=== PATIENT | female | born 1940 | race Caucasian/White ===

== ENCOUNTER → 2017-04-04 13:23 | Outpatient (CLI) | payer MEDICARE, OTHER, SELFPAY ==
[2017-04-02 15:06] VITALS: BP 134/64; BMI 34.4
[2017-04-04 15:30] LABS: AST(SGOT) 28 U/L (15-37); Alanine Aminotransfer ALT/SGPT 38 U/L (13-56); Albumin, Serum 3.7 g/dL (3.2-5.0); Alkaline Phosphatase 71 U/L (45-117); Cholesterol 239 mg/dL (200); Globulin 3.9 g/dL (2.2-4.2); High Density Lipoprotein 41 mg/dL; Protein, Total 7.6 g/dL (6.4-8.2); Triglycerides 280 mg/dL; Very Low Density Lipoprotein 56 mg/dL (5-40)
== END ==
PROVIDERS: Family Provider Family Medicine; PCP Family Medicine; Visit Provider Internal Medicine Cardiovascular Disease
DX: E78.5 Hyperlipidemia, unspecified (principal)
CPT/HCPCS: 36415; 80061; 80076

== ENCOUNTER → 2017-04-25 14:57 | Outpatient (CLI) | payer MEDICARE, OTHER, SELFPAY ==
--- NOTE | 2017-04-25 15:03 | RAD_ITS ---
STUDY: X-RAY - UNILATERAL RIBS ( RIGHT ) WITH CHEST REASON FOR EXAM: Female, 76 years old. Right posterior rib pain TECHNIQUE - RIBS: Four view(s) of the ribs. TECHNIQUE - CHEST: Single frontal view of the chest. COMPARISON: Prior comparison studies are not available for review at this time. FINDINGS - RIBS: Normal visualized ribs without a demonstrated fracture. FINDINGS - CHEST: The lungs are clear and adequately expanded. There is no demonstrated pleural abnormality. Normal size heart. Normal mediastinum and rah. Normal visualized pulmonary arteries. There is atherosclerotic calcification of the aortic arch with tortuosity. There are diffuse degenerative changes of the visualized thoracic spine. There is degenerative osteoarthritis of the bilateral shoulders. There is no demonstrated abnormality of the visualized soft tissue structures of the upper abdomen. RAD/Ribs Uni Min 3V w/PA Chest IMPRESSION: RIBS: No abnormalities are seen radiographically in the right ribs. CHEST: No significant cardiopulmonary abnormalities. Electronically Signed: Tia Smith MD at 16:20 EST Tel Direct: [phone], Service support ,
== END ==
PROVIDERS: Family Provider Family Medicine; PCP Family Medicine; Visit Provider Family Medicine
DX: M54.9 Dorsalgia, unspecified (principal)
CPT/HCPCS: 71101

== ENCOUNTER → 2017-09-10 10:17 | Outpatient (CLI) | payer MEDICARE, OTHER, SELFPAY ==
[2017-09-10 11:29] LABS: AST(SGOT) 20 U/L (15-37); Alanine Aminotransfer ALT/SGPT 28 U/L (13-56); Albumin, Serum 3.8 g/dL (3.2-5.0); Alkaline Phosphatase 83 U/L (45-117); Bilirubin, Direct 0.17 mg/dL (0.00-0.30); Cholesterol 143 mg/dL (200); Globulin 3.8 g/dL (2.2-4.2); High Density Lipoprotein 43 mg/dL; Protein, Total 7.6 g/dL (6.4-8.2); Triglycerides 197 mg/dL; Very Low Density Lipoprotein 39 mg/dL (5-40)
== END ==
PROVIDERS: Family Provider Family Medicine; PCP Family Medicine; Visit Provider Internal Medicine Cardiovascular Disease
DX: E78.5 Hyperlipidemia, unspecified (principal); Z79.899 Other long term (current) drug therapy
CPT/HCPCS: 36415; 80061; 80076

== ENCOUNTER → 2017-10-07 06:36 | Outpatient (CLI) | payer MEDICARE, OTHER, SELFPAY ==
--- NOTE | 2017-10-07 13:58 | STRESSREP ---
Stress Test Report Date: 10/07/2017 Procedure: Pharmacologic stress nuclear imaging study Indications: Chest pain; CAD; PCI Consent: Per the patient Procedure: The patient underwent pharmacologic (Regadenoson) evaluation with a peak heart rate of 100 beats per minute (69 predicted maximal heart rate) and a peak blood pressure of 124/52 mmHg. The baseline ECG demonstrated normal sinus rhythm; nonspecific ST and T-wave abnormality. The peak pharmacologic ECG demonstrated continued nonspecific ST and T-wave abnormality. There were no cardiac dysrhythmias pretest, during pharmacologic infusion, or recovery. There was no complaint of chest discomfort during pharmacologic infusion or recovery. The examination was discontinued secondary to completion of protocol. Impression: 1. Pharmacologic (Regadenoson) evaluation 2. Peak pharmacologic ECG with continued nonspecific ST and T-wave abnormality. 3. There were no cardiac dysrhythmias pretest, during pharmacologic infusion, or recovery 4. Nuclear images pending Myocardial perfusion imaging study: Technique: The patient was injected with 10.8 millicuries of technetium 99m Cardiolite and subsequently rest SPECT Cardiolite nuclear imaging was obtained in the horizontal long, vertical long, and short axis views. The patient underwent pharmacologic (Regadenoson) evaluation with a peak heart rate of 100 beats per minute (69 % percent predicted maximal heart rate) and a peak blood pressure of 124/52 mmHg. The patient was injected with 31.9 millicuries of technetium 99m Cardiolite and subsequently stress SPECT Cardiolite nuclear imaging was obtained in the horizontal long, vertical long, and short axis views. A gated Cardiolite study at peak stress was obtained. Interpretation: Rest and stress SPECT Cardiolite nuclear imaging status post realignment, normalization, and attenuation correction demonstrate relative uniform tracer uptake and myocardial perfusion appearing within normal limits. There is end systolic thickening and brightening. The gated Cardiolite study demonstrates myocardial thickening and inward wall motion. The reported LVEF is a 85 %. Impression: 1. Rest and stress SPECT Cardiolite nuclear imaging demonstrate relative uniform tracer uptake and myocardial perfusion appearing within normal limits. 2. The gated Cardiolite study reports an LVEF of 85 %. This note was generated with Zinc softwareation software. It may contain incorrect words, spelling, and punctuation that were not noted in checking the note before signing.
== END ==
PROVIDERS: Family Provider Family Medicine; PCP Family Medicine; Visit Provider Nurse Practitioner Family
DX: R07.89 Other chest pain (principal); I25.10 Atherosclerotic heart disease of native coronary artery without angina pectoris; R53.83 Other fatigue; R06.00 Dyspnea, unspecified; Z95.5 Presence of coronary angioplasty implant and graft
CPT/HCPCS: 78452; 93017; A9500; A4216; J2785

== ENCOUNTER → 2017-11-19 13:44 | Outpatient (CLI) | payer MEDICARE, OTHER, SELFPAY ==
--- NOTE | 2017-11-19 14:16 | RAD_ITS ---
STUDY: X-RAY CHEST REASON FOR EXAM: Female, 76 years old. Chest pain. Preop for cardiac pacemaker. TECHNIQUE: PA and lateral views of the chest. COMPARISON: Frontal chest x-ray included with rib series April 25, 2017. FINDINGS: There is minimal linear scarring in the lateral left costophrenic sulcus. The lungs are otherwise clear and expanded. There is no demonstrated pleural abnormality. Normal size heart. Normal mediastinum and rah. Normal visualized pulmonary arteries. There is stable mild atherosclerotic calcification of the aortic arch. There are stable multilevel degenerative changes of the visualized thoracic spine. There is stable degenerative osteoarthritis of the bilateral shoulders and acromioclavicular joints. There is no demonstrated abnormality of the visualized soft tissue structures of the upper abdomen. RAD/Chest PA and Lateral IMPRESSION: No acute cardiopulmonary disease. Electronically Signed: Jeffrey Morgan MD at 15:47 EDT , Service support ,
[2017-11-19 15:14] LABS: Hematocrit 40.9 % (37-47); Hemoglobin 13.6 g/dl (12.0-15.0); Mean Corp Hgb Conc 33.3 g/gl (32-36); Mean Corpuscular Hgb 29.2 pg (27.0-32.0); Mean Corpuscular Volume 87.8 fL (81-99); Mean Platelet Vol. 10.5 fl (6.2-12.0); Platelet Count 253 K/mm3 (150-450); RBC Distribution Width CV 13.9 % (11.6-14.6); RBC Distribution Width SD 44.6 fl (35.1-43.9); Red Blood Count 4.66 M/mm3 (4.2-5.4); White Blood Count 10.9 K/mm3 (4.4-11.0)
[2017-11-19 15:25] LABS: Scan Indicated on CBC? Y/N NO
[2017-11-19 15:33] LABS: Anion Gap 9 (5-15); BUN 13 mg/dL (7-18); BUN/Creat Ratio 14.1 RATIO (10-20); Calcium,Total 9.2 mg/dL (8.5-10.1); Chloride 103 mmol/L (98-107); Creatinine, Serum 0.92 mg/dL (0.55-1.02); EST Glomerular Filtration Rate 63 mL/min (>60); Est Glom Filt Rate - Afr Amer 76 mL/min (>60); Glucose 233 mg/dL (74-106); Potassium 4.6 mmol/L (3.5-5.1); Sodium Level 141 mmol/L (136-145)
== END ==
PROVIDERS: Family Provider Family Medicine; PCP Family Medicine
DX: I44.1 Atrioventricular block, second degree (principal)
CPT/HCPCS: 36415; 71046; 80048; 85027

== ENCOUNTER 2018-03-14 15:50 | Emergency (ER) | payer MEDICARE, OTHER, SELFPAY ==
[2017-09-30 15:38] VITALS: BMI 34.4
[2018-03-14 15:52] VITALS: BP 151/70; PULSE 92; RESP 18; TEMP 36.3; O2SAT 97; BMI 33.7
[2018-03-14 16:06] VITALS: O2SAT 94
--- NOTE | 2018-03-14 16:06 | EKG12_ITS ---
Test Reason : CP Blood Pressure : / mmHG Vent. Rate : 087 BPM Atrial Rate : 087 BPM P-R Int : 174 ms QRS Dur : 086 ms QT Int : 338 ms P-R-T Axes : 049 013 054 degrees QTc Int : 406 ms Normal sinus rhythm Nonspecific ST and T wave abnormality Abnormal ECG Confirmed by KAREL NAGY, KATHARINE ([id number]), editor house organ INOCENTE DILLARD ([id number]) on 03/17/2018 4:38:05 PM Referred By: ARJ/GUSTABO Confirmed By:KATHARINE VINSON MD
--- NOTE | 2018-03-14 16:07 | ED.VISSUMM ---
- ER Visit Summary Date of Service: 03/14/18 Chief Complaint: Palpitations History of Present Illness: The patient is a 77 F who presents with palpitations. It has been ongoing for the past 2 days. She states is been intermittent in nature. Nothing makes it better or worse. She feels these palpitations as well as pounding in her chest. She also feels a heaviness in her chest. She has intermittent shortness of breath as well. She also complains of some dizziness. She had a pacemaker placed on December 05. She has a history of atrial fibrillation. Her window tinter is Dr. Bal. Physical Examination: Vital signs reviewed. HEENT exam unremarkable. Heart is regular rate and rhythm without murmurs. Lungs are clear to auscultation. Abdomen is soft and nontender. Extremities reveal no edema. Peripheral pulses are equal. Skin exam normal. Neurologic exam normal. Test Results: Initial EKG is normal sinus rhythm with rate of 87. No ST changes. Laboratory studies are normal except for glucose of 131. Chest x-ray normal Emergency Department Course and Treatment: The patient then went into a wide complex tachycardia with a rate of 120. Repeat EKG does reveal this wide-complex tachycardia. It is unclear if this is from the pacemaker or if this is underlying ventricular tachycardia. I spoke with Dr. Bal at 1625. He recommended interrogating the pacemaker before administering any medications as this could be a pacemaker related issue. The [facility] cash application representative was able to interrogate the pacemaker and shows that this is a pacemaker mediated tachycardia. He was able to adjust the intrinsic settings to make sure that this does not happen again. I discussed this with Dr. Bal after the interrogation. As long as the patient was stable and her electrolytes were unremarkable he feels the patient can be discharged home. Patient is stable and never had hypotension. I feel that she is stable for discharge to home. She will continue her home medications and will follow up with Dr. Bal as well as Dr. Tinajero at [facility] who is her cue selector Treatment Plan: [] Disposition: Discharge Impression: Pacemaker mediated tachycardia This note was generated with OneAwayation software. It may contain incorrect words, spelling, and punctuation that were not noted in review of the chart prior to signing ED Disposition - Plan for ED Patient: Chief Complaint: Palpitations Referrals: Janet Zhao MD [Primary Care Provider] -
[2018-03-14] MEDS: Aspirin 81 MG TAB.CHEW 324 MG PO (16:11)
--- NOTE | 2018-03-14 16:15 | RAD_ITS ---
STUDY: X-RAY CHEST REASON FOR EXAM: Female, 77 years old. Chest pain TECHNIQUE: Frontal view of the chest COMPARISON: 03/21/2017 FINDINGS: The lungs are clear. There are no pleural effusions. There is no pneumothorax. The heart is normal in size. There is a dual-lead pacemaker in place. The visualized osseous structures are within normal limits. RAD/Chest 1 View (Portable) IMPRESSION: No acute thoracic pathology. Electronically Signed: Benito Calle, at 17:28 EST Tel , Service support ,
--- NOTE | 2018-03-14 16:18 | ED.RN ---
Addendum entered by Tri Howe 03/14/18 16:39: sustained run of v-tach rate 120's to 130's. after nsr at 85. pt c/o dizziness, awake and talking. Original Note: Pt c/o dizziness and palpitations, Dr. Mcknight called to room, pt having run of pvc's and pt attached to de-fib pads; heart rate 120-130's. pt currently converted to nsr at 85. pt immediately went back to run of pvc's rate 120.
[2018-03-14 16:19] LABS: Absolute Lymphocyte Count 2.14 X10^3/ul (0.83-4.51); Absolute Neutrophil Count 5.4 X10^3/uL (2.0-7.7); Basophil# 0.05 X10^3/uL; Basophil% 0.6 % (0-1); Eosinophil# 0.26 X10^3/uL; Hematocrit 41.3 % (37-47); Hemoglobin 13.4 g/dl (12.0-15.0); Lymphocyte # 2.14 X10^3/ul (4.0); Lymphocyte % 24.8 % (19-41); Mean Corp Hgb Conc 32.4 g/gl (32-36); Mean Corpuscular Hgb 28.6 pg (27.0-32.0); Mean Corpuscular Volume 88.2 fL (81-99); Mean Platelet Vol. 9.9 fl (6.2-12.0); Monocyte# 0.74 X10^3/uL; Monocyte% 8.6 % (0-10); Neutrophil # 5.42 X10^3/uL (2.7-7.7); Neutrophil % 62.8 % (47-70); Platelet Count 219 K/mm3 (150-450); RBC Distribution Width CV 14.5 % (11.6-14.6); RBC Distribution Width SD 46.9 fl (35.1-43.9); Red Blood Count 4.68 M/mm3 (4.2-5.4); White Blood Count 8.6 K/mm3 (4.4-11.0)
[2018-03-14 16:20] LABS: POSITIVE COUNT NO; POSITIVE DIFFERENTIAL NO; POSITIVE MORPHOLOGY NO
--- NOTE | 2018-03-14 16:28 | ED.RN ---
PT HAS BEEN GOING IN AND OUT OF V-TACH TO PACED NSR, DR. ANTHONY AWARE AND EXPLAINED TO PT THAT DR. LEE WANTS PACEMAKER INTERROGATED PRIOR TO GIVING ANY MEDICATIONS. PT'S DAUGHTER HAS CALL LIGHT AND INSTRUCTED TO CALL FOR ASSISTANCE. [id number] APPLIED. PT C/O OF DIZZINESS WHEN HAVING V-TACH.
--- NOTE | 2018-03-14 16:30 | EKG12_ITS ---
Test Reason : CP Blood Pressure : / mmHG Vent. Rate : 172 BPM Atrial Rate : 120 BPM P-R Int : 000 ms QRS Dur : 142 ms QT Int : 256 ms P-R-T Axes : 000 -70 086 degrees QTc Int : 433 ms Suspect unspecified pacemaker failure QRS tachycardia with Premature supraventricular complexes and Premature ventricular complexes or Fus ion complexes Left axis deviation Non-specific intra-ventricular conduction block Confirmed by KAREL NAGY, KATHARINE ([id number]), web content editor INOCENTE DILLARD ([id number]) on 03/18/2018 1:59:22 PM Referred By: RAJ/GUSTABO Confirmed By:KATHARINE VINSON MD
[2018-03-14 16:35] LABS: Anion Gap 9 (5-15); BUN 20 mg/dL (7-18); BUN/Creat Ratio 24.3 RATIO (10-20); Calcium,Total 9.1 mg/dL (8.5-10.1); Chloride 107 mmol/L (98-107); Creatinine, Serum 0.82 mg/dL (0.55-1.02); EST Glomerular Filtration Rate 71 mL/min (>60); Est Glom Filt Rate - Afr Amer 86 mL/min (>60); Estimated Creatinine Clearance 53.79 ml/min; Glucose 131 mg/dL (74-106); Sodium Level 140 mmol/L (136-145)
--- NOTE | 2018-03-14 16:40 | ED.RN ---
This nurse is currently sitting with pt and pt's daughter. pt resting quietly with eyes closed, NSR rate 87.
[2018-03-14 16:46] VITALS: BP 117/75; PULSE 87; RESP 16; O2SAT 94
[2018-03-14 17:00] VITALS: BP 136/80; PULSE 78; RESP 16; O2SAT 95
[2018-03-14 18:00] VITALS: PULSE 79; RESP 16; O2SAT 95
--- NOTE | 2018-03-14 18:54 | ED.RN ---
JC FROM PACEMAKER INTEROGATION REPORTED THE PT WAS HAVING PMT, PACEMAKER TACHYCARDIA. THE INTERVALS WERE SHORTENED SO THE INTERVALS WOULD NOT CREATE THE WIDENED QRS PER JC.
--- NOTE | 2018-03-14 19:11 | ED.DEP ---
ED Disposition - Plan for ED Patient: Disposition: Home or Assisted Living Chief Complaint: Palpitations Instructions: ED Afib Referrals: Janet Zhao MD [Primary Care Provider] -
[2018-03-14 19:18] VITALS: BP 113/65; PULSE 75; RESP 14; RESP 16; O2SAT 96; O2SAT 97
== END 2018-03-14 19:53 | disposition home or self-care (01) ==
PROVIDERS: Emergency Provider Emergency Medicine; Family Provider Family Medicine; PCP Family Medicine
DX: T82.897A Other specified complication of cardiac prosthetic devices, implants and grafts, initial encounter (principal); R00.0 Tachycardia, unspecified; Z95.0 Presence of cardiac pacemaker; E11.9 Type 2 diabetes mellitus without complications; I10 Essential (primary) hypertension; E78.00 Pure hypercholesterolemia, unspecified; Z79.84 Long term (current) use of oral hypoglycemic drugs; Z79.82 Long term (current) use of aspirin; Z79.899 Other long term (current) drug therapy
CPT/HCPCS: 71045; 80048; 84484; 85025; 93005; 99284; A4216

== ENCOUNTER → 2018-06-03 12:01 | Outpatient (CLI) | payer MEDICARE, OTHER, SELFPAY ==
[2018-04-06 15:46] VITALS: BMI 35.1
[2018-06-03 14:34] LABS: Absolute Lymphocyte Count 1.57 X10^3/ul (0.83-4.51); Absolute Neutrophil Count 5.6 X10^3/uL (2.0-7.7); Basophil# 0.07 X10^3/uL; Basophil% 0.9 % (0-1); Eosinophil# 0.23 X10^3/uL; Eosinophils% 2.8 % (0-5); Hematocrit 39.1 % (37-47); Hemoglobin 12.6 g/dl (12.0-15.0); Lymphocyte # 1.57 X10^3/ul (4.0); Lymphocyte % 19.4 % (19-41); Mean Corp Hgb Conc 32.2 g/gl (32-36); Mean Corpuscular Hgb 28.6 pg (27.0-32.0); Mean Corpuscular Volume 88.7 fL (81-99); Mean Platelet Vol. 10.1 fl (6.2-12.0); Monocyte# 0.58 X10^3/uL; Monocyte% 7.2 % (0-10); Neutrophil # 5.63 X10^3/uL (2.7-7.7); Neutrophil % 69.6 % (47-70); Platelet Count 221 K/mm3 (150-450); RBC Distribution Width CV 13.9 % (11.6-14.6); RBC Distribution Width SD 45.2 fl (35.1-43.9); Red Blood Count 4.41 M/mm3 (4.2-5.4); White Blood Count 8.1 K/mm3 (4.4-11.0)
[2018-06-03 14:47] LABS: POSITIVE COUNT NO; POSITIVE DIFFERENTIAL NO; POSITIVE MORPHOLOGY NO
[2018-06-03 14:48] LABS: AST(SGOT) 14 U/L (15-37); Alanine Aminotransfer ALT/SGPT 24 U/L (13-56); Albumin, Serum 3.8 g/dL (3.2-5.0); Alkaline Phosphatase 82 U/L (45-117); Anion Gap 10 (5-15); BUN 18 mg/dL (7-18); BUN/Creat Ratio 20.7 RATIO (10-20); Bilirubin, Direct 0.13 mg/dL (0.00-0.30); Calcium,Total 8.7 mg/dL (8.5-10.1); Chloride 108 mmol/L (98-107); Cholesterol 146 mg/dL (200); Creatinine, Serum 0.87 mg/dL (0.55-1.02); EST Glomerular Filtration Rate 67 mL/min (>60); Est Glom Filt Rate - Afr Amer 81 mL/min (>60); Globulin 3.1 g/dL (2.2-4.2); Glucose 161 mg/dL (74-106); High Density Lipoprotein 48 mg/dL; Potassium 4.3 mmol/L (3.5-5.1); Protein, Total 6.9 g/dL (6.4-8.2); Sodium Level 143 mmol/L (136-145); Thyroid Stim Hormone (TSH) 0.95 uIU/mL (0.358-3.74); Triglycerides 176 mg/dL; Very Low Density Lipoprotein 35 mg/dL (5-40)
[2018-06-03 14:51] LABS: Microalbumin,Random Urine 33.2 mg/L (NO RANGE EST.); Microalbumin:Creatinine Ratio 24.8 mg/g CRE (<30 mg/g CRE)
== END ==
PROVIDERS: Family Provider Family Medicine; PCP Family Medicine; Referring Provider Family Medicine; Visit Provider Family Medicine
DX: E11.9 Type 2 diabetes mellitus without complications (principal); R53.83 Other fatigue
CPT/HCPCS: 36415; 80048; 80061; 80076; 82043; 82570; 84443; 85025

== ENCOUNTER 2018-07-31 12:29 | Inpatient (IN) | payer MEDICARE, OTHER, SELFPAY ==
[2018-04-06 15:46] VITALS: BMI 35.1
[2018-07-31] VITALS (11 sets, daily range): BP systolic 120–138; BP diastolic 44–95; PULSE 68–82; RESP 12–18; TEMP 36.2–36.9; O2SAT 94–100; BMI 35.6; BMI 36.2
--- NOTE | 2018-07-31 12:47 | EKG12_ITS ---
Test Reason : CP Blood Pressure : / mmHG Vent. Rate : 080 BPM Atrial Rate : 080 BPM P-R Int : 158 ms QRS Dur : 084 ms QT Int : 372 ms P-R-T Axes : -09 018 049 degrees QTc Int : 429 ms Normal sinus rhythm Low voltage QRS Nonspecific ST abnormality Abnormal ECG Confirmed by ROSA NAGY, ESTEPHANIA ([id number]), publication editor INOCENTE DILLARD ([id number]) on 08/03/2018 1:39:45 PM Referred By: Ne Melo Confirmed By:ESTEPHANIA LEE MD
--- NOTE | 2018-07-31 12:48 | CT_ITS ---
STUDY: CT BRAIN WITHOUT CONTRAST REASON FOR EXAM: Female, 77 years old. 3 week history of headaches, dizziness and chest pain. RADIATION DOSAGE (If Supplied By Facility): CTDIvol = ( 44.99 ) mGy, DLP = ( 779.24 ) mGycm TECHNIQUE: Transaxial CT imaging of the brain was performed without administration of intravenous contrast material. Individualized dose optimization techniques were used for this CT. COMPARISON: No relevant priors. FINDINGS: Normal soft tissue structures. Normal calvarium. There is mild cerebral atrophy with widening of the extra-axial spaces and ventricular dilatation. There are areas of decreased attenuation within the white matter tracts of the supratentorial brain, consistent with microvascular disease changes. There are small punctate calcifications of the basal ganglia which are seen in the aging brain as a normal variant. Normal brainstem. Normal cerebellum. There is no intracranial hemorrhage. There are no findings of an acute ischemic infarction. Atherosclerotic calcification of the vertebral arteries and cavernous portions of the internal carotid arteries bilaterally. Normal visualized paranasal sinuses. CT/Brain/Head without Contrast IMPRESSION: Chronic involutional changes of the brain. Electronically Signed: Sharad Hooks, at 13:22 EDT , Service support ,
--- NOTE | 2018-07-31 12:51 | ED.DCSUM_ITS ---
History of Present Illness Chief Complaint: Chest Pain Narrative: 77-year-old female presents with 3 weeks of fairly constant midsternal nonradiating chest pain. She states that that is not really the reason she came to the hospital today, she came rather because she has been having vertigo for the past 3 weeks as well. It does not occur at rest. It only occurs with turning her head, especially when leaning her head forward. She describes it as a severe spinning sensation and she vomits nearly every time it occurs. She has had a peripheral vertigo in the past but Antivert did not work for her this time. She has also had a fairly constant headache for the past year and has been sleeping more than usual for the past year as well. She denies any recent falls or head trauma. Current severity of her symptoms is moderate. Past Medical History - Allergies and Home Meds Allergies/Adverse Reactions: Allergies latex Adverse Reaction (Verified 04/06/18 15:52) Rash Primary Care Physician: Janet Zhao MD [Primary Care Provider] - Prior records reviewed: Yes Past Medical History: - - Heart disease, pacemaker, vertigo Surgical History: total knee arthroplasty, stents August 2010, for A. fib 2002 Smoking Status: Never smoker Review of Systems All systems negative except as indicated General: Denies: Chills, Fever, Sweats Eyes: Denies: Visual changes - bilaterally, Diplopia ENT: Denies: Rhinorrhea, Sore throat Cardiovascular: Reports: Chest pain. Denies: Palpitations Respiratory: Denies: Dyspnea, Cough, Dyspnea on exertion Gastrointestinal: Denies: Abdominal pain, Nausea, Vomiting, Diarrhea, Melena, Hematochezia Genitourinary: Denies: Dysuria, Hematuria, Frequency Musculoskeletal: Denies: Back pain, Extremity Pain Skin: Denies: Rash, Abrasions, Wounds Neurological: Reports: Headache. Denies: Weakness, Numbness Hematologic: Denies: Easy bruising, Easy bleeding Physical Exam Vital Signs/Narrative: Vital Signs Temp Pulse Resp BP Pulse Ox 07/31/18 12:30 97.2 F L 82 16 120/66 95 Inital Vital Signs reviewed: Yes General: Well nourished, Well developed, No Acute Distress Head: Normocephalic, Atraumatic Eyes: Perrl, EOMI ENT: Moist mucous membranes, No rhinorrhea Neck: Supple, Nontender Cardiovascular: Regular rate, Regular rhythm, No murmurs Respiratory: No distress, CTA bilaterally, Chest nontender Abdomen: Soft, Nontender, Nondistended, Normal bowel sounds Back: Nontender, Normal Inspection Extremities: Nontender, No edema Skin: Normal color, No rash Neurological: Alert, Oriented x3, Cranial nerves II-XII grossly intact, Normal Strength, Normal Sensation Psychological: Normal affect, Normal Mood Diagnostic/Tx/Re-eval Chest X-Ray - ED: 2 View, Read by Radiologist, Normal, Heart, Lungs, No Acute Disease - Rhythm Strip Rhythm Strip: Sinus Rhythm Rate: 80 Ectopy: None - Medical Decision Making Labs are essentially unremarkable. Troponin is negative and EKG is unremarkable after several weeks of chest pain. She has no shortness of breath and no pleuritic component to her pain so I think pulmonary embolism is extremely unlikely. Her main issue is the vertigo and her headache. Her noncontrast brain CT is negative. It seemed more peripheral based on her description however she did not respond at all to a total of 27 tablets of Antivert at home over the past several weeks and did not respond to Antivert or Phenergan here and is unable to ambulate. She states that she is having some symptoms at rest so it is certainly possible that there could be a component of vertebrobasilar insufficiency or posterior circulation issues. She is unable to walk even with assistance and therefore she is not comfortable going home and I do agree that she meets criteria for observation. ED Disposition - Plan for ED Patient: Disposition: Acute Care Hospital [facility] Diagnosis: Ataxia, Chest pain Referrals: Janet Zhao MD [Primary Care Provider] -
[2018-07-31 13:03] LABS: Absolute Lymphocyte Count 1.48 X10^3/ul (0.83-4.51); Absolute Neutrophil Count 5.5 X10^3/uL (2.0-7.7); Basophil# 0.04 X10^3/uL; Basophil% 0.5 % (0-1); Eosinophil# 0.23 X10^3/uL; Eosinophils% 2.9 % (0-5); Hematocrit 38.7 % (37-47); Lymphocyte # 1.48 X10^3/ul (4.0); Lymphocyte % 18.5 % (19-41); Mean Corp Hgb Conc 33.6 g/gl (32-36); Mean Corpuscular Volume 86.2 fL (81-99); Mean Platelet Vol. 10.1 fl (6.2-12.0); Monocyte# 0.72 X10^3/uL; Neutrophil # 5.49 X10^3/uL (2.7-7.7); Neutrophil % 68.8 % (47-70); POSITIVE COUNT NO; POSITIVE DIFFERENTIAL NO; POSITIVE MORPHOLOGY NO; Platelet Count 208 K/mm3 (150-450); RBC Distribution Width CV 13.7 % (11.6-14.6); RBC Distribution Width SD 43.3 fl (35.1-43.9); Red Blood Count 4.49 M/mm3 (4.2-5.4)
--- NOTE | 2018-07-31 13:12 | RAD_ITS ---
STUDY: X-RAY CHEST REASON FOR EXAM: Female, 77 years old. Chest pain. TECHNIQUE: AP and lateral views of the chest. COMPARISON: Comparison is made with prior study dated March 14, 2018. FINDINGS: EKG electrodes are seen. Minimal increased markings at the left lung base suggestive of linear atelectasis. There is no demonstrated pleural abnormality. Normal size heart. A left-sided dual-chamber pacemaker is seen. Normal mediastinum and rah. Normal visualized pulmonary arteries. There is atherosclerotic calcification of the aortic arch with tortuosity. Normal visualized thoracic spine. There is degenerative osteoarthritis of the bilateral shoulders. There is no demonstrated abnormality of the visualized soft tissue structures of the upper abdomen. RAD/Chest PA and Lateral IMPRESSION: Minimal increased markings at the left lung base suggestive of linear atelectasis. Electronically Signed: Sharad Hooks, at 15:39 EDT , Service support ,
[2018-07-31 13:13] LABS: Anion Gap 7 (5-15); BUN 20 mg/dL (7-18); BUN/Creat Ratio 20.6 RATIO (10-20); Calcium,Total 8.9 mg/dL (8.5-10.1); Chloride 105 mmol/L (98-107); Creatinine, Serum 0.97 mg/dL (0.55-1.02); EST Glomerular Filtration Rate 59 mL/min (>60); Est Glom Filt Rate - Afr Amer 71 mL/min (>60); Glucose 177 mg/dL (74-106); Potassium 4.1 mmol/L (3.5-5.1); Sodium Level 141 mmol/L (136-145)
[2018-07-31] MEDS: Aspirin 81 MG TAB.CHEW 324 MG PO (13:30)
[2018-07-31] MEDS: proMETHazine 25 MG/ML Syringe 6.25 MG IV (13:31)
[2018-07-31] MEDS: Meclizine HCl 25 MG Tablet PO (14:07)
--- NOTE | 2018-07-31 14:56 | PCM.HP.STD ---
Problem List (1) Vertigo Status: Acute (2) Chest pain Status: Acute Qualifiers: Chest pain type: unspecified Qualified Code(s): R07.9 - Chest pain, unspecified (3) Cardiomyopathy, dilated Status: Chronic (4) Paroxysmal atrial fibrillation Status: Chronic Comment: S/P EPS/RFA in January 2003 at [facility]; (5) HTN (hypertension) Status: Chronic Qualifiers: Hypertension type: essential hypertension Qualified Code(s): I10 - Essential (primary) hypertension (6) HLD (hyperlipidemia) Status: Chronic Qualifiers: Hyperlipidemia type: unspecified Qualified Code(s): E78.5 - Hyperlipidemia, unspecified History of Present Illness Date of Admission: 07/31/18 Chief Complaint: Dizziness - ongoing for more than 2 weeks The patient is a 77 year old F with past medical history of hypertension, hyperlipidemia, type II DM, history of CAD status post stent, who comes in with complaints of dizziness ongoing for 2 and half weeks. The nurses described as feeling of unsteadiness and a feeling of her eyes going to pop up when she moves her head. She has been on meclizine this time with no improvement. She is unable to ambulate because of this. Denies any fever or chills or recent illness or upper respiratory or gastrointestinal disease. She denies any ringing the ears. No weakness in any of her extremities, no numbness or tingling. Also complains of some mild chest discomfort described as midsternal, dull, lasts for a few seconds and goes away. Vitals in the ED showed temperature of 97.2F, heart rate 82, blood pressure 120/66, respiratory rate of 16, SPO2 95% on room air. Admitting blood work was unremarkable. CT scan of the brain shows chronic involuntary changes. 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/05/17; Atherosclerosis of [place] coronary artery of [place] heart without angina pectoris (Chronic) S/P PTCA/stent to second acute marginal branch of RCA in August 2010; negative FFR evaluation of LAD in October 2010; Cardiomyopathy, dilated (Chronic) Paroxysmal atrial fibrillation (Chronic) S/P EPS/RFA in January 2003 at [facility]; Presence of stent in coronary artery (Chronic ~08/2010) IVUS PTCA/stent of the OM2 08/2000; IVUS of the mid and prox LAD 11/01/09 HTN (hypertension) (Chronic) HLD (hyperlipidemia) (Chronic) Medical History: Medical History (Last Updated 10/23/17 @ 08:59 by Isabell Glover) Second degree AV block (Acute) I44.1 Type 2 diabetes mellitus (Acute) E11.9 Angina pectoris (Acute) I20.9 Cardiomyopathy, dilated (Chronic) I42.0 Paroxysmal atrial fibrillation (Chronic) I48.0 S/P EPS/RFA in January 2003 at [facility]; Paroxysmal atrial flutter (Acute) I48.92 Fatigue (Acute) R53.83 Dyspnea (Acute) R06.00 Chest discomfort (Acute) R07.89 Abnormal EKG (Acute) R94.31 Long-term use of high-risk medication (Acute) Z79.899 Old myocardial infarction (Acute) I25.2 HTN (hypertension) (Chronic) I10 HLD (hyperlipidemia) (Chronic) E78.5 Depression F32.9 Atherosclerotic heart disease of [place] coronary artery without angina pectoris I25.10 IVUS PTCA/stent of the OM2 ; IVUS of the mid and prox LAD 11/01/09 CAD (coronary artery disease) (Inactive) I25.10 DM2 (diabetes mellitus, type 2) (Inactive) E11.9 Depression (Inactive) F32.9 History of atrial fibrillation (Inactive) Z86.79 Allergies latex Adverse Reaction (Verified 04/06/18 15:52) Rash Home Medications: Ambulatory Orders Medication Instructions Recorded Glimepiride [Amaryl] 4 mg PO DAILY 10/22/16 aspirin 81 mg tablet,delayed 81 mg PO DAILY 03/31/17 release fluoxetine 40 mg capsule 40 mg PO DAILY 04/06/18 liraglutide 0.6 mg/0.1 mL (18 mg/3 1.2 mg SC DAILY ml 04/06/18 mL) subcutaneous pen injector Atorvastatin Calcium [Lipitor] 40 mg PO DAILY 07/31/18 Clopidogrel Bisulfate [Plavix] 75 mg PO DAILY 07/31/18 Glimepiride 2 mg PO QHS 07/31/18 Isosorbide Mononitrate [Imdur] 30 mg PO DAILY 07/31/18 Lisinopril [Zestril] 20 mg PO DAILY 07/31/18 Surgical History: Surgical History (Last Updated 04/06/18 @ 15:55 by Michelle Foy) Presence of stent in coronary artery (Chronic) Onset Date: ~08/2010 Z95.5 IVUS PTCA/stent of the OM2 08/2000; IVUS of the mid and prox LAD 11/01/09 History of bilateral knee replacement Z96.653 History of foot surgery Z98.890 Bilateral History of left cataract surgery Z98.42 History of right cataract surgery Z98.41 Pacemaker Onset Date: ~12/05/17 Z95.0 Status post ablation of atrial fibrillation Onset Date: ~2002 Z98.890, Z86.79 Surgical History: cataract - Bilateral cataract surgery, total knee arthroplasty, - - bilateral foot surgery, CAD status post stent, status post bilateral knee replacement, status post atrial fibrillation ablation, Psychiatric History: Anxiety, Depression [employer] History: No pertinent [employer] history Lives: Spouse/ Significant Other Smoking Status: Never smoker Tobacco Use: Non-smoker Alcohol: None Drugs: None - *Family History Maternal Family History: Family History (Last Reviewed 04/06/18 @ 15:55 by Michelle Foy) Mother CAD (coronary artery disease) Sister Atrial fibrillation Sister CAD (coronary artery disease) COPD (chronic obstructive pulmonary disease) History Items: No pertinent history Paternal Family History: Family History (Last Reviewed 04/06/18 @ 15:55 by Michelle Foy) Mother CAD (coronary artery disease) Sister Atrial fibrillation Sister CAD (coronary artery disease) COPD (chronic obstructive pulmonary disease) History Items: Heart Disease, Hypertension Review of Systems Constitutional: Reports: Anorexia, Weakness, Fatigue. Denies: Chills, Fever, Malaise, Weight Change Eyes: Denies: Blurred vision, Cataracts, Conjunctivae Inflammation, Pain, Redness, Vision Change HEENT: Denies: Difficulty Hearing, Difficulty Swallowing, Head Aches, Hearing Changes, Sinus Congestion, Sinus Drainage, Sore Throat Cardiovascular: Denies: Chest Pain, Claudication, Light Headedness, Orthopnea, Palpitations Respiratory: Denies: Cough, Shortness of breath at rest, Shortness of breath upon exertion, Sputum production Gastrointestinal: Denies: Abdominal Pain, Hematemesis, Hematochezia, Nausea, Vomiting Genitourinary: Denies: Dysuria, Frequency, Incontinence Musculoskeletal: Denies: Joint Pain, Joint stiffness, Joint swelling, Joint Tenderness Skin: Denies: Rash, Wounds Neurological: Denies: Difficulty swallowing, Focal weakness, Numbness, Tingling Psychiatric: Denies: Anxiety, Depression, Homicidal Ideations, Suicidal Ideations Hematologic/ Lymphatic: Denies: Easy Bruising, Easy Bleeding VTE Information - Inpt Only VTE Present on Admission: No VTE Pharm Prophylaxis ordered?: Yes Patient Problems: Active and Suspected Problems (Last Updated 10/23/17 @ 08:59 by Isabell Glover) Ataxia (Acute) Chest pain (Acute) Vertigo (Acute) - Physical Exam Vital Signs Temp Pulse Resp BP Pulse Ox 97.2 F L 70 18 133/70 H 99 07/31/18 12:30 07/31/18 14:03 07/31/18 14:03 07/31/18 14:03 07/31/18 14:03 Oxygen Flow Rate (L/min) 1 Oxygen Delivery Method Nasal Cannula Weight: 97 kg Body Mass Index (BMI) 35.6 Laboratory Tests Past 24 Hrs 07/31/18 07/31/18 12:55 12:55 WBC 8.0 RBC 4.49 Hgb 13.0 Hct 38.7 MCV 86.2 MCH 29.0 MCHC 33.6 RDW 13.7 RDW Differential 43.3 Plt Count 208 MPV 10.1 Immature Gran % (Auto) 0.300 Neut % (Auto) 68.8 Lymph % (Auto) 18.5 L [place] % (Auto) 9.0 Eos % (Auto) 2.9 Baso % (Auto) 0.5 Absolute Neuts (auto) 5.5 Absolute Lymphs (auto) 1.48 Total Counted Not Reportable Sodium 141 Potassium 4.1 Chloride 105 Carbon Dioxide 29.0 Anion Gap 7 BUN 20 H Creatinine 0.97 Estim Creat Clear Calc 43.70 Est GFR (MDRD) Af Amer 71 Est GFR (MDRD) Non-Af 59 L BUN/Creatinine Ratio 20.6 H Glucose 177 H Calcium 8.9 Troponin I < 0.015 Assessment/Plan All Active Problems (Last Updated 10/23/17 @ 08:59 by Isabell Glover) Ataxia (Acute) Chest pain (Acute) Vertigo (Acute) Second degree AV block (Acute) Type 2 diabetes mellitus (Acute) Angina pectoris (Acute) Paroxysmal atrial flutter (Acute) Fatigue (Acute) Dyspnea (Acute) Chest discomfort (Acute) Abnormal EKG (Acute) Long-term use of high-risk medication (Acute) Old myocardial infarction (Acute) 77 year old F with past medical history of hypertension, hyperlipidemia, type II DM, history of CAD status post stent, who comes in with complaints of dizziness ongoing for 2 and half weeks. 1. Acute vertigo, concerning for possible BPPV vs posterior circulation stroke in a patient with multiple risk factors Initial CT scan of the brain is negative. Status post pacemaker Plan: Admit to PCU, monitor on telemetry, will find out from MRI if pacemaker is compatible; if it is MRI of brain, CT of the head and neck, neurology consult PT and OT to evaluate and treat 2. Type II DM, on Amaryl, Victoza, will hold Victoza, continue with Amaryl, Accu-Cheks with insulin sliding scale 3. Hypertension/CAD status post stent/hyperlipidemia/paroxysmal A. fib, stable, On aspirin, Plavix, statin, isosorbide, lisinopril 4. Anxiety/depression, on fluoxetine 5. DVT PPx- Heparin SC Code Visit Inpatient E&M: 15347 Init Hosp L3
--- NOTE | 2018-07-31 15:24 | ED.RN ---
PT PACEMAKER CARDS COPPIED AND FAXED TO MRI. DAGO NOTIFIED TO CALL DR DELEON WITH [facility] CAN HAVE MRI
--- NOTE | 2018-07-31 16:04 | CT_ITS ---
STUDY: CTA NECK WITH CONTRAST REASON FOR EXAM: Female, 77 years old. Vertigo possible CVA RADIATION DOSAGE (If Supplied By Facility): CTDIvol = ( 15.82 ) mGy, DLP = ( 689.21 ) mGycm TECHNIQUE: CT angiography with multi-detector data acquisition was performed from the aortic arch to the skull base following intravenous administration of 100 IV Isovue 370. MIP images were reconstructed from the axial data set. Post-processing of the angiographic images was performed, with multiplanar reformation and 3D reconstruction. Individualized dose optimization techniques were used for this CT. COMPARISON: None. FINDINGS: AORTIC ARCH: Normal visualized aortic arch. Normal origins of the brachiocephalic, left common carotid, and left subclavian arteries. RIGHT CAROTID ARTERIES: Normal right common carotid artery (CCA). Mild calcific plaquing of the right common carotid bulb. Normal origin of the right internal carotid (ICA) artery without a hemodynamically significant stenosis. Normal visualized cervical portion of the right internal carotid artery. Normal origin of the right external carotid artery (ECA). LEFT CAROTID ARTERIES: Normal left common carotid artery (CCA). Minor calcific plaquing of the left common carotid bulb. Normal origin of the left internal carotid (ICA) artery without a hemodynamically significant stenosis. Normal visualized cervical portion of the left internal carotid artery. Normal origin of the left external carotid artery (ECA). VERTEBRAL ARTERIES: Normal bilateral vertebral arteries. IMPRESSION: Mild atherosclerotic disease. No evidence for hemodynamically significant stenosis utilizing NASCET criteria. Electronically Signed: David Miller MD at 22:01 EDT , Service support , STUDY: CTA OF THE BRAIN REASON FOR EXAM: Female, 77 years old. Vertigo possible CVA RADIATION DOSAGE (If Supplied By Facility): CTDIvol = ( 15.82 ) mGy, DLP = ( 689.21 ) mGycm TECHNIQUE: CT angiography was performed with a multi-detector CT scanner. Data acquisition was obtained from the skull base through the vertex following intravenous administration of 100 IV Isovue 370. MIP images were reconstructed from the axial data set. Post-processing of the angiographic images was performed, with multiplanar reformation and 3D reconstruction. Individualized dose optimization techniques were used for this CT. COMPARISON: None. FINDINGS: Normal bilateral petrous carotid arteries. Calcific plaquing of the right cavernous carotid artery with a normal supraclinoid bifurcation. Calcific plaquing of the left cavernous carotid artery with a normal supraclinoid bifurcation. Normal right A1 segments of the anterior cerebral artery. Normal left A1 segments of the anterior cerebral artery. Anterior communicating artery not visualized consistent with normal variant Normal bilateral A2 segments of the anterior cerebral arteries. Normal right M1 and M2 segments of the middle cerebral arteries, with a normal M1 bifurcation. Normal left M1 and M2 segments of the middle cerebral arteries, with a normal M1 bifurcation. Posterior communicating arteries are not visualized consistent with normal variant Mild calcific plaquing of the distal vertebral arteries without significant stenosis.. Normal basilar artery with a normal basilar bifurcation. The visualized bilateral superior cerebellar (SCA) arteries are normal. Normal bilateral P1, P2 and visualized P3 segments of the posterior cerebral arteries. There is no demonstrated aneurysm of the [place] of [place]. There is no demonstrated abnormality of the visualized brain. CT/CTA Head W/WO Contrast IMPRESSION: Mild atherosclerotic disease without a demonstrated aneurysm or hemodynamically significant stenosis. Electronically Signed: David Miller MD at 22:04 EDT , Service support ,
--- NOTE | 2018-07-31 16:05 | CT_ITS ---
STUDY: CTA NECK WITH CONTRAST REASON FOR EXAM: Female, 77 years old. Vertigo possible CVA RADIATION DOSAGE (If Supplied By Facility): CTDIvol = ( 15.82 ) mGy, DLP = ( 689.21 ) mGycm TECHNIQUE: CT angiography with multi-detector data acquisition was performed from the aortic arch to the skull base following intravenous administration of 100 IV Isovue 370. MIP images were reconstructed from the axial data set. Post-processing of the angiographic images was performed, with multiplanar reformation and 3D reconstruction. Individualized dose optimization techniques were used for this CT. COMPARISON: None. FINDINGS: AORTIC ARCH: Normal visualized aortic arch. Normal origins of the brachiocephalic, left common carotid, and left subclavian arteries. RIGHT CAROTID ARTERIES: Normal right common carotid artery (CCA). Mild calcific plaquing of the right common carotid bulb. Normal origin of the right internal carotid (ICA) artery without a hemodynamically significant stenosis. Normal visualized cervical portion of the right internal carotid artery. Normal origin of the right external carotid artery (ECA). LEFT CAROTID ARTERIES: Normal left common carotid artery (CCA). Minor calcific plaquing of the left common carotid bulb. Normal origin of the left internal carotid (ICA) artery without a hemodynamically significant stenosis. Normal visualized cervical portion of the left internal carotid artery. Normal origin of the left external carotid artery (ECA). VERTEBRAL ARTERIES: Normal bilateral vertebral arteries. IMPRESSION: Mild atherosclerotic disease. No evidence for hemodynamically significant stenosis utilizing NASCET criteria. Electronically Signed: David Miller MD at 22:01 EDT , Service support , STUDY: CTA OF THE BRAIN REASON FOR EXAM: Female, 77 years old. Vertigo possible CVA RADIATION DOSAGE (If Supplied By Facility): CTDIvol = ( 15.82 ) mGy, DLP = ( 689.21 ) mGycm TECHNIQUE: CT angiography was performed with a multi-detector CT scanner. Data acquisition was obtained from the skull base through the vertex following intravenous administration of 100 IV Isovue 370. MIP images were reconstructed from the axial data set. Post-processing of the angiographic images was performed, with multiplanar reformation and 3D reconstruction. Individualized dose optimization techniques were used for this CT. COMPARISON: None. FINDINGS: Normal bilateral petrous carotid arteries. Calcific plaquing of the right cavernous carotid artery with a normal supraclinoid bifurcation. Calcific plaquing of the left cavernous carotid artery with a normal supraclinoid bifurcation. Normal right A1 segments of the anterior cerebral artery. Normal left A1 segments of the anterior cerebral artery. Anterior communicating artery not visualized consistent with normal variant Normal bilateral A2 segments of the anterior cerebral arteries. Normal right M1 and M2 segments of the middle cerebral arteries, with a normal M1 bifurcation. Normal left M1 and M2 segments of the middle cerebral arteries, with a normal M1 bifurcation. Posterior communicating arteries are not visualized consistent with normal variant Mild calcific plaquing of the distal vertebral arteries without significant stenosis.. Normal basilar artery with a normal basilar bifurcation. The visualized bilateral superior cerebellar (SCA) arteries are normal. Normal bilateral P1, P2 and visualized P3 segments of the posterior cerebral arteries. There is no demonstrated aneurysm of the [place] of [place]. There is no demonstrated abnormality of the visualized brain. CT/CTA Neck W/WO Contrast IMPRESSION: Mild atherosclerotic disease without a demonstrated aneurysm or hemodynamically significant stenosis. Electronically Signed: David Miller MD at 22:04 EDT , Service support ,
[2018-07-31] MEDS: 0.9% Normal Saline 1,000 ML 100 ML IV (17:03)
[2018-07-31 17:16] LABS: Bedside Glucose 107 mg/dL (70-110)
[2018-07-31] MEDS: Insulin Lispro 100 UNIT/ML INSULN.PEN SQ (21:21)
[2018-07-31] MEDS: Glimepiride 2 MG Tablet PO (21:21)
[2018-07-31] MEDS: Heparin Injection (Vial) 5,000 UNIT/ML VIAL 5000 UNIT SC (21:25)
[2018-07-31 23:16] LABS: Bedside Glucose 189 mg/dL (70-110)
[2018-08-01 02:50] VITALS: BP 141/65; PULSE 71; RESP 15; TEMP 36.7; O2SAT 92
[2018-08-01 03:02] VITALS: PULSE 72
[2018-08-01] MEDS: 0.9% Normal Saline 1,000 ML 100 ML IV (04:21)
[2018-08-01] MEDS: Heparin Injection (Vial) 5,000 UNIT/ML VIAL 5000 UNIT SC (06:13)
[2018-08-01 07:01] LABS: Bedside Glucose 105 mg/dL (70-110)
[2018-08-01 07:07] VITALS: PULSE 70
[2018-08-01 07:20] LABS: Anion Gap 4 (5-15); BUN 16 mg/dL (7-18); BUN/Creat Ratio 19.2 RATIO (10-20); Calcium,Total 8.2 mg/dL (8.5-10.1); Chloride 109 mmol/L (98-107); Creatinine, Serum 0.84 mg/dL (0.55-1.02); EST Glomerular Filtration Rate 70 mL/min (>60); Est Glom Filt Rate - Afr Amer 85 mL/min (>60); Estimated Creatinine Clearance 50.47 ml/min; Glucose 109 mg/dL (74-106); Sodium Level 140 mmol/L (136-145)
[2018-08-01 08:25] VITALS: BP 152/79; PULSE 74; RESP 16; TEMP 36.8; O2SAT 95
[2018-08-01] MEDS: Glimepiride 4 MG Tablet PO (08:45)
[2018-08-01] MEDS: Isosorbide Mononitrate 30 MG Tablet PO (08:45)
[2018-08-01] MEDS: FLUoxetine 20 MG Capsule 40 MG PO (08:45)
[2018-08-01] MEDS: Aspirin E.C. 81 MG Tablet PO (08:45)
[2018-08-01] MEDS: Clopidogrel Bisulfate 75 MG Tablet PO (08:45)
[2018-08-01] MEDS: Atorvastatin Calcium 40 MG Tablet PO (08:45)
[2018-08-01] MEDS: Lisinopril 20 MG Tablet PO (08:46)
--- NOTE | 2018-08-01 09:30 | MRI_ITS ---
STUDY: MRI BRAIN WITHOUT CONTRAST REASON FOR EXAM: Female, 77 years old. Vertigo for 3 weeks. TECHNIQUE: Standardized multiplanar fat and water weighted pulse sequences were obtained. COMPARISON: None. FINDINGS: There is mild cerebral atrophy with widening of the extra-axial spaces and ventricular dilatation. There are multiple white matter hyperintensities, distributed throughout the deep white matter tracts of the cerebral hemispheres, consistent with moderate chronic white matter ischemic changes. There is no evidence for recent intracranial ischemia or other cause of cytotoxic edema on diffusion weighted imaging (DWI). Normal T2* images of the brain without demonstrated susceptibility artifact. There is no demonstrated hemosiderin stain. Normal bilateral basal ganglia. Normal thalami. There is no extra-axial fluid accumulation. Normal flow voids within the major intracranial circulation suggesting patency by spin echo criteria. Normal sella turcica, pituitary gland, infundibular stalk, optic chiasm and hypothalamus. Normal tectal plate and pineal gland. Normal midbrain, jin and medulla. Normal cerebellum. Normal basal cisterns. Normal bilateral temporal bones. Normal bilateral internal auditory canals. No demonstrated orbital abnormality, within the constraints of a routine brain study. Normal visualized paranasal sinuses. Normal calvarium and skull base. Normal visualized soft tissue structures. Normal visualized upper cervical spine. MRI/Brain without Contrast IMPRESSION: Senescent changes as above with no evidence of acute intracranial bleed, mass or ischemia. Electronically Signed: Otto Bermudez DO at 11:13 EDT , Service support ,
[2018-08-01] MEDS: Acetaminophen 325 MG Tablet 650 MG PO (11:00)
[2018-08-01] MEDS: 0.9% NaCl Peripheral Flush Adult/Peds IV (11:01)
[2018-08-01 11:02] VITALS: PULSE 89
[2018-08-01 11:11] LABS: Bedside Glucose 128 mg/dL (70-110)
--- NOTE | 2018-08-01 11:52 | DCINST_ITS ---
- Discharge Diagnoses Current Active Problems: Current Active and Chronic Problems (Last Updated 10/23/17 @ 08:59 by Isabell Glover) Ataxia (Acute) Chest pain (Acute) Vertigo (Acute) You will use the following diet at home:: Cardiac Your food should be the consistency of: Regular Your liquids should be the consistency of: Regular/Thin Discharge Activity: Return to Normal Activity Allergies/Adverse Reactions: Allergies latex Allergy (Verified 07/31/18 15:48) Rash Medications to take at Discharge Glimepiride [Amaryl] 4 mg PO DAILY 10/22/16 aspirin 81 mg tablet,delayed release 81 mg PO DAILY 03/31/17 fluoxetine 40 mg capsule 40 mg PO DAILY 04/06/18 liraglutide 0.6 mg/0.1 mL (18 mg/3 mL) subcutaneous pen injector 1.2 mg SC DAILY ml 04/06/18 Atorvastatin Calcium [Lipitor] 40 mg PO DAILY 07/31/18 Glimepiride 2 mg PO QHS 07/31/18 Isosorbide Mononitrate [Imdur] 30 mg PO DAILY 07/31/18 Lisinopril [Zestril] 20 mg PO DAILY 07/31/18 Apixaban [Eliquis] 5 mg PO BID #60 tablet 08/01/18 The following prescriptions were given: Apixaban [Eliquis] 5 mg PO BID #60 tablet Primary Care Physician: Janet Zhao MD [Primary Care Provider] - Please follow up with your Primary Care Physician in: 1-2 weeks Test Results: Test results from this visit will be discussed in further detail at your follow- up appointment, if applicable. Please Follow Up With: Pradip Bal MD When: 3-4 weeks Please Follow Up With: Adolfo Lester MD When: 1 week Proposed Discharge Date: 08/01/18
[2018-08-01 12:35] VITALS: BP 142/59; PULSE 84; RESP 14; TEMP 36.9; O2SAT 96
--- NOTE | 2018-08-01 14:24 | PCM.DC.SUM ---
<Luís Chiu - Last Filed: 08/01/18 14:24> Discharge Date and Diagnosis Date of Admission: 07/31/18 Date of Discharge: 08/01/18 - Primary Discharge Diagnosis Vertigo unclear etiology, suspect BPPV CVA ruled out paroxysmal afib pacemaker in place Hx dilated cardiomyopathy CAD with prior stents HTN HLD Dmt2 - Secondary Discharge Diagnosis Chronic Problems (Last Updated 10/23/17 @ 08:59 by Isabell Glover) Presence of cardiac pacemaker (Chronic) Status post sick sinus syndrome; implanted 12/05/17; Atherosclerosis of [place] coronary artery of [place] heart without angina pectoris (Chronic) S/P PTCA/stent to second acute marginal branch of RCA in August 2010; negative FFR evaluation of LAD in October 2010; Cardiomyopathy, dilated (Chronic) Paroxysmal atrial fibrillation (Chronic) S/P EPS/RFA in January 2003 at [facility]; Presence of stent in coronary artery (Chronic ~08/2010) IVUS PTCA/stent of the OM2 08/2000; IVUS of the mid and prox LAD 11/01/09 HTN (hypertension) (Chronic) HLD (hyperlipidemia) (Chronic) Hospital Course and Treatment Imaging Results: 08/01/18 09:30 Brain without Contrast [MRI] Urgent CT/Brain/Head without Contrast IMPRESSION: Chronic involutional changes of the brain. RAD/Chest PA and Lateral IMPRESSION: Minimal increased markings at the left lung base suggestive of linear atelectasis. CTA neck IMPRESSION: Mild atherosclerotic disease. No evidence for hemodynamically significant stenosis utilizing NASCET criteria. CT/CTA Head W/WO Contrast IMPRESSION: Mild atherosclerotic disease without a demonstrated aneurysm or hemodynamically significant stenosis. MRI/Brain without Contrast IMPRESSION: Senescent changes as above with no evidence of acute intracranial bleed, mass or ischemia. Operations: None Procedures: None Summary of Care Provided: Hospital course: The patient is a 77 year old F with past medical history of paroxysmal atrial fibrillation, not on oral anticoagulation, history of pacemaker, CAD with prior stent, dilated cardiomyopathy, type 2 diabetes, hypertension, hyperlipidemia, who presented to the emergency room with complaints of vertigo. The patient described a sensation of the room spinning while at rest or with activity, anytime she would turn her head. She had been treated as an outpatient with meclizine for BPPV with no relief. CT of the brain was negative, troponin was negative, EKG was negative. She was admitted to the PCU with concern for acute CVA. The following day she underwent a CTA of the head and neck which was unremarkable, she then underwent an MRI of the brain after we verified her pacemaker was compatible, this was negative for acute CVA, only chronic changes present. As the patient had a history of paroxysmal atrial fibrillation and she had a Mitchell Vasc score greater than 2 this felt that she should be started on Eliquis. The patient was unsure whether she wanted to start Eliquis at this time or not, and wanted to discuss it with her client services representative at follow-up. We did write her a prescription for Eliquis and advised her that if she starts taking it she needs to discontinue Plavix, it is okay to continue aspirin. If she does not start taking it she can continue aspirin and Plavix until follow-up. She did remain in sinus rhythm while here. None of her other medications were changed. We felt that she likely had an inner ear issue such as BPPV, and recommended follow-up with ENT as an outpatient-she already had an appointment with Dr. Gibson. She should follow up with Dr. Bal in 3-4 weeks. She will also follow-up with her PCP in 1 to 2 weeks. She was discharged home in stable condition. This patient was seen by Luís Chiu PA-C under the supervision of Doctor Andrews. [] - Physical Exam General: Alert, Oriented x3, Cooperative HEENT: Atraumatic, PERRLA, EOMI, Normocephalic Neck: Supple, No JVD, Negative Carotid Bruits Lungs: Clear to auscultation, Normal air movement Cardiovascular: Regular rate, No murmurs Abdomen: Bowel Sounds Present, Soft, Non Tender Extremities: No edema, Capillary Refill Less than 3 Seconds Skin: No rashes, No breakdown Musculoskeletal: No Tenderness to Palpation of Joints or Extremities Neurological: Cranial nerves II-XII grossly intact Psych/Mental Status: Normal Affect, Appropriate Vital Signs Temp Pulse Resp BP Pulse Ox 98.5 F 84 14 142/59 H 96 08/01/18 12:35 08/01/18 12:35 08/01/18 12:35 08/01/18 12:35 08/01/18 12:35 Oxygen Flow Rate (L/min) 1 Oxygen Delivery Method Room Air Weight: 213 lb 10.047 oz Body Mass Index (BMI) 36.2 Intake and Output for Last 24 Hours 07/30/18 07/31/18 08/01/18 23:59 23:59 23:59 Intake Total 994 / 994 1027 / 1027 Output Total 0 / 0 Balance 994 / 994 1027 / 1027 Laboratory Tests Past 24 Hrs 07/31/18 07/31/18 08/01/18 16:00 18:30 06:42 Sodium 140 Potassium 4.0 Chloride 109 H Carbon Dioxide 27.0 Anion Gap 4 L BUN 16 Creatinine 0.84 Estim Creat Clear Calc 50.47 Est GFR (MDRD) Af Amer 85 Est GFR (MDRD) Non-Af 70 BUN/Creatinine Ratio 19.2 Glucose 109 H Calcium 8.2 L Troponin I < 0.015 < 0.015 POC Glucose 08/01/18 08/01/18 07/31/18 10:56 06:47 21:18 POC Glucose 128 H 105 189 H 07/31/18 17:02 POC Glucose 107 Discharge Diet: Low fat/ Low Cholesterol, 1800 Calorie Control Diet, 2000 mg Sodium Diet Discharge Activity: Return to Normal Activity Home Medications: Medications to take at Discharge Glimepiride [Amaryl] 4 mg PO DAILY 10/22/16 aspirin 81 mg tablet,delayed release 81 mg PO DAILY 03/31/17 fluoxetine 40 mg capsule 40 mg PO DAILY 04/06/18 liraglutide 0.6 mg/0.1 mL (18 mg/3 mL) subcutaneous pen injector 1.2 mg SC DAILY ml 04/06/18 Atorvastatin Calcium [Lipitor] 40 mg PO DAILY 07/31/18 Glimepiride 2 mg PO QHS 07/31/18 Isosorbide Mononitrate [Imdur] 30 mg PO DAILY 07/31/18 Lisinopril [Zestril] 20 mg PO DAILY 07/31/18 Apixaban [Eliquis] 5 mg PO BID #60 tablet 08/01/18 Following Prescrptions Were Given to Patient: Apixaban [Eliquis] 5 mg PO BID #60 tablet Primary Care Physician: Janet Zhao MD [Primary Care Provider] - Please follow up with your Primary Care Physician in: 1-2 weeks Please Follow Up With: Pradip Bal MD When: 3-4 weeks Please Follow Up With: Adolfo Lester MD When: 1 week Disposition: Home Minutes spent on discharge:: 35 Patient Condition:: Stable Medical Necessity - Tobacco Use Smoking Status: Never smoker Tobacco Use: Non-smoker Meaningful Use Info Meaningful Use Diagnoses (Choose all that apply): None applicable <John Andrews - Last Filed: 08/01/18 17:27> Discharge Date and Diagnosis - Secondary Discharge Diagnosis Chronic Problems (Last Updated 10/23/17 @ 08:59 by Isabell Glover) Presence of cardiac pacemaker (Chronic) Status post sick sinus syndrome; implanted 12/05/17; Atherosclerosis of [place] coronary artery of [place] heart without angina pectoris (Chronic) S/P PTCA/stent to second acute marginal branch of RCA in August 2010; negative FFR evaluation of LAD in October 2010; Cardiomyopathy, dilated (Chronic) Paroxysmal atrial fibrillation (Chronic) S/P EPS/RFA in January 2003 at [facility]; Presence of stent in coronary artery (Chronic ~08/2010) IVUS PTCA/stent of the OM2 08/2000; IVUS of the mid and prox LAD 11/01/09 HTN (hypertension) (Chronic) HLD (hyperlipidemia) (Chronic) Hospital Course and Treatment Imaging Results: 08/01/18 09:30 Brain without Contrast [MRI] Urgent Summary of Care Provided: The patient is a 77 year old F [] - Physical Exam Vital Signs Temp Pulse Resp BP Pulse Ox 98.5 F 84 14 142/59 H 96 08/01/18 12:35 08/01/18 12:35 08/01/18 12:35 08/01/18 12:35 08/01/18 12:35 Oxygen Flow Rate (L/min) 1 Oxygen Delivery Method Room Air Weight: 213 lb 10.047 oz Body Mass Index (BMI) 36.2 Intake and Output for Last 24 Hours 07/30/18 07/31/18 08/01/18 23:59 23:59 23:59 Intake Total 994 / 994 1027 / 1027 Output Total 0 / 0 Balance 994 / 994 1027 / 1027 Laboratory Tests Past 24 Hrs 07/31/18 08/01/18 18:30 06:42 Sodium 140 Potassium 4.0 Chloride 109 H Carbon Dioxide 27.0 Anion Gap 4 L BUN 16 Creatinine 0.84 Estim Creat Clear Calc 50.47 Est GFR (MDRD) Af Amer 85 Est GFR (MDRD) Non-Af 70 BUN/Creatinine Ratio 19.2 Glucose 109 H Calcium 8.2 L Troponin I < 0.015 POC Glucose 08/01/18 08/01/18 07/31/18 10:56 06:47 21:18 POC Glucose 128 H 105 189 H Code Visit Addendum: Dr. Andrews I personally examined the patient and reviewed the chart. I agree with the above. 87-year-old female who presented to the hospital with 3 weeks worth of vertigo. She saw her outpatient PCP who gave her a course of meclizine which apparently did not help much. When she presented to the ER there is a concern for posterior stroke and therefore she was admitted for observation. She underwent MRI today and it was read as no stroke. Therefore she was discharged home with a prescription for Eliquis because of her A. fib and her elevated chads score. The discussion was had with her that she can choose to take it or not but that the choice was ultimately up to her and if she would like, she can discuss with her client services representative at her follow-up appointment in November. Also she has an ENT appointment on the for this vertigo which she can keep. Inpatient E&M: [id number] Disch Hosp
--- NOTE | 2018-08-01 14:30 | DS.PCM_ITS ---
<Luís Chiu - Last Filed: 08/01/18 14:24> Discharge Date and Diagnosis Date of Admission: 07/31/18 Date of Discharge: 08/01/18 - Primary Discharge Diagnosis Vertigo unclear etiology, suspect BPPV CVA ruled out paroxysmal afib pacemaker in place Hx dilated cardiomyopathy CAD with prior stents HTN HLD Dmt2 - Secondary Discharge Diagnosis Chronic Problems (Last Updated 10/23/17 @ 08:59 by Isabell Glover) Presence of cardiac pacemaker (Chronic) Status post sick sinus syndrome; implanted 12/05/17; Atherosclerosis of [place] coronary artery of [place] heart without angina pectoris (Chronic) S/P PTCA/stent to second acute marginal branch of RCA in August 2010; negative FFR evaluation of LAD in October 2010; Cardiomyopathy, dilated (Chronic) Paroxysmal atrial fibrillation (Chronic) S/P EPS/RFA in January 2003 at [facility]; Presence of stent in coronary artery (Chronic ~08/2010) IVUS PTCA/stent of the OM2 08/2000; IVUS of the mid and prox LAD 11/01/09 HTN (hypertension) (Chronic) HLD (hyperlipidemia) (Chronic) Hospital Course and Treatment Imaging Results: 08/01/18 09:30 Brain without Contrast [MRI] Urgent CT/Brain/Head without Contrast IMPRESSION: Chronic involutional changes of the brain. RAD/Chest PA and Lateral IMPRESSION: Minimal increased markings at the left lung base suggestive of linear atelectasis. CTA neck IMPRESSION: Mild atherosclerotic disease. No evidence for hemodynamically significant stenosis utilizing NASCET criteria. CT/CTA Head W/WO Contrast IMPRESSION: Mild atherosclerotic disease without a demonstrated aneurysm or hemodynamically significant stenosis. MRI/Brain without Contrast IMPRESSION: Senescent changes as above with no evidence of acute intracranial bleed, mass or ischemia. Operations: None Procedures: None Summary of Care Provided: Hospital course: The patient is a 77 year old F with past medical history of paroxysmal atrial fibrillation, not on oral anticoagulation, history of pacemaker, CAD with prior stent, dilated cardiomyopathy, type 2 diabetes, hypertension, hyperlipidemia, who presented to the emergency room with complaints of vertigo. The patient described a sensation of the room spinning while at rest or with activity, anytime she would turn her head. She had been treated as an outpatient with meclizine for BPPV with no relief. CT of the brain was negative, troponin was negative, EKG was negative. She was admitted to the PCU with concern for acute CVA. The following day she underwent a CTA of the head and neck which was unremarkable, she then underwent an MRI of the brain after we verified her pacemaker was compatible, this was negative for acute CVA, only chronic changes present. As the patient had a history of paroxysmal atrial fibrillation and she had a Mitchell Vasc score greater than 2 this felt that she should be started on Eliquis. The patient was unsure whether she wanted to start Eliquis at this time or not, and wanted to discuss it with her filler wiper at follow-up. We did write her a prescription for Eliquis and advised her that if she starts taking it she needs to discontinue Plavix, it is okay to continue aspirin. If she does not start taking it she can continue aspirin and Plavix until follow- up. She did remain in sinus rhythm while here. None of her other medications were changed. We felt that she likely had an inner ear issue such as BPPV, and recommended follow-up with ENT as an outpatient-she already had an appointment with Dr. Gibson. She should follow up with Dr. Bal in 3-4 weeks. She will also follow-up with her PCP in 1 to 2 weeks. She was discharged home in stable condition. This patient was seen by Luís Chiu PA-C under the supervision of Doctor Andrews. [] - Physical Exam General: Alert, Oriented x3, Cooperative HEENT: Atraumatic, PERRLA, EOMI, Normocephalic Neck: Supple, No JVD, Negative Carotid Bruits Lungs: Clear to auscultation, Normal air movement Cardiovascular: Regular rate, No murmurs Abdomen: Bowel Sounds Present, Soft, Non Tender Extremities: No edema, Capillary Refill Less than 3 Seconds Skin: No rashes, No breakdown Musculoskeletal: No Tenderness to Palpation of Joints or Extremities Neurological: Cranial nerves II-XII grossly intact Psych/Mental Status: Normal Affect, Appropriate Vital Signs Temp Pulse Resp BP Pulse Ox 98.5 F 84 14 142/59 H 96 08/01/18 12:35 08/01/18 12:35 08/01/18 12:35 08/01/18 12:35 08/01/18 12:35 Oxygen Flow Rate (L/min) 1 Oxygen Delivery Method Room Air Weight: 213 lb 10.047 oz Body Mass Index (BMI) 36.2 Intake and Output for Last 24 Hours 07/30/18 07/31/18 08/01/18 23:59 23:59 23:59 Intake Total 994 / 994 1027 / 1027 Output Total 0 / 0 Balance 994 / 994 1027 / 1027 Laboratory Tests Past 24 Hrs 07/31/18 07/31/18 08/01/18 16:00 18:30 06:42 Sodium 140 Potassium 4.0 Chloride 109 H Carbon Dioxide 27.0 Anion Gap 4 L BUN 16 Creatinine 0.84 Estim Creat Clear Calc 50.47 Est GFR (MDRD) Af Amer 85 Est GFR (MDRD) Non-Af 70 BUN/Creatinine Ratio 19.2 Glucose 109 H Calcium 8.2 L Troponin I < 0.015 < 0.015 POC Glucose 08/01/18 08/01/18 07/31/18 10:56 06:47 21:18 POC Glucose 128 H 105 189 H 07/31/18 17:02 POC Glucose 107 Discharge Diet: Low fat/ Low Cholesterol, 1800 Calorie Control Diet, 2000 mg Sodium Diet Discharge Activity: Return to Normal Activity Home Medications: Medications to take at Discharge Glimepiride [Amaryl] 4 mg PO DAILY 10/22/16 aspirin 81 mg tablet,delayed release 81 mg PO DAILY 03/31/17 fluoxetine 40 mg capsule 40 mg PO DAILY 04/06/18 liraglutide 0.6 mg/0.1 mL (18 mg/3 mL) subcutaneous pen injector 1.2 mg SC DAILY ml 04/06/18 Atorvastatin Calcium [Lipitor] 40 mg PO DAILY 07/31/18 Glimepiride 2 mg PO QHS 07/31/18 Isosorbide Mononitrate [Imdur] 30 mg PO DAILY 07/31/18 Lisinopril [Zestril] 20 mg PO DAILY 07/31/18 Apixaban [Eliquis] 5 mg PO BID #60 tablet 08/01/18 Following Prescrptions Were Given to Patient: Apixaban [Eliquis] 5 mg PO BID #60 tablet Primary Care Physician: Janet Zhao MD [Primary Care Provider] - Please follow up with your Primary Care Physician in: 1-2 weeks Please Follow Up With: Pradip Bal MD When: 3-4 weeks Please Follow Up With: Adolfo Lester MD When: 1 week Disposition: Home Minutes spent on discharge:: 35 Patient Condition:: Stable Medical Necessity - Tobacco Use Smoking Status: Never smoker Tobacco Use: Non-smoker Meaningful Use Info Meaningful Use Diagnoses (Choose all that apply): None applicable <John Andrews - Last Filed: 08/01/18 17:27> Discharge Date and Diagnosis - Secondary Discharge Diagnosis Chronic Problems (Last Updated 10/23/17 @ 08:59 by Isabell Glover) Presence of cardiac pacemaker (Chronic) Status post sick sinus syndrome; implanted 12/05/17; Atherosclerosis of [place] coronary artery of [place] heart without angina pectoris (Chronic) S/P PTCA/stent to second acute marginal branch of RCA in August 2010; negative FFR evaluation of LAD in October 2010; Cardiomyopathy, dilated (Chronic) Paroxysmal atrial fibrillation (Chronic) S/P EPS/RFA in January 2003 at [facility]; Presence of stent in coronary artery (Chronic ~08/2010) IVUS PTCA/stent of the OM2 08/2000; IVUS of the mid and prox LAD 11/01/09 HTN (hypertension) (Chronic) HLD (hyperlipidemia) (Chronic) Hospital Course and Treatment Imaging Results: 08/01/18 09:30 Brain without Contrast [MRI] Urgent Summary of Care Provided: The patient is a 77 year old F [] - Physical Exam Vital Signs Temp Pulse Resp BP Pulse Ox 98.5 F 84 14 142/59 H 96 08/01/18 12:35 08/01/18 12:35 08/01/18 12:35 08/01/18 12:35 08/01/18 12:35 Oxygen Flow Rate (L/min) 1 Oxygen Delivery Method Room Air Weight: 213 lb 10.047 oz Body Mass Index (BMI) 36.2 Intake and Output for Last 24 Hours 07/30/18 07/31/18 08/01/18 23:59 23:59 23:59 Intake Total 994 / 994 1027 / 1027 Output Total 0 / 0 Balance 994 / 994 1027 / 1027 Laboratory Tests Past 24 Hrs 07/31/18 08/01/18 18:30 06:42 Sodium 140 Potassium 4.0 Chloride 109 H Carbon Dioxide 27.0 Anion Gap 4 L BUN 16 Creatinine 0.84 Estim Creat Clear Calc 50.47 Est GFR (MDRD) Af Amer 85 Est GFR (MDRD) Non-Af 70 BUN/Creatinine Ratio 19.2 Glucose 109 H Calcium 8.2 L Troponin I < 0.015 POC Glucose 08/01/18 08/01/18 07/31/18 10:56 06:47 21:18 POC Glucose 128 H 105 189 H Code Visit Addendum: Dr. Andrews I personally examined the patient and reviewed the chart. I agree with the above. 87-year-old female who presented to the hospital with 3 weeks worth of vertigo. She saw her outpatient PCP who gave her a course of meclizine which apparently did not help much. When she presented to the ER there is a concern for posterior stroke and therefore she was admitted for observation. She underwent MRI today and it was read as no stroke. Therefore she was discharged home with a prescription for Eliquis because of her A. fib and her elevated chads score. The discussion was had with her that she can choose to take it or not but that the choice was ultimately up to her and if she would like, she can discuss with her filler wiper at her follow-up appointment in November. Also she has an ENT appointment on the for this vertigo which she can keep. Inpatient E&M: [id number] Disch Hosp
--- NOTE | 2018-08-03 14:39 | CASEMGMT ---
RENEA SULLIVAN DC PHONE CALL DC DATE: 08/01/18 DC Disposition: Home LACE/STRATA: 01/03 Intro role of CM to patient via phone. No questions re: dc instructions, f/u. Pt did have questions re: Eliquis. She did not wish to take Eliquis until she saw Dr. Bal, however appt is in a few weeks. per note, physician recommended pt continue on Plavix if she does not take Eliquis. RENEA SULLIVAN recommended pt call to nurse @ Dr. Bal's office and discuss which medication Dr. Bal would like her to be on. Pt is able to do this. She has f/u appointment already. Jackie LOCKHART RN ACM
== END 2018-08-01 12:40 | disposition home or self-care (01) | DRG 149 ==
LOC: ED 14:57 → PCU 15:13
PROVIDERS: Admitting Provider Internal Medicine; Emergency Provider Emergency Medicine; Family Provider Family Medicine; PCP Family Medicine; Referring Provider Internal Medicine; Visit Provider Family Medicine
DX: R42 Dizziness and giddiness (principal); I42.0 Dilated cardiomyopathy; I48.0 Paroxysmal atrial fibrillation; I10 Essential (primary) hypertension; E78.5 Hyperlipidemia, unspecified; I25.119 Atherosclerotic heart disease of native coronary artery with unspecified angina pectoris; Z95.5 Presence of coronary angioplasty implant and graft; E11.9 Type 2 diabetes mellitus without complications; Z95.0 Presence of cardiac pacemaker; Z79.84 Long term (current) use of oral hypoglycemic drugs; Z79.899 Other long term (current) drug therapy; F32.9 Major depressive disorder, single episode, unspecified; F41.9 Anxiety disorder, unspecified
CPT/HCPCS: 36415; 70450; 70496; 70498; 70551; 71046; 80048; 82962; 84484; 85025; 93005; 99285; J7030; Q9967; A4216

== ENCOUNTER 2018-09-22 16:00 | Outpatient (RCR) | payer MEDICARE, OTHER, SELFPAY ==
[2018-08-24 15:38] VITALS: BMI 35.4
--- NOTE | 2018-09-17 15:48 | HP.PTEVAL ---
Patient's Visit Information JERROD SALAZAR is a 77 year old F referred to Physical Therapy by Janet Zhao MD with a diagnosis of tension REAL. Date of Evaluation: 09/17/18 Physical Therapist: Adolfo iKng, JESUS, OCS, CSCS - Visit Plan Frequency: 1x/Week Duration: 4-6 Weeks Plan: weekly x 4-6 as needed for positional and balance. - Subjective Findings: Had vertigo for 3 months, been to ER and nobody can do anything. Woke up vomiting due to dizziness but was fine the night before. Balance was off. Lasted a few minutes but worse again whenever moved head. Worse with lying. Saw dr. Hagan and Padmini and had MRI which was clear. Back to [facility] and heart was OK. Was taking meclizine and it did not help. Dr. Ovalle suggested PT. Still gets dizziness daily. Turning head to the left is worst. Turn left in bed at night makes her spin up to ten minutes. In between the sessions she feels pretty normal but has to be careful with movments. Drove Friday for the first time in two months. Balance is off since this started and was good prior. Has walker that she uses in the house and has cane out and about. Lives with . Sleep is normal if she doesn?t turn head. Spends day doing housework but has to cut corners and hard to bend over. Bathes and dresses self. Dtr sometimes sits outside bathroom. Hobbies include reading as eyes don?t feel right. Goal is to get rid of dizziness. - Objective Walks slowly and hesitantly. I . Transfer I. Steps with rails reciprocally. c/s AROM WFL adn withotu pain. Balance is fair. - L hallpike. + R hallpike for dizzyness and up torsional nystagmus 15 seconds and nausea. - Balance Scores Functional Gait Assessment Score: 21 % Disability: 30.0000 - Goals Goal 1:: abolish dizzy with L and R roll. Goal Time Frame: 2-4 Weeks Goal 2:: Pt feel 99% back to normal Goal Time Frame: 4-6 Weeks Goal 3:: FGA 25/30 to reduce fall risk Goal Time Frame: 4-6 Weeks - Rehabilitation Potential Physical Therapy Diagnosis: BPPV Rehabilitation Potential: Fair - Anticipated Interventions Patient/Client Instruction: Educate patient on: Condition, Plan of Care, Risk Factors For the Purpose of:: To increase tolerance to activity/condition/position, To improve ability of physical actions for home/community/work/leisure, To improve gait and locomotor functions Therapeutic Exercise to Include: Balance training Comment: postional treatments and ex For the Purpose of:: To increase tolerance to activity/condition/position, To improve ability of physical actions for home/community/work/leisure, To improve gait and locomotor functions Thank you for the opportunity to evaluate your patient. For Medicare and Medicare HMO plans, please review the plan of care and approve it. It will need to be FAXED BACK to us at [phone] for Medicare purposes. For Medicare only, by signing this I certify the plan of care. Please let me know if there are questions or concerns regarding this plan of care. Physician Signature: Date:
--- NOTE | 2018-09-22 16:18 | HP.PTDCSUM ---
HP - PT D/C Summary It has been my pleasure to treat JERROD SALAZAR under orders from Janet Zhao MD, for the diagnosis of tension REAL for a total of 2 visit(s). Discharge Date: 09/22/18 Please see the following information for a summary of their discharge status. - Subjective Subjective: No attacks since last . Activitiy pretty normal but I am fairly inactive. Doing exercises daily 8 reps without dizzyness. Still gets some dizzyness if not careful. - Overall Improvement % Improvement: 50 - Objective Objective/Function: - B hallpike, - roll test today. Walking well with cane. - Goals Goal 1:: abolish dizzy with L and R roll. Goal Progress: Goal Met Goal 2:: Pt feel 99% back to normal Goal Progress: Progressing Goal 3:: FGA / to reduce fall risk Goal Progress: not tested, pt request. - Plan Plan: D/C patient request. - D/C Information Discharge Comments: negative positional tests today. Pt feeling better and does not wish to return but will cotninue HEP. If there are questions or concerns regarding this patient's physical therapy, please feel free to call me at [phone]. Thank you for the referral of this patient. Sincerely, Adolfo King, DPT, OCS, CSCS
== END 2018-09-22 19:00 | disposition home or self-care (01) ==
LOC: PT 16:00
PROVIDERS: Family Provider Family Medicine; PCP Family Medicine; Referring Provider Family Medicine; Visit Provider Family Medicine
DX: G44.209 Tension-type headache, unspecified, not intractable (principal)
CPT/HCPCS: 97162; 97530

== ENCOUNTER → 2019-03-29 | Outpatient (CLI) | payer MEDICARE, OTHER, SELFPAY ==
[2019-03-11 13:01] VITALS: BMI 35.9
[2019-03-29 17:54] LABS: AST(SGOT) 12 U/L (15-37); Alanine Aminotransfer ALT/SGPT 19 U/L (13-56); Albumin, Serum 3.7 g/dL (3.2-5.0); Alkaline Phosphatase 101 U/L (45-117); Anion Gap 7 (5-15); BUN 17 mg/dL (7-18); BUN/Creat Ratio 16.8 RATIO (10-20); Bilirubin, Direct 0.12 mg/dL (0.00-0.30); Calcium,Total 9.6 mg/dL (8.5-10.1); Chloride 108 mmol/L (98-107); Cholesterol 144 mg/dL (200); Creatinine, Serum 1.01 mg/dL (0.55-1.02); EST Glomerular Filtration Rate 56 mL/min (>60); Est Glom Filt Rate - Afr Amer 68 mL/min (>60); Glucose 167 mg/dL (74-106); High Density Lipoprotein 44 mg/dL; Protein, Total 7.7 g/dL (6.4-8.2); Sodium Level 141 mmol/L (136-145); Triglycerides 227 mg/dL; Very Low Density Lipoprotein 45 mg/dL (5-40)
[2019-03-29 17:55] LABS: Hemoglobin A1c 6.7 % (4.2-6.3)
== END | disposition home or self-care (01) ==
LOC: MFPLAB 15:21
PROVIDERS: PCP Family Medicine; Referring Provider Family Medicine; Visit Provider Family Medicine
DX: E11.9 Type 2 diabetes mellitus without complications (principal)
CPT/HCPCS: 36415; 80048; 80061; 80076; 82043; 82570; 83036

== ENCOUNTER 2019-07-12 16:55 | Emergency (ER) | payer MEDICARE, OTHER, SELFPAY ==
[2019-03-11 13:01] VITALS: BMI 35.9
--- NOTE | 2019-07-12 | CT_ITS ---
STUDY: CT BRAIN WITHOUT CONTRAST REASON FOR EXAM: Female, 78 years old. MECHANICAL FALL, HEMATOMA R FOREHEAD, NOSE LAC. - LOC RADIATION DOSAGE (If Supplied By Facility): CTDIvol = ( 44.99 ) mGy, DLP = ( 779.24 ) mGycm TECHNIQUE: Transaxial CT imaging of the brain was performed without administration of intravenous contrast material. Individualized dose optimization techniques were used for this CT. COMPARISON: Noncontrast CT brain July 31, 2018; MRI brain July 12, 2019. FINDINGS: 4.15 cm diameter, 7.5 mm thick soft tissue density in the right anterolateral scalp is consistent with a cephalhematoma Normal calvarium. There is stable mild cerebral atrophy with widening of the extra-axial spaces and ventricular dilatation. There are stable small areas of decreased attenuation within the white matter tracts of the supratentorial brain, consistent with microvascular disease changes. There are small punctate calcifications of the basal ganglia which are seen in the aging brain as a normal variant. Normal brainstem. There is stable borderline cerebellar atrophy. There is no intracranial hemorrhage. There are no findings of an acute ischemic infarction. Normal visualized paranasal sinuses. CT/Brain/Head without Contrast IMPRESSION: 1. Cephalhematoma in the anterolateral right frontal scalp. No acute intracranial injury. 2. Stable chronic involutional and microvascular ischemic changes of the brain. Electronically Signed: Jeffrey Morgan MD at 18:41 EDT , Service support ,
[2019-07-12 16:56] VITALS: BP 144/106; PULSE 70; RESP 18; TEMP 36.6; O2SAT 99; BMI 34.7
--- NOTE | 2019-07-12 17:27 | CT_ITS ---
STUDY: CT FACIAL BONES WITHOUT CONTRAST REASON FOR EXAM: Female, 78 years old. MECHANICAL FALL, HEMATOMA R FOREHEAD, NOSE LAC. - LOC RADIATION DOSAGE (If Supplied By Facility): CTDIvol = ( 29.38 ) mGy, DLP = ( 613.57 ) mGycm TECHNIQUE: The patient was scanned in a multi detector CT scanner. Sagittal and coronal images were reconstructed. Individualized dose optimization techniques were used for this CT. COMPARISON: Noncontrast CT brain July 31, 2018. FINDINGS: There is 4.15 x 0.75 cm thick soft tissue density consistent with cephalhematoma in the anterolateral right frontal scalp. There is mild soft tissue thickening at the inferior base of the nose. Significant degenerative change at the anterior atlantoaxial articulation again noted. Normal orbital villalobos and orbital contents. Mild fracture deformity of the anterior nasal bones. Normal anterior nasal spine. Otherwise, normal facial bones. Normal visualized paranasal sinuses. CT/Sinus/Facial Bone IMPRESSION: Fracture at the tip of the nasal bones. There is a cephalohematoma in the anterolateral right frontal scalp. Electronically Signed: Jeffrey Morgan MD at 18:48 EDT , Service support ,
--- NOTE | 2019-07-12 17:28 | CT_ITS ---
STUDY: CT CERVICAL SPINE WITHOUT CONTRAST REASON FOR EXAM: Female, 78 years old. MECHANICAL FALL, HEMATOMA R FOREHEAD, NOSE LAC. - LOC RADIATION DOSAGE (If Supplied By Facility): CTDIvol = ( 28.34 ) mGy, DLP = ( 553.79 ) mGycm TECHNIQUE: High resolution transaxial imaging was performed without contrast material. Sagittal and coronal images were reconstructed. Individualized dose optimization techniques were used for this CT. COMPARISON: CTA neck July 31, 2018. FINDINGS: There are stable degenerative changes of the anterior atlantoaxial articulation. The anterior C1 neural arch articulates with the upper tip of the odontoid process as well as the anterior margin of the occipital condyles. There is subcortical/subarticular degenerative sclerosis and occasional cystic degenerative change in these respective osseous structures. 6.5 mm diameter, 3 mm thick degenerative ossicle is again seen anterior to the base of the odontoid process. There is stable chronic degenerative lobulation and some flattening of the odontoid process. There is stable asymmetry of the C1 lateral masses relative to the odontoid, but they remain in anatomic alignment with the lateral masses of C2. There is overall straightening of the normal cervical lordosis. No demonstrated acute fracture of the vertebral bodies and posterior osseous elements. C2-3: Early right posterior lateral degenerative endplate spurring. Mild disc height narrowing with central posterior disc protrusion. Hypertrophic degenerative arthrosis and moderately severe narrowing of the right facet articulation. There is severe narrowing and a lesser degree of periarticular spurring on the left. Mild disc encroachment on the central canal. Mild osseous encroachment on the right intervertebral neuroforamen. C3-4: Severe narrowing of the right uncovertebral joint, as well as near circumferential endplate spurring/osteophytes. Moderate to moderately severe disc height narrowing with central disc calcification. Hypertrophic osseous fusion across the right facet joint. Moderate to moderately severe narrowing on the left is most prominent anteriorly. There is spur and disc impingement on the anterior central canal. Moderate to moderately severe osseous encroachment on the right intervertebral neuroforamen. C4-5: Degenerative arthroses of the of the uncovertebral joints as well as anterior endplate osteophytes. Normal disc height and morphology. Hypertrophic degenerative arthroses of the bilateral facet articulations with moderately severe narrowing. There is 4 mm anterolisthesis of C4 on C5. There is some distortion of the central canal. Mild osseous narrowing of the left intervertebral neuroforamen. C5-6: Circumferential endplate spurring/osteophyte, most prominent anteriorly with near bridging. There is narrowing of the uncovertebral joints. Degenerative endplate sclerosis and some microcystic degenerative change. Moderately severe disc height narrowing. Moderately severe narrowing of the right facet joint with mild periarticular spurring. Moderate narrowing noted on the left. There is degenerative spur impingement on the anterior central canal. Mild osseous narrowing of the right intervertebral neuroforamen. C6-7: Severe narrowing of the bilateral uncovertebral joints and circumferential endplate osteophytes, nearly bridging anteriorly. Moderately severe disc height narrowing. Moderate narrowing of the bilateral facet joints with early anterior degenerative articular spurring. There is osteophyte impingement on the central canal and left intervertebral neuroforamen. C7-T1: Anterior endplate spurring with near bridging to the right. Normal disc height with posterior disc protrusion just right of midline. Moderately severe right facet joint narrowing with early periarticular spurring and moderate anterior narrowing of the left facet joint. Mild disc encroachment on the right anterior central canal. Normal intervertebral neuroforamina. Normal visualized prevertebral soft tissue structures. There is early atherosclerotic calcific plaquing of the bilateral carotid arteries CT/Spine Cervical without Contras IMPRESSION: 1. No acute fracture of the cervical spine. 2. Multilevel degenerative changes, as described above. Electronically Signed: Jeffrey Morgan MD at 19:05 EDT , Service support ,
--- NOTE | 2019-07-12 17:29 | ED.DCSUM_ITS ---
History of Present Illness Chief Complaint: Fall Informant: Patient Onset: Today Current Severity: Moderate Maximum Severity: Moderate Narrative: Patient presents to the ED after a mechanical fall at home. She was stepping back into her porch and caught her toe on a rubber mat. She did fall and strike her face. She is currently on Coumadin. Patient denies loss of consciousness. She does have facial pain and neck pain. She is complaining of a generalized headache. No nausea or vomiting. - Past Medical History (1) Old myocardial infarction Status: Chronic (2) Paroxysmal atrial flutter Status: Chronic (3) Type 2 diabetes mellitus Status: Chronic (4) Atherosclerosis of [place] coronary artery of [place] heart without angina pectoris Status: Chronic Comment: S/P PTCA/stent to second acute marginal branch of RCA in August 2010; negative FFR evaluation of LAD in October 2010; (5) Cardiomyopathy, dilated Status: Chronic (6) Essential hypertension Status: Chronic (7) HLD (hyperlipidemia) Status: Chronic (8) Paroxysmal atrial fibrillation Status: Chronic Comment: S/P EPS/RFA in January [address] [facility]; (9) Presence of cardiac pacemaker Status: Chronic Comment: Status post sick sinus syndrome; implanted 12/05/17; (10) Presence of stent in coronary artery Status: Chronic Comment: IVUS PTCA/stent of the OM2 08/2000; IVUS of the mid and prox LAD 11/01/09 Past Medical History - Allergies and Home Meds Allergies/Adverse Reactions: Allergies latex Allergy (Verified 07/12/19 16:58) Rash Primary Care Physician: Janet Zhao MD [Primary Care Provider] - 1 Week Prior records reviewed: Yes Surgical History: cataract - Bilateral cataract surgery, total knee arthroplasty, - - bilateral foot surgery, CAD status post stent, status post bilateral knee replacement, status post atrial fibrillation ablation, Smoking Status: Never smoker - Family History Maternal Family History: Family History (Last Reviewed 03/11/19 @ 13:02 by Isabell Glover) Mother CAD (coronary artery disease) Sister Atrial fibrillation Sister CAD (coronary artery disease) COPD (chronic obstructive pulmonary disease) Family History: Reports: No pertinent history Paternal Family History: Family History (Last Reviewed 03/11/19 @ 13:02 by Isabell Glover) Mother CAD (coronary artery disease) Sister Atrial fibrillation Sister CAD (coronary artery disease) COPD (chronic obstructive pulmonary disease) Family History: Reports: Heart Disease, Hypertension Review of Systems General: Denies: Chills, Fever Eyes: Denies: Visual changes - bilaterally ENT: Reports: - - Facial pain, upper teeth feel numb. Denies: Bilateral ear pa in Cardiovascular: Denies: Chest pain Respiratory: Denies: Dyspnea Gastrointestinal: Denies: Abdominal pain, Nausea, Vomiting Musculoskeletal: Reports: Neck pain Neurological: Reports: Headache. Denies: Weakness, Parasthesia Hematologic: Reports: Easy bruising - Secondary to Coumadin Allergy: Denies: Uticaria Physical Exam Vital Signs/Narrative: Vital Signs Temp Pulse Resp BP Pulse Ox 07/12/19 16:56 98 F 70 18 144/106 H 99 Inital Vital Signs reviewed: Yes General: Well nourished, Well developed Head: Normocephalic, - - 4 x 3 cm hematoma right forehead with superficial abrasions. Eyes: Perrl, EOMI ENT: TM's clear, - - 1 cm lack across bridge of nose. Bleeding controlled. Upper lip swollen and ecchymotic with some abrasions. Teeth appear stable. Neck: Supple, - - Mild C-spine tenderness. Cardiovascular: Regular rate, Regular rhythm Respiratory: No distress, CTA bilaterally Abdomen: Soft, Nontender Extremities: Nontender Skin: - - As above Neurological: Alert, Oriented x3 Psychological: Normal affect Diagnostic/Tx/Re-eval Impressions Brain CT 07/12/19 00:00 IMPRESSION: 1. Cephalhematoma in the anterolateral right frontal scalp. No acute intracranial injury. 2. Stable chronic involutional and microvascular ischemic changes of the brain. Electronically Signed: Jeffrey Morgan MD at 18:41 EDT , Service support , Facial/Sinus 07/12/19 17:27 IMPRESSION: Fracture at the tip of the nasal bones. There is a cephalohematoma in the anterolateral right frontal scalp. Electronically Signed: Jeffrey Morgan MD at 18:48 EDT , Service support , Cervical Spine CT 07/12/19 17:28 IMPRESSION: 1. No acute fracture of the cervical spine. 2. Multilevel degenerative changes, as described above. Electronically Signed: Jeffrey Morgan MD at 19:05 EDT , Service support , Ribs w/Chest X-Ray 07/12/19 19:50 IMPRESSION: RIBS: Normal x-ray examination of the ribs. CHEST: No acute cardiopulmonary process. Electronically Signed: Erin Kaba MD at 20:31 EDT Tel , Service support , 07/12/19 CT Head [Brain/Head without Contrast] [CT] Stat 07/12/19 17:27 CT Facial [Sinus/Facial Bone] [CT] Stat 07/12/19 17:28 CT Cervical [Spine Cervical without Contras] [CT] Stat 07/12/19 19:50 Ribs Uni Min 3V w/PA Chest [RAD] Stat Laboratory Results 07/12/19 18:10 PT 41.0 H INR 4.3 H* - Medical Decision Making Patient was given Tylenol for pain while here. While in CT she began complaining of right rib pain and right rib series was added to her imaging studies. Patient's nasal laceration is cleansed and sealed with Dermabond. She is given p.o. Keflex as she does have evidence of a nasal bone fracture. INR is supratherapeutic at 4.3. She is instructed to hold her Coumadin for the next 2 nights. She is to follow with her primary care physician. ED Disposition - Plan for ED Patient: Disposition: Home or Assisted Living Diagnosis: Fall, Nasal fracture, Laceration, Hematoma Instructions: ED Mechanical Fall, ED Hematoma, ED Fx Nose W Lac Skin Glue Prescriptions: Cephalexin [Keflex] 500 mg PO Q12 #14 cap Transmission Status: Received by [facility]/pharmacy #[id number] Referrals: Janet Zhao MD [Primary Care Provider] - 1 Week Additional Instructions: Your INR is too high. Hold your Coumadin for 2 nights, then resume. Follow-up next week to have your labs rechecked.
[2019-07-12] MEDS: Acetaminophen 325 MG Tablet 650 MG PO (17:52)
[2019-07-12 18:55] VITALS: BP 139/60; PULSE 75; RESP 16; O2SAT 98
[2019-07-12 18:59] LABS: International Normalized Ratio 4.3
--- NOTE | 2019-07-12 19:50 | RAD_ITS ---
STUDY: X-RAY - UNILATERAL RIBS ( RIGHT ) WITH CHEST REASON FOR EXAM: Female, 78 years old. FALL TODAY. MID ANTERIOR RIGHT SIDE RIB PAIN. TECHNIQUE - RIBS: 4 view(s) of the ribs. TECHNIQUE - CHEST: Single frontal view of the chest. COMPARISON: July 31, 2018 FINDINGS - RIBS: Normal visualized ribs without a demonstrated fracture. FINDINGS - CHEST: The lungs are clear and expanded. There is no demonstrated pleural abnormality. There is a cardiac pacer device in place. Normal size heart. Normal mediastinum and rah. Normal visualized pulmonary arteries. Normal visualized aortic arch and descending thoracic aorta. Normal visualized thoracic spine. There is degenerative osteoarthritis of the bilateral shoulders. There is no demonstrated abnormality of the visualized soft tissue structures of the upper abdomen. RAD/Ribs Uni Min 3V w/PA Chest IMPRESSION: RIBS: Normal x-ray examination of the ribs. CHEST: No acute cardiopulmonary process. Electronically Signed: Erin Kaba MD at 20:31 EDT Tel , Service support ,
[2019-07-12 20:00] VITALS: BP 139/60; PULSE 72; RESP 18; O2SAT 98
[2019-07-12] MEDS: Cephalexin 250 MG Capsule 500 MG PO (21:00)
[2019-07-12] MEDS: Diphth,Pertuss(Acell),Tet Vac 0.5 ML Vial IM (21:01)
[2019-07-12 21:49] VITALS: BP 136/69; PULSE 72; RESP 16; O2SAT 97
== END 2019-07-12 21:50 | disposition home or self-care (01) ==
PROVIDERS: Emergency Provider Emergency Medicine; PCP Family Medicine
DX: S02.2XXB Fracture of nasal bones, initial encounter for open fracture (principal); I48.0 Paroxysmal atrial fibrillation; I25.2 Old myocardial infarction; E11.9 Type 2 diabetes mellitus without complications; I25.10 Atherosclerotic heart disease of native coronary artery without angina pectoris; I42.0 Dilated cardiomyopathy; I10 Essential (primary) hypertension; E78.5 Hyperlipidemia, unspecified; Z95.0 Presence of cardiac pacemaker; Z95.5 Presence of coronary angioplasty implant and graft; Z79.01 Long term (current) use of anticoagulants; W01.0XXA Fall on same level from slipping, tripping and stumbling without subsequent striking against object, initial encounter; Y93.01 Activity, walking, marching and hiking; Y92.008 Other place in unspecified non-institutional (private) residence as the place of occurrence of the external cause; Y99.8 Other external cause status
CPT/HCPCS: 12011; 70450; 70486; 71101; 72125; 85610; 90471; 90715; 99283; A4216

== ENCOUNTER 2019-07-22 09:51 | Emergency (ER) | payer MEDICARE, OTHER, SELFPAY ==
[2019-07-22 09:52] VITALS: BP 159/74; PULSE 82; RESP 16; TEMP 36.7; O2SAT 95; BMI 34.1
--- NOTE | 2019-07-22 10:13 | CT_ITS ---
STUDY: CT BRAIN WITHOUT CONTRAST REASON FOR EXAM: Female, 78 years old. Fell 10 days ago, on blood thinners, bruising to right occipital/forehead area, dizziness, headache. Hx diabetes. RADIATION DOSAGE (If Supplied By Facility): CTDIvol = ( 44.99 ) mGy, DLP = ( 779.24 ) mGycm TECHNIQUE: Transaxial CT imaging of the brain was performed without administration of intravenous contrast material. Individualized dose optimization techniques were used for this CT. COMPARISON: No relevant priors. FINDINGS: Right frontal subcutaneous hematoma. Nondisplaced fractures of the nasal bones. Normal size ventricles and extra-axial spaces for the patient''s age. Normal white matter tracts of the cerebral hemispheres. Normal basal ganglia and thalami. Normal brainstem. Normal cerebellum. Left parietal hemorrhagic contusion measuring 2 cm in diameter. Small left parietal subarachnoid hemorrhage. There are no findings of an acute ischemic infarction. Normal visualized paranasal sinuses. CT/Brain/Head without Contrast IMPRESSION: Left parietal hemorrhagic contusion measuring 2 cm in diameter. Small left parietal subarachnoid hemorrhage. Nondisplaced fractures of the nasal bones. N.B. : The above information has been verbally conveyed by Glen Gillespie to Will Kilgore MD, on 07/22/2019 10:37:31 (ET). Electronically Signed: Glen Gillespie, at 10:38 EDT Tel , Service support ,
--- NOTE | 2019-07-22 10:15 | ED.VIS.GEN ---
History of Present Illness Chief Complaint: Headache Informant: Patient Narrative: On 12 Jul 2019 the patient sustained a fall. She was seen in the emergency department underwent imaging. She had a broken nose. She had a large hematoma to the forehead. Patient states that she has had continued pain in the forehead since. She has had 1 other fall. She denies any arm or leg symptoms or speech difficulties. No visual changes. She denies any ataxia but does note dizziness particularly with laying down.. She states she has had a lot of nausea. Patient states that when she got up today she just felt poorly and needed to be seen. She has an appointment tomorrow with her primary care physician for follow-up. Her biggest issue is that she continues to have this headache and painful forehead at the site of the hematoma. Patient states that she does not wish to go to a rehab facility. Patient is on Coumadin due to atrial fibrillation. Past Medical History - Allergies and Home Meds Allergies/Adverse Reactions: Allergies latex Allergy (Verified 07/22/19 10:06) Rash Primary Care Physician: Janet Zhao MD [Primary Care Provider] - Surgical History: cataract - Bilateral cataract surgery, total knee arthroplasty, - - bilateral foot surgery, CAD status post stent, status post bilateral knee replacement, status post atrial fibrillation ablation, Smoking Status: Never smoker - Family History Maternal Family History: Family History (Last Reviewed 03/11/19 @ 13:02 by Isabell Glover) Mother CAD (coronary artery disease) Sister Atrial fibrillation Sister CAD (coronary artery disease) COPD (chronic obstructive pulmonary disease) Family History: Reports: No pertinent history Paternal Family History: Family History (Last Reviewed 03/11/19 @ 13:02 by Isabell Glover) Mother CAD (coronary artery disease) Sister Atrial fibrillation Sister CAD (coronary artery disease) COPD (chronic obstructive pulmonary disease) Family History: Reports: Heart Disease, Hypertension Review of Systems General: Denies: Chills, Fever, Sweats Eyes: Denies: Visual changes - bilaterally, Diplopia ENT: Denies: Rhinorrhea, Sore throat Cardiovascular: Denies: Chest pain, Palpitations Respiratory: Denies: Dyspnea, Cough, Dyspnea on exertion Gastrointestinal: Denies: Abdominal pain, Nausea, Vomiting, Diarrhea, Melena, Hematochezia Genitourinary: Denies: Dysuria, Hematuria, Frequency Musculoskeletal: Denies: Back pain, Extremity Pain Skin: Denies: Rash, Wounds Neurological: Reports: Headache. Denies: Weakness, Parasthesia, Numbness Physical Exam Vital Signs/Narrative: Vital Signs Temp Pulse Resp BP Pulse Ox 07/22/19 09:52 98.1 F 82 16 159/74 H 95 Inital Vital Signs reviewed: Yes General: Well nourished, Well developed, No Acute Distress Head: Normocephalic, Trauma - Patient has a large hematoma to the right forehead. She has ecchymosis that is mostly turning greenish color on the forehead right periorbital region. Eyes: Perrl, EOMI ENT: Moist mucous membranes, No rhinorrhea Neck: Supple, Nontender Cardiovascular: Regular rate, Regular rhythm, No murmurs Respiratory: No distress, CTA bilaterally, Chest nontender Abdomen: Soft, Nontender, Nondistended, Normal bowel sounds Back: Nontender, Normal Inspection Extremities: Nontender, No edema Skin: Normal color, No rash, Trauma - There is some resolving ecchymosis that is greenish in color on the dorsum of the left hand. Neurological: Alert, Oriented x3, Cranial nerves II-XII grossly intact, Normal Strength, Normal Sensation Psychological: Normal affect, Normal Mood Diagnostic/Tx/Re-eval Clinical Impression(s) from Imaging Studies Brain CT 07/22/19 10:13 IMPRESSION: Left parietal hemorrhagic contusion measuring 2 cm in diameter. Small left parietal subarachnoid hemorrhage. Nondisplaced fractures of the nasal bones. N.B. : The above information has been verbally conveyed by Glen Gillespie to Will Kilgore MD, on 07/22/2019 10:37:31 (ET). Electronically Signed: Glen Gillespie, at 10:38 EDT Tel , Service support , ADDENDUM: 07/22/19 1045 IMPRESSION: Left parietal hemorrhagic contusion measuring 2 cm in diameter. Small left parietal subarachnoid hemorrhage. Nondisplaced fractures of the nasal bones. N.B. : The above information has been verbally conveyed by Glen Gillespie to Will Kilgore MD, on 07/22/2019 10:37:31 (ET). Electronically Signed: Glen Gillespie, at 10:38 EDT Tel , Service support , Laboratory Last Values WBC 9.5 K/mm3 (4.4-11.0) 07/22/19 10:35 RBC 4.45 M/mm3 (4.2-5.4) 07/22/19 10:35 Hgb 12.5 g/dL (12.0-15.0) 07/22/19 10:35 Hct 39.3 % (37-47) 07/22/19 10:35 MCV 88.3 fL (81-99) 07/22/19 10:35 MCH 28.1 pg (27.0-32.0) 07/22/19 10:35 MCHC 31.8 g/dL (32-36) L 07/22/19 10:35 RDW Std Deviation 45.4 fl (35.1-43.9) H 07/22/19 10:35 RDW Coeff of Gerry 14.2 % (11.6-14.6) 07/22/19 10:35 Plt Count 284 K/mm3 (150-450) 07/22/19 10:35 MPV 9.9 fl (6.2-12.0) 07/22/19 10:35 PT 27.4 SECONDS (11.7-14.9) H 07/22/19 10:35 INR 2.6 07/22/19 10:35 APTT 35.7 Seconds (24.1-36.2) 07/22/19 10:35 Sodium 136 mmol/L (136-145) 07/22/19 10:35 Potassium 4.0 mmol/L (3.5-5.1) 07/22/19 10:35 Chloride 102 mmol/L (98-107) 07/22/19 10:35 Carbon Dioxide 29.0 mmol/L (21.0-32.0) 07/22/19 10:35 Anion Gap 5 (5-15) 07/22/19 10:35 BUN 15 mg/dL (7-18) 07/22/19 10:35 Creatinine 0.96 mg/dL (0.55-1.02) 07/22/19 10:35 Estim Creat Clear Calc 43.46 ml/min 07/22/19 10:35 Est GFR (MDRD) Af Amer 72 mL/min (>60) 07/22/19 10:35 Est GFR (MDRD) Non-Af 60 mL/min (>60) 07/22/19 10:35 BUN/Creatinine Ratio 15.6 RATIO (10-20) 07/22/19 10:35 Glucose 224 mg/dL (74-106) H 07/22/19 10:35 Calcium 9.2 mg/dL (8.5-10.1) 07/22/19 10:35 Total Bilirubin 1.00 mg/dL (0.20-1.00) 07/22/19 10:35 AST 11 U/L (15-37) L 07/22/19 10:35 ALT 21 U/L (13-56) 07/22/19 10:35 Alkaline Phosphatase 115 U/L (45-117) 07/22/19 10:35 Total Protein 7.6 g/dL (6.4-8.2) 07/22/19 10:35 Albumin 3.6 g/dL (3.2-5.0) 07/22/19 10:35 Globulin 4.0 g/dL (2.2-4.2) 07/22/19 10:35 Albumin/Globulin Ratio 0.9 RATIO (0.9-2.4) 07/22/19 10:35 Blood Type O POSITIVE 07/22/19 11:00 - Medical Decision Making She received pain and nausea medication. She is taken for head CT which demonstrates a left parietal hemorrhagic contusion measuring approximately 2 cm. There is a small amount of left parietal subarachnoid hemorrhage as well. Spoke with the patient and the patient's son. Request is for transfer to [facility] for trauma/neurosurgical evaluation. I contacted [facility] spoke with Dr. Wilhelm was accepted. We administered vitamin K and ordered FFP. Her plan is to give at least 2 units of an anticipated 4 units of FFP prior to transfer. - Critical Care Time Critical care time (excluding procedures): 30-74 minutes - min, Discussing w/Patient &/or Family/Business Development, Discussing w/Consultants, Arranging Admission or Transfer, Performing Direct Patient Care at Bedside ED Disposition - Plan for ED Patient: Disposition: [facility] Diagnosis: Intracranial hemorrhage Referrals: Janet Zhao MD [Primary Care Provider] -
[2019-07-22] MEDS: oxyCODONE 5 MG Tablet PO (10:20)
[2019-07-22] MEDS: Ondansetron ODT 4 MG Tablet PO (10:20)
[2019-07-22 10:51] VITALS: BP 147/71; PULSE 82; RESP 10; O2SAT 98
[2019-07-22 10:51] LABS: Hematocrit 39.3 % (37-47); Hemoglobin 12.5 g/dL (12.0-15.0); Mean Corp Hgb Conc 31.8 g/dL (32-36); Mean Corpuscular Hgb 28.1 pg (27.0-32.0); Mean Corpuscular Volume 88.3 fL (81-99); Mean Platelet Vol. 9.9 fl (6.2-12.0); Platelet Count 284 K/mm3 (150-450); RBC Distribution Width CV 14.2 % (11.6-14.6); RBC Distribution Width SD 45.4 fl (35.1-43.9); Red Blood Count 4.45 M/mm3 (4.2-5.4); White Blood Count 9.5 K/mm3 (4.4-11.0)
[2019-07-22 11:01] LABS: International Normalized Ratio 2.6; Partial Thromboplast Time 35.7 Seconds (24.1-36.2); Prothrombin Time (Protime)PT. 27.4 SECONDS (11.7-14.9)
[2019-07-22 11:04] LABS: ALB/GLOB Ratio 0.9 RATIO (0.9-2.4); AST(SGOT) 11 U/L (15-37); Alanine Aminotransfer ALT/SGPT 21 U/L (13-56); Albumin, Serum 3.6 g/dL (3.2-5.0); Alkaline Phosphatase 115 U/L (45-117); Anion Gap 5 (5-15); BUN 15 mg/dL (7-18); BUN/Creat Ratio 15.6 RATIO (10-20); Calcium,Total 9.2 mg/dL (8.5-10.1); Chloride 102 mmol/L (98-107); Creatinine, Serum 0.96 mg/dL (0.55-1.02); EST Glomerular Filtration Rate 60 mL/min (>60); Est Glom Filt Rate - Afr Amer 72 mL/min (>60); Estimated Creatinine Clearance 43.46 ml/min; Glucose 224 mg/dL (74-106); Protein, Total 7.6 g/dL (6.4-8.2); Sodium Level 136 mmol/L (136-145)
[2019-07-22 11:43] VITALS: BP 118/73; PULSE 76; RESP 13; TEMP 37.1; O2SAT 96
[2019-07-22 11:49] VITALS: BP 118/73; PULSE 74; RESP 12; TEMP 37.1; O2SAT 97
[2019-07-22 11:50] VITALS: BP 118/73; PULSE 73; PULSE 74; RESP 10; O2SAT 96
[2019-07-22 11:58] VITALS: BP 116/74; PULSE 74; RESP 13; TEMP 37.1; O2SAT 96
== END 2019-07-22 12:02 | disposition short-term general hospital (02) ==
PROVIDERS: Emergency Provider Emergency Medicine; PCP Family Medicine
DX: I60.9 Nontraumatic subarachnoid hemorrhage, unspecified (principal); E11.9 Type 2 diabetes mellitus without complications; S00.03XA Contusion of scalp, initial encounter; S02.2XXA Fracture of nasal bones, initial encounter for closed fracture; W19.XXXA Unspecified fall, initial encounter; I48.91 Unspecified atrial fibrillation; Z79.01 Long term (current) use of anticoagulants
CPT/HCPCS: 36430; 70450; 80053; 85027; 85610; 85730; 86900; 86901; 96365; 99285; J7040; P9017; A4216; J3490

== ENCOUNTER → 2019-08-13 12:52 | Outpatient (CLI) | payer MEDICARE, OTHER, SELFPAY ==
[2019-07-22 09:52] VITALS: BMI 34.1
--- NOTE | 2019-08-13 13:01 | CT_ITS ---
STUDY: CT BRAIN WITHOUT CONTRAST REASON FOR EXAM: Female, 78 years old. F/U TO BRAIN BLEED ON 07/21 RADIATION DOSAGE (If Supplied By Facility): CTDIvol = ( 44.99 ) mGy, DLP = ( 796.11 ) mGycm TECHNIQUE: Transaxial CT imaging of the brain was performed without administration of intravenous contrast material. Individualized dose optimization techniques were used for this CT. COMPARISON: Comparison is made with prior examination of July 22, 2019. FINDINGS: Normal soft tissue structures. Normal calvarium. The previously seen intracerebral hematoma in the posterior left parietal lobe has almost completely resolved. A focal area of decreased attenuation measuring 1.6 cm x 1.6 cm is seen at that site. Minimal halo-shaped region of increased attenuation is seen anteriorly. There is mild cerebral atrophy with widening of the extra-axial spaces and ventricular dilatation. There are areas of decreased attenuation within the white matter tracts of the supratentorial brain, consistent with microvascular disease changes. Normal basal ganglia and thalami. Normal brainstem. There is mild cerebellar atrophy. There is no intracranial hemorrhage. There are no findings of an acute ischemic infarction. Atherosclerotic calcification of the vertebral arteries and cavernous portions of the internal carotid arteries bilaterally. Normal visualized paranasal sinuses. CT/Brain/Head without Contrast IMPRESSION: Almost complete resolution of the previously seen left posterior parietal lipoma with minimal residual changes seen anterior to the area of decreased attenuation Electronically Signed: Sharad Hooks, at 13:41 EDT , Service support ,
== END ==
PROVIDERS: PCP Family Medicine
DX: I62.9 Nontraumatic intracranial hemorrhage, unspecified (principal)
CPT/HCPCS: 70450

== ENCOUNTER → 2019-12-31 12:09 | Outpatient (CLI) | payer MEDICARE, OTHER, SELFPAY ==
[2019-10-08 10:58] VITALS: BMI 35.1
[2019-12-31 15:32] LABS: Absolute Lymphocyte Count 1.14 X10^3/uL (0.83-4.51); Absolute Neutrophil Count 6.7 X10^3/uL (2.0-7.7); Basophil# 0.07 X10^3/uL; Basophil% 0.8 % (0-1); Eosinophil# 0.15 X10^3/uL; Eosinophils% 1.7 % (0-5); Hematocrit 42.8 % (37-47); Hemoglobin 13.5 g/dL (12.0-15.0); Lymphocyte # 1.14 X10^3/ul (4.0); Mean Corp Hgb Conc 31.5 g/dL (32-36); Mean Corpuscular Hgb 28.2 pg (27.0-32.0); Mean Corpuscular Volume 89.5 fL (81-99); Mean Platelet Vol. 10.3 fl (6.2-12.0); Monocyte# 0.64 X10^3/uL; Monocyte% 7.3 % (0-10); NRBC Flagged by Analyzer 0 % (0-5); Neutrophil # 6.74 X10^3/uL (2.7-7.7); Neutrophil % 76.9 % (47-70); Platelet Count 217 K/mm3 (150-450); RBC Distribution Width CV 13.4 % (11.6-14.6); Red Blood Count 4.78 M/mm3 (4.2-5.4); White Blood Count 8.8 K/mm3 (4.4-11.0)
[2019-12-31 16:33] LABS: AST(SGOT) 16 U/L (15-37); Alanine Aminotransfer ALT/SGPT 27 U/L (13-56); Albumin, Serum 3.6 g/dL (3.2-5.0); Alkaline Phosphatase 76 U/L (45-117); Anion Gap 7 (5-15); BUN 18 mg/dL (7-18); BUN/Creat Ratio 17.8 RATIO (10-20); Calcium,Total 9.1 mg/dL (8.5-10.1); Chloride 107 mmol/L (98-107); Creatinine, Serum 1.01 mg/dL (0.55-1.02); EST Glomerular Filtration Rate 56 mL/min (>60); Est Glom Filt Rate - Afr Amer 68 mL/min (>60); Globulin 3.7 g/dL (2.2-4.2); Glucose 199 mg/dL (74-106); Potassium 4.1 mmol/L (3.5-5.1); Protein, Total 7.3 g/dL (6.4-8.2); Sodium Level 139 mmol/L (136-145); Thyroid Stim Hormone (TSH) 0.97 uIU/mL (0.358-3.74)
== END ==
PROVIDERS: PCP Family Medicine; Referring Provider Family Medicine; Visit Provider Family Medicine
DX: R60.9 Edema, unspecified (principal)
CPT/HCPCS: 36415; 80053; 84443; 85025

== ENCOUNTER 2020-04-26 15:40 | Outpatient (RCR) | payer MEDICARE, OTHER, SELFPAY ==
[2019-10-08 10:58] VITALS: BMI 35.1
== END 2020-04-26 23:59 ==
LOC: IMMUN 15:40
PROVIDERS: PCP Family Medicine; Visit Provider Family Medicine
DX: Z23 Encounter for immunization (principal)
CPT/HCPCS: 0011A; 0012A

== ENCOUNTER → 2020-07-21 06:28 | Outpatient (CLI) | payer MEDICARE, OTHER, SELFPAY ==
[2020-07-10 15:44] VITALS: BMI 33.4
--- NOTE | 2020-07-21 06:31 | ECHOCS_ITS ---
Reason For Study: CAD Procedure This was a 2D Doppler, Color Flow transthoracic echocardiogram. The study was technically difficult. Patient scanned supine due to vertigo when on left side. Contrast injection was performed. Exam performed in department. Left Ventricle Normal LV size. Left ventricular systolic function is normal. The estimated ejection fraction is 65 %. No evidence for diastolic dysfunction. No regional wall motion abnormalities noted. Right Ventricle Normal RV size. ICD or pacer leads identified within the right ventricle. Normal systolic function. Atria The left atrium is moderately enlarged. Normal right atrium. ICD or pacer leads identified within the right atrium. No doppler evidence for ASD. Mitral Valve There is no mitral annular calcification. Normal mitral valve. Trivial mitral valve insufficiency. Tricuspid Valve Normal tricuspid valve. Trivial tricuspid valve insufficiency. Right ventricular systolic pressure estimated to be 24 mmHg. Aortic Valve Trisinus/trileaflet aortic valve. Normal aortic valve. Pulmonic Valve The pulmonic valve is not well visualized. Great Vessels Normal sized aortic root. Pericardium/Pleural No pericardial effusion. Medication Diluted definity 2ml given slow IV push to enhance endocardial definition. MMode/2D Measurements & Calculations LVIDd: 4.5 cm IVSd: 0.85 cm Ao root diam: 2.8 cm LVIDs: 2.9 cm LVPWd: 1.0 cm RVDd: 3.1 cm FS: 34.6 % LAV(MOD-bp): 33.6 ml LVAd ap4: 24.3 cm2 LVAd ap2: 22.6 cm2 LAV(MOD-bp) Indexed: 17.0 ml/m2 LVLd ap4: 7.0 cm LVLd ap2: 6.8 cm LAV(MOD-sp2): 26.2 ml EDV(MOD-sp4): 69.3 ml EDV(MOD-sp2): 64.4 ml LAV(MOD-sp4): 40.8 ml EDV(sp4-el): 71.4 ml EDV(sp2-el): 63.8 ml LVAs ap4: 11.9 cm2 LVAs ap2: 11.4 cm2 LVLs ap4: 5.6 cm LVLs ap2: 5.3 cm ESV(MOD-sp4): 20.8 ml ESV(MOD-sp2): 22.0 ml ESV(sp4-el): 21.4 ml ESV(sp2-el): 20.7 ml EF(MOD-sp4): 70.0 % EF(MOD-sp2): 65.9 % EF(sp4-el): 70.0 % SV(MOD-sp4): 48.6 ml SV(MOD-sp2): 42.4 ml SV(sp4-el): 50.0 ml LA A4 area: 16.3 cm2 LA dimension(2D): 4.1 cm RA A4 area: 11.7 cm2 Doppler Measurements & Calculations MV E max bairon: 52.5 cm/sec Lat Peak E' Bairon: 6.6 cm/sec Med Peak E' Bairon: 4.1 cm/sec MV A max bairon: 85.8 cm/sec E/E' lat: 8.0 E/E' med: 12.9 MV E/A: 0.61 Ao V2 max: 130.2 cm/sec LV V1 max: 100.7 cm/sec PA V2 max: 88.9 cm/sec Ao max P.8 mmHg LV V1 max P.1 mmHg TR max bairon: 230.9 cm/sec TR max P.3 mmHg ECHO/Echo Complete W/ Contrast Interpretation Summary The study was technically difficult. Contrast injection was performed. Left ventricular systolic function is normal. The estimated ejection fraction is 65 %. The left atrium is moderately enlarged. Trivial mitral valve insufficiency. Trivial tricuspid valve insufficiency. Right ventricular systolic pressure estimated to be 24 mmHg. No evidence for diastolic dysfunction. Ordering Physician: Pradip Bal Referring Physician: Janet Zhao M.D. Performed By: Alisia Aj RDCS
--- NOTE | 2020-07-21 12:53 | STRESSREP_ITS ---
Stress Test Report Date: 07-21-2020 Procedure: Pharmacologic stress nuclear imaging study Indications: Chest pain; CAD; PCI; atrial dysrhythmia; status post EPS/RFA; permanent pacemaker Consent: Per the patient Procedure: The patient underwent pharmacologic (Regadenoson 0.4mg ) evaluation with a peak heart rate of 85 beats per minute (60%predicted maximal heart rate) and a peak blood pressure of 134/66 mmHg. The baseline ECG demonstrated sinus rhythm; nonspecific ST segment abnormality. The peak pharmacologic ECG demonstrated continued nonspecific ST segment abnormality. There were no cardiac dysrhythmias pretest, during pharmacologic infusion, or recovery. There was no complaint of chest discomfort during pharmacologic infusion or recovery. The examination was discontinued secondary to completion of protocol. Impression: 1. Pharmacologic (Regadenoson) evaluation 2. Peak pharmacologic ECG with. 3. There were no cardiac dysrhythmias pretest, during pharmacologic infusion, or recovery. 4. Nuclear images pending Myocardial perfusion imaging study: Technique: The patient was injected with 11.7 millicuries of technetium 99m Cardiolite and subsequently rest SPECT Cardiolite nuclear imaging was obtained in the horizontal long, vertical long, and short axis views. The patient underwent pharmacologic (Regadenoson) evaluation with a peak heart rate of 85 beats per minute (60% percent predicted maximal heart rate) and a peak blood pressure of 134/66 mmHg. The patient was injected with 34.2 millicuries of technetium 99m Cardiolite and subsequently stress SPECT Cardiolite nuclear imaging was obtained in the horizontal long, vertical long, and short axis views. A gated Cardiolite study at peak stress was obtained. Interpretation: Rest and stress SPECT Cardiolite nuclear imaging status post realignment, normalization, and attenuation correction demonstrate relative uniform tracer uptake and myocardial perfusion appearing within normal limits. There is end systolic thickening and brightening. The gated Cardiolite study demonstrates myocardial thickening and inward wall motion. The reported LVEF is 78%. Impression: 1. Rest and stress SPECT Cardiolite nuclear imaging demonstrate relative uniform tracer uptake and myocardial perfusion appearing within normal limits. 2. The gated Cardiolite study reports an LVEF of 78%. This note was generated with [employer] software. It may contain incorrect words, spelling, and punctuation that were not noted in checking the note before signing.
== END ==
PROVIDERS: PCP Family Medicine; Referring Provider Internal Medicine Cardiovascular Disease; Visit Provider Internal Medicine Cardiovascular Disease
DX: I25.10 Atherosclerotic heart disease of native coronary artery without angina pectoris (principal); R07.9 Chest pain, unspecified; Z95.5 Presence of coronary angioplasty implant and graft
CPT/HCPCS: 78452; 93017; 93306; A9500; Q9957; A4216; C8929; J2785

== ENCOUNTER → 2020-08-15 11:20 | Outpatient (CLI) | payer MEDICARE, OTHER, SELFPAY ==
[2020-07-10 15:44] VITALS: BMI 33.4
[2020-08-15 15:27] LABS: AST(SGOT) 14 U/L (15-37); Alanine Aminotransfer ALT/SGPT 19 U/L (13-56); Albumin, Serum 3.7 g/dL (3.2-5.0); Alkaline Phosphatase 73 U/L (45-117); Anion Gap 10 (5-15); BUN 21 mg/dL (7-18); BUN/Creat Ratio 23.1 RATIO (10-20); Bilirubin, Direct 0.18 mg/dL (0.00-0.30); Calcium,Total 9.2 mg/dL (8.5-10.1); Chloride 103 mmol/L (98-107); Cholesterol 157 mg/dL (200); Creatinine, Serum 0.91 mg/dL (0.55-1.02); EST Glomerular Filtration Rate 63 mL/min (>60); Est Glom Filt Rate - Afr Amer 77 mL/min (>60); Globulin 3.7 g/dL (2.2-4.2); Glucose 183 mg/dL (74-106); High Density Lipoprotein 50 mg/dL; Potassium 4.2 mmol/L (3.5-5.1); Protein, Total 7.4 g/dL (6.4-8.2); Sodium Level 138 mmol/L (136-145); Thyroid Stim Hormone (TSH) 1.11 uIU/mL (0.358-3.74); Triglycerides 191 mg/dL; Very Low Density Lipoprotein 38 mg/dL (5-40)
== END ==
PROVIDERS: PCP Family Medicine; Referring Provider Family Medicine; Visit Provider Family Medicine
DX: E11.9 Type 2 diabetes mellitus without complications (principal)
CPT/HCPCS: 36415; 80048; 80061; 80076; 84443

== ENCOUNTER → 2021-08-06 | Outpatient (CLI) | payer MEDICARE, SELFPAY ==
--- NOTE | 2021-08-06 15:44 | RAD_ITS ---
STUDY: X-RAY - LUMBAR SPINE REASON FOR EXAM: Female, 80 years old. PAIN TECHNIQUE: 4 view(s) of the lumbar spine were obtained. COMPARISON: None FINDINGS: Normal lumbar lordosis. There is no substantial scoliosis. 2 mm retrolisthesis of L2 on L3. 2 mm retrolisthesis of L3 on L4. 5 mm of anterolisthesis of L4 on L5. 5 mm of anterolisthesis of L5 on S1. There is multilevel endplate spondylosis of the lumbar vertebrae. There is multi-level degenerative disc disease with multi-level disc space narrowing. Facet hypertrophy in the lower lumbar spine. The soft tissue structures are unremarkable. RAD/L/S Spine Min 4 Views IMPRESSION: Diffuse degenerative disc disease with subluxation at multiple levels. Electronically Signed: Cortez Fried MD at 8:29 EDT ,
[2021-08-06 18:06] LABS: AST(SGOT) 15 U/L (15-37); Alanine Aminotransfer ALT/SGPT 20 U/L (13-56); Albumin, Serum 3.6 g/dL (3.2-5.0); Alkaline Phosphatase 91 U/L (45-117); Anion Gap 8 (5-15); BUN 13 mg/dL (7-18); BUN/Creat Ratio 15.5 RATIO (10-20); Bilirubin, Direct 0.13 mg/dL (0.00-0.30); Calcium,Total 9.2 mg/dL (8.5-10.1); Chloride 102 mmol/L (98-107); Cholesterol 178 mg/dL (200); Creatinine, Serum 0.84 mg/dL (0.55-1.02); EST Glomerular Filtration Rate 69 mL/min (>60); Est Glom Filt Rate - Afr Amer 84 mL/min (>60); Globulin 3.8 g/dL (2.2-4.2); Glucose 171 mg/dL (74-106); High Density Lipoprotein 42 mg/dL; Potassium 3.9 mmol/L (3.5-5.1); Protein, Total 7.4 g/dL (6.4-8.2); Sodium Level 138 mmol/L (136-145); Triglycerides 202 mg/dL; Very Low Density Lipoprotein 40 mg/dL (5-40)
[2021-08-06 18:10] LABS: Hemoglobin A1c 7.5 % (3.8-5.6)
[2021-08-06 18:18] LABS: Microalbumin,Random Urine 88.1 mg/L (NO RANGE EST.); Microalbumin:Creatinine Ratio 66.2 mg/g CRE (<30 mg/g CRE)
== END | disposition home or self-care (01) ==
PROVIDERS: PCP Family Medicine; Referring Provider Family Medicine; Visit Provider Family Medicine
DX: E11.9 Type 2 diabetes mellitus without complications (principal)
CPT/HCPCS: 36415; 72110; 80048; 80061; 80076; 82043; 82570; 83036

== ENCOUNTER 2022-01-07 15:01 | Observation (INO) | payer MEDICARE, SELFPAY ==
[2022-01-07 15:04] VITALS: PULSE 80; RESP 12; TEMP 36.9; O2SAT 97; BMI 34.0
[2022-01-07 15:07] VITALS: BP 128/69; PULSE 81; RESP 13; O2SAT 92
--- NOTE | 2022-01-07 15:55 | EDS_ITS ---
HPI History of Present Illness Chief Complaint: Back Narrative Narrative: 81-year-old female presenting with right lower back/right hip pain for about 6 days. She had a mechanical fall prior to the onset of this. She states she has been able to get up at times but other times it feels like something is grabbing in the right lower back and hip and it causes pain. She has not had another fall. She states that she has a walker for stability typically this is helpful. She states that she kind of gets around until something grabs back in her right lower back and hip and then she has pain for short while. Today she was going to go see a chiropractor and was unable to get out of her chair. She was brought to the emergency room for evaluation. She has not had any imaging. Patient does report that she has been taking aspirin for pain and applying Biofreeze to the area. This is not helping significantly. She has not tried Tylenol or ibuprofen. She has not been doing stretching exercises. No alternation of warmth and heat. [facility] Medical History Abnormal EKG Angina pectoris Atherosclerotic heart disease of [place] coronary artery without angina pectoris CAD (coronary artery disease) Cardiomyopathy, dilated Chest discomfort Depression Depression DM2 (diabetes mellitus, type 2) Dyspnea Essential hypertension Fatigue History of atrial fibrillation HLD (hyperlipidemia) Long-term use of high-risk medication Old myocardial infarction Paroxysmal atrial fibrillation Paroxysmal atrial flutter Second degree AV block Type 2 diabetes mellitus Home Medications glimepiride 4 mg tablet 4 mg PO BID DM 03/11/19 [History Last Taken Unknown] ascorbate calcium (vitamin C) 500 mg tablet 500 mg PO DAILY 08/27/19 [History Last Taken Unknown] coenzyme Q10 10 mg capsule 10 mg PO ONCE 08/27/19 [History Last Taken Unknown] metformin 500 mg tablet 500 mg PO BID 08/27/19 [History Last Taken Unknown] nitroglycerin 0.4 mg sublingual tablet (Nitrostat) 0.4 mg sublingual Q5M PRN chest pain #25 tabs 08/27/19 [Rx Last Taken Unknown] atorvastatin 40 mg tablet 40 mg PO DAILY CHOLESTEROL #90 tabs 10/22/19 [Rx Last Taken Unknown] acetaminophen 500 mg tablet 1,000 mg PO Q6H PRN 07/10/20 [History Last Taken Unknown] cholecalciferol (vitamin D3) 50 mcg (2,000 unit) tablet 50 mcg PO BID 07/10/20 [History Last Taken Unknown] fluoxetine 40 mg capsule 40 mg PO DAILY 07/10/20 [History Last Taken Unknown] vitamin B complex 1 tab PO DAILY 07/10/20 [History Last Taken Unknown] Allergy/AdvReac Type Severity Reaction Status Date / Time No Known Allergies Allergy Verified 01/07/22 15:03 Family History Mother CAD (coronary artery disease) Sister , age 73 Atrial fibrillation Sister , Age 68 CAD (coronary artery disease) COPD (chronic obstructive pulmonary disease) Surgical History History of bilateral knee replacement History of foot surgery History of left cataract surgery History of right cataract surgery Pacemaker (~12/05/17) Presence of stent in coronary artery (~08/2010) Status post ablation of atrial fibrillation (~2002) Social History Smoking Status: Never smoker alcohol intake: never substance use type: does not use caffeine: Yes Type: coffee Number of servings: 2 ROS ROS ED Constitutional Constitutional ED: Denies chills or fever(s) Eyes Eyes: Denies change in vision or diplopia ENT ENT ED: Denies rhinorrhea or sore throat Cardiovascular Cardiovascular: Denies chest pain or palpitations Respiratory/Chest Respiratory/Chest: Denies dyspnea or dyspnea on exertion Gastrointestinal Gastrointestinal: Denies abdominal pain or constipation Genitourinary Genitourinary ED: Denies dysuria or hematuria Musculoskeletal Musculoskeletal: Reports back pain and other Details: Right hip pain Integumentary Denies abscess or Abrasions Neurologic Neurologic: Denies headache(s) or paresthesias Psychiatric Psychiatric: Denies anxiety or depression EXAM Physical Exam Const Vital Signs: 01/07/22 15:04 01/07/22 15:07 01/07/22 17:06 Temperature 98.4 F Temperature Source Oral Pulse Rate 80 81 84 Respiratory Rate 12 13 16 Blood Pressure 128/69 H 130/87 H Blood Pressure Mean 88 101 Pulse Ox 97 92 99 Oxygen Delivery Method Room Air Room Air Positive well nourished General Appearance ED: NAD; Negative for pallor HEENT Reports moist mucous membranes Eyes PERRL and EOMs intact bilaterally Resp normal respiratory effort Auscultation: Negative for rales, rhonchi or wheezes Cardio regular rate and regular rhythm GI normal to inspection, nondistended, normoactive bowel sounds Back/Spine Back/Spine Narrative: Right lumbar paraspinal musculature tenderness and right gluteal tenderness. No midline spinal tenderness, deformity, step-off negative logroll right hip. Patient able to flex the hip up off the bed without difficulty. Right lower extremity neurovascular intact with cap refill to all 5 toes. Extremity normal to inspection Neuro oriented x3 Sensorium / Orientation: alert Motor Exam: strength 5/5 throughout Psych mental status grossly normal Skin no rashes or lesions noted General Skin Exam: Negative for jaundice or pallor MDM MDM MDM Narrative Medical decision making narrative: Patient with pain in the right lower back and right gluteal region. Its not consistent with sciatica necessarily she does not have any midline back pain. I will obtain imaging of the lumbar spine and the right hip is a patient is stating is difficult for her to ambulate. I did ask her if she felt like she needed to be placed in prison and she states whatever will help. Patient does live at home alone. I asked her again if she could care for herself at home and she was unclear. She states her son has been looking for visiting [place] to come to her house. I will obtain basic lab work and have social work see her to determine the best course of action. Imaging of the lumbar spine and right hip on my interpretation do not show any acute abnormalities. Radiologist interprets this and agrees. There are some degenerative changes in the lumbar spine. After social work spoke to her and I spoke to her again and she determined that she did not want to go home and she did not feel safe due to her pain. She was initially treated with Toradol and morphine 4 mg and still does not feel like she can go home. I spoke with the hospitalist for admission as the patient requests prison. Impression: 1. Mechanical fall 2. Right sided back pain 3. Right hip pain Lab Data Labs: Laboratory Results - last 24 hr 01/07/22 01/07/22 16:05 16:05 WBC 8.4 RBC 4.74 Hgb 13.5 Hct 40.6 MCV 85.7 MCH 28.5 MCHC 33.3 RDW Std Deviation 41.1 RDW Coeff of Gerry 13.2 Plt Count 209 MPV 9.9 Immature Gran % (Auto) 0.500 Neut % (Auto) 77.2 H Lymph % (Auto) 12.1 L [place] % (Auto) 8.3 Eos % (Auto) 1.3 Baso % (Auto) 0.6 Absolute Neuts (auto) 6.5 Absolute Lymphs (auto) 1.02 Nucleated RBC % 0 Sodium 136 Potassium 3.8 Chloride 100 Carbon Dioxide 29.0 Anion Gap 7 BUN 26 H Creatinine 1.00 Estim Creat Clear Calc 39.70 Est GFR (MDRD) Af Amer 68 Est GFR (MDRD) Non-Af 57 L BUN/Creatinine Ratio 26.0 H Glucose 280 H Calcium 9.4 Radiography Diagnostic Testing: Clinical Impression(s) from Imaging Studies Hip/Pelvis X-Ray 01/07/22 16:20 IMPRESSION: No acute findings. Electronically Signed: Dada Escobar MD at 16:39 EST , Lumbar Spine X-Ray 01/07/22 16:20 IMPRESSION: Degenerative changes of the spine, as detailed above. Electronically Signed: Dada Escobar MD at 16:40 EST , Discharge Plan Triage Chief Complaint: Back ED Provider: [place] Dx/Rx/DC Orders Prescriptions: No Action ascorbate calcium (vitamin C) 500 mg tablet 500 mg PO DAILY coenzyme Q10 10 mg capsule 10 mg PO ONCE metformin 500 mg tablet 500 mg PO BID nitroglycerin [Nitrostat] 0.4 mg tablet, sublingual 0.4 mg SUBLINGUAL Q5M PRN (Reason: chest pain) Qty: 25 3RF Rx Instructions: do not exceed 3 doses per episode acetaminophen 500 mg tablet 1,000 mg PO Q6H PRN cholecalciferol (vitamin D3) 50 mcg (2,000 unit) tablet 50 mcg PO BID vitamin B complex Tablet 1 tab PO DAILY fluoxetine 40 mg capsule 40 mg PO DAILY glimepiride 4 mg tablet 4 mg PO BID Label Comments: TAKE 1 TABLET EVERY MORNING atorvastatin 40 mg tablet 40 mg PO DAILY Qty: 90 3RF Primary Care Provider: Janet Zhao Referrals: Janet Zhao MD [Primary Care Provider] -
[2022-01-07] MEDS: Ketorolac 15 MG/ML Vial IV (16:04)
[2022-01-07 16:15] LABS: Absolute Lymphocyte Count 1.02 X10^3/uL (0.83-4.51); Absolute Neutrophil Count 6.5 X10^3/uL (2.0-7.7); Basophil# 0.05 X10^3/uL; Basophil% 0.6 % (0-1); Eosinophil# 0.11 X10^3/uL; Eosinophils% 1.3 % (0-5); Hematocrit 40.6 % (37-47); Hemoglobin 13.5 g/dL (12.0-15.0); Lymphocyte # 1.02 X10^3/ul (0.83-4.51); Lymphocyte % 12.1 % (19-41); Mean Corp Hgb Conc 33.3 g/dL (32-36); Mean Corpuscular Hgb 28.5 pg (27.0-32.0); Mean Corpuscular Volume 85.7 fL (81-99); Mean Platelet Vol. 9.9 fl (6.2-12.0); Monocyte% 8.3 % (0-10); NRBC Flagged by Analyzer 0 % (0-5); Neutrophil # 6.48 X10^3/uL (2.7-7.7); Neutrophil % 77.2 % (47-70); Platelet Count 209 K/mm3 (150-450); RBC Distribution Width CV 13.2 % (11.6-14.6); RBC Distribution Width SD 41.1 fl (35.1-43.9); Red Blood Count 4.74 M/mm3 (4.2-5.4); White Blood Count 8.4 K/mm3 (4.4-11.0)
--- NOTE | 2022-01-07 16:20 | RAD_ITS ---
STUDY: X-RAY - LUMBAR SPINE REASON FOR EXAM: Female, 81 years old. back pain TECHNIQUE: XR Spine Lumbar 2 or 3 Views COMPARISON: None FINDINGS: Normal lumbar lordosis. There is no substantial scoliosis. There is a Grade 1 anterolisthesis of L4 on L5. ] Vacuum disc phenomenon. There is multilevel endplate spondylosis of the lumbar vertebrae. There is multi-level degenerative disc disease with multi-level disc space narrowing. There are atherosclerotic vascular calcifications. The soft tissue structures are unremarkable. RAD/Lumbar Spine 2 or 3 Views IMPRESSION: Degenerative changes of the spine, as detailed above. Electronically Signed: Dada Escobar MD at 16:40 EST ,
--- NOTE | 2022-01-07 16:20 | RAD_ITS ---
STUDY: X-RAY - PELVIS AND RIGHT HIP REASON FOR EXAM: Female, 81 years old. pain TECHNIQUE: XR Hip Unilateral with Pelvis when performed; 2-3 Views COMPARISON: None. FINDINGS: There is a non-specific bowel gas pattern. Normal visualized soft tissue structures. There are atherosclerotic vascular calcifications. There are degenerative changes of the lumbar spine. Normal bilateral iliac wings, sacroiliac joints and visualized sacrum. Normal bilateral superior and inferior pubic rami. Normal pubic symphysis. Normal bilateral ischial tuberosities. Normal visualized femoral head. Normal acetabulum. Normal hip joint. RAD/HIP, UNI W/ Pelvis 2-3 Views IMPRESSION: No acute findings. Electronically Signed: Dada Escobar MD at 16:39 EST ,
[2022-01-07 16:23] LABS: Anion Gap 7 (5-15); BUN 26 mg/dL (7-18); Calcium,Total 9.4 mg/dL (8.5-10.1); Chloride 100 mmol/L (98-107); EST Glomerular Filtration Rate 57 mL/min (>60); Est Glom Filt Rate - Afr Amer 68 mL/min (>60); Glucose 280 mg/dL (74-106); Potassium 3.8 mmol/L (3.5-5.1); Sodium Level 136 mmol/L (136-145)
[2022-01-07 17:06] VITALS: BP 130/87; PULSE 84; RESP 16; O2SAT 99
[2022-01-07] MEDS: Morphine 4 MG/ML Syringe IV (18:24)
[2022-01-07] MEDS: Ondansetron 4 MG/2 ML Vial IV (18:24)
--- NOTE | 2022-01-07 18:48 | CM.ED ---
Referral Source: MD Referral Reason: Discharge planning GLADYS spoke with RN who stated patient is confused as she told one person she was here for back and another person she is here for hip. SW went into patient's room and spoke with her. She said that later this month it will be the anniversary of her 's . She and had been for 62 years. Son resides next door. Patient said that hospice worker has been coming by but since it is a year she feels that the visits will stop. SW encourage patient to discuss with hospice additional support that she may benefit from. SW discussed with patient if she feels she wants to go for rehab someplace or return home. Patient said that she has not even had my temperature taken and I don't want to discuss it until I know what is wrong. Patient was going to imaging and then this sign writer hand will come back and speak to patient. SW went back and met with patient. SW discussed with patient her discharge plan as did she want to go home or go to rehab. Patient asked where she would go for rehab and bilingual social worker said that [facility] facilities had rehab and [facility] had TCU. Sw advised that this sign writer hand could not make recommendations regarding places for rehab. Patient said that she feels she would benefit from going to SNF for rehab. updated. Plan: Admit to acute unit for placement for rehab [facility]
--- NOTE | 2022-01-07 19:27 | HP.PCM.HOS_ITS ---
HPI - General General Date of Admission: 01/07/22 Date of Service: 01/07/22 Chief Complaint: back pain HPI Narrative JERROD SALAZAR, is a 81 F who presents with back pain. On Halloween, patient fell backwards landing on her buttocks and hitting her head. Did not lose consciousness at that time and laid on the floor for couple hours before somebody could help pick her up. Since then, patient has pretty much been chair or couch bound. She has not really gotten up and has been using Depends since she cannot make it to the restroom. Her back pain waxes and wanes but overall its been getting worse. She denies any bowel or bladder incontinence, denies any peripheral paresthesias or numbness. But since she is been unable to get up she presented to the emergency room. In the emergency room, her work-up was unremarkable but she was unable to get up on her own and she wishes to go to a half-way facility to get stronger. [facility] Medical History (Updated 01/07/22 @ 19:[address] Adolfo Asencio, ) Abnormal EKG Angina pectoris Atherosclerotic heart disease of [place] coronary artery without angina pectoris CAD (coronary artery disease) Cardiomyopathy, dilated Chest discomfort Depression Depression DM2 (diabetes mellitus, type 2) Dyspnea Essential hypertension Fatigue History of atrial fibrillation HLD (hyperlipidemia) Long-term use of high-risk medication Old myocardial infarction Paroxysmal atrial fibrillation Paroxysmal atrial flutter Second degree AV block Type 2 diabetes mellitus Home Medications glimepiride 4 mg tablet 4 mg PO BID DM 03/11/19 [History Last Taken Unknown] ascorbate calcium (vitamin C) 500 mg tablet 500 mg PO DAILY 08/27/19 [History Last Taken Unknown] coenzyme Q10 10 mg capsule 10 mg PO ONCE 08/27/19 [History Last Taken Unknown] metformin 500 mg tablet 500 mg PO BID 08/27/19 [History Last Taken Unknown] nitroglycerin 0.4 mg sublingual tablet (Nitrostat) 0.4 mg sublingual Q5M PRN chest pain #25 tabs 08/27/19 [Rx Last Taken Unknown] atorvastatin 40 mg tablet 40 mg PO DAILY CHOLESTEROL #90 tabs 10/22/19 [Rx Last Taken Unknown] acetaminophen 500 mg tablet 1,000 mg PO Q6H PRN 07/10/20 [History Last Taken Unknown] cholecalciferol (vitamin D3) 50 mcg (2,000 unit) tablet 50 mcg PO BID 07/10/20 [History Last Taken Unknown] fluoxetine 40 mg capsule 40 mg PO DAILY 07/10/20 [History Last Taken Unknown] vitamin B complex 1 tab PO DAILY 07/10/20 [History Last Taken Unknown] Allergy/AdvReac Type Severity Reaction Status Date / Time No Known Allergies Allergy Verified 01/07/22 15:03 Family History Mother CAD (coronary artery disease) Sister , age 73 Atrial fibrillation Sister , Age 68 CAD (coronary artery disease) COPD (chronic obstructive pulmonary disease) Surgical History History of bilateral knee replacement History of foot surgery History of left cataract surgery History of right cataract surgery Pacemaker (~12/05/17) Presence of stent in coronary artery (~08/2010) Status post ablation of atrial fibrillation (~2002) Social History Smoking Status: Never smoker alcohol intake: never substance use type: does not use caffeine: Yes Type: coffee Number of servings: 2 ROS ROS Narrative Uses a walker at baseline. All review of systems were negative except as menti oned above in the history of present illness and the other review of systems. Vital Signs Vital Signs Vital Signs: 01/07/22 15:04 01/07/22 15:07 01/07/22 17:06 Temperature 36.9 C Temperature Source Oral Pulse Rate 80 81 84 Respiratory Rate 12 13 16 Blood Pressure 128/69 H 130/87 H Blood Pressure Mean 88 101 Pulse Ox 97 92 99 Oxygen Delivery Method Room Air Room Air Weight Weight: 92.805 kg Body Mass Index (BMI) 34.0 Physical Exam Const alert and no apparent distress HEENT normocephalic, head/scalp atraumatic, hearing grossly normal bilaterally and moist oral mucous membranes Resp normal respiratory effort, no retractions, no use of accessory muscles and clear to auscultation bilaterally Cardio regular rate, regular rhythm, S1 normal heart sound and S2 normal heart sound GI normal to inspection, nondistended, normoactive bowel sounds, soft to palpation, non-tender and non-distended Back/Spine Lumbar Spine / Lower Back: paraspinal muscle tenderness right (Through right lumbar region.) Pelvis: Negative for buttocks abnormal Extremity normal to inspection Neuro oriented x3, CN's II-XII intact bilaterally, moves all extremities and no focal motor deficits Psych affect normal Results Lab / Micro Data Result Diagrams: 01/07/22 16:05 01/07/22 16:05 Labs: Laboratory Results - last 24 hr 01/07/22 16:05: WBC 8.4, RBC 4.74, Hgb 13.5, Hct 40.6, MCV 85.7, MCH 28.5, MCHC 33.3, RDW Std Deviation 41.1, RDW Coeff of Gerry 13.2, Plt Count 209, MPV 9.9, Immature Gran % (Auto) 0.500, Neut % (Auto) 77.2 H, Lymph % (Auto) 12.1 L, [place] % (Auto) 8.3, Eos % (Auto) 1.3, Baso % (Auto) 0.6, Absolute Neuts (auto) 6.5, Absolute Lymphs (auto) 1.02, Nucleated RBC % 0 01/07/22 16:05: Sodium 136, Potassium 3.8, Chloride 100, Carbon Dioxide 29.0, Anion Gap 7, BUN 26 H, Creatinine 1.00, Estim Creat Clear Calc 39.70, Est GFR (MDRD) Af Amer 68, Est GFR (MDRD) Non-Af 57 L, BUN/Creatinine Ratio 26.0 H, Glucose 280 H, Calcium 9.4 Radiology Impression Hip/Pelvis X-Ray 01/07/22 16:20 IMPRESSION: No acute findings. Electronically Signed: Dada Escobar MD at 16:39 EST , Lumbar Spine X-Ray 01/07/22 16:20 IMPRESSION: Degenerative changes of the spine, as detailed above. Electronically Signed: Dada Escobar MD at 16:40 EST , Assessment & Plan Assessment/Plan (1) Back pain: PLAN: Reviewed patient's lumbar spine x-ray. Patient does have what appears to be chronic compression fractures of T11 and T12. Those are present on x-rays from August of this year. Exam is consistent with paraspinal muscle tenderness. Plan is pain control, acetaminophen, ketorolac, Zanaflex and as needed low-dose oxycodone. No radicular signs therefore, additional MRI imaging is not necessary at this time. (2) DM2 (diabetes mellitus, type 2): PLAN: Continue with glimepiride and metformin. Add sliding scale insulin Check an A1c as blood sugars are quite elevated at this time. (3) Debility: PLAN: Secondary to the back pain as well as patient previously had a low performance status that she was using a walker prior to this. PT OT evaluate and treat May require half-way facility upon discharge PLAN: Plan Chronic conditions * CAD: Stable * Depression: Continue fluoxetine * Hyperlipidemia: Continue with statin VTE prophylaxis: Moderate risk despite her being observation status. Disposition: To be determined. Dissipate patient would require half-way facility. Patient will be observation status though medically otherwise stable. CODE STATUS: Addressed with patient. Patient is DNR Comfort Care arrest. Charges/Coding Visit Charges OBSV E&M: 24868 Initial observation care L2
[2022-01-07 19:32] VITALS: BP 121/64; PULSE 74; RESP 16; TEMP 36.6; O2SAT 100
[2022-01-07 19:45] VITALS: BP 129/64; PULSE 85; RESP 18; TEMP 36.6; O2SAT 96
[2022-01-07 19:47] VITALS: BMI 33.4
[2022-01-07 20:21] LABS: Bedside Glucose 239 mg/dL (74-106)
[2022-01-07 20:33] LABS: Hemoglobin A1c 10.8 % (3.8-5.6)
[2022-01-07] MEDS: Glimepiride 4 MG Tablet PO (21:16)
[2022-01-07] MEDS: Atorvastatin Calcium 40 MG Tablet PO (21:16)
[2022-01-07] MEDS: metFORMIN HCl 500 MG Tablet PO (22:07)
[2022-01-07] MEDS: Cholecalciferol (VIT D3) 25 MCG TABLET (1,000 UNITS) 50 MCG PO (22:07)
[2022-01-08] VITALS (7 sets, daily range): BP systolic 90–139; BP diastolic 50–72; PULSE 64–93; RESP 16–18; TEMP 36.4–37.1; O2SAT 94–100
[2022-01-08] MEDS: Insulin Lispro 100 UNIT/ML INSULN.PEN SC ×3 (06:58→16:55)
[2022-01-08 07:21] LABS: Bedside Glucose 291 mg/dL (74-106)
[2022-01-08] MEDS: metFORMIN HCl 500 MG Tablet PO (07:50)
[2022-01-08] MEDS: Glimepiride 4 MG Tablet PO ×2 (07:50→17:05)
[2022-01-08] MEDS: Enoxaparin 40 MG/0.4 ML Syringe SC (09:33)
[2022-01-08] MEDS: Cholecalciferol (VIT D3) 25 MCG TABLET (1,000 UNITS) 50 MCG PO ×2 (09:34→20:50)
[2022-01-08] MEDS: Ascorbic Acid 500 MG Tablet PO (09:34)
[2022-01-08] MEDS: Fluoxetine HCl 40 MG CAPSULE PO (09:34)
[2022-01-08] MEDS: Lidocaine 5% Patch 1 PATCH TOPICAL (09:34)
[2022-01-08] MEDS: Pantoprazole Sodium 40 MG Tablet PO (09:34)
--- NOTE | 2022-01-08 10:24 | CASEMGMT ---
Addendum entered by Carrie Hook 01/08/22 11:47: Pt and Pt's daughter reviewed list of SNFs and provided choices. First preferred SNF choice is [facility]. Second choice is [facility]. GLADYS informed Radha Lozoya, discharge assistant dean of students of pt choice. Referral to be sent. PLAN: Tj, pending acceptance and precert [facility] Original Note: Social Work SW in to meet with pt following update from that pt will need placement at nursing facility. SW introduced self and role at the hospital. Pt agreeable to discussing discharge planning. A list of SNF providers including quality and resource use data and consistent with the patient?s preferred geographic region, medical needs, and insurance network were provided from the [facility] Guide. Pt reviewed list but asked if an answer can be given later this day as pt daughter coming in to visit and pt would like to review options with daughter. SW agreeable. Will follow up with pt later today. ? PLAN: SNF ? [facility]?
[2022-01-08] MEDS: 0.9% Saline Lock 10 ML Syringe IV (11:30)
[2022-01-08] MEDS: tiZANidine HCl 2 MG Tablet 4 MG PO (11:30)
[2022-01-08] MEDS: Ketorolac 15 MG/ML Vial IV (11:30)
[2022-01-08 11:45] LABS: Bedside Glucose 274 mg/dL (74-106)
--- NOTE | 2022-01-08 12:17 | PN.HOSP_ITS ---
Subjective Subjective Patient seen and examined. She still complains of back pain. She has no urinary or fecal incontinence. Review of systems is otherwise negative. Objective Data Objective Data Vital Signs: Vital Signs Temp Pulse Resp BP Pulse Ox O2 Del Method 98.8 F 82 16 104/50 L 95 Room Air 01/08/22 07:41 01/08/22 07:41 01/08/22 07:41 01/08/22 07:41 01/08/22 07:45 01/08/22 07:45 Oxygen Delivery Method Room Air Weight: 201 lb 0.985 oz Body Mass Index (BMI) 33.4 Intake & Output: Intake and Output for Last 24 Hours 01/06/22 01/07/22 01/08/22 23:59 23:59 23:59 Intake Total 450 / 450 Balance 450 / 450 Lab / Micro Data Result Diagrams: 01/07/22 16:05 01/07/22 16:05 Labs: Laboratory Results - last 24 hr 01/07/22 16:05: WBC 8.4, RBC 4.74, Hgb 13.5, Hct 40.6, MCV 85.7, MCH 28.5, MCHC 33.3, RDW Std Deviation 41.1, RDW Coeff of Gerry 13.2, Plt Count 209, MPV 9.9, Immature Gran % (Auto) 0.500, Neut % (Auto) 77.2 H, Lymph % (Auto) 12.1 L, [place] % (Auto) 8.3, Eos % (Auto) 1.3, Baso % (Auto) 0.6, Absolute Neuts (auto) 6.5, Absolute Lymphs (auto) 1.02, Nucleated RBC % 0 01/07/22 16:05: Sodium 136, Potassium 3.8, Chloride 100, Carbon Dioxide 29.0, Anion Gap 7, BUN 26 H, Creatinine 1.00, Estim Creat Clear Calc 39.70, Est GFR (MDRD) Af Amer 68, Est GFR (MDRD) Non-Af 57 L, BUN/Creatinine Ratio 26.0 H, Glucose 280 H, Calcium 9.4 01/07/22 16:05: Hemoglobin A1c 10.8 H 01/07/22 19:57: POC Glucose 239 H 01/08/22 06:57: POC Glucose 291 H 01/08/22 11:19: POC Glucose 274 H Radiography Diagnostic Testing: Radiology Impression Hip/Pelvis X-Ray 01/07/22 16:20 IMPRESSION: No acute findings. Electronically Signed: Dada Escobar MD at 16:39 EST , Lumbar Spine X-Ray 01/07/22 16:20 IMPRESSION: Degenerative changes of the spine, as detailed above. Electronically Signed: Dada Escobar MD at 16:40 EST , Physical Exam Const alert and oriented x3 Constitutional Narrative: looks uncomfortable due to pain HEENT head/scalp atraumatic, moist oral mucous membranes and oropharynx normal Head and Scalp: normocephalic Mouth: oral and palatal mucosa normal Eyes PERRL, EOMs intact bilaterally and conjunctivae normal Neck no lymphadenopathy and no JVD Resp normal respiratory effort, no retractions, no use of accessory muscles and clear to auscultation bilaterally Cardio regular rate, regular rhythm, S1 normal heart sound, S2 normal heart sound and no murmurs GI normal to inspection, nondistended, normoactive bowel sounds, soft to palpation, non-tender and non-distended Extremity normal to inspection, full ROM and no clubbing, cyanosis or edema General Extremity: edema Neuro oriented x3, CN's II-XII intact bilaterally, moves all extremities and no focal motor deficits Sensorium / Orientation: awake and alert Motor Exam: strength 5/5 throughout Psych affect normal Assessment & Plan Assessment/Plan (1) Debility: (2) Back pain: PLAN: Plan #Debility due to back pain * PT/OT on board. Fall precautions * on tylenol prn for pain. * lumbar xray showed degenerative spine changes * fall precautions * IV toradol and oxycodone prn * #Type 2 diabetes mellitus * was hyperglycemic. * A1C elevated at 10.8 * on glimepiride. Metformin increased to 1000mg bid * will discuss with patient about starting lantus * ISS. Accuchecks ACHS * #Depression: on fluoxetine #Hyperlipidemia: on satin #CAD: on atorvastatin DVT prophylaxis: lovenox Disposition: will benefit from placement Charges/Coding Visit Charges OBSV E&M: 10783 Subsequent observation care L2
--- NOTE | 2022-01-08 13:04 | CASEMGMT ---
Discharge Dumpster Driver This flex o writer operator sent referral to [facility] in [place]. Brigida STOUT Turf Farmer
[2022-01-08] MEDS: 0.9% Normal Saline 1,000 ML 999 ML IV (14:20)
--- NOTE | 2022-01-08 15:19 | CASEMGMT ---
RENEA SULLIVAN in to discuss ABREU form with patient. RENEA SULLIVAN explained ABREU form, asked for pt signature on the form and patient shook her head no. Asked pt if she understood the form, pt closed her eyes and did not answer. Asked pt again if she understood and if she would be willing to sign form, pt shook her head no. Marked that pt refused to sign and filed in chart. Pt did not want a copy of the form. Patient had no further questions or concerns at this time.
--- NOTE | 2022-01-08 15:40 | CASEMGMT ---
Discharge Market Research Assistant Tj reached out. Patient has been accepted. GLADYS Butler notified. Brigida STOUT Word Processing Supervisor
[2022-01-08] MEDS: metFORMIN HCl 1,000 MG Tablet 1000 MG PO (17:06)
[2022-01-08] MEDS: Menthol/Lanolin/Calamine/Znox 113 GM Tube 1 APPLIC TOPICAL (20:49)
[2022-01-08] MEDS: Atorvastatin Calcium 40 MG Tablet PO (20:49)
[2022-01-08] MEDS: Nystatin Powder 15gm Bottle 1 APPLIC TOPICAL (20:49)
[2022-01-08 21:40] LABS: Bedside Glucose 266 mg/dL (74-106)
[2022-01-08 22:11] LABS: Bedside Glucose 154 mg/dL (74-106)
[2022-01-09 02:45] VITALS: BP 128/51; PULSE 85; RESP 16; TEMP 36.6; O2SAT 95
[2022-01-09] MEDS: Acetaminophen 500 MG Tablet 1000 MG PO ×3 (03:43→16:18)
[2022-01-09 06:29] LABS: Absolute Lymphocyte Count 1.09 X10^3/uL (0.83-4.51); Absolute Neutrophil Count 5.8 X10^3/uL (2.0-7.7); Basophil# 0.06 X10^3/uL; Basophil% 0.7 % (0-1); Eosinophil# 0.35 X10^3/uL; Eosinophils% 4.3 % (0-5); Hematocrit 36.1 % (37-47); Hemoglobin 11.8 g/dL (12.0-15.0); Lymphocyte # 1.09 X10^3/ul (0.83-4.51); Lymphocyte % 13.4 % (19-41); Mean Corp Hgb Conc 32.7 g/dL (32-36); Mean Corpuscular Hgb 28.4 pg (27.0-32.0); Mean Corpuscular Volume 86.8 fL (81-99); Mean Platelet Vol. 10.4 fl (6.2-12.0); Monocyte# 0.81 X10^3/uL; Monocyte% 9.9 % (0-10); NRBC Flagged by Analyzer 0 % (0-5); Neutrophil # 5.79 X10^3/uL (2.7-7.7); Neutrophil % 71.1 % (47-70); Platelet Count 201 K/mm3 (150-450); RBC Distribution Width CV 13.2 % (11.6-14.6); RBC Distribution Width SD 41.7 fl (35.1-43.9); Red Blood Count 4.16 M/mm3 (4.2-5.4); White Blood Count 8.2 K/mm3 (4.4-11.0)
[2022-01-09] MEDS: Glimepiride 4 MG Tablet PO ×2 (06:43→17:37)
[2022-01-09] MEDS: Insulin Lispro 100 UNIT/ML INSULN.PEN SC ×2 (06:43→11:09)
[2022-01-09] MEDS: metFORMIN HCl 1,000 MG Tablet 1000 MG PO ×2 (06:43→17:37)
[2022-01-09 07:06] LABS: Bedside Glucose 163 mg/dL (74-106)
[2022-01-09 08:10] VITALS: BP 113/69; PULSE 74; RESP 18; TEMP 36.7; O2SAT 97
--- NOTE | 2022-01-09 09:29 | CASEMGMT ---
Discharge Climatology Professor Tj reached out and will start pre-cert. Brigida STOUT Custodial Operations Manager
[2022-01-09] MEDS: Nystatin Powder 15gm Bottle 1 APPLIC TOPICAL ×2 (09:34→20:47)
[2022-01-09] MEDS: Menthol/Lanolin/Calamine/Znox 113 GM Tube 1 APPLIC TOPICAL ×2 (09:35→20:47)
[2022-01-09] MEDS: Lidocaine 5% Patch 1 PATCH TOPICAL (09:35)
[2022-01-09] MEDS: Ascorbic Acid 500 MG Tablet PO (09:36)
[2022-01-09] MEDS: Fluoxetine HCl 40 MG CAPSULE PO (09:36)
[2022-01-09] MEDS: Enoxaparin 40 MG/0.4 ML Syringe SC (09:36)
[2022-01-09] MEDS: Cholecalciferol (VIT D3) 25 MCG TABLET (1,000 UNITS) 50 MCG PO ×2 (09:36→20:48)
[2022-01-09] MEDS: Pantoprazole Sodium 40 MG Tablet PO (09:36)
--- NOTE | 2022-01-09 10:37 | PN.HOSP_ITS ---
Subjective Subjective Doing well, had some issues with Zanaflex overnight needing a bolus because her pressures dropped into the 70s and she became altered. Objective Data Objective Data Vital Signs: Vital Signs Temp Pulse Resp BP Pulse Ox O2 Del Method 98.1 F 74 18 113/69 97 Room Air 01/09/22 08:10 01/09/22 08:10 01/09/22 08:10 01/09/22 08:10 01/09/22 08:10 01/09/22 08:10 Oxygen Delivery Method Room Air Weight: 201 lb 0.985 oz Body Mass Index (BMI) 33.4 Intake & Output: Intake and Output for Last 24 Hours 01/08/22 01/09/22 01/10/22 03:59 03:59 03:59 Intake Total 250 / 250 1350 / 1350 500 / 500 Balance 250 / 250 1350 / 1350 500 / 500 Lab / Micro Data Result Diagrams: 01/09/22 05:17 01/07/22 16:05 Labs: Laboratory Results - last 24 hr 01/08/22 11:19: POC Glucose 274 H 01/08/22 16:52: POC Glucose 266 H 01/08/22 21:52: POC Glucose 154 H 01/09/22 05:17: WBC 8.2, RBC 4.16 L, Hgb 11.8 L, Hct 36.1 L, MCV 86.8, MCH 28.4, MCHC 32.7, RDW Std Deviation 41.7, RDW Coeff of Gerry 13.2, Plt Count 201, MPV 10.4, Immature Gran % (Auto) 0.600, Neut % (Auto) 71.1 H, Lymph % (Auto) 13.4 L, [place] % (Auto) 9.9, Eos % (Auto) 4.3, Baso % (Auto) 0.7, Absolute Neuts (auto) 5.8, Absolute Lymphs (auto) 1.09, Nucleated RBC % 0 01/09/22 06:41: POC Glucose 163 H Physical Exam Narrative General: Alert, Oriented x3, Cooperative, No apparent distress HEENT: Atraumatic, PERRLA, EOMI, Normocephalic Oral: Moist Mucosa Neck: Supple, No JVD Lungs: Clear to auscultation, Normal air movement, No rhonchi, No wheeze, No rales Cardiovascular: Regular rate, Regular Rhythm, Normal S1, Normal S2, No murmurs Abdomen: Soft, Non Tender, Non-Distended, No Hepato-splenomegaly Extremities: No edema, Capillary Refill Less than 3 Seconds Skin: No rashes, No breakdown Musculoskeletal: No Tenderness to Palpation of Joints or Extremities, she does have right-sided back pain that is not midline it is lateral therefore muscular in nature Neurological: Cranial nerves II-XII grossly intact, Motor Exam 5/5 strength throughout, Sensory exam intact to light touch and pain Psych/Mental Status: Normal Affect, Appropriate Assessment & Plan Assessment/Plan (1) Debility: (2) Back pain: PLAN: Plan 1. Debility due to back pain * PT/OT on board. Fall precautions * on tylenol prn for pain. * lumbar xray showed degenerative spine changes * fall precautions * IV toradol and oxycodone prn, given her reaction, will hold all muscle relaxants 2. DM2 * was hyperglycemic. * A1C elevated at 10.8 * on glimepiride. Metformin increased to 1000mg bid * will discuss with patient about starting lantus * ISS. Accuchecks ACHS 3. CAD/HLD ? Blood pressures are stable ? Continue with her home Lipitor 4. Depression: on fluoxetine DVT: lovenox Charges/Coding Visit Charges OBSV E&M: 03965 Subsequent observation care L2
[2022-01-09 11:30] LABS: Bedside Glucose 241 mg/dL (74-106)
[2022-01-09 13:11] VITALS: O2SAT 97
[2022-01-09 13:29] VITALS: BP 137/61; PULSE 80; RESP 16; TEMP 36.8; O2SAT 97
--- NOTE | 2022-01-09 14:53 | CASEMGMT ---
Social work Pt's daughter called cupola charger this morning. While on the phone with daughter, GLADYS informed cupola charger, Sonja that pt had been accepted to [place] and precert was started. assistant golf professional Sonja relayed this information to pt's daughter with SW standing by. [facility]
[2022-01-09] MEDS: 0.9% Saline Lock 10 ML Syringe IV (16:20)
[2022-01-09 16:40] LABS: Bedside Glucose 121 mg/dL (74-106)
[2022-01-09 20:45] VITALS: BP 140/58; PULSE 76; RESP 18; TEMP 36.7; O2SAT 96
[2022-01-09] MEDS: Atorvastatin Calcium 40 MG Tablet PO (20:47)
[2022-01-10] MEDS: Acetaminophen 500 MG Tablet 1000 MG PO ×2 (01:56→08:53)
[2022-01-10 02:45] VITALS: BP 150/62; PULSE 81; RESP 17; TEMP 36.7; O2SAT 96
[2022-01-10] MEDS: Ketorolac 15 MG/ML Vial IV (06:43)
[2022-01-10] MEDS: Glimepiride 4 MG Tablet PO (06:44)
[2022-01-10] MEDS: metFORMIN HCl 1,000 MG Tablet 1000 MG PO (06:44)
[2022-01-10 06:56] LABS: Bedside Glucose 147 mg/dL (74-106)
[2022-01-10 08:14] VITALS: BP 148/73; PULSE 81; RESP 18; TEMP 36.8; O2SAT 98
--- NOTE | 2022-01-10 09:29 | PN.HOSP_ITS ---
Subjective Subjective Doing well, no issues overnight. Pain is controlled Objective Data Objective Data Vital Signs: Vital Signs Temp Pulse Resp BP Pulse Ox O2 Del Method 98.2 F 81 18 148/73 H 98 Room Air 01/10/22 08:14 01/10/22 08:14 01/10/22 08:14 01/10/22 08:14 01/10/22 08:14 01/10/22 08:14 Oxygen Delivery Method Room Air Weight: 201 lb 0.985 oz Body Mass Index (BMI) 33.4 Intake & Output: Intake and Output for Last 24 Hours 01/09/22 01/10/22 01/11/22 03:59 03:59 03:59 Intake Total 1350 / 1350 750 / 750 100 / 100 Balance 1350 / 1350 750 / 750 100 / 100 Lab / Micro Data Result Diagrams: 01/09/22 05:17 01/07/22 16:05 Labs: Laboratory Results - last 24 hr 01/09/22 11:08: POC Glucose 241 H 01/09/22 16:18: POC Glucose 121 H 01/10/22 06:26: POC Glucose 147 H Physical Exam Narrative General: Alert, Oriented x3, Cooperative, No apparent distress HEENT: Atraumatic, PERRLA, EOMI, Normocephalic Oral: Moist Mucosa Neck: Supple, No JVD Lungs: Clear to auscultation, Normal air movement, No rhonchi, No wheeze, No rales Cardiovascular: Regular rate, Regular Rhythm, Normal S1, Normal S2, No murmurs Abdomen: Soft, Non Tender, Non-Distended, No Hepato-splenomegaly Extremities: No edema, Capillary Refill Less than 3 Seconds Skin: No rashes, No breakdown Musculoskeletal: No Tenderness to Palpation of Joints or Extremities, she does have right-sided back pain that is not midline it is lateral therefore muscular in nature, no radiation to her legs Neurological: Cranial nerves II-XII grossly intact, Motor Exam 5/5 strength throughout, Sensory exam intact to light touch and pain Psych/Mental Status: Normal Affect, Appropriate Assessment & Plan Assessment/Plan (1) Debility: (2) Back pain: PLAN: Plan 1. Debility due to back pain * PT/OT on board. Fall precautions * on tylenol prn for pain. * lumbar xray showed degenerative spine changes * fall precautions * IV toradol and oxycodone prn, will hold all muscle relaxants 2. DM2 * was hyperglycemic. * A1C elevated at 10.8 * on glimepiride. Metformin increased to 1000mg bid * will discuss with patient about starting lantus * ISS. Accuchecks ACHS 3. CAD/HLD * Blood pressures are stable * Continue with her home Lipitor 4. Depression: on fluoxetine DVT: lovenox Charges/Coding Visit Charges OBSV E&M: 17490 Subsequent observation care L2
--- NOTE | 2022-01-10 09:35 | CASEMGMT ---
Discharge Civil Structural Engineer Tj reached out. Pre-cert has been obtained. GLADYS Valladares notified Brigida Man
--- NOTE | 2022-01-10 09:43 | TREXTCAR_ITS ---
Diet Diet Order/Speech Therapy: 01/07/22 20:01 Diet: Consistent Carb - Calorie Controlled Food consistency:: Regular Liquid Consistency:: Regular/Thin How many daily calories?: 2000 calorie Routine Orders/Code Status Routine Lab Work: CBC and BMP Code Status: DNRCC-A Therapies Physical Therapy: Eval and Treat Occupational Therapy: Eval and Treat Problem/Diagnosis (1) Debility: Status: Acute Code(s): R53.81 - Other malaise (2) Back pain: Status: Acute Code(s): M54.9 - Dorsalgia, unspecified Plan 1. Debility due to back pain * PT/OT on board. Fall precautions * on tylenol prn for pain. * lumbar xray showed degenerative spine changes * fall precautions * IV toradol and oxycodone prn, will hold all muscle relaxants 2. DM2 * was hyperglycemic. * A1C elevated at 10.8 * on glimepiride. Metformin increased to 1000mg bid * will discuss with patient about starting lantus * ISS. Accuchecks ACHS 3. CAD/HLD * Blood pressures are stable * Continue with her home Lipitor 4. Depression: on fluoxetine DVT: lovenox Allergies/Procedures Done in Hospital Allergies tizanidine [From Zanaflex] Adverse Reaction (Verified 01/10/22 07:22) Other confusion/restlessness Procedures: None Type of Care/Length of Stay Estimated LOS: Convalescent Care Less Than 30 days Type of Care Needed: Skilled Rehab Potential: Good Prognosis: Good Additional Orders/Day of Discharge Day of Discharge: 01/10/22 Discharge Plan Admission Admit Date/Time: 01/07/22 19:04 Attending Provider: John Andrews Primary Care Provider: Janet Zhao Consulting Providers: Adolfo Asencio ; Marimar Nguyen Discharge Orders/Prescriptions Prescriptions: New lidocaine 5 % Adhesive Patch,Medicated 1 patch topical DAILY Qty: 0 0RF Protocol: *Topical Application Instructions APPLICATION INSTRUCTIONS: to low back Continued ascorbate calcium (vitamin C) 500 mg tablet 500 mg PO DAILY coenzyme Q10 10 mg capsule 10 mg PO ONCE metformin 500 mg tablet 500 mg PO DAILY nitroglycerin [Nitrostat] 0.4 mg tablet, sublingual 0.4 mg SUBLINGUAL Q5M PRN (Reason: chest pain) Qty: 25 3RF Rx Instructions: do not exceed 3 doses per episode acetaminophen 500 mg tablet 1,000 mg PO Q6H PRN (Reason: Pain) cholecalciferol (vitamin D3) 50 mcg (2,000 unit) tablet 50 mcg PO BID vitamin B complex Tablet 1 tab PO DAILY fluoxetine 40 mg capsule 40 mg PO DAILY glimepiride 4 mg tablet 4 mg PO BID Label Comments: TAKE 1 TABLET EVERY MORNING atorvastatin 40 mg tablet 40 mg PO DAILY Qty: 90 3RF Referrals / Follow Up: Janet Zhao MD [Primary Care Provider] - Disposition Disposition (needs filled in before D/C Order can be placed): Intermediate Facility
--- NOTE | 2022-01-10 09:48 | DS.PCM_ITS ---
Providers Date of Admission: 01/07/22 Primary Care Physician: Dr. Janet Zhao MD Reason For Visit: BACK PAIN Diagnosis Discharge Diagnosis (1) Debility: Status: Acute Code(s): R53.81 - Other malaise (2) Back pain: Status: Acute Code(s): M54.9 - Dorsalgia, unspecified Medications at Discharge Home Medications glimepiride 4 mg tablet 4 mg PO BID DM 03/11/19 ascorbate calcium (vitamin C) 500 mg tablet 500 mg PO DAILY supplement 08/27/19 coenzyme Q10 10 mg capsule 10 mg PO ONCE supplement 08/27/19 metformin 500 mg tablet 500 mg PO DAILY DM 08/27/19 nitroglycerin 0.4 mg sublingual tablet (Nitrostat) 0.4 mg sublingual Q5M PRN chest pain #25 tabs 08/27/19 atorvastatin 40 mg tablet 40 mg PO DAILY CHOLESTEROL #90 tabs 10/22/19 acetaminophen 500 mg tablet 1,000 mg PO Q6H PRN Pain 07/10/20 cholecalciferol (vitamin D3) 50 mcg (2,000 unit) tablet 50 mcg PO BID supplement 07/10/20 fluoxetine 40 mg capsule 40 mg PO DAILY mood 07/10/20 vitamin B complex 1 tab PO DAILY supplement 07/10/20 lidocaine 5 % topical patch 1 patch topical DAILY #0 ea 01/10/22 Hospital Course Operations None Procedures None Summary of Care Provided Minutes Spent on Discharge: 38 Hospital Course: Per HPI:JERROD SALAZAR, is a 81 F who presents with back pain.? On Halloween, patient fell backwards landing on her buttocks and hitting her head.? Did not lose consciousness at that time and laid on the floor for couple hours before somebody could help pick her up.? Since then, patient has pretty much been chair or couch bound.? She has not really gotten up and has been using [facility] since she cannot make it to the restroom.? Her back pain waxes and wanes but overall its been getting worse.? She denies any bowel or bladder incontinence, denies a ny peripheral paresthesias or numbness.? But since she is been unable to get up she presented to the emergency room.? In the emergency room, her work-up was unremarkable but she was unable to get up on her own and she wishes to go to a prison facility to get stronger. Hospital course: 1.? Debility due to back pain * PT/OT on board. Fall precautions * on tylenol prn for pain. * lumbar xray showed degenerative spine changes * fall precautions * IV toradol and oxycodone prn, will hold all muscle relaxants as she had poor reaction to on the night of her admission. She has not used any oxycodone while here we will continue with lidocaine patches as well as NSAIDs on discharge * Discussed with her the plan for discharge today to undergo physical therapy for her back pain as a prison facility. She expressed understanding of the risks and benefits of going and would like to go today. 2.? DM2 * was hyperglycemic. * A1C elevated at 10.8 * on glimepiride. Metformin increased to 1000mg bid given this increase I would monitor her renal function as an outpatient * will discuss with patient about starting lantus * ISS. Accuchecks ACHS 3.? CAD/HLD * ?Blood pressures are stable * ?Continue with her home Lipitor 4.? Depression: on fluoxetine Weight / BMI Weight Weight: 201 lb 0.985 oz Body Mass Index (BMI) 33.4 ABG / Lab / Microbiology Data Result Diagrams: 01/09/22 05:17 01/07/22 16:05 Laboratory: Laboratory Results - last 24 hr 01/09/22 11:08: POC Glucose 241 H 01/09/22 16:18: POC Glucose 121 H 01/10/22 06:26: POC Glucose 147 H Meaningful Use Info Meaningful Use Diagnoses (Choose all that apply): None applicable Discharge Plan Admission Admit Date/Time: 01/07/22 19:04 Attending Provider: John Andrews Primary Care Provider: Janet Zhao Consulting Providers: Adolfo Asencio ; Marimar Nguyen Discharge Orders/Prescriptions Prescriptions: New lidocaine 5 % Adhesive Patch,Medicated 1 patch topical DAILY Qty: 0 0RF Protocol: *Topical Application Instructions APPLICATION INSTRUCTIONS: to low back Continued ascorbate calcium (vitamin C) 500 mg tablet 500 mg PO DAILY coenzyme Q10 10 mg capsule 10 mg PO ONCE metformin 500 mg tablet 500 mg PO DAILY nitroglycerin [Nitrostat] 0.4 mg tablet, sublingual 0.4 mg SUBLINGUAL Q5M PRN (Reason: chest pain) Qty: 25 3RF Rx Instructions: do not exceed 3 doses per episode acetaminophen 500 mg tablet 1,000 mg PO Q6H PRN (Reason: Pain) cholecalciferol (vitamin D3) 50 mcg (2,000 unit) tablet 50 mcg PO BID vitamin B complex Tablet 1 tab PO DAILY fluoxetine 40 mg capsule 40 mg PO DAILY glimepiride 4 mg tablet 4 mg PO BID Label Comments: TAKE 1 TABLET EVERY MORNING atorvastatin 40 mg tablet 40 mg PO DAILY Qty: 90 3RF Referrals / Follow Up: Janet Zhao MD [Primary Care Provider] - Disposition Disposition (needs filled in before D/C Order can be placed): Long Term Facility Charges/Coding Visit Charges OBSV E&M: 05950 Observation care discharge
[2022-01-10] MEDS: Lidocaine 5% Patch 1 PATCH TOPICAL (10:14)
[2022-01-10] MEDS: Menthol/Lanolin/Calamine/Znox 113 GM Tube 1 APPLIC TOPICAL (10:14)
[2022-01-10] MEDS: Nystatin Powder 15gm Bottle 1 APPLIC TOPICAL (10:15)
[2022-01-10] MEDS: Ascorbic Acid 500 MG Tablet PO (10:16)
[2022-01-10] MEDS: Pantoprazole Sodium 40 MG Tablet PO (10:16)
[2022-01-10] MEDS: Fluoxetine HCl 40 MG CAPSULE PO (10:16)
[2022-01-10] MEDS: Cholecalciferol (VIT D3) 25 MCG TABLET (1,000 UNITS) 50 MCG PO (10:16)
[2022-01-10] MEDS: Enoxaparin 40 MG/0.4 ML Syringe SC (10:17)
--- NOTE | 2022-01-10 10:34 | PHA.DC.MR ---
Pharmacy Service has performed discharge medication reconciliation for this patient upon transfer to [facility]. Home Medications glimepiride 4 mg tablet 4 mg PO BID DM 03/11/19 ascorbate calcium (vitamin C) 500 mg tablet 500 mg PO DAILY supplement 08/27/19 coenzyme Q10 10 mg capsule 10 mg PO ONCE supplement 08/27/19 metformin 500 mg tablet 500 mg PO DAILY DM 08/27/19 nitroglycerin 0.4 mg sublingual tablet (Nitrostat) 0.4 mg sublingual Q5M PRN chest pain #25 tabs 08/27/19 atorvastatin 40 mg tablet 40 mg PO DAILY CHOLESTEROL #90 tabs 10/22/19 acetaminophen 500 mg tablet 1,000 mg PO Q6H PRN Pain 07/10/20 cholecalciferol (vitamin D3) 50 mcg (2,000 unit) tablet 50 mcg PO BID supplement 07/10/20 fluoxetine 40 mg capsule 40 mg PO DAILY mood 07/10/20 vitamin B complex 1 tab PO DAILY supplement 07/10/20 lidocaine 5 % topical patch 1 patch topical DAILY #0 ea 01/10/22 The patient's discharge medication list was reviewed for discrepancies and discrepancies were resolved.
[2022-01-10 11:15] LABS: Bedside Glucose 218 mg/dL (74-106)
[2022-01-10] MEDS: Insulin Lispro 100 UNIT/ML INSULN.PEN SC (11:34)
--- NOTE | 2022-01-10 12:48 | CASEMGMT ---
Addendum entered by Jacquelyn Hercules 01/10/22 13:00: Phone call to Nafisa at [facility] and updated on discharge time of 1530. Nursing made aware. ELIZABETH Grubbs Original Note: Social Work Physician updated that precert has been obtained for pt to go to [facility] and pt is ready for discharge today. SW met with pt and informed that she has been accepted and ready for d/c today. Pt agreeable. PASRR completed in [facility] and sent along with orders and covid results to [facility] via [facility]. 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 Pt notified and understanding that insurance does not cover cost of transport. Phone call to pt son and VM left. Phone call to pt jesenia Brannon and updated on discharge plan and she is agreeable. Plan: [facility], Skilled level of care ELIZABETH Mancilla
[2022-01-10 13:25] VITALS: BP 109/60; PULSE 79; RESP 16; TEMP 37.3; O2SAT 96
--- NOTE | 2022-01-10 14:52 | NURSING ---
report called to [facility] for discharge. spoke with RENEA Alvarez.
== END 2022-01-10 15:43 ==
LOC: ED 16:45 → MS3 19:32
PROVIDERS: Student in an Organized Health Care Education/Training Program; Emergency Provider Student in an Organized Health Care Education/Training Program; PCP Family Medicine; Visit Provider Family Medicine
DX: M54.50 Low back pain, unspecified (principal); I42.0 Dilated cardiomyopathy; E11.65 Type 2 diabetes mellitus with hyperglycemia; I48.0 Paroxysmal atrial fibrillation; R53.81 Other malaise; M25.551 Pain in right hip; Z79.84 Long term (current) use of oral hypoglycemic drugs; I10 Essential (primary) hypertension; I25.10 Atherosclerotic heart disease of native coronary artery without angina pectoris; E78.5 Hyperlipidemia, unspecified; I25.2 Old myocardial infarction; F32.A Depression, unspecified
CPT/HCPCS: 36415; 72100; 73502; 80048; 82962; 83036; 85025; 87426; 96361; 96372; 96374; 96375; 96376; 97110; 97162; 97166; 97530; 97535; 99218; 99285; J7030; A4216; G0378; J2405

== ENCOUNTER → 2022-02-04 | Outpatient (CLI) | payer MEDICARE, SELFPAY ==
--- NOTE | 2022-02-04 16:27 | US_ITS ---
EXAM: US CHEST CLINICAL INDICATION: lump low back TECHNIQUE: Real-time ultrasound of the chest with image documentation. This report was created using Queryly report generation technology. COMPARISON: None. FINDINGS: SOFT TISSUES: Images were obtained in the soft tissues of the right lower back. There is a 3.6 x 1.2 x 5.0 cm structure in the subcutaneous tissues that is isoechoic to the surrounding tissues compatible with a lipoma. LYMPH NODES: Unremarkable. No lymphadenopathy. 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 No other abnormalities are identified. Electronically Signed: Elijah Todd MD at 22:42 EST ,
== END | disposition home or self-care (01) ==
LOC: US 16:27
PROVIDERS: PCP Family Medicine; Referring Provider Family Medicine; Visit Provider Family Medicine
DX: D17.1 Benign lipomatous neoplasm of skin and subcutaneous tissue of trunk (principal)
CPT/HCPCS: 76999

== ENCOUNTER → 2022-03-19 | Outpatient (CLI) | payer MEDICARE, SELFPAY ==
--- NOTE | 2022-03-19 17:21 | RAD_ITS ---
EXAM: XR LEFT HAND COMPLETE, 3 OR MORE VIEWS CLINICAL INDICATION: PAIN TECHNIQUE: Frontal, lateral and oblique views of the left hand. This report was created using TranslateMedia report generation technology. COMPARISON: Right wrist radiographs of this date. FINDINGS: BONES/JOINTS: Osseous structures are demineralized. Degenerative narrowing of the first carpal-metacarpal articulation and of the navicular-trapezium articulation again noted. There is degenerative narrowing of the index through little finger DIP joints, with slight radial subluxation of the long finger distal phalanx in relation to the middle phalanx. PIP joints and MCP joint spaces are relatively preserved. No sclerotic or destructive changes observed. No acute fracture or dislocation. SOFT TISSUES: Soft tissue swelling noted dorsal to the metacarpals and wrist. Chondrocalcinosis noted within the triangular fibrocartilage. Vascular calcification is present. No radiopaque foreign body. RAD/Hand Min 3 Views IMPRESSION: Degenerative osteoarthritis. Soft tissue swelling. No acute fracture or dislocation. Electronically Signed: Erickson Pride MD at 1:23 EST ,
--- NOTE | 2022-03-19 17:22 | RAD_ITS ---
EXAM: XR LEFT WRIST COMPLETE, 3 OR MORE VIEWS CLINICAL INDICATION: PAIN TECHNIQUE: Frontal, lateral and oblique views of the left wrist. This report was created using [employer] report generation technology. COMPARISON: Left hand radiographs of this date. FINDINGS: BONES/JOINTS: Osseous structures are demineralized. MCP joint spaces are relatively preserved. There is severe degenerative narrowing of the first carpal-metacarpal articulation with marginal osteophytes. There is also degenerative narrowing of the navicular-trapezium articulation. Chondrocalcinosis noted within the triangular fibrocartilage. There is minimal smooth deformity of the posterior cortex of the distal radius as noted on the lateral view, suggesting an old fracture, but no acute fracture is identified. No sclerotic or destructive changes observed. SOFT TISSUES: Soft tissue swelling noted about the wrist, greatest dorsally. Vascular calcification is present. No radiopaque foreign body. RAD/Wrist min 3 Views IMPRESSION: Soft tissue swelling about the wrist. Degenerative osteoarthritis. No acute fracture or dislocation identified. Electronically Signed: Erickson Pride MD at 1:21 EST ,
== END | disposition home or self-care (01) ==
LOC: MTRAD 17:19
PROVIDERS: PCP Family Medicine; Referring Provider Family Medicine; Visit Provider Family Medicine
DX: M25.531 Pain in right wrist (principal); M25.532 Pain in left wrist
CPT/HCPCS: 73110; 73130

== ENCOUNTER 2022-06-07 16:36 | Outpatient (CLI) | payer MEDICARE, SELFPAY ==
[2022-06-07 18:52] LABS: AST(SGOT) 34 U/L (15-37); Alanine Aminotransfer ALT/SGPT 200 U/L (13-56); Albumin, Serum 3.5 g/dL (3.2-5.0); Alkaline Phosphatase 200 U/L (45-117); Anion Gap 9 (5-15); BUN 22 mg/dL (7-18); BUN/Creat Ratio 25.7 RATIO (10-20); Bilirubin, Direct 0.23 mg/dL (0.00-0.30); Calcium,Total 9.5 mg/dL (8.5-10.1); Chloride 104 mmol/L (98-107); Cholesterol 150 mg/dL (200); Creatinine, Serum 0.86 mg/dL (0.55-1.02); EST Glomerular Filtration Rate 68 mL/min (>60); Est Glom Filt Rate - Afr Amer 82 mL/min (>60); Globulin 4.4 g/dL (2.2-4.2); Glucose 146 mg/dL (74-106); High Density Lipoprotein 47 mg/dL; Potassium 3.9 mmol/L (3.5-5.1); Protein, Total 7.9 g/dL (6.4-8.2); Sodium Level 138 mmol/L (136-145); Triglycerides 141 mg/dL; Very Low Density Lipoprotein 28 mg/dL (5-40)
== END 2022-06-07 23:59 | disposition home or self-care (01) ==
LOC: MFPLAB 16:42
PROVIDERS: PCP Family Medicine; Referring Provider Family Medicine; Visit Provider Family Medicine
DX: E11.9 Type 2 diabetes mellitus without complications (principal)
CPT/HCPCS: 36415; 80048; 80061; 80076

== ENCOUNTER → 2022-06-18 | Outpatient (CLI) | payer MEDICARE, SELFPAY ==
[2022-06-18 18:09] LABS: AST(SGOT) 17 U/L (15-37); Alanine Aminotransfer ALT/SGPT 77 U/L (13-56); Albumin, Serum 3.6 g/dL (3.2-5.0); Alkaline Phosphatase 174 U/L (45-117); Bilirubin, Direct 0.14 mg/dL (0.00-0.30); Globulin 3.4 g/dL (2.2-4.2)
== END | disposition home or self-care (01) ==
LOC: MFPLAB 14:37
PROVIDERS: PCP Family Medicine; Referring Provider Family Medicine; Visit Provider Family Medicine
DX: E11.9 Type 2 diabetes mellitus without complications (principal)
CPT/HCPCS: 36415; 80076

== ENCOUNTER 2022-12-12 13:48 | Emergency (ER) | payer MEDICARE, SELFPAY ==
[2022-12-12 13:49] VITALS: BP 105/59; PULSE 85; RESP 18; TEMP 36.2; O2SAT 94
[2022-12-12 13:51] VITALS: BMI 35.2
--- NOTE | 2022-12-12 15:08 | EKG12_ITS ---
Test Reason : WEAKNESS Blood Pressure : / mmHG Vent. Rate : 069 BPM Atrial Rate : 069 BPM P-R Int : 206 ms QRS Dur : 088 ms QT Int : 378 ms P-R-T Axes : -27 017 033 degrees QTc Int : 405 ms Normal sinus rhythm Nonspecific ST abnormality Abnormal ECG Confirmed by KAREL NAGY, KATHARINE ([id number]), fashion editor SHANNON VENEGAS ([id number]) on 12/17/2022 7:54:20 AM Referred By: Confirmed By:KATHARINE VINSON MD
--- NOTE | 2022-12-12 15:09 | EDS_ITS ---
HPI History of Present Illness Chief Complaint: Weakness Informant: patient and family Narrative Narrative: Patient presents with generalized weakness. She states symptoms of been going on for about a week or week and a half. She has coughing jags but no productivity. Not short of breath. She gets sore throat. Mild ear pressure. No abdominal pain. But she has had no some nausea vomiting and soft stools. Some of the nausea and vomiting is not new. She was tried on Zantac for this and it has not helped. But it seems like her tolerance of food and liquids has notably decreased in the last week. She denies any dysuria or urgency but is incontinent and that is chronic and unchanged. No known exposures. She feels chilled but has never had a fever. Reportedly slightly less volume of urine output but she thinks this is because she is not drinking much. She is also tired and has less energy and is sleeping more. She thinks she has lost weight but does not know how much. She has not seen anyone for this yet. Nothing specifically makes it better or worse. [facility] Medical History Abnormal EKG Angina pectoris Atherosclerotic heart disease of [place] coronary artery without angina pectoris CAD (coronary artery disease) Cardiomyopathy, dilated Chest discomfort Depression Depression DM2 (diabetes mellitus, type 2) Dyspnea Essential hypertension Fatigue History of atrial fibrillation HLD (hyperlipidemia) Long-term use of high-risk medication Old myocardial infarction Paroxysmal atrial fibrillation Paroxysmal atrial flutter Second degree AV block Type 2 diabetes mellitus Home Medications glimepiride 4 mg tablet 4 mg PO BID DM 03/11/19 [History Last Taken 01/06/22] ascorbate calcium (vitamin C) 500 mg tablet 500 mg PO DAILY supplement 08/27/19 [History Last Taken 01/06/22] coenzyme Q10 10 mg capsule 10 mg PO ONCE supplement 08/27/19 [History Last Taken 01/06/22] nitroglycerin 0.4 mg sublingual tablet (Nitrostat) 0.4 mg sublingual Q5M PRN chest pain #25 tabs 08/27/19 [Rx Last Taken Unknown] atorvastatin 40 mg tablet 40 mg PO DAILY CHOLESTEROL #90 tabs 10/22/19 [Rx Last Taken 01/06/22] acetaminophen 500 mg tablet 1,000 mg PO Q6H PRN Pain 07/10/20 [History Last Taken Unknown] cholecalciferol (vitamin D3) 50 mcg (2,000 unit) tablet 50 mcg PO BID supplement 07/10/20 [History Last Taken 01/06/22] fluoxetine 40 mg capsule 40 mg PO DAILY mood 07/10/20 [History Last Taken 01/06/22] vitamin B complex 1 tab PO DAILY supplement 07/10/20 [History Last Taken 01/06/22] cephalexin 500 mg capsule 500 mg PO Q12 #14 CAPSULES 12/12/22 [Rx Last Taken Unknown] gabapentin 100 mg capsule 300 mg PO TID 12/12/22 [History Last Taken Unknown] insulin glargine 100 unit/mL (3 mL) subcutaneous pen (Lantus Solostar U-100 Insulin) 10 unit subcut DAILY 12/12/22 [History Last Taken Unknown] ondansetron 4 mg disintegrating tablet 4 mg PO Q8H PRN PRN Nausea #10 tabs 12/12/22 [Rx Last Taken Unknown] Allergy/AdvReac Type Severity Reaction Status Date / Time tizanidine [From Zanaflex] AdvReac Other Verified 12/12/22 13:51 Family History Mother CAD (coronary artery disease) Sister , age 73 Atrial fibrillation Sister , Age 68 CAD (coronary artery disease) COPD (chronic obstructive pulmonary disease) Surgical History History of bilateral knee replacement History of foot surgery History of left cataract surgery History of right cataract surgery Pacemaker (~12/05/17) Presence of stent in coronary artery (~08/2010) Status post ablation of atrial fibrillation (~2002) Social History Smoking Status: Never smoker alcohol intake: never substance use type: does not use caffeine: Yes Type: coffee Number of servings: 2 ROS ROS ED ROS Narrative A complete review of systems was performed and is negative except as documented in the history of present illness. Some specific details below. Constitutional: No recent fevers but she has felt chills. EYE: No visual complaints or pain. ENT: No difficulty swallowing. But she has had some mild sore throat and ear congestion/pressure. CV: No chest pain or palpitations. Respiratory: No dyspnea but she has had coughing. No productivity. No hemoptysis. No difficulty taking breaths. GI: Please see history of present illness. : No frequency dysuria or hematuria. See also history of present illness. Musculoskeletal: No recent trauma. No pains. Skin: No rash. Nondiaphoretic. Neuro: No focal weakness or numbness. Endocrine: No polyuria or polydipsia. EXAM Physical Exam Narrative Exam Narrative: CONSTITUTIONAL: Patient is nontoxic in appearance. The patient looks comfortable. HEENT: No notable trauma. Mucous membranes do look a bit dry. No sinus tenderness. No indication of pain with swallowing. EYES: No conjunctival injection. No proptosis. CARDIOVASCULAR: Regular rate. Regular rhythm. No notable murmur. No JVD. RESPIRATORY: No respiratory distress. Breathing is unlabored. No wheezes. She does have some coarse breath sounds at both bases but these improved with a deep breath. No hypoxia seen with 94% sat on room air. GASTROINTESTINAL: Not distended. Bowel sounds are normal. No tenderness. No guarding. No rebound. No palpable mass. No bruit. Overall abdomen is benign. GENITOURINARY: No tenderness over the bladder. No CVA tenderness. MUSCULOSKELETAL: Atraumatic. No peripheral edema. No cord. No tenderness along the deep venous system. No asymmetry. NEUROLOGICAL: Patient is alert and appropriate. No focal deficit noted. SKIN: No noted rashes. No diaphoresis. PSYCHIATRIC: Patient is calm. Mood is appropriate. Const Vital Signs: 12/12/22 13:49 12/12/22 15:35 12/12/22 15:48 Temperature 97.1 F L Temperature Source Temporal Pulse Rate 85 67 Respiratory Rate 18 13 Respiratory Effort Normal Respiratory Pattern Normal Blood Pressure 105/59 L 110/63 Blood Pressure Mean 74 78 Pulse Ox 94 98 Oxygen Delivery Method Room Air MDM MDM MDM Narrative Medical decision making narrative: My end up into patient and the patient's two-view PA and also ask for is her urine atelectasis at the left base. Final reading is similar. Her CBC is overall normal. Electrolytes are normal except does show a high BUN to creatinine ratio consistent with some mild dehydration and she is given IV fluids. Glucose was slightly up at 162. Liver function test and lites are normal. Patient's urine shows cloudy urine with positive nitrites, positive leukocyte E[place]ace, up to 10 white cells, and positive bacteria. She has chronic incontinence. With her feeling ill in this urine result we will treat this pending culture. I explained this to the patient. If the culture is negative they can probably stop antibiotics. She may have also had a nonspecific viral illness that caused decreased p.o. intake, decreased urine output and contributed to the findings above. COVID and influenza are negative. Patient is comfortable going home. She states today and now she is not nauseated. We will get her a dose of Rocephin. I will get her on Keflex and I will write for Zofran if she has further problems with nausea. We discussed reasons to return. Lab Data Attestation: I reviewed the patient's lab results. Labs: Laboratory Results - last 24 hr 12/12/22 12/12/22 15:30 16:00 WBC 9.6 RBC 4.65 Hgb 13.4 Hct 42.1 MCV 90.5 MCH 28.8 MCHC 31.8 L RDW Std Deviation 43.1 RDW Coeff of Gerry 13.2 Plt Count 218 MPV 10.0 Immature Gran % (Auto) 0.400 Neut % (Auto) 74.1 H Lymph % (Auto) 11.0 L Christian % (Auto) 8.9 Eos % (Auto) 4.7 Baso % (Auto) 0.9 Absolute Neuts (auto) 7.1 Absolute Lymphs (auto) 1.05 Nucleated RBC % 0 Sodium 140 Potassium 4.2 Chloride 106 Carbon Dioxide 30.0 Anion Gap 4 L BUN 24 H Creatinine 0.92 Estim Creat Clear Calc 43.15 Est GFR (MDRD) Af Amer 75 Est GFR (MDRD) Non-Af 62 BUN/Creatinine Ratio 26.0 H Glucose 162 H Calcium 9.0 Total Bilirubin 0.40 AST 8 L ALT 23 Alkaline Phosphatase 87 Total Protein 6.9 Albumin 3.3 Globulin 3.6 Albumin/Globulin Ratio 0.9 Lipase 27 Urine Color Yellow Urine Clarity Sl. Cloudy Urine pH 5.0 Ur Specific [place] 1.025 Urine Protein 15 H Urine Glucose (UA) Normal Urine Ketones Negative Urine Occult Blood 10 H Urine Nitrite Positive H Urine Bilirubin Negative Urine Urobilinogen Normal Ur Leukocyte Esterase 500 H Urine RBC 0 SEEN Urine WBC 5-10 SEEN Ur Squamous Epith Cells 0 SEEN Urine Bacteria 1+ Urine Mucus 0 SEEN Radiography Diagnostic Testing: Clinical Impression(s) from Imaging Studies Chest X-Ray 12/12/22 15:37 IMPRESSION: Mild scarring or subsegmental atelectasis in the left lung base. Electronically Signed: Sanket Webb MD at 16:13 EDT , EKG Initial EKG: Comments: My independent interpretation of the patient's EKG done for generalized weakness shows a sinus rhythm with overall rate of 69. Nonspecific diffuse changes but no sign of acute infarct or ischemia. She does have slight first-degree AV block with a LA interval of 206 ms. QRS duration and QTc are normal. Discharge Plan Triage Chief Complaint: Weakness ED Provider: Prashanth Schmidt Dx/Rx/DC Orders Clinical Impression: Generalized weakness, Acute UTI, Nausea, Dehydration Instructions: Urinary Tract Infections in Women Prescriptions: New cephalexin [cephalexin] 500 mg capsule 500 mg PO Q12 Qty: 14 0RF ondansetron [ondansetron] 4 mg tablet,disintegrating 4 mg PO Q8H PRN PRN (Reason: Nausea) Qty: 10 0RF No Action ascorbate calcium (vitamin C) 500 mg tablet 500 mg PO DAILY coenzyme Q10 10 mg capsule 10 mg PO ONCE nitroglycerin [Nitrostat] 0.4 mg tablet, sublingual 0.4 mg SUBLINGUAL Q5M PRN (Reason: chest pain) Qty: 25 3RF Rx Instructions: do not exceed 3 doses per episode acetaminophen 500 mg tablet 1,000 mg PO Q6H PRN (Reason: Pain) cholecalciferol (vitamin D3) 50 mcg (2,000 unit) tablet 50 mcg PO BID vitamin B complex Tablet 1 tab PO DAILY fluoxetine 40 mg capsule 40 mg PO DAILY glimepiride 4 mg tablet 4 mg PO BID Patient Comments: TAKE 1 TABLET EVERY MORNING gabapentin 100 mg capsule 300 mg PO TID Patient Comments: TAKE 1 CAPSULE THREE TIMES DAILY NEEDED for back pain insulin glargine [Lantus Solostar U-100 Insulin] 100 unit/mL (3 mL) insulin pen 10 unit SUBCUT DAILY Patient Comments: INJECT TEN units under the skin ONCE DAILY atorvastatin 40 mg tablet 40 mg PO DAILY Qty: 90 3RF Primary Care Provider: Janet Zhao Referrals: Janet Zhao MD [Primary Care Provider] - 3-5 Days Disposition Disposition: Home, Self Care
[2022-12-12] MEDS: 0.9% Normal Saline (500mL Bag) 500 ML 1000 ML IV (15:33)
[2022-12-12] MEDS: Ondansetron 4 MG/2 ML Vial IV (15:33)
--- NOTE | 2022-12-12 15:37 | RAD_ITS ---
STUDY: X-RAY CHEST REASON FOR EXAM: Female, 81 years old. cough TECHNIQUE: Frontal and lateral views of the chest. COMPARISON: None. FINDINGS: Linear densities across the left lung base are consistent with areas of scarring or subsegmental atelectasis. Lungs otherwise clear. No effusions. Normal size heart. Pacemaker is seen with leads terminating in the right atrium and right ventricle. Normal mediastinum and rah. Normal visualized pulmonary arteries. Normal visualized aortic arch and descending thoracic aorta. There are diffuse degenerative changes of the visualized thoracic spine. Compression fracture seen of T12 of indeterminate age. Normal visualized ribs, clavicles, and shoulders. There is no demonstrated abnormality of the visualized soft tissue structures of the upper abdomen. RAD/Chest PA and Lateral IMPRESSION: Mild scarring or subsegmental atelectasis in the left lung base. Electronically Signed: Sanket Webb MD at 16:13 EDT ,
[2022-12-12 15:43] LABS: Absolute Lymphocyte Count 1.05 X10^3/uL (0.83-4.51); Absolute Neutrophil Count 7.1 X10^3/uL (2.0-7.7); Basophil# 0.09 X10^3/uL; Basophil% 0.9 % (0-1); Eosinophil# 0.45 X10^3/uL; Eosinophils% 4.7 % (0-5); Hematocrit 42.1 % (37-47); Hemoglobin 13.4 g/dL (12.0-15.0); Lymphocyte # 1.05 X10^3/ul (0.83-4.51); Mean Corp Hgb Conc 31.8 g/dL (32-36); Mean Corpuscular Hgb 28.8 pg (27.0-32.0); Mean Corpuscular Volume 90.5 fL (81-99); Monocyte# 0.85 X10^3/uL; Monocyte% 8.9 % (0-10); NRBC Flagged by Analyzer 0 % (0-5); Neutrophil # 7.09 X10^3/uL (2.7-7.7); Neutrophil % 74.1 % (47-70); Platelet Count 218 K/mm3 (150-450); RBC Distribution Width CV 13.2 % (11.6-14.6); RBC Distribution Width SD 43.1 fl (35.1-43.9); Red Blood Count 4.65 M/mm3 (4.2-5.4); White Blood Count 9.6 K/mm3 (4.4-11.0)
[2022-12-12 15:48] VITALS: BP 110/63; PULSE 67; RESP 13; O2SAT 98
[2022-12-12 16:04] LABS: ALB/GLOB Ratio 0.9 RATIO (0.9-2.4); AST(SGOT) 8 U/L (15-37); Alanine Aminotransfer ALT/SGPT 23 U/L (13-56); Albumin, Serum 3.3 g/dL (3.2-5.0); Alkaline Phosphatase 87 U/L (45-117); Anion Gap 4 (5-15); BUN 24 mg/dL (7-18); Chloride 106 mmol/L (98-107); Creatinine, Serum 0.92 mg/dL (0.55-1.02); EST Glomerular Filtration Rate 62 mL/min (>60); Est Glom Filt Rate - Afr Amer 75 mL/min (>60); Estimated Creatinine Clearance 43.15 ml/min; Globulin 3.6 g/dL (2.2-4.2); Glucose 162 mg/dL (74-106); Lipase 27 U/L (13-75); Potassium 4.2 mmol/L (3.5-5.1); Protein, Total 6.9 g/dL (6.4-8.2); Sodium Level 140 mmol/L (136-145)
[2022-12-12 16:06] LABS: Mucous, Urine 0 SEEN /hpf (<or=2+); Red Blood Cells-Urine 0 SEEN /hpf (0-5); Squamous Epithelial Cells - UA 0 SEEN /hpf (5-10)
[2022-12-12 16:09] LABS: Color, Urine Yellow (Yellow); Glucose, Dipstick Normal (Normal); Ketone-Dipstick Negative (Negative); Leukocyte Esterase-Dipstick 500 /ul (Negative); Nitrite-Dipstick Positive (Negative); Occult Blood-Urine 10 /ul (Negative); Protein-Dipstick 15 mg/dl (Negative); Specific Gravity, Urine 1.025 (1.002-1.030); Urine Bilirubin Dipstick Negative (Negative); Urine Clarity Sl. Cloudy (Clear); Urine Urobilinogen Normal (Normal)
[2022-12-12 16:22] LABS: Bacteria 1+ /hpf (None Seen); White Blood Cells 5-10 SEEN /hpf (0-5)
[2022-12-12] MEDS: Ceftriaxone 1 GM/50 ML BAG IV (17:29)
== END 2022-12-12 18:12 | disposition home or self-care (01) ==
PROVIDERS: Emergency Provider Emergency Medicine; PCP Family Medicine; Visit Provider Emergency Medicine
DX: N39.0 Urinary tract infection, site not specified (principal); E11.9 Type 2 diabetes mellitus without complications; J02.9 Acute pharyngitis, unspecified; I25.10 Atherosclerotic heart disease of native coronary artery without angina pectoris; I10 Essential (primary) hypertension; E86.0 Dehydration; E78.5 Hyperlipidemia, unspecified; R11.0 Nausea
CPT/HCPCS: 71046; 80053; 81001; 83690; 85025; 87077; 87086; 87088; 87186; 87428; 93005; 96361; 96365; 96375; 99285; P9612; J2405

== ENCOUNTER → 2022-12-31 | Outpatient (CLI) | payer MEDICARE, SELFPAY ==
--- NOTE | 2022-12-31 10:18 | RAD_ITS ---
STUDY: X-RAY CHEST REASON FOR EXAM: Female, 82 years old. cough TECHNIQUE: Frontal and lateral views of the chest. COMPARISON: December 12, 2022 FINDINGS: Bipolar pacer on the left. Subsegmental atelectasis left lower lobe. There is no demonstrated pleural abnormality. Normal size heart. Normal mediastinum and rah. Normal visualized pulmonary arteries. Normal visualized aortic arch and descending thoracic aorta. Compression fracture and gibbus formation T12 unchanged. Normal visualized ribs, clavicles, and shoulders. There is no demonstrated abnormality of the visualized soft tissue structures of the upper abdomen. RAD/Chest PA and Lateral IMPRESSION: Compression fracture T12 unchanged. Left lower lobe subsegmental atelectasis unchanged. Electronically Signed: Sekou Levy MD at 20:29 EDT ,
== END | disposition home or self-care (01) ==
LOC: MTRAD 10:17
PROVIDERS: PCP Family Medicine; Referring Provider Family Medicine; Visit Provider Family Medicine
DX: R05.9 Cough, unspecified (principal)
CPT/HCPCS: 71046

== ENCOUNTER → 2023-02-28 | Outpatient (CLI) | payer MEDICARE, SELFPAY ==
--- OUTSIDE RECORDS SUMMARY | 2023-02-28 11:24 | XMS RPT_ITS | CCD ---
Author Name Unknown Address [address] [place] [address] Organization [facility] Care Team Providers Care Flow Nurse Name Role Phone Blanche MEIER, Jane Low Unavailable Unavailable Janet Zhao Primary Care Provider Pcp, No Primary Care Provider Unavailpromise e Janet Zhao Primary Care Provider Janet Zhao Primary Care Provider JANET ZHAO Primary Care Unavailable JANET ZHAO Primary Care Unavailable JANET ZHAO Primary Care Unavailable JANET ZHAO Primary Care Unavailable Allergies Allergy Classification Reported Allergen(s) Allergy Type Date of Onset Reaction(s) Facility (1 source) natural latex rubber; Translations: [LATEX] allergy to substance 5 rash [facility] Work Phone: (2 sources) Latex Propensity to adverse reactions to drug 3 Itching, Rash [facility], [place] Medications Current Medications Medication Drug Class(es) Dates Sig (Normalized) Sig (Original) acetaminophen 500 mg oral tablet (3 sources) Start: 07-24-2019 take 2 tablets by mouth every eight hours acetaminophen (TYLENOL) 500 MG tablet Take 2 tablets by mouth every 8 hours 120 tablet 3 07/24/2019 Active Completed/Discontinued Medications Medication Drug Class(es) Dates Sig (Normalized) Sig (Original) DIPHENHYDRAMINE-A PAP (SLEEP) (1 source) Histamine-1 Receptor Antagonist Start: 07-23-2010 TYLENOL PM EXTRA STRENGTH 500-25 MG TABS As needed DIPHENHYDRAMINE-AP AP (SLEEP) [id number] Angela Garcia aspirin 81 mg oral tablet (2 sources) Nonsteroidal Anti-inflammatory Drug Start: 03-14-2011 take 1 tablet by mouth once daily ASPIRIN 81 MG TABS One tablet by mouth daily ASPIRIN [id number] Pradip Bal MD Problems Active Problems Problem Classification Problem Date Documented Date Episodic/Chronic Acute cerebrovascular disease (4 sources) Intracranial hemorrhage; Translations: [Nontraumatic intracranial hemorrhage, unspecified] Onset: 07-22-2019 07-22-2019 Chronic Acute myocardial infarction (3 sources) Myocardial infarction; Translations: [Non-ST elevation (NSTEMI) myocardial infarction] Onset: 10-31-2017 10-31-2017 Chronic Cardiac dysrhythmias (6 sources) Atrial flutter; Translations: [Atrial fibrillation] Onset: 07-23-2010 07-23-2010 Chronic Conduction disorders (8 sources) Mobitz type I incomplete atrioventricular block; Translations: [Second degree atrioventricular block] Onset: 10-31-2017 10-31-2017 Chronic Coronary atherosclerosis and other heart disease (5 sources) Angina pectoris; Translations: [Coronary arteriosclerosis] Onset: 07-23-2010 07-23-2010 Chronic Diabetes mellitus without complication (4 sources) Type 2 diabetes mellitus; Translations: [Type 2 diabetes mellitus without complications] Onset: 07-23-2019 07-23-2019 Chronic Disorders of lipid metabolism (1 source) Hyperlipidemia; Translations: [Hyperlipidemia, unspecified] Onset: 07-23-2010 07-23-2010 Chronic External cause codes: Fall (2 sources) Fall; Translations: [Fall] 07-23-2019 Occlusion or stenosis of precerebral arteries (3 sources) Carotid artery stenosis; Translations: [Occlusion and stenosis of unspecified carotid artery] Onset: 10-31-2017 10-31-2017 Chronic Other nutritional; endocrine; and metabolic disorders (1 source) Body mass index (BMI) 37.0-37.9, adult; Translations: [Body mass index (BMI) 37.0-37.9, adult] Onset: 09-20-2013 09-20-2013 Chronic Arin-; endo-; and myocarditis; cardiomyopathy (4 sources) Dilated cardiomyopathy; Translations: [Dilated cardiomyopathy] Onset: 07-23-2010 07-23-2010 Chronic Unclassified (1 source) Percutaneous transluminal coronary angioplasty ; Translations: [Coronary angioplasty status] Onset: 03-21-2014 03-21-2014 Past or Other Problems Problem Classification Problem Date Documented Date Episodic/Chronic Coronary atherosclerosis and other heart disease (1 source) Coronary angioplasty status; Translations: [Coronary angioplasty status] Onset: 11-01-2010 11-01-2010 Episodic Malaise and fatigue (1 source) Fatigue; Translations: [Other fatigue] Onset: 07-23-2010 07-23-2010 Episodic Nonspecific chest pain (1 source) Chest discomfort; Translations: [Other chest pain] Onset: 07-23-2010 07-23-2010 Episodic Other aftercare (1 source) Other long term care social worker (current) drug therapy; Translations: [Other long term care social worker (current) drug therapy] Onset: 07-23-2010 07-23-2010 Episodic Other circulatory disease (2 sources) History of myocardial infarction; Translations: [Electrocardiogram abnormal] Onset: 07-23-2010 11-01-2010 Episodic Other lower respiratory disease (1 source) Dyspnea; Translations: [Shortness of breath] Onset: 07-23-2010 07-23-2010 Episodic Other nervous system disorders (4 sources) Acute pain due to injury; Translations: [Acute pain due to trauma] Onset: 07-23-2019 07-23-2019 Episodic Other nervous system disorders (4 sources) Abnormal gait; Translations: [Unspecified abnormalities of gait and mobility] Onset: 07-23-2019 07-23-2019 Episodic Residual codes; unclassified (4 sources) At risk of osteoporosis; Translations: [Other specified personal risk factors, not elsewhere classified] Onset: 07-23-2019 07-23-2019 Episodic Residual codes; unclassified (1 source) Family history of malignant neoplasm of gastrointestinal tract; Translations: [Family history of malignant neoplasm of digestive organs] Onset: 03-16-2014 Episodic Results Test Name Value Interpretation Reference Range Facil ity Vital Signs Date Time Vital Sign Value Performing Clinician Chayai wilber 07-24-2019 08:38-0400 Body Temperature 96.69 [degF] [facility], [place] 07-24-2019 08:38-0400 BP Diastolic 58 mm[Hg] [facility] [place] 07-24-2019 08:38-0400 BP Systolic 124 mm[Hg] [facility] [place] 07-24-2019 08:38-0400 Pulse (Heart Rate) 77 /min [facility] [place] 07-24-2019 08:38-0400 Pulse Oximetry 93 % [facility] [place] 07-24-2019 08:38-0400 Respiratory Rate 20 /min Wilner Wilhelm [place], [place] 03-21-2014 14:14-0500 BMI (Body Mass Index) 37.47 kg/m2 [facility] Work Phone: 03-21-2014 14:14-0500 BP Diastolic 55 mm[Hg] Jane Mancia RN [facility] Work Phone: 03-21-2014 14:14-0500 BP Systolic 110 mm[Hg] Jane Mancia RN [facility] Work Phone: 03-21-2014 14:14-0500 BSA (Body Surface Area) 2.08 m2 Jane Mancia RN [facility] Work Phone: 03-21-2014 14:14-0500 Pulse (Heart Rate) 84 /min Jane Mancia RN [facility] Work Phone: 03-21-2014 14:14-0500 Respiratory Rate 16 /min Jane Mancia RN [facility] Work Phone: 03-21-2014 14:14-0500 Weight 102.15 kg Jane Mancia RN [facility] Work Phone: 03-14-2011 12:26-0500 Height 165.1 cm Jane Mancia RN [facility] Work Phone: Encounters Encounter Date Encounter Type Care Provider Facility Start: 01-14-2023 End: 01-15-2023 ambulatory [facility] Start: 01-14-2023 Telephone encounter Yue Abdalla RN S [facility] Start: 10-29-2022 End: 10-30-2022 ambulatory [facility] Start: 07-16-2022 End: 07-17-2022 ambulatory [facility] Start: 07-16-2022 Telephone encounter Yue Abdalla RN S [facility] Procedures Date Procedure Procedure Detail Performing Clinician Start: 07-24-2019 Gluc bld gluc mntr d ev cleared fda spec home use Wilner Wilhelm Work Phone: Start: 07-24-2019 25 hydroxy includes fractions if performed Saba Clarke Work Phone: Start: 07-24-2019 Assay of magnesium [place] abbetzy [facility] Work Phone: Start: 07-24-2019 Assay of phosphorus inorganic Jeannette A [facility] Work Phone: Start: 07-24-2019 Assay of thyroid stimulating hormone tsh Saba Clarke Work Phone: Start: 07-24-2019 BASIC METABOLIC PANE L W/ REFLEX TO MG FOR LOW K Jeannette [facility] Work Phone: Start: 07-24-2019 Blood count complete auto&auto difrntl wbc Inaura Work Phone: Start: 07-24-2019 Cyanocobalamin vitamin b-12 Saba Clarke Work Phone: Start: 07-24-2019 Hemoglobin glycosylated a1c Saba Clarke Work Phone: Start: 07-23-2019 Gluc bld gluc mntr d ev cleared fda spec home use Anamariaa Choco Work Phone: Start: 07-23-2019 End: 07-23-2019 Gluc bld gluc mntr dev cleared fda spec home use Anamariaa Choco Work Phone: Start: 07-23-2019 Echo tthrc r-t 2d w/wom-mode compl spec&colr d Jeannette [facility] Work Phone: Start: 07-23-2019 Gluc bld gluc mntr d ev cleared fda spec home use Rathna Choco Work Phone: Start: 07-23-2019 Ecg routine ecg w/le ast 12 lds w/i&r Therative A [facility] Work Phone: Start: 07-23-2019 Gluc bld gluc mntr d ev cleared fda spec home use Rathna Choco Work Phone: Start: 07-23-2019 Assay of magnesium [place] abbetzy [facility] Work Phone: Start: 07-23-2019 Assay of phosphorus inorganic Jeannette [facility] Work Phone: Start: 07-23-2019 BASIC METABOLIC PANE L W/ REFLEX TO MG FOR LOW K Jeannette Maranda [facility] Work Phone: Start: 07-23-2019 Blood count complete auto&auto difrntl wbc Jeannette [facility] Work Phone: Start: 07-23-2019 Prothrombin time Elisab eth [facility] Work Phone: Start: 07-23-2019 Ct head/brain w/o co ntrast material Jeannette [facility] Work Phone: Start: 07-22-2019 Gluc bld gluc mntr d ev cleared fda spec home use Wilner Wilhelm Work Phone: Start: 07-22-2019 Ct head/brain w/o co ntrast material Jeannette [facility] Work Phone: Start: 07-22-2019 Radiologic exam ches t single view Jeannette [facility] Work Phone: Start: 07-22-2019 Radiologic examinati on pelvis 1/2 views Jeannette [facility] Work Phone: Start: 07-22-2019 Prothrombin time Elisab eth [facility] Work Phone: Start: 07-22-2019 Speech and language therapy regime Jeannette [facility] Work Phone: Start: 03-21-2014 End: 03-22-2014 Documentation of current medications Isabell Clark PA-C Work Phone: Start: 09-27-2013 Lipid 1996 panel - S rizwan or Plasma Yue Abdalla RN Start: 09-20-2013 End: 09-27-2013 *Hepatic Function Panel Pradip Bal MD Start: 09-20-2013 End: 09-20-2013 Electrocardiogram, complete Pradip fernandez MD Start: 09-20-2013 End: 09-20-2013 Follow Up Appt 6 months Pradip Bal MD Start: 09-20-2013 End: 09-27-2013 Lipid panel [AGGREGATE] Pradip Bal MD Start: 09-20-2013 End: 09-20-2013 MMM Pradip Bal MD Start: 07-09-2012 End: 09-27-2013 *Hepatic Function Panel Pradip Bal MD Start: 07-09-2012 End: 07-09-2012 Electrocardiogram, complete Pradip fernandez MD Start: 07-09-2012 End: 07-09-2012 Follow Up Appt 6 months Pradip Bal MD Start: 07-09-2012 End: 09-27-2013 Lipid panel [AGGREGATE] Pradip Bal MD Start: 07-09-2012 End: 07-14-2012 Nuclear stress test -adenosine Pradip Bal MD Start: 07-09-2012 End: 07-09-2012 PFM Pradip Bal MD Start: 03-14-2011 End: 03-14-2011 Follow Up Appt 3 months Pradip Bal MD Plan of Treatment Date Care Activity Detail Author Start: 07-11-2029 DTaP/Tdap/Td Vaccines (2 - Td or Tdap) DTaP/Tdap/Td Vaccines (2 - Td or Tdap) [facility] Start: 05-19-2023 End: 05-19-2023 Professional / ancillary services management 05/19/2023 1:30 PM EDT Ancillary Procedure [facility] [address] [place] [address] [facility] Start: 11-01-2022 COVID-19 Vaccine ( season) COVID-19 Vaccine ( season) [facility] Start: 11-01-2022 Influenza vaccination [facility] Start: 10-29-2022 End: 10-29-2022 Professional / ancillary services management 10/29/2022 Ancillary Procedure Cardiology [facility] Start: 11-01-2021 Influenza vaccination INFLUENZA (#1) [facility] Start: 07-24-2021 COVID-19 Vaccine (4 - Booster for Moderna series) COVID-19 Vaccine (4 - Booster for Moderna series) [facility] Start: 03-03-2021 ADVANCE DIRECTIVE DISCUSSION ADVANCE DIRECTIVE DISCUSSION [facility] Start: 03-03-2021 DEPRESSION ASSESSMENT DEPRESSION ASSESSMENT [facility] Start: 07-23-2020 Creatinine measurement Creatinine monitoring [place], [place] Start: 07-23-2020 Potassium monitoring Potassium monitoring [place], [place] Start: 11-02-2019 Influenza vaccination Flu vaccine (Season Ended) [place], [place] Start: 10-24-2019 Hemoglobin A1c measurement Diabetes: Hemoglobin A1C [facility] Start: 09-21-2019 End: 09-21-2019 Nurse Only 09/21/2019 Nurse Only Cardiology uYe Abdalla, [facility] Start: 08-07-2019 End: 07-23-2020 CT Head WO Contrast CT Head WO Contrast Imaging Routine Intracranial hemorrhage (HCC) Expected: 08/07/2019, Expires: 07/23/2020 [place], [place] Payers Date Payer Category Payer Medicare [id number] 2021 Medicare [id number] 2015 Unknown [employer] [address] xxxxxxxxxxxx 2015-Present [phone] [address] [place] [address] xxxxxxxxxxxx [id number] 2014 Medicare MEDICARE MEDICAR E PART A AND B xxxxxxxxxxx 2014-Present [phone] [place] [address] xxxxxxxxxxx [id number] Social History Date Type Detail Facility Start: 07-24-2019 Tobacco smoking stat us NHIS Never smoker [facility] Start: 07-24-2019 End: 08-17-2019 Alcohol intake Current [facility]dr[facility]finding[facility] [place] Start: 1940 Sex Assigned At Not on file [facility] [place] Gender identity Not on file [facility] Medical Equipment Procedure Code Equipment Code Equipment Original Text Equi pment Identifier Dates before meals and at bedtime. Use as instructed Telephone encounter Note 01-14-2023 Telephone Encounter - Juana Monroe - 01/14/2023 2:53 PM EST Note Date & Type Note Facility 01-14-2023 Telephone encount er Note Mailed current interrogation to Dr. Bal in [facility]. Unable to obtain fax number. [facility] Note 01-14-2023 Telephone Encounter - Juana Monroe - 01/14/2023 2:53 PM EST Note Date & Type Note Facility 01-14-2023 Miscellaneous Notes Formattin g of this note might be different from the original. Mailed current interrogation to Dr. Bal in [facility]. Unable to obtain fax number. documented in this encounter [facility] Telephone encounter Note 07-16-2022 Telephone Encounter - Juana Monroe - 07/16/2022 3:20 PM EDT Note Date & Type Note Facility 07-16-2022 Telephone encount er Note Faxed over latest interrogation to Dr. Bal [facility] Note 07-16-2022 Telephone Encounter - Juana Monroe - 07/16/2022 3:20 PM EDT Note Date & Type Note Facility 07-16-2022 Miscellaneous Notes Formattin g of this note might be different from the original. Faxed over latest interrogation to Dr. Bal documented in this encounter [facility] Progress note 01-11-2022 Note Date & Type Note Facility 01-11-2022 Note HNO ID: [id number] Author: Jason Draper Service: ? Author Type: Physician Type: Progress Notes Filed: 01/14/2022 5:29 PM Note Text: [facility] NOTE NAME: BEULAH SALAZAR NO.: [id number] DATE OF SERVICE: 01/11/2022 [facility] DATE OF : 1940 New Patient History and Physical. HISTORY OF PRESENT ILLNESS: The patient is an 81-year-old female, was admitted to us from [facility] with the diagnosis of severe debility due to back pain secondary to recent accidental mechanical fall, poorly-controlled diabetes mellitus type 2 with hyperglycemia, CAD with previous myocardial infarction and coronary PCI, hypertension, hyperlipidemia, history of depression, dilated cardiomyopathy, paroxysmal atrial fibrillation, degenerative osteoarthritis with previous bilateral total knee arthroplasties, previous cataract surgery, status post foot surgery, obesity, status post ablation of atrial fibrillation in 2014, and generalized weakness. She initially presented to the hospital with progressive back pain and generalized debility related to an accidental mechanical fall on [facility]. She did hit her head, but denies passing out. Evaluation in the hospital was unremarkable. No signs of fracture. She is now being admitted to our facility for continued therapy prior to returning back to her home where she lives by herself. REVIEW OF SYSTEMS: She is currently sitting up in a wheelchair. She is alert and oriented. Once again, her main concern and complaint is her back pain. She has had no change in her vision or hearing, or actual syncope. She denies being short of breath. No history of COPD, asthma, bronchitis, or recent pneumonia. No COVID infections. She is vaccinated. She does have history of CAD with previous myocardial infarction and coronary PCI with dilated cardiomyopathy. No recent chest pain or angina. She does have hypertension, hyperlipidemia. Her appetite has been poor since her current illness and back pain. She has had some intermittent nausea. No history of bleeding ulcers, hepatitis, or melena. No prior strokes or seizures. She is poorly-controlled diabetic. Her hemoglobin A1c level was over 10 in the hospital. No bleeding problems or blood clots or thyroid problems. FAMILY HISTORY: Significant for heart disease and hypertension. SOCIAL / FUNCTIONAL HISTORY: She does not smoke or abuse alcohol. Once again, she does live at home by herself. MEDICATIONS: Ascorbic acid 500 mg daily, atorvastatin 40 mg at bedtime, cholecalciferol 2000 units daily, Coenzyme Q10 daily, fluoxetine 40 mg daily, glimepiride 4 mg b.i.d., metformin 500 mg daily, and vitamin B complex daily. ALLERGIES: No known drug allergies. EXAMINATION: Afebrile, her vital signs stable. She is in no distress. She appears chronically ill. HEENT: Extraocular movements intact. Sclerae nonicteric. Ears intact. Lungs: Clear. Heart: Regular. Abdomen: Soft, obese, non-tender. Extremities: No significant edema. Skin is warm and dry. She does have generalized weakness. IMPRESSION: 1. Severe generalized debility secondary to back pain related to recent fall - evaluation in the hospital negative for any acute fractures. She will be receiving rehab service for overall strengthening and conditioning. Monitor pain symptoms closely, make adjustments as needed. We will try symptomatic care. 2. Coronary artery disease with previous myocardial infarction and percutaneous coronary intervention with dilated cardiomyopathy. Cardiac status appears stable at this time. 3. Diabetes mellitus type 2 with hyperglycemia - maintain current diabetic regimen. Monitor blood sugars and make adjustments as needed. 4. Depression, anxiety - monitor her mood and behavior closely. Maintain current antidepressant therapy. Overall condition and prognosis is somewhat guarded. We will obtain followup labs including CBC and BMP. She will be returning home upon completion of her therapy. DICTATED BY: MD NICOLASA Zuniga/Thi JOB# [id number] cc:[facility] [place] [facility] History of Present illness Narrative 01-11-2022 Jason Draper - 01/11/2022 12:00 AM EST Note Date & Type Note Facility 01-11-2022 History of Presen t illness Narrative [facility] NOTE NAME: BEULAH SALAZAR NO.: [id number] DATE OF SERVICE: 01/11/2022 [facility] DATE OF : 1940 New Patient History and Physical. HISTORY OF PRESENT ILLNESS: The patient is an 81-year-old female, was admitted to us from [facility] with the diagnosis of severe debility due to back pain secondary to recent accidental mechanical fall, poorly-controlled diabetes mellitus type 2 with hyperglycemia, CAD with previous myocardial infarction and coronary PCI, hypertension, hyperlipidemia, history of depression, dilated cardiomyopathy, paroxysmal atrial fibrillation, degenerative osteoarthritis with previous bilateral total knee arthroplasties, previous cataract surgery, status post foot surgery, obesity, status post ablation of atrial fibrillation in 2014, and generalized weakness. She initially presented to the hospital with progressive back pain and generalized debility related to an accidental mechanical fall on [address]. She did hit her head, but denies passing out. Evaluation in the hospital was unremarkable. No signs of fracture. She is now being admitted to our facility for continued therapy prior to returning back to her home where she lives by herself. REVIEW OF SYSTEMS: She is currently sitting up in a wheelchair. She is alert and oriented. Once again, her main concern and complaint is her back pain. She has had no change in her vision or hearing, or actual syncope. She denies being short of breath. No history of COPD, asthma, bronchitis, or recent pneumonia. No COVID infections. She is vaccinated. She does have history of CAD with previous myocardial infarction and coronary PCI with dilated cardiomyopathy. No recent chest pain or angina. She does have hypertension, hyperlipidemia. Her appetite has been poor since her current illness and back pain. She has had some intermittent nausea. No history of bleeding ulcers, hepatitis, or melena. No prior strokes or seizures. She is poorly-controlled diabetic. Her hemoglobin A1c level was over 10 in the hospital. No bleeding problems or blood clots or thyroid problems. FAMILY HISTORY: Significant for heart disease and hypertension. SOCIAL / FUNCTIONAL HISTORY: She does not smoke or abuse alcohol. Once again, she does live at home by herself. MEDICATIONS: Ascorbic acid 500 mg daily, atorvastatin 40 mg at bedtime, cholecalciferol 2000 units daily, Coenzyme Q10 daily, fluoxetine 40 mg daily, glimepiride 4 mg b.i.d., metformin 500 mg daily, and vitamin B complex daily. ALLERGIES: No known drug allergies. EXAMINATION: Afebrile, her vital signs stable. She is in no distress. She appears chronically ill. HEENT: Extraocular movements intact. Sclerae nonicteric. Ears intact. Lungs: Clear. Heart: Regular. Abdomen: Soft, obese, non-tender. Extremities: No significant edema. Skin is warm and dry. She does have generalized weakness. IMPRESSION: 1. Severe generalized debility secondary to back pain related to recent fall - evaluation in the hospital negative for any acute fractures. She will be receiving rehab service for overall strengthening and conditioning. Monitor pain symptoms closely, make adjustments as needed. We will try symptomatic care. 2. Coronary artery disease with previous myocardial infarction and percutaneous coronary intervention with dilated cardiomyopathy. Cardiac status appears stable at this time. 3. Diabetes mellitus type 2 with hyperglycemia - maintain current diabetic regimen. Monitor blood sugars and make adjustments as needed. 4. Depression, anxiety - monitor her mood and behavior closely. Maintain current antidepressant therapy. Overall condition and prognosis is somewhat guarded. We will obtain followup labs including CBC and BMP. She will be returning home upon completion of her therapy. DICTATED BY: MD NICOLASA Zuniga/Thi JOB# [id number] cc:DR [facility] [place] documented in this encounter [facility] Reason for Referral Status Reason Specialty Diagnoses / Procedures Referre d By Contact Referred To Contact [facility] Diagnoses Intracranial hemorrhage (HCC) Procedures CT Head WO Contrast Kim Hood APRN - CNP [address] [place], [place] [id number] Discharge Instructions * Discharge Instr - Activity* Kim Hood APRN - CNP - 07/24/2019 11:08 AM EDT No working or driving until follow up with [facility]. * Discharge Instr - Diet* Kim Hood, [place] - OPAL - 07/24/2019 11:08 AM EDT ? Good nutrition is important when healing from an illness, injury, or surgery. Follow any nutrition recommendations given to you during your hospital stay. ? If you were given an oral nutrition supplement while in the hospital, continue to take this supplement at home. You can take it with meals, in-between meals, and/or before bedtime. These supplements can be purchased at most local grocery stores, pharmacies, and [email or web address]. ? If you have any questions about your diet or nutrition, call the hospital and ask for the dietitian. Carb control * Discharge Instr - Lab* Rosalinda Davalos LPN - 07/24/2019 11:10 AM EDT Your physician has ordered skilled home care services for you. Your home care will be provided by: [facility] [phone] SCHEDULING [phone] * Additional Instructions* Kim Hood, ZIGZAG STITCHER - BRANCH OR DEPARTMENT CHIEF LIBRARIAN - 07/24/2019 No ibuprofen, blood thinners, aspirin, plavix coumadin X 3 weeks and/or when cleared by Dr. High. You have been diagnosed with a concussion. Upon discharge you can expect post- concussion symptoms. These include but are not limited to: - Thinking/remembering - difficulty thinking clearly, remembering new info, and concentrating - Physical - headache, blurry vision, dizziness, sensitivity to light and noises, feeling tired, balance problems - Emotional, mood - irritability, sadness, emotional, nervous or anxiety - Sleep - sleeping more than usual, sleep less then usual, trouble falling asleep To feel better: - Get plenty of sleep at night, and take it easy during the day - Avoid physically demanding activities or those that require a lot of concentration - Do not drive, operate heavy equipment until cleared by your doctor - Do not drink alcohol While taking narcotic medications be sure to: Not operate heavy machinery Do not drive while taking narcotic medication Return to the emergency department if: You are very drowsy. Your speech is slurred. You have trouble thinking, remembering things, or focusing. Contact your healthcare provider if: You want help or information on how to stop using or abusing narcotics. Follow up with your healthcare provider as directed: Write down your questions so you remember to ask them during your visits. Narcotic intoxication usually lasts for several hours. You may have the following during or after you use narcotics: Behavior or mood changes, such as a great feeling followed by the feeling that you do not care about anyone or anything Trouble thinking, remembering things, or focusing Small pupils Feeling very drowsy Slurred speech Narcotic withdrawal occurs if you stop using narcotics after using them heavily over a period of time. Signs and symptoms may begin within minutes or days and continue for days or even months: Depression and anxiety Nausea or vomiting Muscle aches Watery eyes or runny nose Large pupils Sweating or goosebumps on your skin Diarrhea Fever Trouble sleeping documented in this encounter History of Present Illness * Nabeel Ghosh, PT - 07/24/2019 9:09 AM EDT Physical Therapy Facility/Department: [facility] 3W TELEMETRY Initial Assessment NAME: Steffany Salazar : 1940 Date of Service: 07/24/2019 Discharge Recommendations: Home with assist PRN, Home with Home health PT Assessment Body structures, Functions, Activity limitations: Decreased balance;Decreased functional mobility ;Decreased endurance Assessment: pt presents with the deficits listed above; pt generally moving well; no overt LOB using ww; anticipate disch home when medically stable; recommend continue use of ww at home; also recommend home PT for balance and strengthening Prognosis: Fair Decision Making: Low Complexity PT Education: General Safety;Gait Training;Functional Mobility Training;Transfer Training REQUIRES PT FOLLOW UP: Yes Activity Tolerance Activity Tolerance: Patient limited by fatigue Patient Diagnosis(es): There were no encounter diagnoses. has a past medical history of 2nd degree AV block, Atrial fibrillation and flutter ([facility]), Atrial fibrillation and flutter ([facility]), CAD (coronary artery disease), Cardiomyopathy, dilated ([facility]), Diabetesmellitus ([facility]), Dyspnea, Fatigue, Hyperlipidemia, Hypertension, NSTEMI (non-ST elevated myocardial i nfarction) ([facility]), Old myocardial infarction, and Wenckebach second degree AV block. has a past surgical history that includes Coronary angioplasty with stent; Atrial ablation surgery (2002); Total knee arthroplasty (Bilateral); Foot surgery; and Cataract removal (Bilateral, 2018). 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); c/o REAL and dizziness Subjective Subjective: pleasant and cooperative; denies any dizziness while amb Pain Screening Patient Currently in Pain: Denies Vital Signs Patient Currently in Pain: Denies Orientation Orientation Overall Orientation Status: Within Normal Limits Social/Functional History Social/Functional History Lives With: Spouse Type of Home: House Home Layout: Two level, Able to Live on Main level with bedroom/bathroom Home Access: Stairs to enter with rails Entrance Stairs - Number of Steps: 2 Home Equipment: Cane, Rolling walker ADL Assistance: Independent Homemaking Assistance: Independent Ambulation Assistance: Independent Transfer Assistance: Independent Additional Comments: usually amb with cane but started using ww after fall at home Cognition Objective PROM RLE (degrees) RLE PROM: WNL AROM RLE (degrees) RLE AROM: WNL PROM LLE (degrees) LLE PROM: WNL AROM LLE (degrees) LLE AROM : WNL Strength RLE Strength RLE: Exception R Hip Flexion: 4/5 R Knee Extension: 4/5 R Ankle Dorsiflexion: 4/5 Strength LLE Strength LLE: Exception L Hip Flexion: 4-/5 L Knee Extension: 4/5 L Ankle Dorsiflexion: 4/5 Sensation Overall Sensation Status: (Denies any numbness or tingling Mason LEs) Bed mobility Supine to Sit: Supervision Scooting: Supervision Transfers Sit to Stand: Supervision Stand to sit: Supervision Comment: verbal cues for hand placement Ambulation Ambulation?: Yes Ambulation 1 Surface: level tile Device: Rolling Walker Assistance: Contact guard assistance Distance: 50 feet x2 Comments: uneven cadance Stairs/Curb Stairs?: Yes Stairs # Steps : 4 Stairs Height: 6 Rails: Bilateral Assistance: Contact guard assistance Balance Posture: Fair Sitting - Static: Good Sitting - Dynamic: Good Standing - Static: Fair Standing - Dynamic: Fair Plan Plan Times per week: 5x/week Plan weeks: 2 weeks Current Treatment Recommendations: Strengthening, Transfer Training, Endurance Training, Balance Training, Gait Training, Home Exercise Program, Safety Education & Training, Stair training, Functional Mobility Training Safety Devices Type of devices: All fall risk precautions in place, Left in bed, Call light within reach, Gait belt AM-PAC Score [facility] Inpatient Mobility Raw Score : 22 (07/24/19857) AM-PAC Inpatient T-Scale Score : 53.28 (07/24/19857) Mobility Inpatient CMS 0-100% Score: 20.91 (07/24/19857) Mobility Inpatient CMS G-Code Modifier : CJ (07/24/19857) Goals Short term goals Time Frame for Short term goals: 2 weeks Short term goal 1: Bed mobility Indep Short term goal 2: Transfers Indep Short term goal 3: Gait 100 feet with ww and mod Indep Short term goal 4: 2 steps with rail and supervision Patient Goals Patient goals : To go home Therapy Time Individual Concurrent Group Co-treatment Time In 0840 Time Out 0853 Minutes 13 Patient s Physical Therapy Plan of Care supervision is transferred to [facility] Rehab Department Physical Therapist. This PT wore N95, goggles, and gloves throughout entire session. Pt wore surgical mask while amb inhallway. Nabeel Ghosh, PT * Vivienne Palomino DTR - 07/24/2019 9:05 AM EDT Nutrition rescreen completed. Patient referred to the Dietitian. * Paola Chopra, PT - 07/23/2019 3:12 PM EDT Physical Therapy Attempted to eval patient twice today, patient has been in and out of room multiple times, having testing performed. Will eval patient at a later date. * Jeannette Jane DO - 07/23/2019 11:45 AM EDT Spoke with patient's daughter, Krista ([phone]), about how the patient did overnight and that her Head CT this morning was stable. I told her the neurosurgery recommendations were to remain off of anticoagulation until seen by them as outpatient. Additionally I told her she will be transferred to the floor today and we will obtain an ECHO,EKG, and additional lab studies to complete her syncope workup. Krista stated she understood and that she would pass the information along to the patient'shusband and her son. Krista was appreciative of the update. Jeannette Jane DO General Surgery PGY-1 07/23/19 11:48 AM Pager # [phone] * Sajan High MD - 07/23/2019 10:14 AM EDT NEUROSURGERY and SPINE FOLLOW-UP NOTE Patient Name: Steffany Salazar Patient : 1940 PCP: JANET ZHAO History of Present Ilness: 78 y.o. presents with fall in garden. Denies any REAL. Takes coumadin for a fib. Past Medical History: Diagnosis Date 2nd degree AV block Atrial fibrillation and flutter (HCC) Atrial fibrillation and flutter (HCC) CAD (coronary artery disease) Cardiomyopathy, dilated (HCC) Diabetes mellitus (HCC) Dyspnea Fatigue Hyperlipidemia Hypertension NSTEMI (non-ST elevated myocardial infarction) ([facility]) Old myocardial infarction [place] second degree AV block 2-1 and 3-1 conduction Past Surgical History: Procedure Laterality Date ATRIAL ABLATION SURGERY 2002 [facility] CATARACT REMOVAL Bilateral 2018 One in May and One in June CORONARY ANGIOPLASTY WITH STENT PLACEMENT FOOT SURGERY TOTAL KNEE ARTHROPLASTY Bilateral Home Medications: Prior to Admission medications Medication Sig Start Date End Date Taking? Authorizing Provider Acetaminophen (TYLENOL ARTHRITIS PAIN PO) Take by mouth nightly as needed Historical Provider, glimepiride (AMARYL) 4 MG tablet Take 4 mg by mouth every morning (before breakfast) Historical Provider, B Complex-C (B COMPLEX-VITAMIN C PO) Take by mouth Historical Provider, Cholecalciferol (VITAMIN D3) 2000 units CAPS Take by mouth Historical Provider, ascorbic acid (VITAMIN C) 500 MG tablet Take 500 mg by mouth Historical Provider, liraglutide-weight management 18 MG/3ML SOPN Inject into the skin nightly Historical Provider, metFORMIN (GLUCOPHAGE) 500 MG tablet Take 500 mg by mouth 2 times daily (with meals) Historical Provider, isosorbide mononitrate (IMDUR) 30 MG extended release tablet Take 30 mg by mouth daily Historical Provider, lisinopril (PRINIVIL;ZESTRIL) 20 MG tablet Take 20 mg by mouth daily Historical Provider, atorvastatin (LIPITOR) 40 MG tablet Take 40 mg by mouth daily Historical Provider, clopidogrel (PLAVIX) 75 MG tablet Take 75 mg by mouth daily Historical Provider, Allergies: Latex Social History: TOBACCO: reports that she has never smoked. She has never used smokeless tobacco. ETOH: reports no history of alcohol use. RECREATIONAL DRUG USE: Social History Substance and Sexual Activity Drug Use No Comment: Caffeine: 1-2 cups of coffee daily Family History: Problem Relation Age of Onset Heart Disease Mother No Known Problems Father Atrial Fibrillation Sister No Known Problems Brother No Known Problems Maternal Aunt No Known Problems Maternal Uncle No Known Problems Paternal Aunt No Known Problems Paternal Uncle No Known Problems Maternal Grandmother No Known Problems Maternal Grandfather No Known Problems Paternal Grandmother Heart Disease Paternal Grandfather No Known Problems Other Heart Disease Sister COPD Sister Anemia Neg Hx Arrhythmia Neg Hx Asthma Neg Hx Clotting Disorder Neg Hx Fainting Neg Hx Heart Attack Neg Hx Heart Surgery Neg Hx High Cholesterol Neg Hx Hypertension Neg Hx Pacemaker Neg Hx Review of Systems: Review of Systems Constitutional: Negative for activity change and unexpected weight change. HENT: Negative for hearing loss and trouble swallowing. Eyes: Negative for pain and visual disturbance. Respiratory: Negative for cough and shortness of breath. Cardiovascular: Negative for chest pain and leg swelling. Gastrointestinal: Negative for abdominal distention and abdominal pain. Genitourinary: Negative for difficulty urinating and urgency. Musculoskeletal: Negative for back pain and neck pain. Neurological: Negative for weakness and numbness. Hematological: Negative for adenopathy. Does not bruise/bleed easily. Psychiatric/Behavioral: Negative for behavioral problems and confusion. Physical Examination: Vitals: 07/23/19 0600 BP: (!) 119/54 Pulse: 72 Resp: 12 Temp: SpO2: 96% Physical Exam Constitutional: Appearance: Normal appearance. She is well-developed. HENT: Head: Normocephalic and atraumatic. Eyes: Conjunctiva/sclera: Conjunctivae normal. Comments: Pupils equal Neck: Musculoskeletal: Normal range of motion and neck supple. Cardiovascular: Comments: No peripheral edema Pulmonary: Effort: Pulmonary effort is normal. No respiratory distress. Abdominal: Palpations: Abdomen is soft. Tenderness: There is no abdominal tenderness. Musculoskeletal: Normal range of motion. General: No tenderness. Skin: General: Skin is warm and dry. Neurological: Mental Status: She is alert and oriented to person, place, and time. Coordination: Coordination normal. Deep Tendon Reflexes: Reflex Scores: Bicep reflexes are 2+ on the right side and 2+ on the left side. Patellar reflexes are 2+ on the right side and 2+ on the left side. Achilles reflexes are 2+ on the right side and 2+ on the left side. Comments: Motor 5/5 UE and LE Sensation intact LT DTR's 2+ biceps, achilles and patella Psychiatric: Speech: Speech normal. Thought Content: Thought content normal. Gait abnormal, patient unable to walk due to acute circumstances / bedrest / safety concerns Results Labs: Last 24hrs Recent Results (from the past 24 hour(s)) Protime-INR Collection Time: 07/22/19 2:24 PM Result Value Ref Range Protime 16.0 (H) 9.0 - 12.0 s INR 1.5 (H) 0.9 - 1.1 NA POCT Glucose Collection Time: 07/22/19 11:15 PM Result Value Ref Range POC Glucose 216 (H) 70 - 100 mg/dL Basic Metabolic Panel w/ Reflex to MG Collection Time: 07/23/19 4:58 AM Result Value Ref Range Sodium 137 135 - 145 mmol/L Potassium 4.3 3.5 - 5.1 mmol/L Chloride 102 98 - 107 mmol/L CO2 26 22 - 30 mmol/L Anion Gap 9 NA Glucose 147 (H) 70 - 100 mg/dL BUN 18 7 - 20 mg/dL CREATININE 0.79 0.52 - 1.25 mg/dL eGFR 82.8 >60 mL/min EGFR IF NonAfrican [place] 71.4 >60 mL/min Calcium 8.8 8.4 - 10.4 mg/dL Magnesium Collection Time: 07/23/19 4:58 AM Result Value Ref Range Magnesium 1.9 1.6 - 2.3 mg/dL Phosphorus Collection Time: 07/23/19 4:58 AM Result Value Ref Range Phosphorus 5.1 (H) 2.5 - 4.5 mg/dL CBC auto differential Collection Time: 07/23/19 4:58 AM Result Value Ref Range WBC 8.3 3.6 - 10.7 10*3/uL RBC 4.03 3.80 - 5.20 10*6/uL Hemoglobin 11.7 11.7 - 16.0 g/dL Hematocrit 34.2 (L) 35.0 - 47.0 % MCV 84.8 79.0 - 98.0 fL MCH 29.1 26.0 - 34.0 pg MCHC 34.3 32.0 - 36.0 % RDW 14.7 (H) 11.5 - 14.5 % Platelets 234 140 - 440 10*3/uL MPV 7.8 7.4 - 10.4 fL Granulocytes % 71.2 40.0 - 80.0 % Lymphocyte % 16.2 (L) 20.0 - 40.0 % Monocytes 9.1 2.0 - 10.0 % Eosinophils 2.6 1.0 - 6.0 % Basophils 0.9 0.0 - 2.0 % Absolute Neut # 5.9 1.8 - 7.0 10*3/uL Absolute Lymph # 1.3 1.0 - 4.3 10*3/uL Absolute Sullivan # 0.8 0.0 - 0.8 10*3/uL Absolute Eos # 0.2 0.0 - 0.5 10*3/uL Absolute Baso # 0.1 0.0 - 0.2 10*3/uL Protime-INR Collection Time: 07/23/19 4:58 AM Result Value Ref Range Protime 12.5 (H) 9.0 - 12.0 s INR 1.2 (H) 0.9 - 1.1 NA POCT Glucose Collection Time: 07/23/19 7:24 AM Result Value Ref Range POC Glucose 172 (H) 70 - 100 mg/dL Radiology Personal review: CT head x 2 here stable L parietal small ICH ASSESSMENT / PLAN : 78 y.o. s/p fall, left parietal ICH. CT's stable. No surgery recommended, would reverse anticoagulation, follow neuro exams and plan f/u CT head in several weeks, or sooner if any changes. There are no diagnoses linked to this encounter. * Carissa Ridley, LOCKSTITCH ZIPPER SETTER - 07/22/2019 3:17 PM EDT Speech Language Pathology Facility/Department: [facility] ICU T2 CLINICAL BEDSIDE SWALLOW EVALUATION NAME: Steffany Salazar : 1940 ADMISSION DATE: 07/22/2019 ADMITTING DIAGNOSIS: has Atrial fibrillation and flutter (HCC); Cardiomyopathy, dilated (HCC); NSTEMI (non-ST elevated myocardial infarction) (HCC); Carotid artery stenosis; CAD (coronary artery disease); CAD (coronary artery disease); Wenckebach second degree AV block; 2nd degree AV block; Diabetes mellitus (HCC); and Intracranial hemorrhage (HCC) on their problem list. ONSET DATE: 07/22/2019 No imaging results available yet Date of Eval: 07/22/2019 Evaluating Therapist: Carissa Ridley Current Diet level: Current Diet : NPO Current Liquid Diet : NPO Pain: Pt c/o pain - RN present who reports pt recently receiving pain meds Reason for Referral Steffany Salazar was referred for a bedside swallow evaluation to assess the efficiency of her swallowfunction, identify signs and symptoms of aspiration and make recommendations regarding safe dietaryconsistencies, effective compensatory strategies, and safe eating environment. Per Trauma Notes: History of Traumatic Injury: 78 y.o. female status post fall 1 week ago. The incident happened 1 week ago on 07/12/2019. When the event happened the patient was walking in her garden, lost her footingand fell on her face. She went to the ED the day of the fall and was noted to have a nondisplaced nasal fracture. She did get a head CT, neck CT, and Ct max/face at the time that showed no other acute injuries. Patient has been having continued headaches, dizziness, and lightheadedness since the fall so she came back to the ER today. [facility] did another CT head that showed a new left parietal hemorrhagic contusion and L SAH. Patient is on coumadin and INR was 2.6. 10mg vitamin K and 2 U FFP were given prior to transfer to [facility]. Impression Dysphagia Impression : No concerns for dysphagia clinically. Regular textures, thin liquid diet. Treatment Plan Requires LOCKSTITCH ZIPPER SETTER Intervention: No Duration/Frequency of Treatment: n/a Recommended Diet and Intervention Diet Solids Recommendation: Regular Liquid Consistency Recommendation: Thin Recommended Form of Meds: PO General Chart Reviewed: Yes Comments: Pt alert, cooperative; pt c/o pain - RN present reports pt recently receiving pain meds Communication Observation: Functional Follows Directions: Complex Dentition: Adequate Patient Positioning: Upright in bed Baseline Vocal Quality: Normal Volitional Cough: (Did not assess d/t pt c/o pain) Prior Dysphagia History: Pt denies hx dysphagia; no prior dysphagia hx per available records Consistencies Administered: Ice Chips;Thin - straw;Dysphagia Pureed (Dysphagia I);Reg solid Oral mechanism/Cranial Nerve Exam Limited d/t pt's pain Oral Phase Dysfunction Oral Phase Oral Phase: WFL Indicators of Pharyngeal Phase Dysfunction Pharyngeal Phase Pharyngeal Phase: WFL Prognosis Individuals consulted Consulted and agree with results and recommendations: Patient;RN Education Patient Education: d/w pt, RN Patient Education Response: Verbalizes understanding Safety Devices in place: Yes Type of devices: Left in bed;Call light within reach;Nurse notified Therapy Time LOCKSTITCH ZIPPER SETTER Individual Minutes Time In: 1450 Time Out: 1505 Minutes: 15 LOCKSTITCH ZIPPER SETTER Total Treatment Time Timed Code Treatment Minutes: 15 Minutes Total Treatment Time: 15 Carissa Ridley MA, CCC-LOCKSTITCH ZIPPER SETTER 07/22/2019 3:17 PM This clinician was wearing N95 mask, goggles/face shield and gloves throughout session * Nae Paulson OT - 07/22/2019 2:15 PM EDT Occupational Therapy Hold OT orders received, chart reviewed. Orders pending for x-ray of pelvis S/P fall. Hold OT. Will re-attempt as schedule permits. 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 Advance Directives and Living Will Power of Supervisor Rework Latest Code Status on File Code Status Date Activated Date Inactivated Comments Full Code 07/22/2019 2:05 PM Full Code 12/05/2017 10:03 AM 12/05/2017 5:19 PM Full Code 12/05/2017 7:29 AM 12/05/2017 10:01 AM Summary Purpose Family History No Family History Records FoundNo Family History Records FoundNo Family History Records Found Additional Source Comments INFORMATION SOURCE (unrecogn ized section and content) DATE CREATED AUTHOR AUTHOR'S ORGANIZ ATION 01/16/2022 [facility] DATE CREATED AUTHOR AUTHOR'S ORGANIZ ATION 01/24/2023 [facility] Source Comments (unrecognize d section and content) In the event this informatio n is protected by the Federal Confidentiality of Alcohol and Drug Abuse Patient Records regulations: The Federal rules restrict any use of the information to criminally investigate or prosecute any alcohol or drug abuse patient.[facility] Care Teams (unrecognized sec tion and content) Flow Nurse Relationship Specialty Start Date End Date Janet Zhao [address] [facility] [address] [place] [address] PCP - General 11/04/17 Flow Nurse Relationship Specialty Start Date End Date Janet Zhao [address] [facility] [address] [place] [address] PCP - General 11/04/17 Reason for Visit (unrecogniz ed section and content) FOR RECORDS PERTAINING TO PATIENTS WHO ARE OR HAVE BEEN ENROLLED IN A CHEMICAL DEPENDENCY/SUBSTANCEABUSE PROGRAM, SOME INFORMATION MAY BE OMITTED. This clinical summary was aggregated from multiple sources. Caution should be exercised in using it in the provision of clinical care. This summary normalizes information from multiple sources, and as a consequence, information in this document may materially change the coding, format and clinical context of patient data. In addition, data may be omitted in some cases. CLINICAL DECISIONS SHOULD BE BASED ON THE PRIMARY CLINICAL RECORDS. [facility] [employer] [facility]. provides no warranty or guarantee of the accuracy or completeness of information in this document.
[2023-02-28 12:17] LABS: Absolute Neutrophil Count 5.7 X10^3/uL (2.0-7.7); Basophil# 0.06 X10^3/uL; Basophil% 0.8 % (0-1); Eosinophil# 0.25 X10^3/uL; Eosinophils% 3.2 % (0-5); Hematocrit 42.4 % (37-47); Hemoglobin 13.8 g/dL (12.0-15.0); Lymphocyte % 14.2 % (19-41); Mean Corp Hgb Conc 32.5 g/dL (32-36); Mean Corpuscular Hgb 29.7 pg (27.0-32.0); Mean Corpuscular Volume 91.4 fL (81-99); Mean Platelet Vol. 10.2 fl (6.2-12.0); Monocyte# 0.61 X10^3/uL; Monocyte% 7.9 % (0-10); NRBC Flagged by Analyzer 0 % (0-5); Neutrophil # 5.72 X10^3/uL (2.7-7.7); Neutrophil % 73.5 % (47-70); Platelet Count 244 K/mm3 (150-450); RBC Distribution Width CV 14.1 % (11.6-14.6); RBC Distribution Width SD 47.2 fl (35.1-43.9); Red Blood Count 4.64 M/mm3 (4.2-5.4); White Blood Count 7.8 K/mm3 (4.4-11.0)
[2023-02-28 12:57] LABS: AST(SGOT) 9 U/L (15-37); Alanine Aminotransfer ALT/SGPT 12 U/L (13-56); Albumin, Serum 3.4 g/dL (3.2-5.0); Alkaline Phosphatase 74 U/L (45-117); Amylase 37 U/L (25-115); Globulin 3.6 g/dL (2.2-4.2); Lipase 23 U/L (13-75)
[2023-02-28 13:03] LABS: Hemoglobin A1c 6.6 % (3.8-5.6)
== END | disposition home or self-care (01) ==
LOC: MFPLAB 10:57
PROVIDERS: PCP Family Medicine; Visit Provider Family Medicine
DX: R11.2 Nausea with vomiting, unspecified (principal); E11.9 Type 2 diabetes mellitus without complications
CPT/HCPCS: 36415; 80076; 82150; 83036; 83690; 85025

== ENCOUNTER → 2023-05-15 | Outpatient (CLI) | payer MEDICARE, SELFPAY ==
[2023-05-15 15:33] LABS: Absolute Lymphocyte Count 1.18 X10^3/uL (0.83-4.51); Absolute Neutrophil Count 7.9 X10^3/uL (2.0-7.7); Basophil# 0.08 X10^3/uL; Basophil% 0.8 % (0-1); Eosinophil# 0.23 X10^3/uL; Eosinophils% 2.3 % (0-5); Hematocrit 44.3 % (37-47); Hemoglobin 13.8 g/dL (12.0-15.0); Lymphocyte # 1.18 X10^3/ul (0.83-4.51); Lymphocyte % 11.6 % (19-41); Mean Corp Hgb Conc 31.2 g/dL (32-36); Mean Corpuscular Hgb 28.6 pg (27.0-32.0); Mean Corpuscular Volume 91.7 fL (81-99); Mean Platelet Vol. 10.9 fl (6.2-12.0); Monocyte# 0.74 X10^3/uL; Monocyte% 7.3 % (0-10); NRBC Flagged by Analyzer 0 % (0-5); Neutrophil # 7.92 X10^3/uL (2.7-7.7); Neutrophil % 77.6 % (47-70); Platelet Count 224 K/mm3 (150-450); Red Blood Count 4.83 M/mm3 (4.2-5.4); White Blood Count 10.2 K/mm3 (4.4-11.0)
[2023-05-15 15:49] LABS: Anion Gap 8 (5-15); BUN 22 mg/dL (7-18); BUN/Creat Ratio 21.2 RATIO (10-20); Calcium,Total 9.3 mg/dL (8.5-10.1); Chloride 103 mmol/L (98-107); Creatinine, Serum 1.04 mg/dL (0.55-1.02); EST Glomerular Filtration Rate 54 mL/min (>60); Est Glom Filt Rate - Afr Amer 65 mL/min (>60); Glucose 314 mg/dL (74-106); Potassium 4.4 mmol/L (3.5-5.1); Sodium Level 138 mmol/L (136-145)
== END | disposition home or self-care (01) ==
LOC: MFPLAB 11:43
PROVIDERS: Nurse Practitioner Family; PCP Family Medicine; Visit Provider Family Medicine
DX: R53.83 Other fatigue (principal)
CPT/HCPCS: 36415; 80048; 85025

== ENCOUNTER → 2023-07-02 | Outpatient (CLI) | payer MEDICARE, SELFPAY ==
[2023-07-02 17:52] LABS: Anion Gap 6 (5-15); BUN 16 mg/dL (7-18); BUN/Creat Ratio 20.8 RATIO (10-20); Calcium,Total 9.3 mg/dL (8.5-10.1); Chloride 106 mmol/L (98-107); Creatinine, Serum 0.77 mg/dL (0.55-1.02); EST Glomerular Filtration Rate 76 mL/min (>60); Est Glom Filt Rate - Afr Amer 92 mL/min (>60); Glucose 78 mg/dL (74-106); Potassium 3.7 mmol/L (3.5-5.1); Sodium Level 142 mmol/L (136-145)
[2023-07-02 18:12] LABS: BNP,B-Type NATRIURETIC PEPTIDE 39.6 pg/mL (0-100)
== END | disposition home or self-care (01) ==
LOC: MFPLAB 15:44
PROVIDERS: Nurse Practitioner Family; PCP Family Medicine; Visit Provider Family Medicine
DX: M79.89 Other specified soft tissue disorders (principal); I42.0 Dilated cardiomyopathy
CPT/HCPCS: 36415; 80048; 83880

== ENCOUNTER 2023-07-16 16:36 | Inpatient (IN) | payer MEDICARE, SELFPAY ==
[2023-07-16 16:39] VITALS: BP 129/66; PULSE 74; RESP 18; TEMP 36.6; O2SAT 94
[2023-07-16 17:27] LABS: Bedside Glucose 352 mg/dL (74-106)
--- NOTE | 2023-07-16 17:30 | ED.VIS.GI ---
HPI HPI - GI History of Present Illness Chief Complaint: Abd Pain Informant: patient and family Abdominal Pain/Flank Pain Onset: Yesterday Context: Gradual Onset Timing: Continuous Quality: Stabbing Location: Diffuse Worsened by: Food Relieved by: Nothing Nausea/Vomiting/Emesis GI Symptom: Positive for Nausea and Vomiting Onset: Yesterday Quality: Positive for Nonbilious; Negative for Blood streaks, Coffee ground or Hematemesis Diarrhea/Melena/Hematochezia GI Symptom: Negative for Diarrhea, Melena or Hematochezia Associated Symptoms Associated Symptoms: Positive for - (Dark urine); Negative for Dysuria or Frequency Narrative Narrative: Patient presents with abdominal pain that began yesterday. Patient states it is gradually getting worse. Patient states it is diffuse across her entire abdomen. Patient describes it as stabbing. Family states that her pain is worse after eating. With family states patient has been having some nausea and vomiting. Patient denies any hematemesis or coffee-ground emesis. Patient denies any diarrhea, melena, or hematochezia. Patient denies any dysuria or frequency. Family states patient's urine has gotten darker over the last 2 days. [facility] Medical History Essential hypertension Second degree AV block Depression Type 2 diabetes mellitus Atherosclerotic heart disease of [place] coronary artery without angina pectoris Angina pectoris Cardiomyopathy, dilated Paroxysmal atrial fibrillation Paroxysmal atrial flutter Fatigue Dyspnea Chest discomfort Abnormal EKG Long-term use of high-risk medication Old myocardial infarction History of atrial fibrillation DM2 (diabetes mellitus, type 2) HLD (hyperlipidemia) Depression CAD (coronary artery disease) Home Medications ?Medication ?Instructions ?Recorded ?Last Taken ?Type ascorbate calcium (vitamin C) 500 500 mg PO DAILY supplement 08/27/19 01/06/22 History mg tablet nitroglycerin 0.4 mg sublingual 0.4 mg sublingual Q5M PRN chest 08/27/19 Unknown Rx tablet (Nitrostat) pain #25 tabs atorvastatin 40 mg tablet 40 mg PO DAILY CHOLESTEROL #90 tabs 10/22/19 01/06/22 Rx acetaminophen 500 mg tablet 1,000 mg PO Q6H PRN Pain 07/10/20 Unknown History cholecalciferol (vitamin D3) 50 50 mcg PO BID supplement 07/10/20 01/06/22 History mcg (2,000 unit) tablet vitamin B complex 1 tab PO DAILY supplement 07/10/20 01/06/22 History gabapentin 100 mg capsule 300 mg PO TID 12/12/22 Unknown History insulin glargine 100 unit/mL (3 10 unit subcut DAILY 12/12/22 Unknown History mL) subcutaneous pen (Lantus Solostar U-100 Insulin) duloxetine 60 mg capsule,delayed 60 mg PO DAILY 07/16/23 Unknown History release furosemide 40 mg tablet 40 mg PO DAILY 07/16/23 Unknown History potassium chloride 20 mEq 20 meq PO DAILY 07/16/23 Unknown History tablet,extended release Allergy/AdvReac Type Severity Reaction Status Date / Time Sulfa (Sulfonamide Allergy Rash Verified 07/16/23 16:38 Antibiotics) tizanidine (From Zanaflex) AdvReac Other Verified 07/16/23 16:38 Family History Mother CAD (coronary artery disease) Sister , age 73 Atrial fibrillation Sister , Age 68 CAD (coronary artery disease) COPD (chronic obstructive pulmonary disease) Surgical History Pacemaker (~12/05/17) History of right cataract surgery History of left cataract surgery History of bilateral knee replacement Status post ablation of atrial fibrillation (~2002) History of foot surgery Presence of stent in coronary artery (~08/2010) Social History Smoking Status: Never smoker alcohol intake: never substance use type: does not use caffeine: Yes Type: coffee Number of servings: 2 ROS ROS ED Constitutional Constitutional ED: Denies chills or fever(s) Eyes Eyes: Denies blurry vision or change in vision ENT ENT ED: Reports rhinorrhea; Denies sore throat Cardiovascular Cardiovascular: Denies chest pain or palpitations Respiratory/Chest Respiratory/Chest: Denies cough or dyspnea Gastrointestinal Gastrointestinal: Reports abdominal pain, nausea and vomiting; Denies diarrhea or melena Genitourinary Genitourinary ED: Denies dysuria, hematuria or urinary frequency Musculoskeletal Musculoskeletal: Reports back pain; Denies neck pain Integumentary Denies abscess or rash Neurologic Neurologic: Reports headache(s); Denies weakness Allergic/Immunologic Allergic/Immunologic ED: Denies mouth swelling or urticaria EXAM Physical Exam Const Vital Signs: 07/16/23 16:39 07/16/23 18:37 07/16/23 20:05 Temperature 97.8 F Temperature Source Temporal Pulse Rate 74 90 70 Respiratory Rate 18 18 16 Blood Pressure 129/66 H 117/90 H 133/74 H Blood Pressure Mean 87 99 93 Pulse Ox 94 100 96 Oxygen Delivery Method Room Air Nasal Cannula Room Air 07/16/23 22:00 Temperature Temperature Source Pulse Rate 88 Respiratory Rate 18 Blood Pressure 112/96 H Blood Pressure Mean 101 Pulse Ox 98 Oxygen Delivery Method Room Air Positive well nourished and well developed General Appearance ED: well developed and NAD HEENT Reports moist mucous membranes Neck supple and no JVD Resp normal respiratory effort and clear to auscultation bilaterally Cardio regular rate and regular rhythm GI non-distended Palpation: soft and tender epigastric, RUQ and Perla's sign; Negative for guarding or rebound tenderness present Neuro CN's II-XII intact bilaterally, moves all extremities and no sensory deficits noted Sensorium / Orientation: alert Motor Exam: strength 5/5 throughout Psych mental status grossly normal MDM MDM MDM Narrative Medical decision making narrative: Differential diagnosis includes bowel obstruction, perforation, gastritis, cholecystitis, cholelithiasis, pancreatitis, urinary tract infection, pyelonephritis, and electrolyte abnormality. CT scan of the abdomen pelvis will be obtained to assess for bowel obstruction, perforation, cholecystitis, and pancreatitis. CBC will be obtained to assess for leukocytosis and anemia. Comprehensive metabolic profile will be obtained to assess for hepatic function, renal function, and electrolyte abnormality. Lipase will be obtained to assess for pancreatitis. Urinalysis will be obtained to assess for urinary tract infection. Lactate will be obtained to assess for sepsis. Urine culture will be obtained to assess for urinary tract infection. Blood cultures will be obtained to assess for sepsis. Lab Data Attestation: I reviewed the patient's lab results. Labs: Laboratory Results - last 24 hr 07/16/23 07/16/23 07/16/23 17:10 18:01 19:04 WBC 24.4 H RBC 4.83 Hgb 14.0 Hct 43.5 MCV 90.1 MCH 29.0 MCHC 32.2 RDW Std Deviation 44.7 H RDW Coeff of Gerry 13.5 Plt Count 268 MPV 10.6 Immature Gran % (Auto) 0.600 Neut % (Auto) 93.5 H Lymph % (Auto) 1.4 L [place] % (Auto) 4.3 Eos % (Auto) 0.0 Baso % (Auto) 0.2 Absolute Neuts (auto) 22.8 H Absolute Lymphs (auto) 0.35 L Nucleated RBC % 0 Differential Comment SCANNED Sodium 138 Potassium 4.3 Chloride 102 Carbon Dioxide 28.0 Anion Gap 8 BUN 18 Creatinine 1.23 H Est GFR (MDRD) Af Amer 54 L Est GFR (MDRD) Non-Af 44 L BUN/Creatinine Ratio 14.6 Glucose 364 H Lactic Acid 3.7 H* Calcium 9.7 Total Bilirubin 4.10 H AST 329 H ALT 361 H Alkaline Phosphatase 162 H Total Protein 7.4 Albumin 3.4 Globulin 4.0 Albumin/Globulin Ratio 0.8 L Lipase 140 H Urine Color Yellow Urine Clarity Sl. Cloudy Urine pH 6.0 Ur Specific [place] 1.015 Urine Protein 30 H Urine Glucose (UA) 1000 H Urine Ketones Negative Urine Occult Blood 10 H Urine Nitrite Positive H Urine Bilirubin 3 H Urine Urobilinogen 8 H Ur Leukocyte Esterase 100 H Urine RBC 0-5 SEEN Urine WBC 5-10 SEEN Ur Squamous Epith Cells 0-5 SEEN Urine Bacteria 4+ Urine Mucus 0 SEEN POC Glucose 352 H CBC was reviewed and shows a leukocytosis of 24.4. The remainder is essentially within normal limits. Comprehensive metabolic profile was reviewed. Creatinine was slightly elevated at 1.23. Total bilirubin was elevated at 4.1. AST was 329 and ALT was 361. Alkaline phosphatase was mildly elevated at 162. Lipase was reviewed and was mildly elevated at 140. Serum lactate was reviewed and was elevated at 3.7. Urinalysis was reviewed. Leukocyte esterase was 100 with positive nitrates. There were 5-10 white blood cells and 4+ bacteria. Radiography Diagnostic Testing: Clinical Impression(s) from Imaging Studies Abdomen/Pelvis CT 07/16/23 17:37 IMPRESSION: 1. Small amount of gas within the bladder likely from recent instrumentation. Clinical correlation is recommended. 2. Suspect gallbladder sludge. 3. Mild splenomegaly. 4. 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 Sigmoid diverticulosis without diverticulitis. Electronically Signed: Cortez Fried MD at 20:41 EDT , CT scan of the abdomen pelvis was obtained. There is a small amount of gas within the bladder. There is gallbladder sludge. There is right hydronephrosis likely from ureteropelvic junction stenosis. There is diverticulosis but no evidence of diverticulitis. This was interpreted by the radiologist was also independently reviewed by myself. Management Discussion w/another healthcare provider: Hospitalist and P[facility]atic [facility] (Dr. Vargas, Dr. Reina) Treatment and Re-Evaluation :: Patient was given IV fluids, morphine, and Zofran. Patient was given a dose of Zosyn. Case was discussed with Dr. Vargas. She does not feel patient needs ultrasound tonight. She recommended admitting the patient to the medical service. She also recommended consulting Dr. Reina to see if he could perform an ERCP. Case was discussed with Dr. Reina. He would be able to consult and see the patient in the hospital. He would be able to perform ERCP if necessary. Case was discussed with the hospitalist. He will admit the patient to his service. Patient and family understood and were agreeable with the plan. All questions were answered. Discharge Plan Triage Chief Complaint: Abd Pain ED Provider: Adolfo Peres Dx/Rx/DC Orders Clinical Impression: Abdominal pain, Leukocytosis, Pancreatitis, Hyperbilirubinemia, Urinary tract infection, Lactic acidosis Prescriptions: No Action ascorbate calcium (vitamin C) 500 mg tablet 500 mg PO DAILY nitroglycerin [Nitrostat] 0.4 mg tablet, sublingual 0.4 mg SUBLINGUAL Q5M PRN (Reason: chest pain) Qty: 25 3RF Rx Instructions: do not exceed 3 doses per episode acetaminophen 500 mg tablet 1,000 mg PO Q6H PRN (Reason: Pain) cholecalciferol (vitamin D3) 50 mcg (2,000 unit) tablet 50 mcg PO BID vitamin B complex Tablet 1 tab PO DAILY gabapentin 100 mg capsule 300 mg PO TID Patient Comments: TAKE 1 CAPSULE THREE TIMES DAILY NEEDED for back pain insulin glargine [Lantus Solostar U-100 Insulin] 100 unit/mL (3 mL) insulin pen 10 unit SUBCUT DAILY Patient Comments: INJECT TEN units under the skin ONCE DAILY furosemide 40 mg tablet 40 mg PO DAILY duloxetine 60 mg capsule,delayed release(/EC) 60 mg PO DAILY potassium chloride 20 mEq tablet extended release 20 meq PO DAILY atorvastatin 40 mg tablet 40 mg PO DAILY Qty: 90 3RF Primary Care Provider: Janet Zhao Referrals: Janet Zhao MD [Primary Care Provider] - Print Language: Arabic Disposition Disposition: Acute Care Hospital [facility]
--- NOTE | 2023-07-16 17:37 | CT_ITS ---
STUDY: CT ABDOMEN AND PELVIS WITH CONTRAST REASON FOR EXAM: Female, 82 years old. Abdominal pain -- IV PO Contrast RADIATION DOSAGE (If Supplied By Facility): CTDIvol = ( 18.53 ) mGy, DLP = ( 1303.45 ) mGycm TECHNIQUE: Transaxial images were obtained from the dome of the diaphragm to the symphysis pubis with oral contrast. Oral and amp; IV Gastrografin and amp; 100mL Isovue-370 was administered. Sagittal and coronal images were reconstructed. Individualized dose optimization techniques were used for this CT. COMPARISON: None. FINDINGS: The visualized lung bases are unremarkable. The visualized portions of the heart are within normal limits. Elevated right hemidiaphragm. Normal liver. Suspect layering sludge in the gallbladder. There is mild splenomegaly. Normal pancreas. Normal bilateral adrenal glands. Moderate hydronephrosis the right kidney to the level of the ureteropelvic junction possibly from a ureteropelvic junction stenosis. Normal left kidney. Normal visualized stomach. Diverticulum in the second portion the duodenum. There are multiple colonic diverticula consistent with diverticulosis. The appendix is visualized and appears normal. There is diffuse atherosclerotic calcification of the abdominal aorta, without a demonstrated aneurysm. Normal inferior vena cava. Normal retroperitoneum. 2 small bubbles of gas within the anterior aspect of the bladder likely from recent instrumentation. Normal abdominal wall. There are diffuse degenerative changes of the visualized lumbar spine. Chronic moderate wedge compression fracture of the T12 vertebral body without retropulsion into the spinal canal. CT/Abdomen/Pelvis WITH Contrast IMPRESSION: 1. Small amount of gas within the bladder likely from recent instrumentation. Clinical correlation is recommended. 2. Suspect gallbladder sludge. 3. Mild splenomegaly. 4. 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 Sigmoid diverticulosis without diverticulitis. Electronically Signed: Cortez Fried MD at 20:41 EDT ,
[2023-07-16] MEDS: Ondansetron 4 MG/2 ML Vial IV (17:48)
[2023-07-16] MEDS: Morphine 2 MG/ML Syringe IV (17:48)
[2023-07-16] MEDS: 0.9% Normal Saline (1000mL) 1,000 ML 999 ML IV (17:48)
[2023-07-16 18:18] LABS: Absolute Lymphocyte Count 0.35 X10^3/uL (0.83-4.51); Absolute Neutrophil Count 22.8 X10^3/uL (2.0-7.7); Basophil# 0.04 X10^3/uL; Basophil% 0.2 % (0-1); Hematocrit 43.5 % (37-47); Lymphocyte # 0.35 X10^3/ul (0.83-4.51); Lymphocyte % 1.4 % (19-41); Mean Corp Hgb Conc 32.2 g/dL (32-36); Mean Corpuscular Volume 90.1 fL (81-99); Mean Platelet Vol. 10.6 fl (6.2-12.0); Monocyte# 1.04 X10^3/uL; Monocyte% 4.3 % (0-10); NRBC Flagged by Analyzer 0 % (0-5); Neutrophil # 22.84 X10^3/uL (2.7-7.7); Neutrophil % 93.5 % (47-70); POSITIVE DIFFERENTIAL YES; Platelet Count 268 K/mm3 (150-450); RBC Distribution Width CV 13.5 % (11.6-14.6); RBC Distribution Width SD 44.7 fl (35.1-43.9); Red Blood Count 4.83 M/mm3 (4.2-5.4); White Blood Count 24.4 K/mm3 (4.4-11.0)
[2023-07-16 18:21] LABS: Differential Indicated SCAN CRITERIA MET
[2023-07-16 18:37] VITALS: BP 117/90; PULSE 90; RESP 18; O2SAT 100
[2023-07-16 18:41] LABS: Differential Comment SCANNED
[2023-07-16 18:43] LABS: ALB/GLOB Ratio 0.8 RATIO (0.9-2.4); AST(SGOT) 329 U/L (15-37); Alanine Aminotransfer ALT/SGPT 361 U/L (13-56); Albumin, Serum 3.4 g/dL (3.2-5.0); Alkaline Phosphatase 162 U/L (45-117); Anion Gap 8 (5-15); BUN 18 mg/dL (7-18); BUN/Creat Ratio 14.6 RATIO (10-20); Calcium,Total 9.7 mg/dL (8.5-10.1); Chloride 102 mmol/L (98-107); Creatinine, Serum 1.23 mg/dL (0.55-1.02); EST Glomerular Filtration Rate 44 mL/min (>60); Est Glom Filt Rate - Afr Amer 54 mL/min (>60); Glucose 364 mg/dL (74-106); Lipase 140 U/L (13-75); Potassium 4.3 mmol/L (3.5-5.1); Protein, Total 7.4 g/dL (6.4-8.2); Sodium Level 138 mmol/L (136-145)
[2023-07-16 18:59] LABS: Lactic Acid 3.7 mmol/L (0.4-1.9)
[2023-07-16 19:07] LABS: Mucous, Urine 0 SEEN /hpf (<or=2+)
[2023-07-16 19:08] LABS: Color, Urine Yellow (Yellow); Glucose, Dipstick 1000 mg/dl (Normal); Ketone-Dipstick Negative (Negative); Leukocyte Esterase-Dipstick 100 /ul (Negative); Nitrite-Dipstick Positive (Negative); Occult Blood-Urine 10 /ul (Negative); Protein-Dipstick 30 mg/dl (Negative); Specific Gravity, Urine 1.015 (1.002-1.030); Urine Clarity Sl. Cloudy (Clear); Urine Urobilinogen 8 mg/dl (Normal)
[2023-07-16 19:10] LABS: Urine Bilirubin Dipstick 3 mg/dL (Negative)
[2023-07-16 19:14] LABS: Bacteria 4+ /hpf (None Seen); Red Blood Cells-Urine 0-5 SEEN /hpf (0-5); Squamous Epithelial Cells - UA 0-5 SEEN /hpf (5-10); White Blood Cells 5-10 SEEN /hpf (0-5)
[2023-07-16 20:05] VITALS: BP 133/74; PULSE 70; RESP 16; O2SAT 96
[2023-07-16 22:00] VITALS: BP 112/96; PULSE 88; RESP 18; O2SAT 98
[2023-07-16 22:05] LABS: Reflex Lactate? Y
[2023-07-16] MEDS: Piperacil/Tazobactam 4.5 GM in 0.9% Normal Saline (100mL MB+) 100 ML IV (22:21)
[2023-07-16 23:19] LABS: Lactic Acid 1.8 mmol/L (0.4-1.9)
--- NOTE | 2023-07-16 23:50 | CON.PCM.GI_ITS ---
HPI Consult Data Date of Consult: 07/16/23 HPI Narrative Reason for Consultation: Ascending cholangitis HPI Narrative: JERROD SALAZAR, is a 82 F who presents with abdominal pain, decreased appetite, nausea and vomiting. Over the past couple days, the patient has been having the after mentioned symptoms. With her ongoing abdominal pain, the patient's family brought her into the hospital. Patient is not a reliable historian so much of the history is obtained through the patient's daughter and [id number] at bedside as well as emergency room physician. In the emergency room, patient was noted to have a white count of 24.4 thousand, bilirubin of 4.1, AST of 329, ALT of 361 and a lipase of 140. CT the abdomen pelvis did show small amount of gas within the bladder, likely from recent instrumentation. Suspect gallbladder sludge. Mild splenomegaly. 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 Sigmoid diverticulosis without diverticulitis. Patient received pip-tazo in the emergency room. Patient states that her abdomen is feeling better. She described her abdominal pain previously as being more generalized. [facility] Medical History Essential hypertension Second degree AV block Depression Type 2 diabetes mellitus Atherosclerotic heart disease of [place] coronary artery without angina pectoris Angina pectoris Cardiomyopathy, dilated Paroxysmal atrial fibrillation Paroxysmal atrial flutter Fatigue Dyspnea Chest discomfort Abnormal EKG Long-term use of high-risk medication Old myocardial infarction History of atrial fibrillation DM2 (diabetes mellitus, type 2) HLD (hyperlipidemia) Depression CAD (coronary artery disease) Home Medications ?Medication ?Instructions ?Recorded ?Last Taken ?Type ascorbate calcium (vitamin C) 500 500 mg PO DAILY supplement 08/27/19 07/15/23 History mg tablet nitroglycerin 0.4 mg sublingual 0.4 mg sublingual Q5M PRN chest 08/27/19 Unknown Rx tablet (Nitrostat) pain #25 tabs atorvastatin 40 mg tablet 40 mg PO DAILY CHOLESTEROL #90 tabs 10/22/19 07/15/23 Rx acetaminophen 500 mg tablet 1,000 mg PO Q6H PRN Pain 07/10/20 07/15/23 History cholecalciferol (vitamin D3) 50 50 mcg PO BID supplement 07/10/20 07/15/23 History mcg (2,000 unit) tablet vitamin B complex 1 tab PO DAILY supplement 07/10/20 07/15/23 History gabapentin 100 mg capsule 300 mg PO BID nerve pain 12/12/22 Unknown History insulin glargine 100 unit/mL (3 10 unit subcut DAILY diabetes 12/12/22 07/15/23 History mL) subcutaneous pen (Lantus Solostar U-100 Insulin) duloxetine 60 mg capsule,delayed 60 mg PO DAILY mental health 07/16/23 07/15/23 History release potassium chloride 20 mEq 20 meq PO DAILY supplement 07/16/23 07/15/23 History tablet,extended release Allergy/AdvReac Type Severity Reaction Status Date / Time Sulfa (Sulfonamide Allergy Rash Verified 07/16/23 16:38 Antibiotics) tizanidine (From Zanaflex) AdvReac Other Verified 07/16/23 16:38 Family History Mother CAD (coronary artery disease) Sister , age 73 Atrial fibrillation Sister , Age 68 CAD (coronary artery disease) COPD (chronic obstructive pulmonary disease) Surgical History Pacemaker (~12/05/17) History of right cataract surgery History of left cataract surgery History of bilateral knee replacement Status post ablation of atrial fibrillation (~2002) History of foot surgery Presence of stent in coronary artery (~08/2010) Social History Smoking Status: Never smoker alcohol intake: never substance use type: does not use caffeine: Yes Type: coffee Number of servings: 2 ROS ROS Narrative Uses a walker at baseline. All review of systems were negative except as mentioned above in the history of present illness and the other review of systems. Physical Exam Const alert Constitutional Narrative: Pleasantly confused. Nontoxic. Afebrile. HEENT normocephalic and head/scalp atraumatic Eyes Eyes Narrative: No icterus. Neck no lymphadenopathy Neck Narrative: No thyromegaly Resp normal respiratory effort, no retractions, no use of accessory muscles and clear to auscultation bilaterally Cardio regular rate, regular rhythm, S1 normal heart sound and S2 normal heart sound GI normal to inspection, nondistended, normoactive bowel sounds, soft to palpation, non-tender and non-distended Extremity normal to inspection and no clubbing, cyanosis or edema Neuro moves all extremities Sensorium / Orientation: awake Speech: speech normal Psych affect normal Lab / Micro Data 07/17/23 06:00 07/17/23 06:00 Labs: Laboratory Results - last 24 hr 07/16/23 17:10: WBC 24.4 H, RBC 4.83, Hgb 14.0, Hct 43.5, MCV 90.1, MCH 29.0, MCHC 32.2, RDW Std Deviation 44.7 H, RDW Coeff of [place]erry 13.5, Plt Count 268, MPV 10.6, Immature Gran % (Auto) 0.600, Neut % (Auto) 93.5 H, Lymph % (Auto) 1.4 L, [place] % (Auto) 4.3, Eos % (Auto) 0.0, Baso % (Auto) 0.2, Absolute Neuts (auto) 22.8 H, Absolute Lymphs (auto) 0.35 L, Nucleated RBC % 0, Differential Comment SCANNED, Sodium 138, Potassium 4.3, Chloride 102, Carbon Dioxide 28.0, Anion Gap 8, BUN 18, Creatinine 1.23 H, Est GFR (MDRD) Af Amer 54 L, Est GFR (MDRD) Non-Af 44 L, BUN/Creatinine Ratio 14.6, Glucose 364 H, Calcium 9.7, Total Bilirubin 4.10 H, AST 329 H, ALT 361 H, Alkaline Phosphatase 162 H, Total Protein 7.4, Albumin 3.4, Globulin 4.0, Albumin/Globulin Ratio 0.8 L, Lipase 140 H, POC Glucose 352 H 07/16/23 18:01: Lactic Acid 3.7 H* 07/16/23 19:04: Urine Color Yellow, Urine Clarity Sl. Cloudy, Urine pH 6.0, Ur Specific [place] 1.015, Urine Protein 30 H, Urine Glucose (UA) 1000 H, Urine Ketones Negative, Urine Occult Blood 10 H, Urine Nitrite Positive H, Urine Bilirubin 3 H, Urine Urobilinogen 8 H, Ur Leukocyte Esterase 100 H, Urine RBC 0- 5 SEEN, Urine WBC 5-10 SEEN, Ur Squamous Epith Cells 0-5 SEEN, Urine Bacteria 4+, Urine Mucus 0 SEEN 07/16/23 22:43: Lactic Acid 1.8 07/17/23 06:00: WBC 14.8 H, RBC 4.43, Hgb 12.9, Hct 40.7, MCV 91.9, MCH 29.1, M CHC 31.7 L, RDW Std Deviation 46.5 H, RDW Coeff of [place]erry 13.6, Plt Count 203, MPV 10.3, Immature Gran % (Auto) 0.500, Neut % (Auto) 86.2 H, Lymph % (Auto) 5.8 L, [place] % (Auto) 6.6, Eos % (Auto) 0.6, Baso % (Auto) 0.3, Absolute Neuts (auto) 12.7 H, Absolute Lymphs (auto) 0.85, Nucleated RBC % 0, Sodium 137, Potassium 3.6, Chloride 105, Carbon Dioxide 28.0, Anion Gap 4 L, BUN 15, Creatinine 0.88, Estim Creat Clear Calc 54.16, Est GFR (MDRD) Af Amer 79, Est GFR (MDRD) Non-Af 65, BUN/Creatinine Ratio 17.1, Glucose 203 H, Calcium 9.0, Total Bilirubin 3.70 H, AST 230 H, ALT 309 H, Alkaline Phosphatase 158 H, Total Protein 6.9, Albumin 3.1 L, Globulin 3.8, Albumin/Globulin Ratio 0.8 L 07/17/23 06:34: POC Glucose 188 H Micro: Microbiology 07/16/23 19:04 Urine Catheter - Catheter Urine Culture - Preliminary Gram negative kevin Imaging Radiology Impression Abdomen/Pelvis CT 07/16/23 17:37 IMPRESSION: 1. Small amount of gas within the bladder likely from recent instrumentation. Clinical correlation is recommended. 2. Suspect gallbladder sludge. 3. Mild splenomegaly. 4. 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 Sigmoid diverticulosis without diverticulitis. Electronically Signed: Cortez Fried MD at 20:41 EDT , Abdomen Ultrasound 07/16/23 23:56 IMPRESSION: 1. Diffuse hepatic steatosis. 2. Multiple gallstones with abnormal gallbladder wall thickening but negative sonographic Perla''s sign. 3. Moderate right hydronephrosis. Electronically Signed: Som Wilkerson MD at 9:44 EDT , Assessment & Plan Assessment/Plan (1) Transaminitis: (2) Hyperbilirubinemia: (3) Pancreatitis: (4) Leukocytosis: PLAN: Plan 82-year-old with past medical type 2 diabetes, atrial flutter not on anticoagulation due to fall risk, history of CAD status post PTCI with stent arrives with abdominal pain, nausea and vomiting and discovered to have signs of jaundice with cholestatic hepatitis. Her CT scan shows dilated duct with sludge in the gallbladder and indefinite material in the common bile duct. She was also discovered to have fever and mild hypotension with a white count of 24,000. She is on antibiotics. Differential diagnosis does include ascending cholangitis, choledocholithiasis and less likely cholecystitis. Her imaging did not show any gallbladder wall thickening but it does show material in the dependent portion of the gallbladder. Agree with antibiotic therapy and patient should undergo ERCP with therapeutic removal of sludge or stones and possible stent placement. She and her son-in-law were explained alternatives, risk, benefits include not withstanding bleeding, infection, sepsis, perforation, need for return to . She would have an ASA of 3 for the procedure. Charges/Coding Visit Charges Inpatient E&M: 88672 Init Hosp L3
--- NOTE | 2023-07-16 23:56 | HP.PCM.HOS_ITS ---
[facility] General Date of Service: 07/16/23 Chief Complaint: abdominal pain [facility] Narrative JERROD SALAZAR, is a 82 F who presents with abdominal pain, decreased appetite, nausea and vomiting. Over the past couple days, the patient has been having the after mentioned symptoms. With her ongoing abdominal pain, the patient's family brought her into the hospital. Patient is not a reliable historian so much of the history is obtained through the patient's daughter and [id number] at bedside as well as emergency room physician. In the emergency room, patient was noted to have a white count of 24.4 thousand, bilirubin of 4.1, AST of 329, ALT of 361 and a lipase of 140. CT the abdomen pelvis did show small amount of gas within the bladder, likely from recent instrumentation. Suspect gallbladder sludge. Mild splenomegaly. 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 Sigmoid diverticulosis without diverticulitis. Patient received pip-tazo in the emergency room. Patient states that her abdomen is feeling better. She described her abdominal pain previously as being more generalized. [facility] Medical History Essential hypertension Second degree AV block Depression Type 2 diabetes mellitus Atherosclerotic heart disease of [place] coronary artery without angina pectoris Angina pectoris Cardiomyopathy, dilated Paroxysmal atrial fibrillation Paroxysmal atrial flutter Fatigue Dyspnea Chest discomfort Abnormal EKG Long-term use of high-risk medication Old myocardial infarction History of atrial fibrillation DM2 (diabetes mellitus, type 2) HLD (hyperlipidemia) Depression CAD (coronary artery disease) Home Medications ?Medication ?Instructions ?Recorded ?Last Taken ?Type ascorbate calcium (vitamin C) 500 500 mg PO DAILY supplement 08/27/19 01/06/22 History mg tablet nitroglycerin 0.4 mg sublingual 0.4 mg sublingual Q5M PRN chest 08/27/19 Unknown Rx tablet (Nitrostat) pain #25 tabs atorvastatin 40 mg tablet 40 mg PO DAILY CHOLESTEROL #90 tabs 10/22/19 01/06/22 Rx acetaminophen 500 mg tablet 1,000 mg PO Q6H PRN Pain 07/10/20 Unknown History cholecalciferol (vitamin D3) 50 50 mcg PO BID supplement 07/10/20 01/06/22 History mcg (2,000 unit) tablet vitamin B complex 1 tab PO DAILY supplement 07/10/20 01/06/22 History gabapentin 100 mg capsule 300 mg PO TID 12/12/22 Unknown History insulin glargine 100 unit/mL (3 10 unit subcut DAILY 12/12/22 Unknown History mL) subcutaneous pen (Lantus Solostar U-100 Insulin) duloxetine 60 mg capsule,delayed 60 mg PO DAILY 07/16/23 Unknown History release furosemide 40 mg tablet 40 mg PO DAILY 07/16/23 Unknown History potassium chloride 20 mEq 20 meq PO DAILY 07/16/23 Unknown History tablet,extended release Allergy/AdvReac Type Severity Reaction Status Date / Time Sulfa (Sulfonamide Allergy Rash Verified 07/16/23 16:38 Antibiotics) tizanidine (From Zanaflex) AdvReac Other Verified 07/16/23 16:38 Family History Mother CAD (coronary artery disease) Sister , age 73 Atrial fibrillation Sister , Age 68 CAD (coronary artery disease) COPD (chronic obstructive pulmonary disease) Surgical History Pacemaker (~12/05/17) History of right cataract surgery History of left cataract surgery History of bilateral knee replacement Status post ablation of atrial fibrillation (~2002) History of foot surgery Presence of stent in coronary artery (~08/2010) Social History Smoking Status: Never smoker alcohol intake: never substance use type: does not use caffeine: Yes Type: coffee Number of servings: 2 ROS ROS Narrative Denies any rash. All review of systems were negative except as mentioned above in the history of present illness and the other review of systems. Vital Signs Vital Signs Vital Signs: 07/16/23 16:39 07/16/23 18:37 07/16/23 20:05 Temperature 36.6 C Temperature Source Temporal Pulse Rate 74 90 70 Respiratory Rate 18 18 16 Blood Pressure 129/66 H 117/90 H 133/74 H Blood Pressure Mean 87 99 93 Pulse Ox 94 100 96 Oxygen Delivery Method Room Air Nasal Cannula Room Air 07/16/23 22:00 Temperature Temperature Source Pulse Rate 88 Respiratory Rate 18 Blood Pressure 112/96 H Blood Pressure Mean 101 Pulse Ox 98 Oxygen Delivery Method Room Air Physical Exam Const alert Constitutional Narrative: Pleasantly confused. Nontoxic. Afebrile. HEENT normocephalic and head/scalp atraumatic Eyes Eyes Narrative: No icterus. Neck no lymphadenopathy Neck Narrative: No thyromegaly Resp normal respiratory effort, no retractions, no use of accessory muscles and clear to auscultation bilaterally Cardio regular rate, regular rhythm, S1 normal heart sound and S2 normal heart sound GI normal to inspection, nondistended, normoactive bowel sounds, soft to palpation, non-tender and non-distended Extremity normal to inspection and no clubbing, cyanosis or edema Neuro moves all extremities Sensorium / Orientation: awake Speech: speech normal Psych affect normal Results Lab / Micro Data Attestation: I reviewed the patient's lab results. 07/16/23 17:10 07/16/23 17:10 Labs: Laboratory Results - last 24 hr 07/16/23 17:10: WBC 24.4 H, RBC 4.83, Hgb 14.0, Hct 43.5, MCV 90.1, MCH 29.0, MCHC 32.2, RDW Std Deviation 44.7 H, RDW Coeff of Gerry 13.5, Plt Count 268, MPV 10.6, Immature Gran % (Auto) 0.600, Neut % (Auto) 93.5 H, Lymph % (Auto) 1.4 L, [place] % (Auto) 4.3, Eos % (Auto) 0.0, Baso % (Auto) 0.2, Absolute Neuts (auto) 22.8 H, Absolute Lymphs (auto) 0.35 L, Nucleated RBC % 0, Differential Comment SCANNED, Sodium 138, Potassium 4.3, Chloride 102, Carbon Dioxide 28.0, Anion Gap 8, BUN 18, Creatinine 1.23 H, Est GFR (MDRD) Af Amer 54 L, Est GFR (MDRD) Non-Af 44 L, BUN/Creatinine Ratio 14.6, Glucose 364 H, Calcium 9.7, Total Bilirubin 4.10 H, AST 329 H, ALT 361 H, Alkaline Phosphatase 162 H, Total Protein 7.4, Albumin 3.4, Globulin 4.0, Albumin/Globulin Ratio 0.8 L, Lipase 140 H, POC Glucose 352 H 07/16/23 18:01: Lactic Acid 3.7 H* 07/16/23 19:04: Urine Color Yellow, Urine Clarity Sl. Cloudy, Urine pH 6.0, Ur Specific Carmen 1.015, Urine Protein 30 H, Urine Glucose (UA) 1000 H, Urine Ketones Negative, Urine Occult Blood 10 H, Urine Nitrite Positive H, Urine Bilirubin 3 H, Urine Urobilinogen 8 H, Ur Leukocyte Esterase 100 H, Urine RBC 0- 5 SEEN, Urine WBC 5-10 SEEN, Ur Squamous Epith Cells 0-5 SEEN, Urine Bacteria 4+, Urine Mucus 0 SEEN 07/16/23 22:43: Lactic Acid 1.8 Imaging Radiology Impression Abdomen/Pelvis CT 07/16/23 17:37 IMPRESSION: 1. Small amount of gas within the bladder likely from recent instrumentation. Clinical correlation is recommended. 2. Suspect gallbladder sludge. 3. Mild splenomegaly. 4. 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 Sigmoid diverticulosis without diverticulitis. Electronically Signed: Cortez Fried MD at 20:41 EDT , Assessment & Plan Assessment/Plan (1) Transaminitis: (2) Pancreatitis: (3) Hyperbilirubinemia: PLAN: Plan Transaminitis, hyperbilirubinemia and pancreatitis * Etiologies could be due to choledocholithiasis or even a passed stone, biliary sludge, cholangitis. * Continue antibiotics with pip-tazo * Check ultrasound of right upper quadrant * ED did reach out to Dr. Vargas, of general surgery, who recommends GI evaluation for evaluation for ERCP. So we will hold off on general surgery consultation at this time as there is no clear indication for surgery. Will consult gastroenterology for evaluation to see if the patient would benefit from an ERCP * Continue to cycle her labs * Additionally, hold her acetaminophen and atorvastatin for now. Leukocytosis * I reviewed her urinalysis and it is not suggestive of infection at this time though I am more concerned with her right upper quadrant, such as cholangitis being the etiology * Antibiotics as above * Monitor * Urine though did not appear concentrated so we will hold off on her furosemide and give her another liter of IV fluids. Lactic acidosis * SIRS is 1 and qSOFA is 0, therefore sepsis ruled out * Blood cultures were drawn and currently pending. Diabetes mellitus type 2 * Insulin-dependent. * Uncontrolled at present. But that may be a factor of her underlying illness. Will continue with her insulin glargine 10 units daily and sliding scale insulin. * Check an A1c Chronic conditions * CAD: Stable * Depression: Continue with duloxetine * Hyperlipidemia: Statin on hold given the hyperlipidemia and transaminitis. VTE prophylaxis: SCDs. Holding off on chemical prophylaxis given potential for procedures. CODE STATUS: Addressed with the patient and the family. Patient is DNR Comfort Care arrest no intubation. Charges/Coding Visit Charges Inpatient E&M: 14578 Init Hosp L3
--- NOTE | 2023-07-16 23:56 | US_ITS ---
STUDY: ABDOMINAL ULTRASOUND - RIGHT UPPER QUADRANT REASON FOR VISIT: Female, 82 years old transaminitis -- Gallbladder biliary tree. TECHNIQUE: Ultrasound evaluation of the right upper quadrant was performed with real-time and static short-scale imaging. TECHNICAL QUALITY: Adequate. COMPARISON: CT abdomen and pelvis with contrast 07/16/2023. FINDINGS: Liver: The liver measures 18 cm. Increased echogenicity of the liver parenchyma due to fatty infiltration. The bile ducts are within normal limits. There is hepatic color flow. The direction of portal flow is hepatopetal. There is no demonstrated mass lesion. No right pleural effusion. No ascites. Gallbladder: Normal distended gallbladder. The gallbladder wall measures 6 mm. There is a negative sonographic Perla''s sign. There is no pericholecystic fluid. There are multiple gallstones. Common Bile Duct (C.B.D.): The common bile duct measures 12 mm. Pancreas: Normal size of the head, body and tail of the pancreas. There is normal echogenicity of the pancreas. There is no demonstrated pancreatic mass or cyst. The pancreatic duct is not dilated. Right Kidney: Normal size of the right kidney. The right kidney measures 14.2 x 6.7 x 6.5 cm. Normal renal cortex. The right cortex measures 1.5 cm. There is no demonstrated renal mass or cyst. There is moderate right hydronephrosis. US/Abdomen Limited IMPRESSION: 1. Diffuse hepatic steatosis. 2. Multiple gallstones with abnormal gallbladder wall thickening but negative sonographic Perla''s sign. 3. Moderate right hydronephrosis. Electronically Signed: Som Wilkerson MD at 9:44 EDT ,
[2023-07-17] VITALS (13 sets, daily range): BP systolic 110–164; BP diastolic 44–76; PULSE 63–102; RESP 14–22; TEMP 36.1–36.9; O2SAT 90–100; BMI 32.4; BMI 32.5
[2023-07-17] MEDS: 0.9% Normal Saline (1000mL) 1,000 ML 150 ML IV (01:34)
[2023-07-17] MEDS: Piperacil/Tazobactam 3.375 GM in 0.9% Normal Saline (50mL MB+) 50 ML IV ×3 (05:35→21:11)
[2023-07-17] MEDS: 0.9% Normal Saline (250mL Bag) 250 ML 15 ML IV (05:35)
[2023-07-17 06:46] LABS: Absolute Lymphocyte Count 0.85 X10^3/uL (0.83-4.51); Absolute Neutrophil Count 12.7 X10^3/uL (2.0-7.7); Basophil# 0.04 X10^3/uL; Basophil% 0.3 % (0-1); Eosinophil# 0.09 X10^3/uL; Eosinophils% 0.6 % (0-5); Hematocrit 40.7 % (37-47); Hemoglobin 12.9 g/dL (12.0-15.0); Lymphocyte # 0.85 X10^3/ul (0.83-4.51); Lymphocyte % 5.8 % (19-41); Mean Corp Hgb Conc 31.7 g/dL (32-36); Mean Corpuscular Hgb 29.1 pg (27.0-32.0); Mean Corpuscular Volume 91.9 fL (81-99); Mean Platelet Vol. 10.3 fl (6.2-12.0); Monocyte# 0.98 X10^3/uL; Monocyte% 6.6 % (0-10); NRBC Flagged by Analyzer 0 % (0-5); Neutrophil # 12.71 X10^3/uL (2.7-7.7); Neutrophil % 86.2 % (47-70); Platelet Count 203 K/mm3 (150-450); RBC Distribution Width CV 13.6 % (11.6-14.6); RBC Distribution Width SD 46.5 fl (35.1-43.9); Red Blood Count 4.43 M/mm3 (4.2-5.4); White Blood Count 14.8 K/mm3 (4.4-11.0)
[2023-07-17 07:14] LABS: ALB/GLOB Ratio 0.8 RATIO (0.9-2.4); AST(SGOT) 230 U/L (15-37); Alanine Aminotransfer ALT/SGPT 309 U/L (13-56); Albumin, Serum 3.1 g/dL (3.2-5.0); Alkaline Phosphatase 158 U/L (45-117); Anion Gap 4 (5-15); BUN 15 mg/dL (7-18); BUN/Creat Ratio 17.1 RATIO (10-20); Chloride 105 mmol/L (98-107); Creatinine, Serum 0.88 mg/dL (0.55-1.02); EST Glomerular Filtration Rate 65 mL/min (>60); Est Glom Filt Rate - Afr Amer 79 mL/min (>60); Estimated Creatinine Clearance 54.16 ml/min; Globulin 3.8 g/dL (2.2-4.2); Glucose 203 mg/dL (74-106); Potassium 3.6 mmol/L (3.5-5.1); Protein, Total 6.9 g/dL (6.4-8.2); Sodium Level 137 mmol/L (136-145)
[2023-07-17 07:14] LABS: Bedside Glucose 188 mg/dL (74-106)
[2023-07-17] MEDS: Insulin Lispro 100 UNIT/ML INSULN.PEN SC ×2 (09:05→12:30)
[2023-07-17] MEDS: Gabapentin 300 MG Capsule PO ×2 (09:05→21:11)
[2023-07-17] MEDS: DULoxetine Hcl 60 MG Capsule PO (09:05)
--- NOTE | 2023-07-17 11:40 | CASEMGMT ---
RENEA SULLIVAN Assessment Face to Face with patient for initial transition planning/care coordination assessment. RENEA SULLIVAN introduced self and role at [facility], pt voices understanding. Pt is A&Ox4 and is resting comfortably in bed and is calm. Care providers, pharmacy, and demographics verified. Admitting dx: Transaminitis PCP: Janet Zhao Specialists: Denies Preferred Pharmacy: [facility] [place] Insurance: MMO [facility] Prescription Benefit: Yes LNOK: Bharat Berry (SON), Salud Rubio (CHAPIN) Living Arrangements: Pt lives alone in a single story home with 1 step to enter ADLs/IADLs: States ind Transportation: Pt states that she does not drive anymore. Pt son and daughter drive her DME: Pt states that she has a working BGM and supplies. Pt is currently on 2L of O2. Pt states that she does not want to select a DME company at this time for potential home o2. Pt reports that she has a cane and walker at home. Pt denies further DME uses or needs at this time. HHC/SNF: Hx at [facility] Plan: TBD. 6-Click is 16. PT/OT pending. Pt states that it is too early in her stay to decide what she wants to do at time of DC. CM/ SW to follow. Reggie Davalos RN, CM
[2023-07-17] MEDS: Insulin Glargine-YFGN 100 UNIT/ML Pen 10 UNIT SC (12:29)
[2023-07-17 12:47] LABS: Bedside Glucose 208 mg/dL (74-106)
--- NOTE | 2023-07-17 15:00 | NURSING ---
Patient left unit for ERCP
--- NOTE | 2023-07-17 15:11 | CHAPLAIN ---
Type of Pastoral Visit _x__ Initial Visit ___ Follow-up Visit ___ On-call Visit ___ General Patient Visit ___ Spiritual Assessment ___ Family Conference ___ Bereavement ___ Rapid Response ___ Code Blue ___ Other (describe below) Pastoral Care Referral From _x__ Patient ___ Family ___ Nurse ___ Physician ___ Chain Maker Machine ___ Wharf Worker ___ Other (describe below) Sacrament/Intervention _x__ Active listening ___ Anointing ___ Advent ___ Bereavement ___ Communion ___ Rama exploration ___ ___ Life review ___ Prayer ___ Reconciliation ___ Sacrament of Sick _x__ Supportive presence ___ Wedding ___ Other (describe below) Pastoral Comments patient states that she is okay and has no needs; a family member or caregiver is in the room to whom the patient referred to as her medical territory manager, what would I do without her?; again offered support but pt denied any needs
--- NOTE | 2023-07-17 15:12 | EKG12_ITS ---
Test Reason : POSTOP Blood Pressure : / mmHG Vent. Rate : 100 BPM Atrial Rate : 100 BPM P-R Int : 244 ms QRS Dur : 088 ms QT Int : 298 ms P-R-T Axes : 000 005 224 degrees QTc Int : 384 ms Sinus rhythm with 1st degree A-V block with occasional atrial and ventricular-paced complexes Low voltage QRS Nonspecific ST and T wave abnormality Abnormal ECG When compared with ECG of 17-JUL-2023 15:17, MANUAL COMPARISON REQUIRED, DATA IS UNCONFIRMED Confirmed by Nabeel Salas ([id number]), manager editorial [facility] ([id number]) on 07/23/2023 9:00:28 AM Referred By: BIBI Confirmed By:Nabeel Salas
[2023-07-17 15:46] LABS: Bedside Glucose 207 mg/dL (74-106)
[2023-07-17] MEDS: 0.9% Normal Saline (1000mL) 1,000 ML 15 ML IV (16:13)
--- NOTE | 2023-07-17 16:50 | RAD_ITS ---
ERCP INDICATION: Abdominal pain. Next Fluoroscopy time: 1:10 Images obtained: 7 TECHNIQUE: Fluoroscopy the abdomen was utilized operating room during an ERCP and 7 images and interpretation. FINDINGS: Multiple small filling defects within the common bile duct worrisome for stones. Balloon sphincterotomy and stent placement was performed. RAD/ERCP Biliary/Pancreas IMPRESSION: Suspect choledocholithiasis treated with balloon extraction sphincterotomy and stent placement. Electronically Signed: Cortez Fried MD at 20:14 EDT ,
--- NOTE | 2023-07-17 17:11 | EKG12_ITS ---
Test Reason : PREOP Blood Pressure : / mmHG Vent. Rate : 074 BPM Atrial Rate : 074 BPM P-R Int : 184 ms QRS Dur : 090 ms QT Int : 340 ms P-R-T Axes : 000 020 -38 degrees QTc Int : 377 ms Sinus rhythm with frequent atrial and ventricular-paced complexes and with occasional Premature vent ricular complexes Nonspecific ST and T wave abnormality Abnormal ECG When compared with ECG of 12-DEC-2022 15:22, Electronic ventricular pacemaker has replaced Sinus rhythm Confirmed by Nabeel Salas ([id number]), associate editor [facility] ([id number]) on 07/23/2023 9:00:48 AM Referred By: BIBI Confirmed By:Nabeel Salas
[2023-07-17] MEDS: Epinephrine (1 mg/ml) 1 MG/ML VIAL (17:32)
[2023-07-17] MEDS: 0.9% Saline Lock 10 ML Syringe IV (17:32)
--- NOTE | 2023-07-17 18:00 | OP.CCLET_ITS ---
07/17/2023 Janet Zhao [address] [place] [address] Re : ERCP procedure for Steffany Berry Dear Dr. Zhao This procedure was performed on July. My impressions and recommendations are as follows: Impressions : - An area successfully injected. - Hemostasis in the second portion of the duodenum with a heater probe was performed. - Duodenal diverticulum. - Oozing duodenal ulcers with pigmented material. - Choledocholithiasis was found. Complete removal was accomplished by biliary sphincterotomy and balloon extraction. - A biliary sphincterotomy was performed. - The biliary tree was swept. Recommendations : My findings are described in the full procedure note, which is enclosed. If I can be of further assistance, please feel free to contact me at . Sincerely, Adolfo Reina, 07/17/2023 5:59:33 PM This report has been signed electronically.
--- NOTE | 2023-07-17 18:00 | OP.ERCP_ITS ---
Patient Name: Steffany Berry Procedure Date: 07/17/2023 4:07 PM Date of : 1940 Age: 82 Procedure: ERCP Indications: Bile duct stone(s), Abdominal pain of suspected biliary origin, Jaundice, Acute pancreatitis Providers: Adolfo Reina DO Medicines: General Anesthesia, Monitored Anesthesia Care Patient Profile: This is an 82 year old female. Refer to note in patient chart for documentation of history and physical. This patient has no history of previous ERCP. This patient has no history of surgical alteration of the upper digestive tract anatomy. Complications: No immediate complications. Procedure: Pre-Anesthesia Assessment: - Prior to the procedure, a History and Physical was performed, and patient medications and allergies were reviewed. The risks and benefits of the procedure and the sedation options and risks were discussed with the patient. All questions were answered and informed consent was obtained. Patient identification and proposed procedure were verified by the physician. Mental Status Examination: alert and oriented. Airway Examination: normal oropharyngeal airway and neck mobility. Respiratory Examination: clear to auscultation. CV Examination: normal. Prophylactic Antibiotics: The patient does not require prophylactic antibiotics. Prior Anticoagulants: The patient has taken no anticoagulant or antiplatelet agents. ASA Grade Assessment: III - A patient with severe systemic disease. After reviewing the risks and benefits, the patient was deemed in satisfactory condition to undergo the procedure. The anesthesia plan was to use monitored anesthesia care (MAC). Immediately prior to administration of medications, the patient was re-assessed for adequacy to receive sedatives. The heart rate, respiratory rate, oxygen saturations, blood pressure, adequacy of pulmonary ventilation, and response to care were monitored throughout the procedure. The physical status of the patient was re-assessed after the procedure. After obtaining informed consent, the scope was passed under direct vision. Throughout the procedure, the patient's blood pressure, pulse, and oxygen saturations were monitored continuously. The Duodenoscope was introduced through the mouth, and advanced to the duodenum and used to inject contrast into the bile duct. The ERCP was accomplished without difficulty. The patient tolerated the procedure well. Scope In: 5:11:54 PM Scope Out: 5:49:51 PM Total Procedure Duration Time 0 hours 37 minutes 57 seconds Findings: The speedboat driver film was normal. The esophagus was successfully intubated under direct vision. The scope was advanced to a normal major papilla in the descending duodenum without detailed examination of the pharynx, larynx and associated structures, and upper GI tract. The upper GI tract was grossly normal. The bile duct was deeply cannulated with the short-nosed traction sphincterotome. Contrast was injected. I personally interpreted the bile duct images. There was brisk flow of contrast through the ducts. Image quality was adequate. Contrast extended to the entire biliary tree. Opacification of the entire biliary tree except for the cystic duct and gallbladder and main bile duct was successful. The maximum diameter of the ducts was 10 mm. A straight Roadrunner wire was passed into the biliary tree. A 5 mm biliary sphincterotomy was made with a monofilament traction (standard) sphincterotome using ERBE electrocautery. Severe bleeding from the sphincterotomy continued for over 5 minutes. The biliary tree was swept with a 12 mm balloon starting at the bifurcation. All stones were removed. Area was successfully injected with 5 mL of a 0.1 mg/mL solution of epinephrine through the esophagogastroduodenoscope for drug delivery. Coagulation for hemostasis in the second portion of the duodenum using heater probe through the esophagogastroduodenoscope was successful. A standard esophagogastroduodenoscopy scope was used for the examination of the upper gastrointestinal tract. The scope was passed under direct vision through the upper GI tract. A large-mouthed diverticulum was found in the area of the papilla. A standard esophagogastroduodenoscopy scope was used for the examination of the upper gastrointestinal tract. The scope was passed under direct vision through the upper GI tract. Many oozing cratered duodenal ulcers with pigmented material were found in the ampulla, in the duodenal bulb, in the first portion of the duodenum and in the second portion of the duodenum. The largest lesion was 8 mm in largest dimension. Impression: - An area successfully injected. - Hemostasis in the second portion of the duodenum with a heater probe was performed. - Duodenal diverticulum. - Oozing duodenal ulcers with pigmented material. - Choledocholithiasis was found. Complete removal was accomplished by biliary sphincterotomy and balloon extraction. - A biliary sphincterotomy was performed. - The biliary tree was swept. Procedure Code(s): --- Professional --- 97831, Endoscopic retrograde cholangiopancreatography (ERCP); with removal of calculi/debris from biliary/pancreatic duct(s) 81871, 51, Endoscopic retrograde cholangiopancreatography (ERCP); with sphincterotomy/papillotomy 40425, Esophagogastroduodenoscopy, flexible, transoral; with control of bleeding, any method 59633, 59, Esophagogastroduodenoscopy, flexible, transoral; with directed submucosal injection(s), any substance 14374, 26, Endoscopic catheterization of the biliary ductal system, radiological supervision and interpretation CPT copyright 2021 [employer]. All rights reserved. The codes documented in this report are preliminary and upon assisted living housekeeper review may be revised to meet current compliance requirements. Adolfo Reina DO 07/17/2023 5:59:33 PM This report has been signed electronically. Number of Addenda: 0 Note Initiated On: 07/17/2023 4:07 PM
--- NOTE | 2023-07-17 18:01 | PN.HOSP_ITS ---
Reason for Visit Reason for Visit: Diagnoses Elevated white blood cell count, unspecified (07/16/23) Other disorders of bilirubin metabolism (07/16/23) Acute pancreatitis without necrosis or infection, unspecified (07/16/23) Elevation of levels of liver transaminase levels (07/16/23) Subjective Subjective Patient was seen and examined today, she underwent an ERCP, there was noted to be choledocholithiasis, removal was accomplished by biliary sphincterotomy and balloon extraction, there was also noted to be oozing duodenal ulcers with pigmented material. Objective Data Objective Data Vital Signs: Vital Signs Temp Pulse Resp BP Pulse Ox O2 Del Method O2 Flow Rate 97.9 F 71 16 141/70 H 96 Room Air 2 07/17/23 14:00 07/17/23 14:00 07/17/23 14:00 07/17/23 14:00 07/17/23 14:00 07/17/23 14:00 07/17/23 08:52 Oxygen Flow Rate (L/min) 2 Oxygen Delivery Method Room Air Weight: 88.5 kg Body Mass Index (BMI) 32.5 Intake & Output: Intake and Output for Last 24 Hours 07/15/23 07/16/23 07/17/23 23:59 23:59 23:59 Intake Total 2326.50 / 2326.50 Output Total 150 / 150 Balance 2176.50 / 2176.50 Lab / Micro Data 07/17/23 06:00 07/17/23 06:00 Labs: Laboratory Results - last 24 hr 07/16/23 17:10: WBC 24.4 H, RBC 4.83, Hgb 14.0, Hct 43.5, MCV 90.1, MCH 29.0, MCHC 32.2, RDW Std Deviation 44.7 H, RDW Coeff of Gerry 13.5, Plt Count 268, MPV 10.6, Immature Gran % (Auto) 0.600, Neut % (Auto) 93.5 H, Lymph % (Auto) 1.[address] L, [place] % (Auto) 4.3, Eos % (Auto) 0.0, Baso % (Auto) 0.2, Absolute Neuts (auto) 22.8 H, Absolute Lymphs (auto) 0.35 L, Nucleated RBC % 0, Differential Comment SCANNED, Sodium 138, Potassium 4.3, Chloride 102, Carbon Dioxide 28.0, Anion Gap 8, BUN 18, Creatinine 1.23 H, Est GFR (MDRD) Af Amer 54 L, Est GFR (MDRD) Non-Af 44 L, BUN/Creatinine Ratio 14.6, Glucose 364 H, Calcium 9.7, Total Bilirubin 4.10 H, AST 329 H, ALT 361 H, Alkaline Phosphatase 162 H, Total Protein 7.4, Albumin 3.4, Globulin 4.0, Albumin/Globulin Ratio 0.8 L, Lipase 140 H 07/16/23 18:01: Lactic Acid 3.7 H* 07/16/23 19:04: Urine Color Yellow, Urine Clarity Sl. Cloudy, Urine pH 6.0, Ur Specific [place] 1.015, Urine Protein 30 H, Urine Glucose (UA) 1000 H, Urine Ketones Negative, Urine Occult Blood 10 H, Urine Nitrite Positive H, Urine Bilirubin 3 H, Urine Urobilinogen 8 H, Ur Leukocyte Esterase 100 H, Urine RBC 0- 5 SEEN, Urine WBC 5-10 SEEN, Ur Squamous Epith Cells 0-5 SEEN, Urine Bacteria 4+, Urine Mucus 0 SEEN 07/16/23 22:43: Lactic Acid 1.8 07/17/23 06:00: WBC 14.8 H, RBC 4.43, Hgb 12.9, Hct 40.7, MCV 91.9, MCH 29.1, M CHC 31.7 L, RDW Std Deviation 46.5 H, RDW Coeff of Gerry 13.6, Plt Count 203, MPV 10.3, Immature Gran % (Auto) 0.500, Neut % (Auto) 86.2 H, Lymph % (Auto) 5.[address], [place] % (Auto) 6.6, Eos % (Auto) 0.6, Baso % (Auto) 0.3, Absolute Neuts (auto) 12.7 H, Absolute Lymphs (auto) 0.85, Nucleated RBC % 0, Sodium 137, Potassium 3.6, Chloride 105, Carbon Dioxide 28.0, Anion Gap 4 L, BUN 15, Creatinine 0.88, Estim Creat Clear Calc 54.16, Est GFR (MDRD) Af Amer 79, Est GFR (MDRD) Non-Af 65, BUN/Creatinine Ratio 17.1, Glucose 203 H, Calcium 9.0, Total Bilirubin 3.70 H, AST 230 H, ALT 309 H, Alkaline Phosphatase 158 H, Total Protein 6.9, Albumin 3.1 L, Globulin 3.8, Albumin/Globulin Ratio 0.8 L 07/17/23 06:34: POC Glucose 188 H 07/17/23 12:27: POC Glucose 208 H 07/17/23 15:25: POC Glucose 207 H Micro: Microbiology 07/16/23 19:04 Urine Catheter - Catheter Urine Culture - Preliminary Gram negative kevin Radiography Diagnostic Testing: Radiology Impression Abdomen/Pelvis CT 07/16/23 17:37 IMPRESSION: 1. Small amount of gas within the bladder likely from recent instrumentation. Clinical correlation is recommended. 2. Suspect gallbladder sludge. 3. Mild splenomegaly. 4. 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 Sigmoid diverticulosis without diverticulitis. Electronically Signed: Cortez Fried MD at 20:41 EDT , Abdomen Ultrasound 07/16/23 23:56 IMPRESSION: 1. Diffuse hepatic steatosis. 2. Multiple gallstones with abnormal gallbladder wall thickening but negative sonographic Perla''s sign. 3. Moderate right hydronephrosis. Electronically Signed: Som Wilkerson MD at 9:44 EDT , Physical Exam Const alert, oriented x3, no apparent distress and healthy appearing General Appearance: cooperative, well kempt and well developed Orientation / Consciousness: awake, oriented to person, oriented to place and oriented to time HEENT normocephalic, head/scalp atraumatic and moist oral mucous membranes Eyes PERRL, EOMs intact bilaterally and conjunctivae normal Neck supple, no JVD, thyroid normal and no carotid bruits General: trachea midline Resp normal respiratory effort, no retractions, no use of accessory muscles and clear to auscultation bilaterally Auscultation: Negative for rales, rhonchi or wheezes Cardio regular rate, regular rhythm, S1 normal heart sound, S2 normal heart sound, no murmurs, no rub and no gallops GI normal to inspection, nondistended, normoactive bowel sounds, soft to palpation, non-tender and non-distended Extremity no clubbing, cyanosis or edema Skin no rashes or lesions noted General Skin Exam: no breakdown Neuro oriented x3, CN's II-XII intact bilaterally, moves all extremities, no focal motor deficits and no sensory deficits noted Sensorium / Orientation: awake and alert Speech: speech normal Psych affect normal Assessment & Plan Assessment/Plan (1) Transaminitis: PLAN: Plan 1. Choledocholithiasis with elevated liver enzymes-again patient underwent an ERCP today with removal of stones #2 duodenal ulcer-patient is on a PPI #3 urinary tract infection-patient is currently on Zosyn #4 type 2 diabetes-blood sugars will be monitored, sliding scale insulin will be given as needed #5 atherosclerotic heart disease-this is stable at this time #6 gallstone pancreatitis-patient is currently on Zosyn and will receive fluids. Total clinical time spent by myself addressing the patient's medical issues, reviewing all of her data, and collaborating with patient's care team: 35 minutes Charges/Coding Visit Charges Inpatient E&M: 48886 Subs Hosp L2
[2023-07-17 18:35] LABS: Troponin-I HS 10 pg/mL (3.0-54.0)
[2023-07-17 18:41] LABS: Bedside Glucose 202 mg/dL (74-106)
[2023-07-18 00:16] LABS: Bedside Glucose 192 mg/dL (74-106)
[2023-07-18 03:00] VITALS: BP 128/63; PULSE 83; RESP 16; TEMP 36.6; O2SAT 95
[2023-07-18] MEDS: Piperacil/Tazobactam 3.375 GM in 0.9% Normal Saline (50mL MB+) 50 ML IV ×3 (05:35→21:42)
[2023-07-18] MEDS: Insulin Lispro 100 UNIT/ML INSULN.PEN SC ×3 (06:12→17:52)
[2023-07-18 06:32] LABS: Bedside Glucose 163 mg/dL (74-106)
[2023-07-18 09:03] VITALS: BP 126/65; PULSE 77; RESP 16; TEMP 36.7; O2SAT 91
[2023-07-18] MEDS: Ensure Clear 120 ML Liquid PO (10:39)
[2023-07-18] MEDS: DULoxetine Hcl 60 MG Capsule PO (10:39)
[2023-07-18] MEDS: Gabapentin 300 MG Capsule PO ×2 (10:39→21:42)
[2023-07-18] MEDS: Insulin Glargine-YFGN 100 UNIT/ML Pen 10 UNIT SC (10:40)
[2023-07-18 12:16] LABS: Bedside Glucose 295 mg/dL (74-106)
--- NOTE | 2023-07-18 14:32 | CASEMGMT ---
RENEA SULLIVAN reviewed progress with therapy. Patient was min assist x2 for 10 feet and recommended SNF at discharge. RENEA SULLIVAN in to discuss progress with therapy with patient. Patient is hesitant at first to go to SNF but asked to call daughter Salud. RENEA SULLIVAN called Salud and discussed discharge planning on speaker phone with patient. Salud expressed concern and agreeable to SNF at discharge. Patient was then agreeable and states she prefers [facility] as she had been there in the past. Patient and daughter declinced list of SNF agencies. Patient and daughter had no further questions or concerns. RENEA SULLIVAN updated regarding request for [facility] at discharge.
--- NOTE | 2023-07-18 14:42 | PN.HOSP_ITS ---
Reason for Visit Reason for Visit: Diagnoses Elevated white blood cell count, unspecified (07/16/23) Other disorders of bilirubin metabolism (07/16/23) Acute pancreatitis without necrosis or infection, unspecified (07/16/23) Elevation of levels of liver transaminase levels (07/16/23) Subjective Subjective Patient was seen and examined today, her urine culture was positive for gram- negative kevin, she remains on Zosyn at this time, I had a discussion with case management about discharge planning for the patient, he appears to require physical therapy at this time and if her mobility does not improve may be candidate to go to a skilled facility for short-term rehab services. Objective Data Objective Data Vital Signs: Vital Signs Temp Pulse Resp BP Pulse Ox O2 Del Method O2 Flow Rate 98.1 F 77 16 126/65 H 91 Room Air 2 07/18/23 09:03 07/18/23 09:03 07/18/23 09:03 07/18/23 09:03 07/18/23 09:03 07/18/23 09:03 07/17/23 18:52 Oxygen Flow Rate (L/min) 2 Oxygen Delivery Method Room Air Weight: 88.5 kg Body Mass Index (BMI) 32.5 Intake & Output: Intake and Output for Last 24 Hours 07/16/23 07/17/23 07/18/23 23:59 23:59 23:59 Intake Total 2326.50 / 2326.50 625 / 625 Output Total 150 / 150 200 / 200 Balance 2176.50 / 2176.50 425 / 425 Lab / Micro Data 07/17/23 06:00 07/17/23 06:00 Labs: Laboratory Results - last 24 hr 07/17/23 15:25: POC Glucose 207 H 07/17/23 18:05: Troponin I High Sens 10 07/17/23 18:24: POC Glucose 202 H 07/17/23 21:38: POC Glucose 192 H 07/18/23 06:11: POC Glucose 163 H 07/18/23 11:58: POC Glucose 295 H Micro: Microbiology 07/16/23 19:04 Urine Catheter - Catheter Urine Culture - Final Escherichia coli 07/16/23 22:24 Blood Culture (Wb) - Anticubital Left Blood Culture - Preliminary Radiography Diagnostic Testing: Radiology Impression Endo Retro Cholangiopancreatogram 07/17/23 16:50 IMPRESSION: Suspect choledocholithiasis treated with balloon extraction sphincterotomy and stent placement. Electronically Signed: Cortez Fried MD at 20:14 EDT , Physical Exam Narrative alert, oriented x3, no apparent distress and healthy appearing General Appearance: cooperative, well kempt and well developed Orientation / Consciousness: awake, oriented to person, oriented to place and oriented to time HEENT normocephalic, head/scalp atraumatic and moist oral mucous membranes Eyes PERRL, EOMs intact bilaterally and conjunctivae normal Neck supple, no JVD, thyroid normal and no carotid bruits General: trachea midline Resp normal respiratory effort, no retractions, no use of accessory muscles and clear to auscultation bilaterally Auscultation: Negative for rales, rhonchi or wheezes Cardio regular rate, regular rhythm, S1 normal heart sound, S2 normal heart sound, no murmurs, no rub and no gallops GI normal to inspection, nondistended, normoactive bowel sounds, soft to palpation, non-tender and non-distended Extremity no clubbing, cyanosis or edema Skin no rashes or lesions noted General Skin Exam: no breakdown Neuro oriented x3, CN's II-XII intact bilaterally, moves all extremities, no focal motor deficits and no sensory deficits noted Sensorium / Orientation: awake and alert Speech: speech normal Psych affect normal Assessment & Plan Assessment/Plan (1) Transaminitis: PLAN: Plan 1. Choledocholithiasis with elevated liver enzymes-again patient underwent an ERCP with removal of stones #2 duodenal ulcer-patient is on a PPI #3 urinary tract infection-patient is currently on Zosyn, culture results were not resulted yet #4 type 2 diabetes-blood sugars will be monitored, sliding scale insulin will be given as needed #5 atherosclerotic heart disease-this is stable at this time #6 gallstone pancreatitis-patient is currently on Zosyn and will receive fluids. Total clinical time spent by myself addressing the patient's medical issues, reviewing all of her data, and collaborating with patient's care team: 35 minutes Charges/Coding Visit Charges Inpatient E&M: 12374 Subs Hosp L2
--- NOTE | 2023-07-18 14:42 | CASEMGMT ---
Addendum entered by Kizzy Herrera 07/18/23 15:27: SW received a call from patient's daughter Salud. Salud asked if SW could leave a list of facilities in patient's room and they will review it over the weekend. SW told Salud SW will leave a list in patient's room. SW provided patient with a list of half-way facility providers including quality and resource use data and consistent with patient?s preferred geographic region, medical needs, and insurance network were provided from the [facility] Guide. SW also told patient that her daughter Salud requested a list. Plan: SNF pending patient and family choices, accepting facility, and insurance approval.?? Kizzy GROSSMAN Original Note: RN NATE spoke with patient and patient's daughter. Both were in agreement with patient going to a half-way facility. Per RENEA SULLIVAN patient's first choice would be [facility] and then [facility]. SW sent a referral to [facility] via [facility]. Await response from [facility]. Plan: SNF pending accepting facility and pre-cert. Kizzy GROSSMAN
[2023-07-18 14:49] VITALS: BP 121/58; PULSE 95; RESP 15; TEMP 36.6; O2SAT 91
[2023-07-18 18:13] LABS: Bedside Glucose 207 mg/dL (74-106)
[2023-07-18 21:40] VITALS: BP 137/75; PULSE 72; RESP 16; TEMP 36.6; O2SAT 95
[2023-07-18 22:33] LABS: Bedside Glucose 225 mg/dL (74-106)
[2023-07-19 03:43] VITALS: BP 133/69; PULSE 80; RESP 16; TEMP 36.6; O2SAT 100
[2023-07-19] MEDS: Piperacil/Tazobactam 3.375 GM in 0.9% Normal Saline (50mL MB+) 50 ML IV (05:10)
[2023-07-19] MEDS: Insulin Lispro 100 UNIT/ML INSULN.PEN SC ×3 (06:32→16:28)
[2023-07-19 07:00] LABS: Bedside Glucose 166 mg/dL (74-106)
[2023-07-19] MEDS: Gabapentin 300 MG Capsule PO ×2 (08:13→22:04)
[2023-07-19] MEDS: DULoxetine Hcl 60 MG Capsule PO (08:14)
[2023-07-19] MEDS: Ensure Clear 120 ML Liquid PO (08:14)
[2023-07-19] MEDS: Insulin Glargine-YFGN 100 UNIT/ML Pen 10 UNIT SC (08:14)
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
[2023-07-19 10:00] VITALS: BP 111/86; PULSE 89; RESP 18; TEMP 36.8; O2SAT 93
[2023-07-19] MEDS: Ciprofloxacin 250 MG Tablet PO ×2 (13:09→22:03)
--- NOTE | 2023-07-19 14:59 | EX.PCM.PN.GI ---
Subjective Subjective Patient does not have abdominal pain. She is tolerating a diet. She has been afebrile. Objective Data Objective Data Vital Signs: Vital Signs Temp Pulse Resp BP Pulse Ox O2 Del Method O2 Flow Rate 98.2 F 89 18 111/86 H 93 Room Air 2 07/19/23 10:00 07/19/23 10:00 07/19/23 10:00 07/19/23 10:00 07/19/23 10:00 07/19/23 10:00 07/17/23 18:52 Oxygen Flow Rate (L/min) 2 Oxygen Delivery Method Room Air Weight: 195 lb 1.745 oz Body Mass Index (BMI) 32.5 Intake & Output: Intake and Output for Last 24 Hours 07/17/23 07/18/23 07/19/23 23:59 23:59 23:59 Intake Total 2326.50 / 2326.50 675 / 675 100 / 100 Output Total 150 / 150 200 / 200 300 / 300 Balance 2176.50 / 2176.50 475 / 475 -200 / -200 Lab / Micro Data 07/17/23 06:00 07/17/23 06:00 Labs: Laboratory Results - last 24 hr 07/18/23 17:50: POC Glucose 207 H 07/18/23 21:45: POC Glucose 225 H 07/19/23 06:32: POC Glucose 166 H Micro: Microbiology 07/16/23 22:24 Blood Culture (Wb) - Anticubital Left Blood Culture - Final Strep anginosus 07/16/23 22:24 Blood Culture (Wb) - Anticubital Right Blood Culture - Preliminary No growth in 48 hours. 07/16/23 19:04 Urine Catheter - Catheter Urine Culture - Final Escherichia coli Physical Exam Narrative alert, oriented x3, no apparent distress and healthy appearing General Appearance: cooperative, well kempt and well developed Orientation / Consciousness: awake, oriented to person, oriented to place and oriented to time HEENT normocephalic, head/scalp atraumatic and moist oral mucous membranes Eyes PERRL, EOMs intact bilaterally and conjunctivae normal Neck supple, no JVD, thyroid normal and no carotid bruits General: trachea midline Resp normal respiratory effort, no retractions, no use of accessory muscles and clear to auscultation bilaterally Auscultation: Negative for rales, rhonchi or wheezes Cardio regular rate, regular rhythm, S1 normal heart sound, S2 normal heart sound, no murmurs, no rub and no gallops GI normal to inspection, nondistended, normoactive bowel sounds, soft to palpation, non-tender and non-distended Extremity no clubbing, cyanosis or edema Skin no rashes or lesions noted General Skin Exam: no breakdown Neuro oriented x3, CN's II-XII intact bilaterally, moves all extremities, no focal motor deficits and no sensory deficits noted Sensorium / Orientation: awake and alert Speech: speech normal Psych affect normal Assessment & Plan Assessment/Plan (1) Transaminitis: (2) Pancreatitis: (3) Hyperbilirubinemia: PLAN: Plan Transaminitis, hyperbilirubinemia and pancreatitis Etiologies are choledocholithiasis Continue antibiotics with pip-tazo She is okay to take acetaminophen and atorvastatin for now. Patient is doing well from a GI standpoint. I will start her on ursodiol 250 mg p.o. twice daily to hopefully prevent recurrence of stone disease. Leukocytosis I reviewed her urinalysis and it is not suggestive of infection at this time though I am more concerned with her right upper quadrant, such as cholangitis being the etiology Antibiotics as above Urine though did not appear concentrated so we will hold off on her furosemide and give her another liter of IV fluids. Charges/Coding Visit Charges Inpatient E&M: 50712 [facility] Hosp L3
[2023-07-19 16:47] LABS: Bedside Glucose 192 mg/dL (74-106)
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
[2023-07-19] MEDS: Pantoprazole Sodium 40 MG Tablet PO (18:46)
[2023-07-19 19:54] VITALS: BP 119/105; PULSE 76; RESP 16; TEMP 37.1; O2SAT 96
[2023-07-19 22:08] VITALS: BP 160/62; PULSE 75; RESP 24; TEMP 36.3; O2SAT 95
[2023-07-20 01:06] LABS: Bedside Glucose 215 mg/dL (74-106)
[2023-07-20 04:05] VITALS: BP 144/73; PULSE 77; RESP 19; TEMP 36.8; O2SAT 92
[2023-07-20] MEDS: Gabapentin 300 MG Capsule PO ×2 (08:49→21:31)
[2023-07-20] MEDS: DULoxetine Hcl 60 MG Capsule PO (08:49)
[2023-07-20] MEDS: Pantoprazole Sodium 40 MG Tablet PO (08:49)
[2023-07-20] MEDS: Ciprofloxacin 250 MG Tablet PO (08:49)
[2023-07-20] MEDS: Ensure Clear 120 ML Liquid PO (08:50)
[2023-07-20] MEDS: Insulin Glargine-YFGN 100 UNIT/ML Pen 10 UNIT SC (08:50)
[2023-07-20 09:09] LABS: Bedside Glucose 241 mg/dL (74-106)
[2023-07-20 09:10] LABS: Bedside Glucose 142 mg/dL (74-106)
[2023-07-20 11:00] VITALS: BP 122/54; PULSE 75; RESP 18; TEMP 36.8; O2SAT 93
[2023-07-20 11:55] LABS: Bedside Glucose 234 mg/dL (74-106)
[2023-07-20] MEDS: Insulin Lispro 100 UNIT/ML INSULN.PEN SC ×2 (12:08→16:32)
[2023-07-20] MEDS: Cephalexin 500 MG Capsule PO ×2 (14:23→21:31)
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
[2023-07-20 16:20] VITALS: BP 151/77; PULSE 72; RESP 16; TEMP 36.7; O2SAT 99
[2023-07-20 16:23] LABS: Bedside Glucose 201 mg/dL (74-106)
[2023-07-20] MEDS: Polyethylene Glycol 3350 17 GM PACKET PO (17:32)
--- NOTE | 2023-07-20 19:22 | EX.PCM.PN.GI ---
Subjective Subjective Patient still continues to do well without any abdominal pain, recurring jaundice, fevers and her urine is finally clear. Objective Data Objective Data Vital Signs: Vital Signs Temp Pulse Resp BP Pulse Ox O2 Del Method O2 Flow Rate 98.3 F 79 16 136/64 H 96 Room Air 2 07/21/23 14:50 07/21/23 14:50 07/21/23 14:50 07/21/23 14:50 07/21/23 14:50 07/21/23 14:50 07/17/23 18:52 Oxygen Flow Rate (L/min) 2 Oxygen Delivery Method Room Air Weight: 195 lb 1.745 oz Body Mass Index (BMI) 32.5 Intake & Output: Intake and Output for Last 24 Hours 07/19/23 07/20/23 07/21/23 23:59 23:59 23:59 Intake Total 960.5 / 960.5 1140 / 1140 Output Total 300 / 300 890 / 890 710 / 710 Balance 660.5 / 660.5 250 / 250 -690 / -690 Lab / Micro Data 07/21/23 05:45 07/21/23 05:45 Labs: Laboratory Results - last 24 hr 07/20/23 21:23: POC Glucose 211 H 07/21/23 05:45: WBC 7.7, RBC 4.22, Hgb 12.0, Hct 37.5, MCV 88.9, MCH 28.4, MCHC 32.0, RDW Std Deviation 42.6, RDW Coeff of Gerry 13.1, Plt Count 212, MPV 10.5, Immature Gran % (Auto) 0.800, Neut % (Auto) 69.1, Lymph % (Auto) 14.4 L, [place] % (Auto) 10.6 H, Eos % (Auto) 4.2, Baso % (Auto) 0.9, Absolute Neuts (auto) 5.3, Absolute Lymphs (auto) 1.11, Nucleated RBC % 0, Sodium 139, Potassium 3.6, Chloride 102, Carbon Dioxide 31.0, Anion Gap 6, BUN 7, Creatinine 0.51 L, Estim Creat Clear Calc 59.57, Est GFR (MDRD) Af Amer 148, Est GFR (MDRD) Non-Af 123, BUN/Creatinine Ratio 13.7, Glucose 145 H, Calcium 8.9, Total Bilirubin 1.00, AST 32, ALT 116 H, Alkaline Phosphatase 234 H, Total Protein 6.3 L, Albumin 2.6 L, Globulin 3.7, Albumin/Globulin Ratio 0.7 L 07/21/23 06:51: POC Glucose 139 H 07/21/23 09:28: POC Glucose 176 H 07/21/23 11:39: POC Glucose 361 H 07/21/23 11:57: POC Glucose 304 H 07/21/23 16:39: POC Glucose 275 H Micro: Microbiology 07/16/23 22:24 Blood Culture (Wb) - Anticubital Right Blood Culture - Final Klebsiella oxytoca 07/16/23 22:24 Blood Culture (Wb) - Anticubital Left Blood Culture - Final Strep anginosus 07/16/23 19:04 Urine Catheter - Catheter Urine Culture - Final Escherichia coli Physical Exam Narrative GENERAL: cooperative HEENT: Atraumatic; normocephalic EYES; Anicteric, Normal Conjunctiva NECK; supple, normal thyroid, RESPIRATORY: Diminished to auscultation CARDIOVASCULAR: Regular S1 S2, GI: soft, normoactive bowel sounds, : No Renal angle tenderness; EXTREMITIES: No edema, no clubbing, MUSCULOSKELETAL: no muscle wasting NEURO: Awake; no lateralizing signs. SKIN: No Rash PSYCH; Flat affect Assessment & Plan Assessment/Plan (1) Urinary tract infection: (2) Transaminitis: PLAN: Plan Choledocholithiasis with elevated liver enzymes-again patient underwent an ERCP with removal of stones duodenal ulcer-patient is on a PPI gallstone pancreatitis-patient is currently on Zosyn and will receive fluids. She also has positive blood culture for strep anginosus-this organism is susceptible to cephalosporins, patient's antibiotic was changed today to Keflex, I will repeat the patient's blood culture today Charges/Coding Visit Charges Inpatient E&M: 89615 Subs Hosp L3
[2023-07-20 21:18] VITALS: BP 155/70; PULSE 72; RESP 16; RESP 22; TEMP 36.7; O2SAT 97; O2SAT 98
[2023-07-21 03:43] VITALS: BP 156/76; PULSE 68; RESP 16; TEMP 36.5; O2SAT 93
[2023-07-21] MEDS: Cephalexin 500 MG Capsule PO ×3 (05:38→21:00)
[2023-07-21 06:18] LABS: Absolute Lymphocyte Count 1.11 X10^3/uL (0.83-4.51); Absolute Neutrophil Count 5.3 X10^3/uL (2.0-7.7); Basophil# 0.07 X10^3/uL; Basophil% 0.9 % (0-1); Eosinophil# 0.32 X10^3/uL; Eosinophils% 4.2 % (0-5); Hematocrit 37.5 % (37-47); Lymphocyte # 1.11 X10^3/ul (0.83-4.51); Lymphocyte % 14.4 % (19-41); Mean Corpuscular Hgb 28.4 pg (27.0-32.0); Mean Corpuscular Volume 88.9 fL (81-99); Mean Platelet Vol. 10.5 fl (6.2-12.0); Monocyte# 0.82 X10^3/uL; Monocyte% 10.6 % (0-10); NRBC Flagged by Analyzer 0 % (0-5); Neutrophil # 5.32 X10^3/uL (2.7-7.7); Neutrophil % 69.1 % (47-70); Platelet Count 212 K/mm3 (150-450); RBC Distribution Width CV 13.1 % (11.6-14.6); RBC Distribution Width SD 42.6 fl (35.1-43.9); Red Blood Count 4.22 M/mm3 (4.2-5.4); White Blood Count 7.7 K/mm3 (4.4-11.0)
[2023-07-21 06:59] LABS: ALB/GLOB Ratio 0.7 RATIO (0.9-2.4); AST(SGOT) 32 U/L (15-37); Alanine Aminotransfer ALT/SGPT 116 U/L (13-56); Albumin, Serum 2.6 g/dL (3.2-5.0); Alkaline Phosphatase 234 U/L (45-117); Anion Gap 6 (5-15); BUN 7 mg/dL (7-18); BUN/Creat Ratio 13.7 RATIO (10-20); Calcium,Total 8.9 mg/dL (8.5-10.1); Chloride 102 mmol/L (98-107); Creatinine, Serum 0.51 mg/dL (0.55-1.02); EST Glomerular Filtration Rate 123 mL/min (>60); Est Glom Filt Rate - Afr Amer 148 mL/min (>60); Estimated Creatinine Clearance 59.57 ml/min; Globulin 3.7 g/dL (2.2-4.2); Glucose 145 mg/dL (74-106); Potassium 3.6 mmol/L (3.5-5.1); Protein, Total 6.3 g/dL (6.4-8.2); Sodium Level 139 mmol/L (136-145)
[2023-07-21 09:20] VITALS: BP 146/72; PULSE 75; RESP 16; TEMP 36.8; O2SAT 95
[2023-07-21 09:22] LABS: Bedside Glucose 139 mg/dL (74-106)
--- NOTE | 2023-07-21 09:24 | EX.PCM.PN.GI ---
Subjective Subjective She continues to be afebrile and is scheduled to be transferred back to residential today. No sequela of pancreatitis, choledocholithiasis or cholecystitis. Objective Data Objective Data Vital Signs: Vital Signs Temp Pulse Resp BP Pulse Ox O2 Del Method O2 Flow Rate 98.3 F 79 16 136/64 H 96 Room Air 2 07/21/23 14:50 07/21/23 14:50 07/21/23 14:50 07/21/23 14:50 07/21/23 14:50 07/21/23 14:50 07/17/23 18:52 Oxygen Flow Rate (L/min) 2 Oxygen Delivery Method Room Air Weight: 195 lb 1.745 oz Body Mass Index (BMI) 32.5 Intake & Output: Intake and Output for Last 24 Hours 07/19/23 07/20/23 07/21/23 23:59 23:59 23:59 Intake Total 960.5 / 960.5 1140 / 1140 Output Total 300 / 300 890 / 890 710 / 710 Balance 660.5 / 660.5 250 / 250 -690 / -690 Lab / Micro Data 07/21/23 05:45 07/21/23 05:45 Labs: Laboratory Results - last 24 hr 07/20/23 21:23: POC Glucose 211 H 07/21/23 05:45: WBC 7.7, RBC 4.22, Hgb 12.0, Hct 37.5, MCV 88.9, MCH 28.4, MCHC 32.0, RDW Std Deviation 42.6, RDW Coeff of Gerry 13.1, Plt Count 212, MPV 10.5, Immature Gran % (Auto) 0.800, Neut % (Auto) 69.1, Lymph % (Auto) 14.4 L, [place] % (Auto) 10.6 H, Eos % (Auto) 4.2, Baso % (Auto) 0.9, Absolute Neuts (auto) 5.3, Absolute Lymphs (auto) 1.11, Nucleated RBC % 0, Sodium 139, Potassium 3.6, Chloride 102, Carbon Dioxide 31.0, Anion Gap 6, BUN 7, Creatinine 0.51 L, Estim Creat Clear Calc 59.57, Est GFR (MDRD) Af Amer 148, Est GFR (MDRD) Non-Af 123, BUN/Creatinine Ratio 13.7, Glucose 145 H, Calcium 8.9, Total Bilirubin 1.00, AST 32, ALT 116 H, Alkaline Phosphatase 234 H, Total Protein 6.3 L, Albumin 2.6 L, Globulin 3.7, Albumin/Globulin Ratio 0.7 L 07/21/23 06:51: POC Glucose 139 H 07/21/23 09:28: POC Glucose 176 H 07/21/23 11:39: POC Glucose 361 H 07/21/23 11:57: POC Glucose 304 H 07/21/23 16:39: POC Glucose 275 H Micro: Microbiology 07/16/23 22:24 Blood Culture (Wb) - Anticubital Right Blood Culture - Final Klebsiella oxytoca 07/16/23 22:24 Blood Culture (Wb) - Anticubital Left Blood Culture - Final Strep anginosus 07/16/23 19:04 Urine Catheter - Catheter Urine Culture - Final Escherichia coli Physical Exam Narrative GENERAL: cooperative HEENT: Atraumatic; normocephalic EYES; Anicteric, Normal Conjunctiva NECK; supple, normal thyroid, RESPIRATORY: Diminished to auscultation CARDIOVASCULAR: Regular S1 S2, GI: soft, normoactive bowel sounds, : No Renal angle tenderness; EXTREMITIES: No edema, no clubbing, MUSCULOSKELETAL: no muscle wasting NEURO: Awake; no lateralizing signs. SKIN: No Rash PSYCH; Flat affect Assessment & Plan Assessment/Plan (1) Urinary tract infection: (2) Transaminitis: PLAN: Plan Choledocholithiasis with elevated liver enzymes-again patient underwent an ERCP with removal of stones duodenal ulcer-patient is on a PPI gallstone pancreatitis-patient is currently on Zosyn and will receive fluids. She also has positive blood culture for strep anginosus-this organism is susceptible to cephalosporins, patient's antibiotic was changed today to Keflex, I will repeat the patient's blood culture today Continue antibiotic therapy and have patient follow-up in the clinic. Charges/Coding Visit Charges Inpatient E&M: 00465 Subs Hosp L3
[2023-07-21] MEDS: Insulin Glargine-YFGN 100 UNIT/ML Pen 10 UNIT SC (09:30)
[2023-07-21] MEDS: DULoxetine Hcl 60 MG Capsule PO (09:30)
[2023-07-21] MEDS: Pantoprazole Sodium 40 MG Tablet PO (09:31)
[2023-07-21] MEDS: Polyethylene Glycol 3350 17 GM PACKET PO (09:31)
[2023-07-21] MEDS: Gabapentin 300 MG Capsule PO ×2 (09:31→21:00)
--- NOTE | 2023-07-21 09:31 | CASEMGMT ---
Addendum entered by Jacquelyn Hercules 07/21/23 10:32: Social Work [facility] has accepted pt and precert has been started. SW updated pt's dgt and physician. Plan: [facility] rehab, pending precert ELIZABETH Mancilla Original Note: Social Work SW met with pt's dgt who is requesting referral to [facility] rehab. If [facility] is unable to accept, second choice is [facility] or [place]. DC sales assistant updated and to send referral. ELIZABETH Mancilla
--- NOTE | 2023-07-21 09:37 | CASEMGMT ---
Discharge Planning Referral sent to [facility] via [facility]. Jane Fernandze DC Planning Asst.
[2023-07-21 09:54] LABS: Bedside Glucose 176 mg/dL (74-106)
--- NOTE | 2023-07-21 09:58 | PN.HOSP_ITS ---
Reason for Visit Reason for Visit: Diagnoses Elevated white blood cell count, unspecified (07/16/23) Other disorders of bilirubin metabolism (07/16/23) Acute pancreatitis without necrosis or infection, unspecified (07/16/23) Urinary tract infection, site not specified (07/16/23) Elevation of levels of liver transaminase levels (07/16/23) Subjective Subjective Patient is an 82-year-old lady admitted with abdominal pain found to have cholelithiasis with elevated liver enzymes consult placed to GI patient underwent ERCP with removal of stones Objective Data Objective Data Vital Signs: Vital Signs Temp Pulse Resp BP Pulse Ox O2 Del Method O2 Flow Rate 98.3 F 75 16 146/72 H 95 Room Air 2 07/21/23 09:20 07/21/23 09:20 07/21/23 09:20 07/21/23 09:20 07/21/23 09:20 07/21/23 09:20 07/17/23 18:52 Oxygen Flow Rate (L/min) 2 Oxygen Delivery Method Room Air Weight: 88.5 kg Body Mass Index (BMI) 32.5 Intake & Output: Intake and Output for Last 24 Hours 07/19/23 07/20/23 07/21/23 23:59 23:59 23:59 Intake Total 960.5 / 960.5 1140 / 1140 Output Total 300 / 300 890 / 890 460 / 460 Balance 660.5 / 660.5 250 / 250 -440 / -440 Lab / Micro Data 07/21/23 05:45 07/21/23 05:45 Labs: Laboratory Results - last 24 hr 07/20/23 11:37: POC Glucose 234 H 07/20/23 16:04: POC Glucose 201 H 07/21/23 05:45: WBC 7.7, RBC 4.22, Hgb 12.0, Hct 37.5, MCV 88.9, MCH 28.4, MCHC 32.0, RDW Std Deviation 42.6, RDW Coeff of Gerry 13.1, Plt Count 212, MPV 10.5, Immature Gran % (Auto) 0.800, Neut % (Auto) 69.1, Lymph % (Auto) 14.4 L, [place] % (Auto) 10.6 H, Eos % (Auto) 4.2, Baso % (Auto) 0.9, Absolute Neuts (auto) 5.3, Absolute Lymphs (auto) 1.11, Nucleated RBC % 0, Sodium 139, Potassium 3.6, Chloride 102, Carbon Dioxide 31.0, Anion Gap 6, BUN 7, Creatinine 0.51 L, Estim Creat Clear Calc 59.57, Est GFR (MDRD) Af Amer 148, Est GFR (MDRD) Non-Af 123, BUN/Creatinine Ratio 13.7, Glucose 145 H, Calcium 8.9, Total Bilirubin 1.00, AST 32, ALT 116 H, Alkaline Phosphatase 234 H, Total Protein 6.3 L, Albumin 2.6 L, Globulin 3.7, Albumin/Globulin Ratio 0.7 L 07/21/23 06:51: POC Glucose 139 H 07/21/23 09:28: POC Glucose 176 H Micro: Microbiology 07/16/23 22:24 Blood Culture (Wb) - Anticubital Right Blood Culture - Final Klebsiella oxytoca 07/16/23 22:24 Blood Culture (Wb) - Anticubital Left Blood Culture - Final Strep anginosus 07/16/23 19:04 Urine Catheter - Catheter Urine Culture - Final Escherichia coli Physical Exam Narrative GENERAL: cooperative HEENT: Atraumatic; normocephalic EYES; Anicteric, Normal Conjunctiva NECK; supple, normal thyroid, RESPIRATORY: Diminished to auscultation CARDIOVASCULAR: Regular S1 S2, GI: soft, normoactive bowel sounds, : No Renal angle tenderness; EXTREMITIES: No edema, no clubbing, MUSCULOSKELETAL: no muscle wasting NEURO: Awake; no lateralizing signs. SKIN: No Rash PSYCH; Flat affect Assessment & Plan Assessment/Plan (1) Urinary tract infection: (2) Transaminitis: PLAN: Plan Patient is an 82-year-old lady admitted with abdominal pain found to have cholelithiasis with elevated liver enzymes consult placed to GI patient underwent ERCP with removal of stones 1. Abdominal pain ? Secondary to duodenal ulcers as well as cholelithiasis 2. Choledocholithiasis ? Patient underwent ERCP on 07/17/[address] Reina. Complete removal was accomplished by biliary sphincterotomy and balloon extraction. A biliary sphincterotomy was performed. The biliary tree was swept. 3. Duodenal ulcers ? Found on patient EGD during ERCP. Patient is on PPI 4. Acute cystitis ? Patient grew both E. coli in the urine and Klebsiella and strep anginosus in the blood. Managed with Cipro initially switched to Keflex 5. Conduction system disorder ? Status post pacemaker placement 6. Paroxysmal A-fib/flutter -With history of EPS/RFA. Rate remains controlled 7. 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 Coronary artery disease ? With previous PCI with stent placement RCA/RV marginal blood 9. Dyslipidemia ?Patient is on statin therapy, continued at home dose 10. Hypertension ? Blood pressure controlled, 11. Diabetes mellitus type II -patient's oral hypoglycemics held. Placed on long acting insulin, Accu-Cheks a.c. and at bedtime and covered with sliding scale insulin 12. Diabetic polyneuropathy ? Patient is on gabapentin 13. Physical deconditioning ? Requested for PT OT eval and geriatric social work professor to assist with discharge planning 14. DVT prophylaxis ?SCDs only given findings of duodenal ulcers on EGD Time spent in the patient's overall evaluation,decision-making process, review of diagnostic data, adjustment of management, discussion with other providers, nursing nursing and ancillary staff involved in patient's care documentation, 38 Minutes Charges/Coding Visit Charges Inpatient E&M: 34184 Subs Hosp L2
--- NOTE | 2023-07-21 10:13 | CASEMGMT ---
Discharge Planning [facility] has accepted patient. Requested that precert be submitted. Jane Fernandez DC Planning Asst.
--- NOTE | 2023-07-21 10:33 | CASEMGMT ---
Discharge Planning Referral to [facility] cancelled. Jane Fernandez DC Planning Asst.
[2023-07-21 11:27] LABS: Bedside Glucose 211 mg/dL (74-106)
[2023-07-21 11:57] LABS: Bedside Glucose 361 mg/dL (74-106)
[2023-07-21] MEDS: Insulin Lispro 100 UNIT/ML INSULN.PEN SC ×2 (11:58→17:07)
[2023-07-21 12:20] LABS: Bedside Glucose 304 mg/dL (74-106)
[2023-07-21 14:50] VITALS: BP 136/64; PULSE 79; RESP 16; TEMP 36.8; O2SAT 96
--- NOTE | 2023-07-21 15:54 | CASEMGMT ---
Discharge Planning Todays therapy notes sent to [facility] as requested. Jane Fernandez DC Planning Asst.
--- NOTE | 2023-07-21 16:08 | PCM.TXEXTCAR ---
Diet Diet Order/Speech Therapy: 07/19/23 08:18 Diet: Regular - General Is pt able to select menu?: Yes Routine Orders/Code Status Code Status: DNRCC-A Therapies Physical Therapy: Eval and Treat Occupational Therapy: Eval and Treat Problem/Diagnosis (1) Urinary tract infection: Status: Acute Code(s): N39.0 - Urinary tract infection, site not specified (2) Transaminitis: Status: Acute Code(s): R74.01 - Elevation of levels of liver transaminase levels Plan Patient is an 82-year-old lady admitted with abdominal pain found to have cholelithiasis with elevated liver enzymes consult placed to GI patient underwent ERCP with removal of stones 1. Abdominal pain ? Secondary to duodenal ulcers as well as cholelithiasis 2. Choledocholithiasis ? Patient underwent ERCP on 07/17/[address] Reina. Complete removal was accomplished by biliary sphincterotomy and balloon extraction. A biliary sphincterotomy was performed. The biliary tree was swept. 3. Duodenal ulcers ? Found on patient EGD during ERCP. Patient is on PPI 4. Acute cystitis ? Patient grew both E. coli in the urine and Klebsiella and strep anginosus in the blood. Managed with Cipro initially switched to Keflex 5. Conduction system disorder ? Status post pacemaker placement 6. Paroxysmal A-fib/flutter -With history of EPS/RFA. Rate remains controlled 7. 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 Coronary artery disease ? With previous PCI with stent placement RCA/RV marginal blood 9. Dyslipidemia ?Patient is on statin therapy, continued at home dose 10. Hypertension ? Blood pressure controlled, 11. Diabetes mellitus type II -patient's oral hypoglycemics held. Placed on long acting insulin, Accu-Cheks a.c. and at bedtime and covered with sliding scale insulin 12. Diabetic polyneuropathy ? Patient is on gabapentin 13. Physical deconditioning ? Requested for PT OT eval and transition social worker to assist with discharge planning 14. DVT prophylaxis ?SCDs only given findings of duodenal ulcers on EGD Time spent in the patient's overall evaluation,decision-making process, review of diagnostic data, adjustment of management, discussion with other providers, nursing nursing and ancillary staff involved in patient's care documentation, 38 Minutes Allergies/Procedures Done in Hospital Allergies Sulfa (Sulfonamide Antibiotics) Allergy (Verified 07/16/23 16:38) Rash tizanidine (From Zanaflex) Adverse Reaction (Verified 07/16/23 16:38) Other confusion/restlessness Type of Care/Length of Stay Estimated LOS: Convalescent Care Less Than 30 days Type of Care Needed: Skilled Rehab Potential: Good Prognosis: Good Additional Orders/Day of Discharge Day of Discharge: 07/22/23 Dietary and Speech Recommendations Dietitian Recommendations/Changes: recommend advance diet as tolerated to cardiac; ensure clear w/ medpass. Will monitor intake, tolerance of diet and adjust ONS/diet as indicated at time of follow-up Discharge Plan Admission Admit Date/Time: 07/16/23 23:50 Attending Provider: Hudson Aly Primary Care Provider: Janet Zhao Consulting Providers: Adolfo Asencio; Alex Garcia Discharge Orders/Prescriptions Prescriptions: New cephalexin 500 mg Capsule 500 mg PO TID Qty: 15 0RF insulin lispro [Humalog KwikPen Insulin] 100 unit/mL Insulin Pen See Protocol subcut TIDAC Qty: 0 0RF Protocol: 3. Sliding Scale Insulin Med Dosing Condition: 150-189 mg/dl = 1 unit Condition: 190-229 mg/dl = 2 units Condition: 230-269 mg/dl = 3 units Condition: 270-309 mg/dl = 4 units Condition: 310-349 mg/dl = 5 units Condition: 350-399 mg/dl = 6 units Condition: 400-449 mg/dl = 7 units Condition: Greater than 449 call physician Protocol Text: - Use for Total Daily Dose of Insulin 37-55 units - Obsese, infected, or steroid patients MEDIUM DOSING ALGORITHIM pantoprazole 40 mg Tablet,Delayed Release (Dr/Ec) 40 mg PO DAILY Qty: 0 0RF Continued ascorbate calcium (vitamin C) 500 mg tablet 500 mg PO DAILY nitroglycerin [Nitrostat] 0.4 mg tablet, sublingual 0.4 mg SUBLINGUAL Q5M PRN (Reason: chest pain) Qty: 25 3RF Rx Instructions: do not exceed 3 doses per episode acetaminophen 500 mg tablet 1,000 mg PO Q6H PRN (Reason: Pain) cholecalciferol (vitamin D3) 50 mcg (2,000 unit) tablet 50 mcg PO BID vitamin B complex Tablet 1 tab PO DAILY gabapentin 100 mg capsule 300 mg PO TID insulin glargine [Lantus Solostar U-100 Insulin] 100 unit/mL (3 mL) insulin pen 10 unit SUBCUT DAILY Patient Comments: INJECT TEN units under the skin ONCE DAILY duloxetine 60 mg capsule,delayed release(DR/EC) 60 mg PO DAILY potassium chloride 20 mEq tablet extended release 20 meq PO DAILY atorvastatin 40 mg tablet 40 mg PO DAILY Qty: 90 3RF Discontinued glimepiride 4 mg tablet 4 mg PO BID Referrals / Follow Up: Janet Zhao MD [Primary Care Provider] - Disposition Disposition (needs filled in before D/C Order can be placed): Care Home Facility
[2023-07-21 17:00] LABS: Bedside Glucose 275 mg/dL (74-106)
[2023-07-21 21:00] VITALS: BP 146/98; PULSE 75; RESP 18; TEMP 36.3; O2SAT 95; O2SAT 97
[2023-07-21 23:05] LABS: Bedside Glucose 208 mg/dL (74-106)
[2023-07-22 04:40] VITALS: BP 149/64; PULSE 72; RESP 18; TEMP 36.3; O2SAT 99
[2023-07-22] MEDS: Cephalexin 500 MG Capsule PO ×2 (06:25→13:01)
[2023-07-22] MEDS: Insulin Lispro 100 UNIT/ML INSULN.PEN SC ×2 (06:43→12:12)
[2023-07-22 07:03] LABS: Bedside Glucose 197 mg/dL (74-106)
--- NOTE | 2023-07-22 07:38 | CASEMGMT ---
[facility] received approval for patient to admit today. SW will notify physician. Kizzy GROSSMAN
[2023-07-22 07:42] LABS: Absolute Lymphocyte Count 1.29 X10^3/uL (0.83-4.51); Absolute Neutrophil Count 6.6 X10^3/uL (2.0-7.7); Basophil# 0.11 X10^3/uL; Basophil% 1.2 % (0-1); Eosinophil# 0.36 X10^3/uL; Eosinophils% 3.9 % (0-5); Hematocrit 39.1 % (37-47); Hemoglobin 12.5 g/dL (12.0-15.0); Lymphocyte # 1.29 X10^3/ul (0.83-4.51); Lymphocyte % 13.8 % (19-41); Mean Corpuscular Hgb 28.7 pg (27.0-32.0); Mean Corpuscular Volume 89.9 fL (81-99); Mean Platelet Vol. 10.6 fl (6.2-12.0); Monocyte# 0.89 X10^3/uL; Monocyte% 9.5 % (0-10); NRBC Flagged by Analyzer 0 % (0-5); Neutrophil % 70.5 % (47-70); Platelet Count 239 K/mm3 (150-450); RBC Distribution Width CV 13.2 % (11.6-14.6); RBC Distribution Width SD 43.6 fl (35.1-43.9); Red Blood Count 4.35 M/mm3 (4.2-5.4); White Blood Count 9.4 K/mm3 (4.4-11.0)
[2023-07-22 07:52] LABS: Anion Gap 4 (5-15); BUN 9 mg/dL (7-18); BUN/Creat Ratio 13.4 RATIO (10-20); Calcium,Total 8.9 mg/dL (8.5-10.1); Chloride 101 mmol/L (98-107); Creatinine, Serum 0.67 mg/dL (0.55-1.02); EST Glomerular Filtration Rate 89 mL/min (>60); Est Glom Filt Rate - Afr Amer 108 mL/min (>60); Estimated Creatinine Clearance 59.57 ml/min; Glucose 190 mg/dL (74-106); Magnesium 1.9 mg/dL (1.6-2.6); Phosphorus 2.8 mg/dL (2.5-4.9); Potassium 3.7 mmol/L (3.5-5.1); Sodium Level 137 mmol/L (136-145)
--- NOTE | 2023-07-22 08:02 | PCM.PN.HOSP ---
Reason for Visit Reason for Visit: Diagnoses Elevated white blood cell count, unspecified (07/16/23) Other disorders of bilirubin metabolism (07/16/23) Acute pancreatitis without necrosis or infection, unspecified (07/16/23) Urinary tract infection, site not specified (07/16/23) Elevation of levels of liver transaminase levels (07/16/23) Subjective Subjective Patient seen remains stable at rest has received insurance preauthorization to be discharged to residential facility Objective Data Objective Data Vital Signs: Vital Signs Temp Pulse Resp BP Pulse Ox O2 Del Method O2 Flow Rate 97.4 F L 72 18 149/64 H 99 Room Air 2 07/22/23 04:40 07/22/23 04:40 07/22/23 04:40 07/22/23 04:40 07/22/23 04:40 07/22/23 04:40 07/17/23 18:52 Oxygen Flow Rate (L/min) 2 Oxygen Delivery Method Room Air Weight: 88.5 kg Body Mass Index (BMI) 32.5 Intake & Output: Intake and Output for Last 24 Hours 07/20/23 07/21/23 07/22/23 23:59 23:59 23:59 Intake Total 1140 / 1140 20 / 470 750 / 750 Output Total 890 / 890 710 / 710 Balance 250 / 250 -690 / -240 750 / 750 Lab / Micro Data 07/22/23 06:00 07/22/23 06:00 Labs: Laboratory Results - last 24 hr 07/20/23 21:23: POC Glucose 211 H 07/21/23 06:51: POC Glucose 139 H 07/21/23 09:28: POC Glucose 176 H 07/21/23 11:39: POC Glucose 361 H 07/21/23 11:57: POC Glucose 304 H 07/21/23 16:39: POC Glucose 275 H 07/21/23 21:08: POC Glucose 208 H 07/22/23 06:00: WBC 9.4, RBC 4.35, Hgb 12.5, Hct 39.1, MCV 89.9, MCH 28.7, MCHC 32.0, RDW Std Deviation 43.6, RDW Coeff of Gerry 13.2, Plt Count 239, MPV 10.6, Immature Gran % (Auto) 1.100 H, Neut % (Auto) 70.5 H, Lymph % (Auto) 13.8 L, [place] % (Auto) 9.5, Eos % (Auto) 3.9, Baso % (Auto) 1.2 H, Absolute Neuts (auto) 6.6, Absolute Lymphs (auto) 1.29, Nucleated RBC % 0, Sodium 137, Potassium 3.7, Chloride 101, Carbon Dioxide 32.0, Anion Gap 4 L, BUN 9, Creatinine 0.67, Estim Creat Clear Calc 59.57, Est GFR (MDRD) Af Amer 108, Est GFR (MDRD) Non-Af 89, BUN/Creatinine Ratio 13.4, Glucose 190 H, Calcium 8.9, Phosphorus 2.8, Magnesium 1.9 07/22/23 06:42: POC Glucose 197 H Micro: Microbiology 07/16/23 22:24 Blood Culture (Wb) - Anticubital Right Blood Culture - Final Klebsiella oxytoca 07/16/23 22:24 Blood Culture (Wb) - Anticubital Left Blood Culture - Final Strep anginosus 07/16/23 19:04 Urine Catheter - Catheter Urine Culture - Final Escherichia coli Physical Exam Narrative GENERAL: cooperative HEENT: Atraumatic; normocephalic EYES; Anicteric, Normal Conjunctiva NECK; supple, normal thyroid, RESPIRATORY: Diminished to auscultation CARDIOVASCULAR: Regular S1 S2, GI: soft, normoactive bowel sounds, : No Renal angle tenderness; EXTREMITIES: No edema, no clubbing, MUSCULOSKELETAL: no muscle wasting NEURO: Awake; no lateralizing signs. SKIN: No Rash PSYCH; Flat affect Assessment & Plan Assessment/Plan (1) Urinary tract infection: (2) Transaminitis: PLAN: Plan Patient is an 82-year-old lady admitted with abdominal pain found to have cholelithiasis with elevated liver enzymes consult placed to GI patient underwent ERCP with removal of stones 1. Abdominal pain ? Secondary to duodenal ulcers as well as cholelithiasis 2. Choledocholithiasis ? Patient underwent ERCP on 07/17/[address] Reina. Complete removal was accomplished by biliary sphincterotomy and balloon extraction. A biliary sphincterotomy was performed. The biliary tree was swept. 3. Duodenal ulcers ? Found on patient EGD during ERCP. Patient is on PPI 4. Acute cystitis ? Patient grew both E. coli in the urine and Klebsiella and strep anginosus in the blood. Managed with Cipro initially switched to Keflex 5. Conduction system disorder ? Status post pacemaker placement 6. Paroxysmal A-fib/flutter -With history of EPS/RFA. Rate remains controlled 7. 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 Coronary artery disease ? With previous PCI with stent placement RCA/RV marginal blood 9. Dyslipidemia ?Patient is on statin therapy, continued at home dose 10. Hypertension ? Blood pressure controlled, 11. Diabetes mellitus type II -patient's oral hypoglycemics held. Placed on long acting insulin, Accu-Cheks a.c. and at bedtime and covered with sliding scale insulin 12. Diabetic polyneuropathy ? Patient is on gabapentin 13. Physical deconditioning ? Requested for PT OT eval and medical social worker to assist with discharge planning 14. DVT prophylaxis ?SCDs only given findings of duodenal ulcers on EGD Time spent in the patient's overall evaluation,decision-making process, review of diagnostic data, adjustment of management, discussion with other providers, nursing nursing and ancillary staff involved in patient's care documentation, 38 Minutes
--- NOTE | 2023-07-22 08:13 | CASEMGMT ---
Discharge Planning [facility] has obtained auth. SW updated. Jane Fernandez DC Planning Asst.
[2023-07-22 09:11] VITALS: BP 143/64; PULSE 73; RESP 16; TEMP 36.6; O2SAT 95
[2023-07-22] MEDS: Insulin Glargine-YFGN 100 UNIT/ML Pen 10 UNIT SC (09:27)
[2023-07-22] MEDS: Gabapentin 300 MG Capsule PO (09:27)
[2023-07-22] MEDS: DULoxetine Hcl 60 MG Capsule PO (09:27)
[2023-07-22] MEDS: Pantoprazole Sodium 40 MG Tablet PO (09:28)
[2023-07-22 09:49] LABS: Bedside Glucose 230 mg/dL (74-106)
--- NOTE | 2023-07-22 10:29 | PCM.DC.SUM ---
Providers Date of Admission: 07/16/23 Date of Discharge: 07/22/23 Primary Care Physician: Dr. Janet Zhao MD Consultations 07/17/23 00:58 Consult: Gastroenterology Routine Consulting Provider: N[facility] Reason for Consult: transaminitis EMERGENT Consult: No Notified: Yes Date Notified: 07/17/23 Time Notified: 05:00 Method of Notification: Text Reason For Visit: TRANSAMINITIS Diagnosis Discharge Diagnosis (1) Urinary tract infection: Status: Acute Code(s): N39.0 - Urinary tract infection, site not specified (2) Transaminitis: Status: Acute Code(s): R74.01 - Elevation of levels of liver transaminase levels Plan Patient is an 82-year-old lady admitted with abdominal pain found to have cholelithiasis with elevated liver enzymes consult placed to GI patient underwent ERCP with removal of stones 1. Abdominal pain ? Secondary to duodenal ulcers as well as cholelithiasis 2. Choledocholithiasis ? Patient underwent ERCP on 07/17/[address] Reina. Complete removal was accomplished by biliary sphincterotomy and balloon extraction. A biliary sphincterotomy was performed. The biliary tree was swept. 3. Duodenal ulcers ? Found on patient EGD during ERCP. Patient is on PPI 4. Acute cystitis ? Patient grew both E. coli in the urine and Klebsiella and strep anginosus in the blood. Managed with Cipro initially switched to Keflex 5. Conduction system disorder ? Status post pacemaker placement 6. Paroxysmal A-fib/flutter -With history of EPS/RFA. Rate remains controlled 7. 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 Coronary artery disease ? With previous PCI with stent placement RCA/RV marginal blood 9. Dyslipidemia ?Patient is on statin therapy, continued at home dose 10. Hypertension ? Blood pressure controlled, 11. Diabetes mellitus type II -patient's oral hypoglycemics held. Placed on long acting insulin, Accu-Cheks a.c. and at bedtime and covered with sliding scale insulin 12. Diabetic polyneuropathy ? Patient is on gabapentin 13. Physical deconditioning ? Requested for PT OT eval and social security assessor to assist with discharge planning 14. DVT prophylaxis ?SCDs only given findings of duodenal ulcers on EGD Time spent in the patient's overall evaluation,decision-making process, review of diagnostic data, adjustment of management, discussion with other providers, nursing nursing and ancillary staff involved in patient's care documentation, 38 Minutes Medications at Discharge Home Medications ascorbate calcium (vitamin C) 500 mg tablet 500 mg PO DAILY supplement 08/27/19 nitroglycerin 0.4 mg sublingual tablet (Nitrostat) 0.4 mg sublingual Q5M PRN chest pain #25 tabs 08/27/19 atorvastatin 40 mg tablet 40 mg PO DAILY CHOLESTEROL #90 tabs 10/22/19 acetaminophen 500 mg tablet 1,000 mg PO Q6H PRN Pain 07/10/20 cholecalciferol (vitamin D3) 50 mcg (2,000 unit) tablet 50 mcg PO BID supplement 07/10/20 vitamin B complex 1 tab PO DAILY supplement 07/10/20 gabapentin 100 mg capsule 300 mg PO TID nerve pain 12/12/22 insulin glargine 100 unit/mL (3 mL) subcutaneous pen (Lantus Solostar U-100 Insulin) 10 unit subcut DAILY diabetes 12/12/22 duloxetine 60 mg capsule,delayed release 60 mg PO DAILY mental health 07/16/23 potassium chloride 20 mEq tablet,extended release 20 meq PO DAILY supplement 07/16/23 cephalexin 500 mg capsule 500 mg PO TID #15 caps 07/21/23 insulin lispro 100 unit/mL subcutaneous pen (Humalog KwikPen (U-100) Insulin) See Protocol subcut TIDAC #0 mL 07/21/23 pantoprazole 40 mg tablet,delayed release 40 mg PO DAILY #0 tabs 07/21/23 Physical Exam Narrative GENERAL: cooperative HEENT: Atraumatic; normocephalic EYES; Anicteric, Normal Conjunctiva NECK; supple, normal thyroid, RESPIRATORY: Diminished to auscultation CARDIOVASCULAR: Regular S1 S2, GI: soft, normoactive bowel sounds, : No Renal angle tenderness; EXTREMITIES: No edema, no clubbing, MUSCULOSKELETAL: no muscle wasting NEURO: Awake; no lateralizing signs. SKIN: No Rash PSYCH; Flat affect Weight / BMI Weight Weight: 88.5 kg Body Mass Index (BMI) 32.5 ABG / Lab / Microbiology Data 07/22/23 06:00 07/22/23 06:00 Laboratory: Laboratory Results - last 24 hr 07/20/23 21:23: POC Glucose 211 H 07/21/23 11:39: POC Glucose 361 H 07/21/23 11:57: POC Glucose 304 H 07/21/23 16:39: POC Glucose 275 H 07/21/23 21:08: POC Glucose 208 H 07/22/23 06:00: WBC 9.4, RBC 4.35, Hgb 12.5, Hct 39.1, MCV 89.9, MCH 28.7, MCHC 32.0, RDW Std Deviation 43.6, RDW Coeff of Gerry 13.2, Plt Count 239, MPV 10.6, Immature Gran % (Auto) 1.100 H, Neut % (Auto) 70.5 H, Lymph % (Auto) 13.8 L, [place] % (Auto) 9.5, Eos % (Auto) 3.9, Baso % (Auto) 1.2 H, Absolute Neuts (auto) 6.6, Absolute Lymphs (auto) 1.29, Nucleated RBC % 0, Sodium 137, Potassium 3.7, Chloride 101, Carbon Dioxide 32.0, Anion Gap 4 L, BUN 9, Creatinine 0.67, Estim Creat Clear Calc 59.57, Est GFR (MDRD) Af Amer 108, Est GFR (MDRD) Non-Af 89, BUN/Creatinine Ratio 13.4, Glucose 190 H, Calcium 8.9, Phosphorus 2.8, Magnesium 1.9 07/22/23 06:42: POC Glucose 197 H 07/22/23 09:20: POC Glucose 230 H Microbiology: Microbiology 07/16/23 22:24 Blood Culture (Wb) - Anticubital Right Blood Culture - Final Klebsiella oxytoca 07/16/23 22:24 Blood Culture (Wb) - Anticubital Left Blood Culture - Final Strep anginosus 07/16/23 19:04 Urine Catheter - Catheter Urine Culture - Final Escherichia coli D/C Instructions Discharge Diet: No restrictions Discharge Activity: Return to Normal Activity Call your doctor if you observe: Fever of 101 or Higher, Shortness of breath, Fainting spells and Chest pain Meaningful Use Info Meaningful Use Meaningful Use Diagnoses (Choose all that apply): None applicable Ischemic Stroke Statin Dosing Therapy Reference: STATIN DOSE THERAPY REFERENCE: * Patients > 75 years receive moderate or high dose statin therapy. * Patients 75 years or YOUNGER should receive HIGH intensity statin dose unless contraindicated. You will be required to document reason for non-treatment if statin daily dose does not meet guidelines. HIGH DOSE STATIN THERAPY DAILY Atorvastatin > than or = to 40 mg Rosuvastatin > than or = to 20 mg Amlodipine + Atorvastatin > than or = to 2.5/40 mg Ezetimibe + Simvastatin 10/80 mg Simvastatin 80mg Discharge Plan Admission Admit Date/Time: 07/16/23 23:50 Attending Provider: Hudson Aly Primary Care Provider: Janet Zhao Consulting Providers: Adolfo Asencio; Alex Garcia Discharge Orders/Prescriptions Prescriptions: New cephalexin 500 mg Capsule 500 mg PO TID Qty: 15 0RF insulin lispro [Humalog KwikPen Insulin] 100 unit/mL Insulin Pen See Protocol subcut TIDAC Qty: 0 0RF Protocol: 3. Sliding Scale Insulin Med Dosing Condition: 150-189 mg/dl = 1 unit Condition: 190-229 mg/dl = 2 units Condition: 230-269 mg/dl = 3 units Condition: 270-309 mg/dl = 4 units Condition: 310-349 mg/dl = 5 units Condition: 350-399 mg/dl = 6 units Condition: 400-449 mg/dl = 7 units Condition: Greater than 449 call physician Protocol Text: - Use for Total Daily Dose of Insulin 37-55 units - Obsese, infected, or steroid patients MEDIUM DOSING ALGORITHIM pantoprazole 40 mg Tablet,Delayed Release (Dr/Ec) 40 mg PO DAILY Qty: 0 0RF Continued ascorbate calcium (vitamin C) 500 mg tablet 500 mg PO DAILY nitroglycerin [Nitrostat] 0.4 mg tablet, sublingual 0.4 mg SUBLINGUAL Q5M PRN (Reason: chest pain) Qty: 25 3RF Rx Instructions: do not exceed 3 doses per episode acetaminophen 500 mg tablet 1,000 mg PO Q6H PRN (Reason: Pain) cholecalciferol (vitamin D3) 50 mcg (2,000 unit) tablet 50 mcg PO BID vitamin B complex Tablet 1 tab PO DAILY gabapentin 100 mg capsule 300 mg PO TID insulin glargine [Lantus Solostar U-100 Insulin] 100 unit/mL (3 mL) insulin pen 10 unit SUBCUT DAILY Patient Comments: INJECT TEN units under the skin ONCE DAILY duloxetine 60 mg capsule,delayed release(DR/EC) 60 mg PO DAILY potassium chloride 20 mEq tablet extended release 20 meq PO DAILY atorvastatin 40 mg tablet 40 mg PO DAILY Qty: 90 3RF Discontinued glimepiride 4 mg tablet 4 mg PO BID Referrals / Follow Up: Janet Zhao MD [Primary Care Provider] - Disposition Disposition (needs filled in before D/C Order can be placed): Group Home Facility Charges/Coding Visit Charges Inpatient E&M: 73519 Disch Hosp >30min
--- NOTE | 2023-07-22 10:48 | PHA.DC.MR.R ---
Pharmacy CT Med Reconciliation Pharmacy Service has performed discharge medication reconciliation for this patient. The patient's discharge medication list was reviewed for discrepancies and discrepancies were resolved. Medications at Discharge Home Medications ascorbate calcium (vitamin C) 500 mg tablet 500 mg PO DAILY supplement 08/27/19 nitroglycerin 0.4 mg sublingual tablet (Nitrostat) 0.4 mg sublingual Q5M PRN chest pain #25 tabs 08/27/19 atorvastatin 40 mg tablet 40 mg PO DAILY CHOLESTEROL #90 tabs 10/22/19 acetaminophen 500 mg tablet 1,000 mg PO Q6H PRN Pain 07/10/20 cholecalciferol (vitamin D3) 50 mcg (2,000 unit) tablet 50 mcg PO BID supplement 07/10/20 vitamin B complex 1 tab PO DAILY supplement 07/10/20 gabapentin 100 mg capsule 300 mg PO TID nerve pain 12/12/22 insulin glargine 100 unit/mL (3 mL) subcutaneous pen (Lantus Solostar U-100 Insulin) 10 unit subcut DAILY diabetes 12/12/22 duloxetine 60 mg capsule,delayed release 60 mg PO DAILY mental health 07/16/23 potassium chloride 20 mEq tablet,extended release 20 meq PO DAILY supplement 07/16/23 cephalexin 500 mg capsule 500 mg PO TID #15 caps 07/21/23 insulin lispro 100 unit/mL subcutaneous pen (Humalog KwikPen (U-100) Insulin) See Protocol subcut TIDAC #0 mL 07/21/23 pantoprazole 40 mg tablet,delayed release 40 mg PO DAILY #0 tabs 07/21/23
--- NOTE | 2023-07-22 11:25 | CASEMGMT ---
Patient is ready for discharge to [facility]. SW sent orders and d/c med list to [facility] via [employer]. SW called Phys[facility] and arranged for patient to get picked up at 130 via wheelchair van. SW notified RN, patient, and left a message for patient's daughter Salud. SW also sent a message via [employer] notifying [facility] of case picker time. [facility] Physicians will transport patient via wheelchair van at 1:30. Kizzy GROSSMAN
[2023-07-22 11:51] LABS: Bedside Glucose 357 mg/dL (74-106)
--- NOTE | 2023-07-22 12:49 | NURSING ---
1249 Report called to Nurse Soha @ [facility]
[2023-07-22 12:56] VITALS: BP 145/72; PULSE 76; RESP 16; TEMP 36.7; O2SAT 97
== END 2023-07-22 13:45 | disposition skilled nursing facility (03) | DRG 444 ==
LOC: ED 23:25 → PCU 07-17 00:26
PROVIDERS: Anesthesiology; Internal Medicine; Internal Medicine Gastroenterology; Emergency Provider Emergency Medicine; PCP Family Medicine; Visit Provider Internal Medicine
PROC: 0FC98ZZ Extirpation of Matter from Common Bile Duct, Via Natural or Artificial Opening Endoscopic (ICD-10-PCS; CPT 43260; principal; 2023-07-17 15:40)
DX: K80.30 Calculus of bile duct with cholangitis, unspecified, without obstruction (principal); K26.4 Chronic or unspecified duodenal ulcer with hemorrhage; K57.11 Diverticulosis of small intestine without perforation or abscess with bleeding; R78.81 Bacteremia; E87.20 Acidosis, unspecified; I42.0 Dilated cardiomyopathy; N39.0 Urinary tract infection, site not specified; E11.42 Type 2 diabetes mellitus with diabetic polyneuropathy; B95.4 Other streptococcus as the cause of diseases classified elsewhere; F32.A Depression, unspecified; I10 Essential (primary) hypertension; I48.0 Paroxysmal atrial fibrillation; Z79.4 Long term (current) use of insulin; K80.70 Calculus of gallbladder and bile duct without cholecystitis without obstruction; E80.6 Other disorders of bilirubin metabolism; I25.10 Atherosclerotic heart disease of native coronary artery without angina pectoris; E78.5 Hyperlipidemia, unspecified; I25.2 Old myocardial infarction; R74.01 Elevation of levels of liver transaminase levels; Z66 Do not resuscitate; B96.1 Klebsiella pneumoniae [K. pneumoniae] as the cause of diseases classified elsewhere; B96.20 Unspecified Escherichia coli [E. coli] as the cause of diseases classified elsewhere; Z79.899 Other long term (current) drug therapy; Z95.0 Presence of cardiac pacemaker; Z95.5 Presence of coronary angioplasty implant and graft
CPT/HCPCS: 36415; 74177; 74330; 76000; 76705; 80048; 80053; 81001; 82962; 83605; 83690; 83735; 84100; 84484; 85025; 87040; 87077; 87086; 87088; 87186; 93005; 97162; 97166; 97530; 97535; 97802; 99285; J7030; J7050; P9612; Q9967; A4216; J2405; J3490

== ENCOUNTER 2023-08-15 10:47 | Emergency (ER) | payer MEDICARE, SELFPAY ==
[2023-08-15 10:47] VITALS: BP 115/70; PULSE 83; RESP 14; TEMP 35.7; O2SAT 98
--- NOTE | 2023-08-15 11:20 | EX.ED.DYSGE1 ---
HPI History of Present Illness Chief Complaint: Abd Pain Narrative Narrative: 82-year-old female with past medical history of HTN, HLD, DM2, A-fib presents with abdominal pain. Over the last few months she has had upper and periumbilical abdominal pain after eating. On 07/17/2023 she was admitted with cholelithiasis and Dr. Reina did an ERCP with biliary sphincterotomy and balloon extraction. She states her abdominal pain did not improve and she still has pain after eating daily. She denies fever, chills, recent nausea or vomiting. She has normal daily bowel movements no urinary symptoms. Her abdominal pain was worse yesterday so her family called Dr. Reina's office this morning and they recommended she come to the ED for evaluation. [facility] Medical History Essential hypertension Second degree AV block Depression Type 2 diabetes mellitus Atherosclerotic heart disease of [place] coronary artery without angina pectoris Angina pectoris Cardiomyopathy, dilated Paroxysmal atrial fibrillation Paroxysmal atrial flutter Fatigue Dyspnea Chest discomfort Abnormal EKG Long-term use of high-risk medication Old myocardial infarction History of atrial fibrillation DM2 (diabetes mellitus, type 2) HLD (hyperlipidemia) Depression CAD (coronary artery disease) Home Medications ?Medication ?Instructions ?Recorded ?Last Taken ?Type ascorbate calcium (vitamin C) 500 500 mg PO DAILY supplement 08/27/19 07/15/23 History mg tablet nitroglycerin 0.4 mg sublingual 0.4 mg sublingual Q5M PRN chest 08/27/19 Unknown Rx tablet (Nitrostat) pain #25 tabs atorvastatin 40 mg tablet 40 mg PO DAILY CHOLESTEROL #90 tabs 10/22/19 07/15/23 Rx acetaminophen 500 mg tablet 1,000 mg PO Q6H PRN Pain 07/10/20 07/15/23 History cholecalciferol (vitamin D3) 50 50 mcg PO BID supplement 07/10/20 07/15/23 History mcg (2,000 unit) tablet vitamin B complex 1 tab PO DAILY supplement 07/10/20 07/15/23 History gabapentin 100 mg capsule 300 mg PO TID nerve pain 12/12/22 Unknown History insulin glargine 100 unit/mL (3 10 unit subcut DAILY diabetes 12/12/22 07/15/23 History mL) subcutaneous pen (Lantus Solostar U-100 Insulin) duloxetine 60 mg capsule,delayed 60 mg PO DAILY mental health 07/16/23 07/15/23 History release potassium chloride 20 mEq 20 meq PO DAILY supplement 07/16/23 07/15/23 History tablet,extended release cephalexin 500 mg capsule 500 mg PO TID #15 caps 07/21/23 Unknown Rx insulin lispro 100 unit/mL See Protocol subcut TIDAC #0 mL 07/21/23 Unknown Rx subcutaneous pen (Humalog KwikPen (U-100) Insulin) pantoprazole 40 mg tablet,delayed 40 mg PO DAILY #0 tabs 07/21/23 Unknown Rx release Allergy/AdvReac Type Severity Reaction Status Date / Time Sulfa (Sulfonamide Allergy Rash Verified 08/15/23 10:48 Antibiotics) tizanidine (From Zanaflex) AdvReac Other Verified 08/15/23 10:48 Family History Mother CAD (coronary artery disease) Sister , age 73 Atrial fibrillation Sister , Age 68 CAD (coronary artery disease) COPD (chronic obstructive pulmonary disease) Surgical History Pacemaker (~12/05/17) History of right cataract surgery History of left cataract surgery History of bilateral knee replacement Status post ablation of atrial fibrillation (~2002) History of foot surgery Presence of stent in coronary artery (~08/2010) Social History Smoking Status: Never smoker alcohol intake: never substance use type: does not use caffeine: Yes Type: coffee Number of servings: 2 ROS ROS ED ROS Narrative Constitutional: Negative for fever, chills, malaise. CVS: Negative for chest pain, syncope. Respiratory: Negative for shortness of breath, cough. GI: Positive for abdominal pain. Negative for nausea, vomiting, diarrhea, constipation, melena, hematochezia. : Negative for dysuria, hematuria or frequency. EXAM Physical Exam Narrative Exam Narrative: CONST: Patient sitting in no acute distress. EYES: Normal inspection. NECK: Normal inspection. RESP: No respiratory distress, CTAB. CVS: Regular rate and rhythm, no murmur, no gallop. ABD: Soft with mild epigastric and periumbilical tenderness, no RUQ tenderness and negative Perla sign, no guarding or rebound, nondistended, no hepatosplenomegaly. SKIN: Color normal, no rash, warm, dry, intact. EXTREMITIES: Normal appearance, no pedal edema. NEURO: Alert and answering questions appropriately. PSYCH: Normal affect. Const Vital Signs: 08/15/23 10:47 Temperature 96.3 F L Temperature Source Temporal Pulse Rate 83 Respiratory Rate 14 Blood Pressure 115/70 Blood Pressure Mean 85 Pulse Ox 98 Oxygen Delivery Method Room Air Discharge Plan Triage Chief Complaint: Abd Pain ED Midlevel Provider: Kim Taveras ED Provider: Provider,Ed Physician Dx/Rx/DC Orders Prescriptions: No Action ascorbate calcium (vitamin C) 500 mg tablet 500 mg PO DAILY nitroglycerin [Nitrostat] 0.4 mg tablet, sublingual 0.4 mg SUBLINGUAL Q5M PRN (Reason: chest pain) Qty: 25 3RF Rx Instructions: do not exceed 3 doses per episode acetaminophen 500 mg tablet 1,000 mg PO Q6H PRN (Reason: Pain) cholecalciferol (vitamin D3) 50 mcg (2,000 unit) tablet 50 mcg PO BID vitamin B complex Tablet 1 tab PO DAILY gabapentin 100 mg capsule 300 mg PO TID insulin glargine [Lantus Solostar U-100 Insulin] 100 unit/mL (3 mL) insulin pen 10 unit SUBCUT DAILY Patient Comments: INJECT TEN units under the skin ONCE DAILY duloxetine 60 mg capsule,delayed release(DR/EC) 60 mg PO DAILY potassium chloride 20 mEq tablet extended release 20 meq PO DAILY cephalexin 500 mg Capsule 500 mg PO TID Qty: 15 0RF insulin lispro [Humalog KwikPen Insulin] 100 unit/mL Insulin Pen See Protocol subcut TIDAC Qty: 0 0RF Protocol: 3. Sliding Scale Insulin Med Dosing Condition: 150-189 mg/dl = 1 unit Condition: 190-229 mg/dl = 2 units Condition: 230-269 mg/dl = 3 units Condition: 270-309 mg/dl = 4 units Condition: 310-349 mg/dl = 5 units Condition: 350-399 mg/dl = 6 units Condition: 400-449 mg/dl = 7 units Condition: Greater than 449 call physician Protocol Text: - Use for Total Daily Dose of Insulin 37-55 units - Obsese, infected, or steroid patients MEDIUM DOSING ALGORITHIM pantoprazole 40 mg Tablet,Delayed Release (Dr/Ec) 40 mg PO DAILY Qty: 0 0RF atorvastatin 40 mg tablet 40 mg PO DAILY Qty: 90 3RF Primary Care Provider: Janet Zhao Referrals: Janet Zhao MD [Primary Care Provider] - Print Language: Haitian
--- NOTE | 2023-08-15 11:23 | US_ITS ---
STUDY: ABDOMINAL ULTRASOUND - RIGHT UPPER QUADRANT REASON FOR VISIT: Female, 82 years old Pain TECHNIQUE: Ultrasound evaluation of the right upper quadrant was performed with real-time and static short-scale imaging. TECHNICAL QUALITY: Limited. Examination limited due to the patient?s condition. COMPARISON: July 17, 2023 FINDINGS: Liver: The liver measures 17.3 cm. There is increased echogenicity consistent with fatty infiltration. The bile ducts are within normal limits. There is hepatic color flow. The direction of portal flow is hepatopetal. There is no demonstrated mass lesion. Gallbladder: Normal distended gallbladder. The gallbladder wall measures 6 mm. There is a negative sonographic Perla''s sign. There is no pericholecystic fluid. There are multiple echogenic structures within the gallbladder, consistent with multiple gallstones. Common Bile Duct (C.B.D.): The common bile duct measures 4 mm. Pancreas: There is nonvisualization of the pancreas. There is no demonstrated pancreatic mass or cyst. Right Kidney: Normal size of the right kidney. The right kidney measures 12.1 cm. There is thinning of the renal cortex. The right cortex measures 0.9 cm. There is no demonstrated renal mass or cyst. There is moderate hydronephrosis of the right kidney. US/Gallbladder IMPRESSION: Multiple gallstones. Gallbladder wall thickening. No biliary dilatation. Right hydronephrosis. Electronically Signed: Mekhi Rhodes MD at 13:22 EDT ,
[2023-08-15 11:30] LABS: Absolute Lymphocyte Count 1.28 X10^3/uL (0.83-4.51); Absolute Neutrophil Count 7.7 X10^3/uL (2.0-7.7); Basophil# 0.08 X10^3/uL; Basophil% 0.8 % (0-1); Eosinophil# 0.24 X10^3/uL; Eosinophils% 2.4 % (0-5); Hematocrit 42.5 % (37-47); Hemoglobin 13.6 g/dL (12.0-15.0); Lymphocyte # 1.28 X10^3/ul (0.83-4.51); Lymphocyte % 12.8 % (19-41); Mean Corpuscular Hgb 28.5 pg (27.0-32.0); Mean Corpuscular Volume 89.1 fL (81-99); Mean Platelet Vol. 10.4 fl (6.2-12.0); Monocyte# 0.65 X10^3/uL; Monocyte% 6.5 % (0-10); NRBC Flagged by Analyzer 0 % (0-5); Neutrophil # 7.72 X10^3/uL (2.7-7.7); Neutrophil % 77.1 % (47-70); Platelet Count 213 K/mm3 (150-450); RBC Distribution Width CV 13.5 % (11.6-14.6); RBC Distribution Width SD 43.9 fl (35.1-43.9); Red Blood Count 4.77 M/mm3 (4.2-5.4)
[2023-08-15 11:48] LABS: AST(SGOT) 25 U/L (15-37); Alanine Aminotransfer ALT/SGPT 28 U/L (13-56); Albumin, Serum 3.5 g/dL (3.2-5.0); Alkaline Phosphatase 127 U/L (45-117); Anion Gap 8 (5-15); BUN 28 mg/dL (7-18); BUN/Creat Ratio 27.2 RATIO (10-20); Bilirubin, Direct 0.25 mg/dL (0.00-0.30); Calcium,Total 9.7 mg/dL (8.5-10.1); Chloride 101 mmol/L (98-107); Creatinine, Serum 1.03 mg/dL (0.55-1.02); EST Glomerular Filtration Rate 54 mL/min (>60); Est Glom Filt Rate - Afr Amer 66 mL/min (>60); Globulin 3.9 g/dL (2.2-4.2); Glucose 196 mg/dL (74-106); Lipase 37 U/L (13-75); Potassium 5.1 mmol/L (3.5-5.1); Protein, Total 7.4 g/dL (6.4-8.2); Sodium Level 138 mmol/L (136-145)
[2023-08-15 12:06] LABS: Mucous, Urine 0 SEEN /hpf (<or=2+); Red Blood Cells-Urine 0 SEEN /hpf (0-5)
[2023-08-15 12:10] LABS: Color, Urine Yellow (Yellow); Glucose, Dipstick Normal (Normal); Ketone-Dipstick Negative (Negative); Leukocyte Esterase-Dipstick 100 /ul (Negative); Nitrite-Dipstick Positive (Negative); Occult Blood-Urine Negative /ul (Negative); Protein-Dipstick 15 mg/dl (Negative); Urine Bilirubin Dipstick Negative (Negative); Urine Clarity Clear (Clear); Urine Urobilinogen Normal (Normal)
[2023-08-15 12:29] LABS: Bacteria 2+ /hpf (None Seen); Hyaline Cast 0-5 SEEN /lpf (0-5); Squamous Epithelial Cells - UA 0-5 SEEN /hpf (5-10); White Blood Cells 5-10 SEEN /hpf (0-5)
[2023-08-15 12:47] VITALS: BP 106/44; PULSE 70; RESP 18; O2SAT 95
[2023-08-15] MEDS: Morphine 2 MG/ML Syringe IV (12:47)
[2023-08-15] MEDS: Ondansetron 4 MG/2 ML Vial IV (12:47)
[2023-08-15] MEDS: Cephalexin 250 MG Capsule 500 MG PO (13:57)
[2023-08-15 14:00] VITALS: BP 132/63; PULSE 72; RESP 19; O2SAT 94
--- NOTE | 2023-08-15 14:20 | EX.ED.DYSGE1 ---
HPI <CHRISTAL Kaplan - Last Filed: 08/15/23 14:57> History of Present Illness Chief Complaint: Abd Pain Narrative Narrative: 82-year-old female presents with upper and periumbilical abdominal pain. She had an ERCP with Dr. Reina on July 17, 2023 for the symptoms but states postprocedure she still had daily pain after eating. No fever chills nausea or vomiting. She has had occasional bouts of diarrhea but nothing in the last few days. No urinary symptoms. She was sent in by primary care doctor for evaluation after she reported her pain was worse yesterday. PFS <CHRISTAL Kaplan - Last Filed: 08/15/23 14:57> [facility] Medical History Essential hypertension Second degree AV block Depression Type 2 diabetes mellitus Atherosclerotic heart disease of [place] coronary artery without angina pectoris Angina pectoris Cardiomyopathy, dilated Paroxysmal atrial fibrillation Paroxysmal atrial flutter Fatigue Dyspnea Chest discomfort Abnormal EKG Long-term use of high-risk medication Old myocardial infarction History of atrial fibrillation DM2 (diabetes mellitus, type 2) HLD (hyperlipidemia) Depression CAD (coronary artery disease) Home Medications ?Medication ?Instructions ?Recorded ?Last Taken ?Type ascorbate calcium (vitamin C) 500 500 mg PO DAILY supplement 08/27/19 08/15/23 History mg tablet nitroglycerin 0.4 mg sublingual 0.4 mg sublingual Q5M PRN chest 08/27/19 Unknown Rx tablet (Nitrostat) pain #25 tabs atorvastatin 40 mg tablet 40 mg PO DAILY CHOLESTEROL #90 tabs 10/22/19 08/15/23 Rx acetaminophen 500 mg tablet 1,000 mg PO Q6H PRN Pain 07/10/20 08/15/23 History cholecalciferol (vitamin D3) 50 50 mcg PO BID supplement 07/10/20 08/15/23 History mcg (2,000 unit) tablet vitamin B complex 1 tab PO DAILY supplement 07/10/20 08/15/23 History insulin glargine 100 unit/mL (3 14 unit subcut DAILY diabetes 12/12/22 08/15/23 History mL) subcutaneous pen (Lantus Solostar U-100 Insulin) duloxetine 60 mg capsule,delayed 60 mg PO DAILY mental health 07/16/23 08/15/23 History release potassium chloride 20 mEq 20 meq PO DAILY supplement 07/16/23 08/15/23 History tablet,extended release pantoprazole 40 mg tablet,delayed 40 mg PO DAILY #0 tabs 07/21/23 08/15/23 Rx release cephalexin 500 mg capsule 500 mg PO Q12 #14 CAPSULES 08/15/23 Unknown Rx gabapentin 300 mg capsule 300 mg PO TID PRN NERVE PAIN 08/15/23 08/15/23 History glimepiride 4 mg tablet 4 mg PO BID 08/15/23 08/15/23 History hydrocodone-acetaminophen 5-325mg 1 tab PO Q6H PRN PRN Pain 2 days 08/15/23 Unknown Rx 5mg-325mg #8 TABLETS ondansetron 4 mg disintegrating 4 mg PO Q8H PRN PRN Nausea #10 tabs 08/15/23 Unknown Rx tablet Allergy/AdvReac Type Severity Reaction Status Date / Time Sulfa (Sulfonamide Allergy Rash Verified 08/15/23 10:48 Antibiotics) tizanidine (From Zanaflex) AdvReac Other Verified 08/15/23 10:48 Family History Mother CAD (coronary artery disease) Sister , age 73 Atrial fibrillation Sister , Age 68 CAD (coronary artery disease) COPD (chronic obstructive pulmonary disease) Surgical History Pacemaker (~12/05/17) History of right cataract surgery History of left cataract surgery History of bilateral knee replacement Status post ablation of atrial fibrillation (~2002) History of foot surgery Presence of stent in coronary artery (~08/2010) Social History Smoking Status: Never smoker alcohol intake: never substance use type: does not use caffeine: Yes Type: coffee Number of servings: 2 ROS <CHRISTAL Kaplan - Last Filed: 08/15/23 14:57> ROS ED ROS Narrative Constitutional: Negative for fever, chills, malaise. CVS: Negative for chest pain. Respiratory: Negative for shortness of breatha. GI: Positive for abdominal pain. Negative for nausea, vomiting, melena, hematochezia. : Negative for dysuria. EXAM <CHRISTAL Kaplan - Last Filed: 08/15/23 14:57> Physical Exam Narrative Exam Narrative: CONST: Patient sitting in no acute distress. EYES: Normal inspection. ENT: Normal inspection, moist mucous membranes. NECK: Normal inspection. RESP: No respiratory distress, CTAB. CVS: Regular rate and rhythm, no murmur, no gallop. ABD: Soft with periumbilical and upper abdominal tenderness in the right upper quadrant and epigastric region, negative Perla sign, no guarding or rebound. SKIN: Color normal, no rash, warm, dry, intact. EXTREMITIES: Normal appearance, no pedal edema. NEURO: Alert and answering questions appropriately. PSYCH: Normal affect. Const Vital Signs: 08/15/23 10:47 08/15/23 12:47 08/15/23 14:00 Temperature 96.3 F L Temperature Source Temporal Pulse Rate 83 70 72 Respiratory Rate 14 18 19 H Blood Pressure 115/70 106/44 L 132/63 H Blood Pressure Mean 85 64 86 Pulse Ox 98 95 94 Oxygen Delivery Method Room Air Room Air Room Air 08/15/23 15:03 Temperature 98.2 F Temperature Source Pulse Rate 75 Respiratory Rate 19 H Blood Pressure 119/89 H Blood Pressure Mean 99 Pulse Ox 97 Oxygen Delivery Method <Dr. Will Kilgore DO - Last Filed: 08/15/23 15:42> Physical Exam Const Vital Signs: 08/15/23 10:47 08/15/23 12:47 08/15/23 14:00 Temperature 96.3 F L Temperature Source Temporal Pulse Rate 83 70 72 Respiratory Rate 14 18 19 H Blood Pressure 115/70 106/44 L 132/63 H Blood Pressure Mean 85 64 86 Pulse Ox 98 95 94 Oxygen Delivery Method Room Air Room Air Room Air 08/15/23 15:03 Temperature 98.2 F Temperature Source Pulse Rate 75 Respiratory Rate 19 H Blood Pressure 119/89 H Blood Pressure Mean 99 Pulse Ox 97 Oxygen Delivery Method MDM <CHRISTAL Kaplan - Last Filed: 08/15/23 14:57> MDM MDM Narrative Medical decision making narrative: History gathered from: Patient and family members Differential: Biliary colic, acute cholecystitis, choledocholithiasis Consults: GI, general surgery, PCP Patient has persistent postprandial abdominal pain after ERCP [address] Reina. She appears well and nontoxic. Vital signs stable. Abdomen is soft with upper abdominal tenderness without peritoneal signs. Negative Perla sign. Labs are essentially unremarkable with normal white count, LFTs and lipase. Glucose is 196 consistent with her diabetes without DKA. UA is positive for UTI. RUQ ultrasound shows gallstones and gallbladder wall thickening but no acute cholecystitis. I discussed the case with Dr. Reina who is in agreement she will likely ultimately need a cholecystectomy. I consulted Dr. Hudson her reviewed her labs and imaging and recommended outpatient follow-up in the office next week. Dr. Zhao was also informed of the patient's workup. She currently takes Tylenol as needed prescribed [place] for breakthrough pain as well as Zofran. Return precautions were thoroughly discussed. She was discharged in stable condition. Lab Data Attestation: I reviewed the patient's lab results. Labs: Laboratory Results - last 24 hr 08/15/23 08/15/23 11:24 12:01 WBC 10.0 RBC 4.77 Hgb 13.6 Hct 42.5 MCV 89.1 MCH 28.5 MCHC 32.0 RDW Std Deviation 43.9 RDW Coeff of Gerry 13.5 Plt Count 213 MPV 10.4 Immature Gran % (Auto) 0.400 Neut % (Auto) 77.1 H Lymph % (Auto) 12.8 L [place] % (Auto) 6.5 Eos % (Auto) 2.4 Baso % (Auto) 0.8 Absolute Neuts (auto) 7.7 Absolute Lymphs (auto) 1.28 Nucleated RBC % 0 Sodium 138 Potassium 5.1 Chloride 101 Carbon Dioxide 29.0 Anion Gap 8 BUN 28 H Creatinine 1.03 H Est GFR (MDRD) Af Amer 66 Est GFR (MDRD) Non-Af 54 L BUN/Creatinine Ratio 27.2 H Glucose 196 H Calcium 9.7 Total Bilirubin 0.70 Direct Bilirubin 0.25 AST 25 ALT 28 Alkaline Phosphatase 127 H Total Protein 7.4 Albumin 3.5 Globulin 3.9 Lipase 37 Urine Color Yellow Urine Clarity Clear Urine pH 5.0 Ur Specific [place] 1.020 Urine Protein 15 H Urine Glucose (UA) Normal Urine Ketones Negative Urine Occult Blood Negative Urine Nitrite Positive H Urine Bilirubin Negative Urine Urobilinogen Normal Ur Leukocyte Esterase 100 H Urine RBC 0 SEEN Urine WBC 5-10 SEEN Ur Squamous Epith Cells 0-5 SEEN Urine Bacteria 2+ Hyaline Casts 0-5 SEEN Urine Mucus 0 SEEN Radiography Diagnostic Testing: Clinical Impression(s) from Imaging Studies Gallbladder Ultrasound 08/15/23 11:23 IMPRESSION: Multiple gallstones. Gallbladder wall thickening. No biliary dilatation. Right hydronephrosis. Electronically Signed: Mekhi Rhodes MD at 13:22 EDT Reading Location ID and State: [facility] / [place] , Service support , <Dr. Will Kilgore, DO - Last Filed: 08/15/23 15:42> [facility] MDM Narrative Medical decision making narrative: History gathered from: Patient and family members Differential: Biliary colic, acute cholecystitis, choledocholithiasis Consults: GI, general surgery, PCP Patient has persistent postprandial abdominal pain after ERCP [address] Reina. She appears well and nontoxic. Vital signs stable. Abdomen is soft with upper abdominal tenderness without peritoneal signs. Negative Perla sign. Labs are essentially unremarkable with normal white count, LFTs and lipase. Glucose is 196 consistent with her diabetes without DKA. UA is positive for UTI. RUQ ultrasound shows gallstones and gallbladder wall thickening but no acute cholecystitis. I discussed the case with Dr. Reina who is in agreement she will likely ultimately need a cholecystectomy. I consulted Dr. Hudson her reviewed her labs and imaging and recommended outpatient follow-up in the office next week. Dr. Zhao was also informed of the patient's workup. She currently takes Tylenol as needed prescribed [place] for breakthrough pain as well as Zofran. Return precautions were thoroughly discussed. She was discharged in stable condition. I have personally performed a face to face assessment of the patient and have reviewed the KIMBERLI Note. I performed a substantive portion of the visit including all aspects of the following. My diane findings include: History is 82-year-old female presented to the emergency room with upper abdominal pain. Patient is about 1 month out from a ERCP for common bile duct stone with Dr. Reina. She saw primary care today and was sent to the emergency department for continued abdominal pain particular postprandial. She has not visited with the surgeon to see about her gallbladder being removed yet. No reported fevers. Exam is mild tenderness to palpation in the epigastrium. Very minimal in the right upper quadrant. Patient does not appear jaundiced. Vital signs appear stable. Medical Decison Making white count is normal with no left shift. Creatinine 1.03. Glucose 196. Alk phos 127 otherwise transaminases and bilirubin normal. Urinalysis 5-10 white cells 2+ bacteria sent for culture. Gallbladder ultrasound shows gallbladder wall thickening and cholelithiasis. No pericholecystic fluid. Does not appear significantly changed from prior gallbladder ultrasound. Case was discussed with Dr. Zhao as well as Dr. Hudson. Patient be discharged home with early follow-up with surgery return if worsening or concerns History & Record Review Discussion w/independent historian: Patient and Family Lab Data Labs: Laboratory Results - last 24 hr 08/15/23 08/15/23 11:24 12:01 WBC 10.0 RBC 4.77 Hgb 13.6 Hct 42.5 MCV 89.1 MCH 28.5 MCHC 32.0 RDW Std Deviation 43.9 RDW Coeff of [place]grry 13.5 Plt Count 213 MPV 10.4 Immature Gran % (Auto) 0.400 Neut % (Auto) 77.1 H Lymph % (Auto) 12.8 L [place] % (Auto) 6.5 Eos % (Auto) 2.4 Baso % (Auto) 0.8 Absolute Neuts (auto) 7.7 Absolute Lymphs (auto) 1.28 Nucleated RBC % 0 Sodium 138 Potassium 5.1 Chloride 101 Carbon Dioxide 29.0 Anion Gap 8 BUN 28 H Creatinine 1.03 H Est GFR (MDRD) Af Amer 66 Est GFR (MDRD) Non-Af 54 L BUN/Creatinine Ratio 27.2 H Glucose 196 H Calcium 9.7 Total Bilirubin 0.70 Direct Bilirubin 0.25 AST 25 ALT 28 Alkaline Phosphatase 127 H Total Protein 7.4 Albumin 3.5 Globulin 3.9 Lipase 37 Urine Color Yellow Urine Clarity Clear Urine pH 5.0 Ur Specific [place] 1.020 Urine Protein 15 H Urine Glucose (UA) Normal Urine Ketones Negative Urine Occult Blood Negative Urine Nitrite Positive H Urine Bilirubin Negative Urine Urobilinogen Normal Ur Leukocyte Esterase 100 H Urine RBC 0 SEEN Urine WBC 5-10 SEEN Ur Squamous Epith Cells 0-5 SEEN Urine Bacteria 2+ Hyaline Casts 0-5 SEEN Urine Mucus 0 SEEN Radiography Diagnostic Testing: Clinical Impression(s) from Imaging Studies Gallbladder Ultrasound 08/15/23 11:23 IMPRESSION: Multiple gallstones. Gallbladder wall thickening. No biliary dilatation. Right hydronephrosis. Electronically Signed: Mekhi Rhodes MD at 13:22 EDT , Discharge Plan Triage Chief Complaint: Abd Pain ED Midlevel Provider: Kim Taveras ED Provider: Will Kilgore Dx/Rx/DC Orders Clinical Impression: Biliary colic, Acute UTI Instructions: UTIs Understanding, Gallstones Dc Prescriptions: New cephalexin 500 mg capsule 500 mg PO Q12 Qty: 14 0RF ondansetron 4 mg tablet,disintegrating 4 mg PO Q8H PRN PRN (Reason: Nausea) Qty: 10 0RF hydrocodone-acetaminophen 5-325 mg tablet 1 tab PO Q6H PRN PRN (Reason: Pain) 2 Days Qty: 8 0RF No Action ascorbate calcium (vitamin C) 500 mg tablet 500 mg PO DAILY nitroglycerin [Nitrostat] 0.4 mg tablet, sublingual 0.4 mg SUBLINGUAL Q5M PRN (Reason: chest pain) Qty: 25 3RF Rx Instructions: do not exceed 3 doses per episode acetaminophen 500 mg tablet 1,000 mg PO Q6H PRN (Reason: Pain) cholecalciferol (vitamin D3) 50 mcg (2,000 unit) tablet 50 mcg PO BID vitamin B complex Tablet 1 tab PO DAILY insulin glargine [Lantus Solostar U-100 Insulin] 100 unit/mL (3 mL) insulin pen 14 unit SUBCUT DAILY gabapentin 300 mg capsule 300 mg PO TID PRN (Reason: NERVE PAIN) glimepiride 4 mg tablet 4 mg PO BID duloxetine 60 mg capsule,delayed release(DR/EC) 60 mg PO DAILY potassium chloride 20 mEq tablet extended release 20 meq PO DAILY pantoprazole 40 mg Tablet,Delayed Release (Dr/Ec) 40 mg PO DAILY Qty: 0 0RF atorvastatin 40 mg tablet 40 mg PO DAILY Qty: 90 3RF Primary Care Provider: Janet Zhao Referrals: Janet Zhao MD [Primary Care Provider] - Nabeel Hudson MD [Med Staff - Active Staff] - Activity Restrictions/Additional Instructions: Call the general surgeons office for an appointment next week to be seen for a gallbladder. If symptoms worsen such as fever, increasing abdominal pain, vomiting etc. come back to the ER. Print Language: [place] Disposition Disposition: Home, Self Care Discharge Date/Time: 08/15/23 15:03
[2023-08-15 15:03] VITALS: BP 119/89; PULSE 75; RESP 19; TEMP 36.8; O2SAT 97
== END 2023-08-15 15:03 | disposition home or self-care (01) ==
PROVIDERS: Physician Assistant; Emergency Provider Emergency Medicine; PCP Family Medicine; Visit Provider Emergency Medicine
DX: K80.70 Calculus of gallbladder and bile duct without cholecystitis without obstruction (principal); E11.9 Type 2 diabetes mellitus without complications; N13.6 Pyonephrosis; I10 Essential (primary) hypertension; I25.10 Atherosclerotic heart disease of native coronary artery without angina pectoris; E78.5 Hyperlipidemia, unspecified; Z79.899 Other long term (current) drug therapy
CPT/HCPCS: 76705; 80048; 80076; 81001; 83690; 85025; 87077; 87086; 87088; 87186; 96374; 96375; 99283; J2405

== ENCOUNTER → 2023-10-06 | Outpatient (CLI) | payer MEDICARE, SELFPAY ==
[2023-10-06 12:33] LABS: AST(SGOT) 17 U/L (15-37); Alanine Aminotransfer ALT/SGPT 24 U/L (13-56); Albumin, Serum 3.3 g/dL (3.2-5.0); Alkaline Phosphatase 95 U/L (45-117); Bilirubin, Direct 0.19 mg/dL (0.00-0.30); Cholesterol 110 mg/dL (200); Globulin 3.9 g/dL (2.2-4.2); High Density Lipoprotein 50 mg/dL; Protein, Total 7.2 g/dL (6.4-8.2); Triglycerides 116 mg/dL; Very Low Density Lipoprotein 23 mg/dL (5-40)
== END | disposition home or self-care (01) ==
LOC: MTLAB 10:00
PROVIDERS: PCP Family Medicine; Referring Provider Nurse Practitioner Gerontology; Visit Provider Nurse Practitioner Gerontology
DX: E78.5 Hyperlipidemia, unspecified (principal)
CPT/HCPCS: 36415; 80061; 80076

== ENCOUNTER → 2023-10-20 | Outpatient (CLI) | payer MEDICARE, SELFPAY ==
--- NOTE | 2023-10-22 15:11 | STRESSREP_ITS ---
Stress Test Report Date: 10/20/2023 Procedure: Pharmacologic stress nuclear imaging study Indications: Preoperative evaluation Consent: Per the patient Procedure: The patient underwent pharmacologic (Regadenoson) evaluation with a peak heart rate of 122 beats per minute (88%predicted maximal heart rate) and a peak blood pressure of 138/60 mmHg. The baseline ECG demonstrated sinus rhythm with sometimes conducted sometimes paced ventricular beats. EKG during lexiscan infusion revealed no significant ischemic changes. Runs of what appears to be paced beats with underlying atrial fibrillation. EKG post infusion revealed no significant ischemic changes. Runs of paced ventricular beats with underlying possible atrial fibrillation. [There was no complaint of chest discomfort during pharmacologic infusion or recovery]. The examination was discontinued secondary to completion of protocol. Impression: 1. Lexiscan stress test test is negative for Lexiscan infusion induced EKG changes of ischemia. 2. Lexiscan stress test test is negative for Lexiscan infusion induced chest pain. 3. Results of the nuclear portion of the test is as below Myocardial perfusion imaging study: Technique: The patient was injected with 11.8 millicuries of technetium 99m Cardiolite and subsequently rest SPECT Cardiolite nuclear imaging was obtained in the horizontal long, vertical long, and short axis views. The patient underwent pharmacologic [Regadenoson 0.4mg] evaluation. Please see above for details. The patient was injected with 33.5 millicuries of technetium 99m Cardiolite and subsequently stress SPECT Cardiolite nuclear imaging was obtained in the horizontal long, vertical long, and short axis views. A gated Cardiolite study at peak stress was obtained. Interpretation: Rest and stress SPECT Cardiolite nuclear imaging status post realignment, normalization, and attenuation correction demonstrate no evidence of significant ischemia or infarction. Gating could not be performed due to irregular rhythm. Ejection fraction could not be estimated Impression: 1. There is no evidence of significant ischemia or infarction. 2. Estimated ejection fraction could not be estimated as gating could not be performed due to irregular rhythm This note was generated with [employer] software. It may contain incorrect words, spelling, and punctuation that were not noted in checking the note before signing.
== END | disposition home or self-care (01) ==
LOC: CVS 07:05
PROVIDERS: PCP Family Medicine; Referring Provider Nurse Practitioner Gerontology; Visit Provider Nurse Practitioner Gerontology
DX: Z01.810 Encounter for preprocedural cardiovascular examination (principal); I25.10 Atherosclerotic heart disease of native coronary artery without angina pectoris
CPT/HCPCS: 78452; 93017; A9500; A4216; J2785

== ENCOUNTER 2023-10-29 09:56 | Observation (INO) | payer MEDICARE, SELFPAY ==
[2023-10-29] VITALS (16 sets, daily range): BP systolic 115–159; BP diastolic 54–81; PULSE 64–103; RESP 16–18; TEMP 36.5–37.1; O2SAT 85–100; BMI 31.1
[2023-10-29] MEDS: Lactated Ringers 1,000 ML 15 ML IV (06:42)
[2023-10-29 06:44] LABS: Bedside Glucose 114 mg/dL (74-106)
--- NOTE | 2023-10-29 07:07 | PCM.HP.BLA ---
History and Physical Date of Admission: 10/29/23 Date of Service: 08/22/23 MR#: [id number] Acct: [id number] Name: JERROD SALAZAR Rep #: [id number] : 1940 Provider: Dr. Nabeel Hudson MD Age/Sex: 82/F Location: [facility] Status: Signed Intake Vital Signs 08/14/2409:47 08/21/2412:23 Height 5 ft 5 in 5 ft 5 in Weight: 180 lb BMI 29.9 BP 108/70 Blood Pressure Location Rt brachial Position Sitting Respiration 18 Pulse 86 Pulse Source Monitor Temp 97.3 F L Temp Source Temporal Pulse Oximetry (%) 96 Oxygen Delivery Method room air Intake Visit Reasons: GALLBLADDER Chief Complaint: gallbladder Accompanied by: Daughter In Law Is patient in pain?: No Allergies Sulfa (Sulfonamide Antibiotics) Allergy (Verified 08/22/23 13:24) Rashtizanidine (From Zanaflex) Adverse Reaction (Verified 08/22/23 13:24) Other Medications ?Medication ?Instructions ?Recorded ?Confirmed ?Type ascorbate calcium (vitamin C) 500 500 mg PO DAILY supplement 08/27/19 08/22/23 History mg tablet nitroglycerin 0.4 mg sublingual 0.4 mg sublingual Q5M PRN chest 08/27/19 08/22/23 Rx tablet (Nitrostat) pain #25 tabs atorvastatin 40 mg tablet 40 mg PO DAILY CHOLESTEROL #90 tabs 10/22/19 08/22/23 Rx cholecalciferol (vitamin D3) 50 50 mcg PO BID supplement 07/10/20 08/22/23 History mcg (2,000 unit) tablet vitamin B complex 1 tab PO DAILY supplement 07/10/20 08/22/23 History insulin glargine 100 unit/mL (3 14 unit subcut DAILY diabetes 12/12/22 08/22/23 History mL) subcutaneous pen (Lantus Solostar U-100 Insulin) duloxetine 60 mg capsule,delayed 60 mg PO DAILY mental health 07/16/23 08/22/23 History release potassium chloride 20 mEq 20 meq PO DAILY supplement 07/16/23 08/22/23 History tablet,extended release pantoprazole 40 mg tablet,delayed 40 mg PO DAILY #0 tabs 07/21/23 08/22/23 Rx release cephalexin 500 mg capsule 500 mg PO Q12 #14 CAPSULES 08/15/23 08/22/23 Rx gabapentin 300 mg capsule 300 mg PO TID PRN NERVE PAIN 08/15/23 08/22/23 History glimepiride 4 mg tablet 4 mg PO BID 08/15/23 08/22/23 History hydrocodone-acetaminophen 5-325mg 1 tab PO Q6H PRN PRN Pain 2 days 08/15/23 08/22/23 Rx 5mg-325mg #8 TABLETS ondansetron 4 mg disintegrating 4 mg PO Q8H PRN PRN Nausea #10 tabs 08/15/23 08/22/23 Rx tablet PFSH Medical History Essential hypertension Second degree AV block Depression Type 2 diabetes mellitus Atherosclerotic heart disease of [place] coronary artery without angina pectoris Angina pectoris Cardiomyopathy, dilated Paroxysmal atrial fibrillation Paroxysmal atrial flutter Fatigue Dyspnea Chest discomfort Abnormal EKG Long-term use of high-risk medication Old myocardial infarction History of atrial fibrillation DM2 (diabetes mellitus, type 2) HLD (hyperlipidemia) Depression CAD (coronary artery disease) Surgical History Pacemaker (~12/05/17) History of right cataract surgery History of left cataract surgery History of bilateral knee replacement Status post ablation of atrial fibrillation (~2002) History of foot surgery Presence of stent in coronary artery (~08/2010) Family History Mother CAD (coronary artery disease)Sister , age 73 Atrial fibrillationSister , Age 68 CAD (coronary artery disease) COPD (chronic obstructive pulmonary disease) Social History Smoking Status: Never smoker alcohol intake: never substance use type: does not use caffeine: Yes Type: coffee Number of servings: 2 HPI HPI HPI: Patient is a 82-year-old female who presents for follow-up of a recent ER visit this month as well as a inpatient admission last month due to a diagnosis of choledocholithiasis that culminated in ERCP on 07/17/2023. They are referred for surgical consultation from emergency medicine. Patient is presenting with her dkkjghir-kt-svs today. When discussing her right upper quadrant pain she states that there are days when it is bad. When asked about this frequency she estimates 4 to 5 days/week it reaches this intensity. Her hsrkrwxv-sr-uex suggest that she is not exactly watching her diet and that her kjokch-vu-dxt loves fried chicken. Mrs. Salazar does confirm that she has experienced some weight loss because she simply gets sick after eating and so she chooses not to do so. She also shares that she has some fatigue but suggest this is not new. Given some for knowledge of a cardiovascular history she has pointedly asked whether or not she has any new exertional fatigue or dyspnea and she is denies this. She does share that it has been a a while since she followed up with cardiology since she was a prior patient of Dr. Garibay. She does report to that she is evaluated in [place] for her pacemaker. Mrs. Salazar confirms associated symptoms of nausea, vomiting, and diarrhea which are particularly bad with greasy foods. Patient has a history of diabetes and shares that she used to check her blood sugars at home but confesses she is not sure why she stopped. At this point her hqmrdxlw-qu-vwq shares that her glucometer stopped working but they recently obtained a new device. Patient reportedly lives alone and is independent in all of her ADLs. There is no prior history of abdominal surgery. Previous work-up has included: CT imaging of the abdomen pelvis and abdominal ultrasound on 07/16/2023 as well as repeat ultrasound during ER visit 08/15/2023 which showed the following with respect to her gallbladder: Gallbladder: Normal distended gallbladder. The gallbladder wall measures 6 mm. There is a negative sonographic Perla''s sign. There is no pericholecystic fluid. There are multiple echogenic structures within the gallbladder, consistent with multiple gallstones. Common Bile Duct (C.B.D.): The common bile duct measures 4 mm.. ROS General General: Yes weight change and fatigue; No appetite, colon cancer, breast cancer or weakness HEENT HEENT: Yes eye injury, eye surgery and swollen glands; No difficulty swallowing or hoarseness Endo Endocrine: Yes diabetes mellitus; No thyroid disease, thyroid cancer, Hair loss, heat intolerance or cold intolerance Skin Skin: No rash or changing moles Musc Musculoskeletal: Yes back problems and arthritis; No rheumatoid arthritis, gout or joint pain Cardio Cardiovascular: Yes pacemaker, heart disease, atrial fibrillation and high blood pressure; No murmur, heart attack, heart stent, palpitations, shortness of breat with exertion or chest pain Psych Psychiatric: Yes depression and anxiety; No hearing voices Resp Respiratory: Yes shortness of breath, No sleep apnea, No cough, No COPD, No asthma, No emphysema and No wheezing Gastro Gastrointestinal: Yes abdominal pain, Yes nausea or vomiting, Yes diarrhea, Yes constipation, No blood in stool, Yes acid reflux, Yes hemorrhoids, No ulcers, Yes gallbladder problem and No black,tarry stools Matteo Hematologic: No blood thinners, No blood disorders, No bleeding, No anemia and No blood clots Neuro Neurologic: No numbness, No tingling and No weakness Exam Const General: cooperative Orientation: alert, awake and oriented x3 Other: History is mildly limited but overall patient appears well for her age Resp Effort & Inspection: normal respiratory effort GI Other: No scars, no herniations, nondistended, soft, mildly tender to palpation in the right upper quadrant with negative Perla sign Assessment and Plan Assessment and Plan (1) Choledocholithiasis with cholecystitis: Status: Chronic Comment: Patient 82-year-old female who presents for persistent right upper quadrant pain after recent admission last month for diagnosis of choledocholithiasis. It is unclear why patient did not undergo evaluation for cholecystectomy with surgery but her symptoms took her to the ER again earlier this month on 08/15/2023. Repeat ultrasound shows ongoing evidence suggestive of chronic cholecystitis. Indeed, her exam is also consistent with this suspicion. Fortunately patient's most recent evaluation did not show any evidence of biliary obstruction either with ductal dilatation or with her labs. Still, I have recommended to her that we plan to proceed for laparoscopic cholecystectomy with intraoperative cholangiogram to both mitigate her risk for recurrent choledocholithiasis as well as to directly address her probable chronic cholecystitis. Before doing so I would like to obtain clearance for surgery from both her PCP as well as cardiology. Based on patient's recent glucose laboratories it appears that her diabetes control is rather erratic but would like to see an A1c. Concerning the latter specialty, there is no apparent follow-up with cardiology for the last 3 years. Given our plans for a general anesthetic would like to see her preoperatively optimized if any additional changes need to be made. The procedure and its details were discussed with hand drawings and patient and her itabaauu-jv-daq expressed acceptance of these recommendations. Since patient lives alone we will plan for a postoperative observational stay with her postoperative disposition. Plan: ? Tentatively plan for laparoscopic cholecystectomy with intraoperative cholangiogram ? Seek preoperative clearance from PCP ? Follow-up with cardiology and their assessment for patient's fitness for undergoing general anesthesia I have examined the patient the following changes are noted: Patient presents today for planned laparoscopic cholecystectomy with intraoperative cholangiogram. She underwent cardiology for evaluation including a stress test on 10/20/2023. This was read by cardiology as no evidence of ischemia, however, this morning EKG was completed and there are new T wave inversions in V1 and V2. We are pending review of these changes by cardiology before proceeding to the OR. From patient standpoint, she shares that she has been in her usual state of health apart from having some postprandial discomfort of her right upper quadrant. Provided we are permitted to proceed, procedure details were reviewed and they also discussed that we will likely be planning for a observational stay but will reevaluate later today.
--- NOTE | 2023-10-29 07:29 | PCM.PRE.AN2 ---
ASA Classification* ASA Classification ASA Classification: 3 Assessment & Plan Anesthesia* Anesthesia Assessment Anesthesia Assessment: Discussed sedation and/or anesthesia options, risks, benefits, and alternatives with patient/parents/legal guardian/POA. Questions invited. The patient/parents/legal guardian/POA seems to understand and agrees to proceed with anesthesia plan. Reviewed the physical assessment, medical history, allergy history and patient home medications list prior to surgery/procedure/anesthetic and documented any changes. Performed airway and anesthesia risk assessments. Anesthesia Type Anesthesia Type: General (consider etomidate induction) Anesthesia Focused Assessment* Temperature: 98.8 F Pulse Rate: 64 Blood Pressure: 135/68 Respiratory Rate: 17 Pulse Ox: 96 Airway Assessment Mouth opens: >3 cm Mallampati Score: II Focused Labs Anesthesia Preop lab: CBC WBC 10.0 K/mm3 (4.4-11.0) 08/15/23 11:24 RBC 4.77 M/mm3 (4.2-5.4) 08/15/23 11:24 Hgb 13.6 g/dL (12.0-15.0) 08/15/23 11:24 Hct 42.5 % (37-47) 08/15/23 11:24 Plt Count 213 K/mm3 (150-450) 08/15/23 11:24 CHEMISTRY Potassium 5.1 mmol/L (3.5-5.1) 08/15/23 11:24 Sodium 138 mmol/L (136-145) 08/15/23 11:24 Magnesium 1.9 mg/dL (1.6-2.6) 07/22/23 06:00 Phosphorus 2.8 mg/dL (2.5-4.9) 07/22/23 06:00 BUN 28 mg/dL (7-18) H 08/15/23 11:24 Creatinine 1.03 mg/dL (0.55-1.02) H 08/15/23 11:24 Glucose 196 mg/dL (74-106) H 08/15/23 11:24 POC Glucose 114 mg/dL (74-106) H 10/29/23 06:25 TSH 1.11 uIU/mL (0.358-3.74) 08/15/20 11:26 COAG PT 27.4 SECONDS (11.7-14.9) H 07/22/19 10:35 Pre-Assessment Diagnosis/Proposed Procedure Planned Operative Procedure(s): Laparoscopic, Cholecystectomy with IOC Anesthesia History Anesthesia History - field services director: Anesthesia History - field services director Hx Hospitalization Yes: ERCP 07/17/2023 10/28/23 09:35 Any Problems With Anesthesia No 10/28/23 09:35 Cholinesterase deficiency No 10/28/23 09:35 You/Your Family Experience No 10/28/23 09:35 fever (hyperthermia) with Relationship Recent Exposure to Contagious No 10/29/23 06:43 Disease Does patient have nerve No 10/28/23 09:35 stimulator Patient instructed to have device shut off --Does patient have Pacemaker Yes 10/29/23 06:43 or ICD? When Was Last Pacemaker Check QUESTION #4 FULL TEXT: You/Your Family Experience fever (hyperthermia) with Anesthesia Last Oral Intake Last Oral intake: Last Oral Intake NPO since 05:00 10/29/23 06:43 Meds taken in AM with sips of Yes 10/29/23 06:43 water? Meds patient instructed to gabapentin 10/29/23 06:43 take am of surgery PONV PONV - field services director: PONV - field services director Female Yes 10/28/23 09:35 HX of Motion Sickness No 10/28/23 09:35 HX of N/V After Surgery No 10/28/23 09:35 Non-Smoker Yes 10/28/23 09:35 Duration of Surgery greater Yes 10/28/23 09:35 than 60 minutes Number of Risk Factors 3 10/28/23 09:35 PONV Score Moderate Risk 10/28/23 09:35 Height & Weight Height & Weight: Anesthesia: Height & Weight Height 5 ft 5 in 10/29/23 06:43 Weight: 85 kg 10/29/23 06:43 Body Mass Index (BMI) 31.1 10/29/23 06:43 Respiratory Assessment Respiratory Assessment - field services director: Respiratory Tract Infection Hx - field services director Hx Respiratory Tract Infection No 10/28/23 09:35 STOP Sleep Apnea STOP Sleep Apnea - field services director: STOP Sleep Apnea - field services director Hx Hypertension Yes: CONTROLLED, NO MEDS 10/28/23 09:35 Hx Sleep Apnea No 10/28/23 09:35 CPAP BIPAP Do you snore loudly (louder No 10/28/23 09:35 than talking or can be heard Do you often feel tired/ No 10/28/23 09:35 fatigued/ sleepy during daytime? Has anyone observed you stop No 10/28/23 09:35 breathing during sleep? STOP Results Negative 10/28/23 09:35 QUESTION #5 FULL TEXT : Do you snore loudly (louder than talking or can be heard through closed doors)? Tobacco Use History Tobacco Use History - field services director: Tobacco Use History - field services director Tobacco Use Smoking Status Never smoker 10/28/23 09:35 Hx Tobacco Use No 10/28/23 09:35 Years Smoking Packs Smoked per Day Smoking Cessation Date was within the last 15 years Hx Smoking Cessation Date Hx Smoking Cessation Counseling Hematologic Medial History Hematologic Hx - field services director: Hematologic Medical Hx - copy editor Hx of Blood Transfusion No 10/28/23 09:35 Hx of Transfusion in last 3 No 10/28/23 09:35 Months Date of Last Transfusion (if within last 3 months) Ever experience any problems No 10/28/23 09:35 with transfusion(s)? Specify any problems Hx of Preganancy in last 3 No 10/28/23 09:35 Months Nurse Filling Out Transfusion VCHRISTIN 10/28/23 09:35 & Questions: Date: 10/28/23 10/28/23 09:35 Time: 09:37 10/28/23 09:35 Patient unable to answer at this time (ie. confused, unrespo /Reproduction History /Reproductive History - field services director: /Reproductive Hx- field services director Hx Now Gestational Age (in weeks): EDC: Hx Hx Para Hx Section SAB Active Medications Active Medications: Current Medications Generic Name Dose Route Start Last Admin Trade Name Freq PRN Reason Stop Dose Admin Clindamycin Phosphate 900 mg in 50 mls @ 75 mls/hr 10/29/23 07:30 Cleocin IV 10/29/23 08:09 PREOP ONE Lactated Ringer's 1,000 mls @ 15 mls/hr 10/29/23 06:15 10/29/23 06:42 IV 15 mls/hr .Q48H AAKASH Administration PFSH Medical History Wears partial dentures Wears glasses Anxiety Post-menopausal Insulin dependent diabetes mellitus Diabetes Arthritis High cholesterol Gastric reflux Non-smoker Shortness of breath on exertion History of stress test History of echocardiogram Cardiology follow-up encounter Hx of cardiac pacemaker Hx of recurrent urinary tract infection Choledocholithiasis with cholecystitis Gallstones Debility Back pain Essential hypertension Vertigo Chest pain Ataxia Presence of cardiac pacemaker Second degree AV block Atherosclerosis of [place] coronary artery of [place] heart without angina pectoris Depression Type 2 diabetes mellitus Atherosclerotic heart disease of [place] coronary artery without angina pectoris Angina pectoris Cardiomyopathy, dilated Paroxysmal atrial fibrillation Paroxysmal atrial flutter Fatigue Dyspnea Chest discomfort Abnormal EKG Long-term use of high-risk medication Old myocardial infarction History of atrial fibrillation DM2 (diabetes mellitus, type 2) HLD (hyperlipidemia) Depression CAD (coronary artery disease) Home Medications ?Medication ?Instructions ?Recorded ?Last Taken ?Type ascorbate calcium (vitamin C) 500 500 mg PO DAILY supplement 08/27/19 10/28/23 History mg tablet nitroglycerin 0.4 mg sublingual 0.4 mg sublingual Q5M PRN chest 08/27/19 Unknown Rx tablet (Nitrostat) pain #25 tabs atorvastatin 40 mg tablet 40 mg PO DAILY CHOLESTEROL #90 tabs 10/22/19 10/28/23 Rx cholecalciferol (vitamin D3) 50 50 mcg PO BID supplement 07/10/20 10/28/23 History mcg (2,000 unit) tablet vitamin B complex 1 tab PO DAILY supplement 07/10/20 10/28/23 History insulin glargine 100 unit/mL (3 14 unit subcut DAILY diabetes 12/12/22 10/28/23 History mL) subcutaneous pen (Lantus Solostar U-100 Insulin) duloxetine 60 mg capsule,delayed 60 mg PO DAILY mental health 07/16/23 10/28/23 History release potassium chloride 20 mEq 20 meq PO DAILY supplement 07/16/23 10/28/23 History tablet,extended release pantoprazole 40 mg tablet,delayed 40 mg PO DAILY #0 tabs 07/21/23 10/28/23 19:30 Rx release glimepiride 4 mg tablet 4 mg PO BID 08/15/23 10/28/23 History hydrocodone-acetaminophen 5-325mg 1 tab PO Q6H PRN PRN Pain 2 days 08/15/23 Unknown Rx 5mg-325mg #8 TABLETS ondansetron 4 mg disintegrating 4 mg PO Q8H PRN PRN Nausea #10 tabs 08/15/23 10/28/23 Rx tablet coenzyme Q10 100 mg capsule 100 mg PO DAILY 10/03/23 10/28/23 History (CoQ-10) gabapentin 300 mg capsule 300 mg PO BID PRN NERVE PAIN 10/03/23 10/29/23 History Lactobacillus acidophilus 10 100 mmu cells PO DAILY 10/28/23 10/28/23 History billion cell capsule (NewFlora) acetaminophen 500 mg capsule 1,000 mg PO Q6H PRN pain 10/28/23 10/28/23 History aspirin 81 mg capsule 81 mg PO DAILY 10/28/23 10/28/23 History furosemide 40 mg tablet 40 mg PO DAILY 10/28/23 10/28/23 History Allergy/AdvReac Type Severity Reaction Status Date / Time amoxicillin Allergy Intermediate Rash Verified 10/29/23 06:40 latex Allergy Intermediate Other Verified 10/29/23 06:40 Sulfa (Sulfonamide Allergy Rash Verified 10/29/23 06:40 Antibiotics) tizanidine (From Zanaflex) AdvReac Other Verified 10/29/23 06:40 Family History Mother CAD (coronary artery disease) Sister , age 73 Atrial fibrillation Sister , Age 68 CAD (coronary artery disease) COPD (chronic obstructive pulmonary disease) Surgical History History of ERCP Pacemaker (~12/05/17) History of right cataract surgery History of left cataract surgery History of bilateral knee replacement Status post ablation of atrial fibrillation (~2002) History of foot surgery Presence of stent in coronary artery (~08/2010) Social History Smoking Status: Never smoker alcohol intake: never substance use type: does not use caffeine: Yes Type: coffee Number of servings: 2 Review of Systems (Anesthesia) ROS Narrative System reviewed and no additional complaints, except as documented.
--- NOTE | 2023-10-29 07:30 | GALL_PTH ---
PATIENT: JERROD SALAZAR LOC: [facility] U#:[id number] AGE/SX: 82/F ROOM: CO312 RE10/29/[address]: Dr. Nabeel Hudson MD : 1940 BED: 1 DIS: 10/30/2023 SPEC #: [id number] RECD: 10/29/23 10:21 STATUS: MEREDITH SANTIAGO #: [id number] IDALMIS: 10/29/23 07:[address]: Nabeel Hudson DEPT: SURGICAL PATHOLOGY RECD BY: Lizet Shultz ENTERED: 10/29/23 12:03 SP TYPE: ELI CARMICHAEL DR: Dr. Janet Zhao MD Tissues: A - Gallbladder, NOS B - Omentum, NOS Procedures: Surgery Specimen Level III Surgery Specimen Level IV HEADER OPERATION: Laparoscopic cholecystectomy with IOC PRE-OP DIAGNOSIS: Choledocholithiasis with cholecystitis TISSUE SUBMITTED: A- Gallbladder, B- Omentum appendage MICROSCOPIC DIAGNOSIS A. Gallbladder, cholecystectomy: Moderate to marked ulcerated cholecystitis and cholelithiasis. Mild acute cholecystitis. Reactive epithelial changes. B. Omentum appendage, biopsy: A piece of mature adipose tissue with congestion and hemorrhage. / 10/30/2023 MICROSCOPIC DESCRIPTION Slides are reviewed. GROSS DESCRIPTION A. Received is one container labeled with the patient's name and designated gallbladder. The specimen consists of a distended weller gallbladder measuring 9.5 x 4.0 x 4.0 cm. The external surface is smooth and glistening. Focally, it is granular, hemorrhagic and contains cautery artifact. The lumen of the gallbladder contains a large amount of green mucoid bile and multiple black calculi ranging in size from <0.1 to 0.5cm in greatest dimension. The mucosa is bile-stained and without any mass lesions. The gallbladder wall averages 0.2 cm in thickness and is free of mass lesions. Airplane Electrician sections of the gallbladder and the cystic duct at margin of resection are submitted in one cassette. B. Received in fixative is one container labeled with the patient's name and designated Omentum appendage. The specimen consists of a single irregular fragment of weller-yellow fatty tissue measuring 0.5 x 0.5 x 0.2cm. The specimen is totally submitted in one cassette. AM: 10/29/2023 TC:3 CPT: 68468k5
[2023-10-29] MEDS: Clindamycin 900 MG/50 ML BAG 75 MG IV (08:00)
--- NOTE | 2023-10-29 08:00 | RAD_ITS ---
STUDY: INTRAOPERATIVE CHOLANGIOGRAM REASON FOR EXAM: Female, 82 years old. PAIN FLUOROSCOPY TIME (if supplied): ( 28.7 seconds ) minutes/seconds. 17.86 mGy. TECHNIQUE: Intraoperative cholangiogram was performed by the surgeon. Imaging was submitted. COMPARISON: None. FINDINGS: There is mild degree of dilatation of the common bile duct. There is free flow of contrast into the duodenum. Mild degree of central intrahepatic biliary ductal dilatation. RAD/Cholangiogram/ O R,Initial IMPRESSION: Mild degree of dilatation of the intrahepatic and extrahepatic biliary ducts. Electronically Signed: Sharad Hooks MD at 15:29 EDT ,
--- NOTE | 2023-10-29 08:49 | EKG12_ITS ---
Test Reason : PREOP Blood Pressure : / mmHG Vent. Rate : 067 BPM Atrial Rate : 067 BPM P-R Int : 224 ms QRS Dur : 080 ms QT Int : 382 ms P-R-T Axes : 029 007 -64 degrees QTc Int : 403 ms Sinus rhythm with 1st degree A-V block with frequent AV dual-paced complexes Low voltage QRS ST & T wave abnormality, consider inferior ischemia ST & T wave abnormality, consider anterolateral ischemia Abnormal ECG When compared with ECG of 17-JUL-2023 18:11, Vent. rate has decreased BY 33 BPM Confirmed by ALINE NEUMANN ([id number]), supervising editor news reel AMI CUNNINGHAM ([id number]) on 11/01/2023 6:06:40 AM Referred By: Nabeel Hudson Confirmed By:ALINE NEUMANN
[2023-10-29] MEDS: Bupiv/Epi 0.25% 30 ML Vial (09:32)
--- NOTE | 2023-10-29 09:53 | PCM.POST.ANE ---
Anesthesia: Postop Eval I Current Vital Signs Temperature: 97.9 F Pulse Rate: 76 Blood Pressure: 159/66 Respiratory Rate: 16 Pulse Ox: 100 Oxygen Delivery Method: Nasal Cannula Oxygen Flow Rate (L/min): 4 Assessment Airway patent: Yes Spontaneous unlabored respirations: Yes Mental status: Awake and Calm nausea: No Vomiting: No Anesthesia Complication: No Fluid Hydration Crystalloid volume administer (ml): 1,400 Total IV fluid infused: 1,400 Progress Note Anesthesia document: Postop Eval 1 completed: Yes
--- NOTE | 2023-10-29 10:07 | PCM.OPRPT ---
Report of Operation Date of Procedure: 10/29/23 Pre-Operative Diagnosis: History of choledocholithiasis with cholecystitis Post-Operative Diagnosis: Same Surgery/Procedure Performed:: Laparoscopic cholecystectomy with intraoperative cholangiography Description of Surgical Findings:: ? Mild to moderate inflammation of the gallbladder ? Moderately enlarged and firm node of Calot located on the posterior aspect of the cystic duct ? Normal arrangement of biliary anatomy with mild to moderately dilated common bile duct and free flow into the duodenum without apparent filling defect Surgeon: Nabeel Hudson project financial analyst: Savannah Solorzano Type of Anesthesia: General/Supplemental Anesthesiologist: Alex Razo Specimen's removed: Gallbladder Estimated Blood Loss (mL): 5 Description of Procedure: After proper identification in the preoperative holding area the patient was brought to the operating room where she was positioned supine on the operating room table. Preoperatively SCDs were placed and antibiotics were administered. General anesthesia was then induced. Patient's abdomen was prepped and draped in usual sterile fashion. A formal timeout was conducted to confirm both patient and the procedure. Procedure was begun with a supraumbilical incision which was extended deeply down to the level of the fascia. The fascia was elevated and incised, as well as the peritoneum. A finger sweep was performed to ensure there were no underlying adhesions and a 12 mm balloon trocar was inserted. Pneumoperitoneum was established at 12 mmHg. Three additional trocars (all 5 mm) were placed in the epigastrium and in the right upper quadrant. Inspection of the peritoneum revealed no inadvertent injury to the viscera below. The gallbladder was visualized with mild to moderate inflammation. The gallbladder fundus was then grasped and elevated cephalad. Then, using careful dissection the peritoneum was opened and the structures of the hepatocystic triangle were delineated. Once the critical view of safety was obtained, the cystic duct was singly clipped and partially divided with a ductotomy. Interestingly there was immediate return of some bubbling as well as bile. I interpreted this to be related to the stenting of the ampulla with a common bile duct stent. Using an Pedraza [place] clamp, a cholangiocatheter was fed into the proximal segment of the cystic duct and clamped into place. Under fluoroscopy a cholangiogram was then obtained showing a slightly short cystic duct flowing into a common bile duct with unobstructed antegrade flow of contrast into the duodenum. There was also retrograde flow through the common hepatic duct into the right and left hepatic ducts. Satisfied with this result, the cholangiocatheter was withdrawn and the proximal cystic duct was sealed with clips and the cystic duct was completely transected. The same process was used for the cystic artery. The gallbladder was then removed from the gallbladder fossa with the use of electrocautery. Selective electrocautery was used to obtain hemostasis in the gallbladder fossa. The gallbladder was placed in an Endo Catch bag and removed from the peritoneum. Morison's pouch was irrigated and the effluent was suctioned free of the peritoneum. Hemostasis was again confirmed. Pneumoperitoneum was evacuated and the fascia of the 12 mm port sites was closed with #1Vicryl in a kwiidm-or-psybp fashion. A total of [] mL of anesthetic was injected at the port sites for postoperative pain control. The skin of each port site was then closed in subcuticular fashion using 4-0 Monocryl. Steri-Strips and bandages were applied as dressings. Patient tolerated the procedure well without any apparent complications. On emergence from their anesthetic the patient was taken to PACU for ongoing recovery. Grafts/Implants Used: None Complications None Admit VTE Documentation VTE Mechan Device Prophylaxis: SCD's Procedures Digestive [id number]: [id number] Laparo cholecystectomy/graph
--- NOTE | 2023-10-29 10:39 | POSTOPAN2_ITS ---
Anesthesia Postop Eval I Sum Postop Eval Completion status Anesthesia document: Postop Eval 1 completed: Yes Anesthesia Postop Eval I Summary Anesthesia Postop Eval I Summary: Anesthesia Postop Eval I: Assessment Summary Airway patent Yes 10/29/23 09:54 [email or web address] Spontaneous unlabored Yes 10/29/23 09:54 [email or web address] [email or web address] respirations Mental status Awake,Calm 10/29/23 09:54 [email or web address] nausea No 10/29/23 09:54 [email or web address] [email or web address] Vomiting No 10/29/23 09:54 [email or web address] [email or web address] Anesthesia Postop Eval I: Fluid Summary Crystalloid volume administer 1,400 10/29/23 09:54 [email or web address] (ml) Colloids volume administered ( ml) Blood Product volume administered (ml) Total IV fluid infused 1,400 10/29/23 09:54 [email or web address] Anesthesia Postop Eval I: Summary Notes Anesthesia Complication No 10/29/23 09:54 [email or web address] Anesthesia Complication Comment: Post-operative progress note Anesthesia: Postop Eval II Evaluation Mental status: Awake and Calm Pain Level: 1 nausea: No Vomiting: No Complications Anesthesia Complication: No
--- NOTE | 2023-10-29 10:39 | PCM.POSTANE2 ---
Anesthesia Postop Eval I Sum Postop Eval Completion status Anesthesia document: Postop Eval 1 completed: Yes Anesthesia Postop Eval I Summary Anesthesia Postop Eval I Summary: Anesthesia Postop Eval I: Assessment Summary Airway patent Yes 10/29/23 09:54 [email or web address] Spontaneous unlabored Yes 10/29/23 09:54 [email or web address] respirations Mental status Awake,Calm 10/29/23 09:54 [email or web address] nausea No 10/29/23 09:54 [email or web address] Vomiting No 10/29/23 09:54 [email or web address] Anesthesia Postop Eval I: Fluid Summary Crystalloid volume administer 1,400 10/29/23 09:54 [email or web address] (ml) Colloids volume administered ( ml) Blood Product volume administered (ml) Total IV fluid infused 1,400 10/29/23 09:54 [email or web address] Anesthesia Postop Eval I: Summary Notes Anesthesia Complication No 10/29/23 09:54 [email or web address] Anesthesia Complication Comment: Post-operative progress note Anesthesia: Postop Eval II Evaluation Mental status: Awake and Calm Pain Level: 1 nausea: No Vomiting: No Complications Anesthesia Complication: No
[2023-10-29] MEDS: 0.9% Normal Saline (1000mL) 1,000 ML 50 ML IV (15:59)
[2023-10-29] MEDS: Insulin Lispro 100 UNIT/ML INSULN.PEN SC (16:49)
[2023-10-29 17:12] LABS: Bedside Glucose 259 mg/dL (74-106)
[2023-10-29] MEDS: Atorvastatin Calcium 40 MG Tablet PO (22:45)
[2023-10-29] MEDS: Acetaminophen 500 MG Tablet PO (22:45)
[2023-10-29 23:42] LABS: Bedside Glucose 313 mg/dL (74-106)
[2023-10-30 03:00] VITALS: BP 115/72; PULSE 75; RESP 16; TEMP 36.6; O2SAT 97
[2023-10-30 06:24] VITALS: BP 132/67; PULSE 82; RESP 18; TEMP 36.4; O2SAT 100
[2023-10-30] MEDS: Insulin Lispro 100 UNIT/ML INSULN.PEN SC (06:29)
[2023-10-30 06:54] LABS: Absolute Lymphocyte Count 1.07 X10^3/uL (0.83-4.51); Absolute Neutrophil Count 9.2 X10^3/uL (2.0-7.7); Basophil# 0.02 X10^3/uL; Basophil% 0.2 % (0-1); Eosinophil# 0.01 X10^3/uL; Eosinophils% 0.1 % (0-5); Hematocrit 36.4 % (37-47); Hemoglobin 11.5 g/dL (12.0-15.0); Lymphocyte # 1.07 X10^3/ul (0.83-4.51); Lymphocyte % 9.2 % (19-41); Mean Corp Hgb Conc 31.6 g/dL (32-36); Mean Corpuscular Hgb 28.9 pg (27.0-32.0); Mean Corpuscular Volume 91.5 fL (81-99); Mean Platelet Vol. 10.4 fl (6.2-12.0); Monocyte# 1.25 X10^3/uL; Monocyte% 10.7 % (0-10); NRBC Flagged by Analyzer 0 % (0-5); Neutrophil # 9.23 X10^3/uL (2.7-7.7); Neutrophil % 79.4 % (47-70); Platelet Count 199 K/mm3 (150-450); RBC Distribution Width CV 13.7 % (11.6-14.6); RBC Distribution Width SD 46.4 fl (35.1-43.9); Red Blood Count 3.98 M/mm3 (4.2-5.4); White Blood Count 11.6 K/mm3 (4.4-11.0)
[2023-10-30 07:33] LABS: ALB/GLOB Ratio 0.9 RATIO (0.9-2.4); AST(SGOT) 24 U/L (15-37); Alanine Aminotransfer ALT/SGPT 30 U/L (13-56); Alkaline Phosphatase 79 U/L (45-117); Anion Gap 4 (5-15); BUN 19 mg/dL (7-18); BUN/Creat Ratio 21.9 RATIO (10-20); Calcium,Total 9.1 mg/dL (8.5-10.1); Chloride 103 mmol/L (98-107); Creatinine, Serum 0.87 mg/dL (0.55-1.02); EST Glomerular Filtration Rate 66 mL/min (>60); Est Glom Filt Rate - Afr Amer 80 mL/min (>60); Estimated Creatinine Clearance 53.68 ml/min; Globulin 3.4 g/dL (2.2-4.2); Glucose 210 mg/dL (74-106); Potassium 4.9 mmol/L (3.5-5.1); Protein, Total 6.4 g/dL (6.4-8.2); Sodium Level 137 mmol/L (136-145)
[2023-10-30 07:47] LABS: Bedside Glucose 191 mg/dL (74-106)
--- NOTE | 2023-10-30 07:49 | DCINST_ITS ---
Discharge Instructions Diet Discharge Diet: No restrictions Activity Discharge Activity: May Not Drive (No driving while using narcotic pain medication) and May Shower (Postoperative day 1) May shower in (days): 1 Ice area for (Minutes): 20 Lifting Restrictions: No lifting greater than 15 pounds for 2 weeks after surgery Dressing / Incision Call your doctor if your incision/area has: Continuous Slow Oozing, Increased Pain/ Swelling, Increased Redness, Foul Smelling Discharge and Swelling at the incision site Call your doctor if you observe: Fever of 101 or Higher Remove Dressing in: 1 day (Please leave Steri-Strips intact until they fall off spontaneously or are taken off at your follow-up visit) Cleanse incision/area with: Soap & Water Follow Up Care Please Follow Up With: Nabeel Hudson MD When: 7-10days postop Test Results: Test results from this visit will be discussed in further detail at your follow- up appointment, if applicable. Discharge Plan Admission Admit Date/Time: 10/29/23 09:56 Attending Provider: Nabeel Hudson Primary Care Provider: Janet Zhao Discharge Orders/Prescriptions Prescriptions: No Action ascorbate calcium (vitamin C) 500 mg tablet 500 mg PO DAILY nitroglycerin [Nitrostat] 0.4 mg tablet, sublingual 0.4 mg SUBLINGUAL Q5M PRN (Reason: chest pain) Qty: 25 3RF Rx Instructions: do not exceed 3 doses per episode cholecalciferol (vitamin D3) 50 mcg (2,000 unit) tablet 50 mcg PO BID vitamin B complex Tablet 1 tab PO DAILY coenzyme Q10 [CoQ-10] 100 mg capsule 100 mg PO DAILY insulin glargine [Lantus Solostar U-100 Insulin] 100 unit/mL (3 mL) insulin pen 14 unit SUBCUT DAILY glimepiride 4 mg tablet 4 mg PO BID ondansetron 4 mg tablet,disintegrating 4 mg PO Q8H PRN PRN (Reason: Nausea) Qty: 10 0RF hydrocodone-acetaminophen 5-325 mg tablet 1 tab PO Q6H PRN PRN (Reason: Pain) 2 Days Qty: 8 0RF gabapentin 300 mg capsule 300 mg PO BID PRN (Reason: NERVE PAIN) duloxetine 60 mg capsule,delayed release(DR/EC) 60 mg PO DAILY potassium chloride 20 mEq tablet extended release 20 meq PO DAILY pantoprazole 40 mg Tablet,Delayed Release (Dr/Ec) 40 mg PO DAILY Qty: 0 0RF acetaminophen 500 mg capsule 1,000 mg PO Q6H PRN (Reason: pain) NewFlora 10 billion cell capsule 100 mmu cells PO DAILY aspirin 81 mg capsule 81 mg PO DAILY furosemide 40 mg tablet 40 mg PO DAILY atorvastatin 40 mg tablet 40 mg PO DAILY Qty: 90 3RF Referrals / Follow Up: Janet Zhao MD [Primary Care Provider] - Disposition Disposition (needs filled in before D/C Order can be placed): Home, Self Care
[2023-10-30 07:50] VITALS: BP 128/66; PULSE 70; RESP 16; TEMP 36.6; O2SAT 96
--- NOTE | 2023-10-30 07:51 | DS.PCM_ITS ---
Providers Date of Admission: 10/29/23 Primary Care Physician: Dr. Janet Zhao MD Reason For Visit: Laparoscopic, Cholecystectomy with IOC Medications at Discharge Home Medications ascorbate calcium (vitamin C) 500 mg tablet 500 mg PO DAILY supplement 08/27/19 nitroglycerin 0.4 mg sublingual tablet (Nitrostat) 0.4 mg sublingual Q5M PRN chest pain #25 tabs 08/27/19 atorvastatin 40 mg tablet 40 mg PO DAILY CHOLESTEROL #90 tabs 10/22/19 cholecalciferol (vitamin D3) 50 mcg (2,000 unit) tablet 50 mcg PO BID supplement 07/10/20 vitamin B complex 1 tab PO DAILY supplement 07/10/20 insulin glargine 100 unit/mL (3 mL) subcutaneous pen (Lantus Solostar U-100 Insulin) 14 unit subcut DAILY diabetes 12/12/22 duloxetine 60 mg capsule,delayed release 60 mg PO DAILY mental health 07/16/23 potassium chloride 20 mEq tablet,extended release 20 meq PO DAILY supplement 07/16/23 pantoprazole 40 mg tablet,delayed release 40 mg PO DAILY #0 tabs 07/21/23 glimepiride 4 mg tablet 4 mg PO BID 08/15/23 hydrocodone-acetaminophen 5-325mg 5mg-325mg 1 tab PO Q6H PRN PRN Pain 2 days #8 TABLETS 08/15/23 ondansetron 4 mg disintegrating tablet 4 mg PO Q8H PRN PRN Nausea #10 tabs 08/15/23 coenzyme Q10 100 mg capsule (CoQ-10) 100 mg PO DAILY 10/03/23 gabapentin 300 mg capsule 300 mg PO BID PRN NERVE PAIN 10/03/23 Lactobacillus acidophilus 10 billion cell capsule (NewFlora) 100 mmu cells PO DAILY 10/28/23 acetaminophen 500 mg capsule 1,000 mg PO Q6H PRN pain 10/28/23 aspirin 81 mg capsule 81 mg PO DAILY 10/28/23 furosemide 40 mg tablet 40 mg PO DAILY 10/28/23 Hospital Course Operations cholecystecomy (10/29/2023) Procedures None Summary of Care Provided Hospital Course: Patient is an 82-year-old female who underwent elective laparoscopic cholecystectomy with intraoperative cholangiogram on 10/29/2023 after having a previous admission 3 months earlier for a diagnosis of choledocholithiasis that was culminated in a ERCP with bile duct stent placement. Patient tolerated the gallbladder operation well, however, due to social constraints she was admitted postoperatively for postanesthesia monitoring. A clear liquid diet was instituted immediately postop, however, patient quickly proved tolerance of this diet and requested an advancement. This request was granted and she was advanced to a regular diet which she tolerated without difficulty. Postoperative day 1 patient was visited and she expressed adequate pain control with no significant overnight events. A.m. labs were reassuring apart from some hyperglycemia and patient will be restarted on her home diabetic medications. Wound care instructions and expectations for outpatient follow-up were reviewed. Upon confirmation of understanding patient was granted discharge to home. Physical Exam Const alert, oriented x3 and no apparent distress General Appearance: cooperative Resp normal respiratory effort GI GI Narrative: Nondistended, operative dressings intact without strikethrough, mildly tender to palpation, soft Weight / BMI Weight Weight: 187 lb 6.287 oz Body Mass Index (BMI) 31.1 ABG / Lab / Microbiology Data 10/30/23 06:32 10/30/23 06:32 Laboratory: Laboratory Results - last 24 hr 10/29/23 16:20: POC Glucose 259 H 10/29/23 22:44: POC Glucose 313 H 10/30/23 06:27: POC Glucose 191 H 10/30/23 06:32: WBC 11.6 H, RBC 3.98 L, Hgb 11.5 L, Hct 36.4 L, MCV 91.5, MCH 28.9, MCHC 31.6 L, RDW Std Deviation 46.4 H, RDW Coeff of Gerry 13.7, Plt Count 199, MPV 10.4, Immature Gran % (Auto) 0.400, Neut % (Auto) 79.4 H, Lymph % (Auto) 9.2 L, Motley % (Auto) 10.7 H, Eos % (Auto) 0.1, Baso % (Auto) 0.2, A bsolute Neuts (auto) 9.2 H, Absolute Lymphs (auto) 1.07, Nucleated RBC % 0, Sodium 137, Potassium 4.9, Chloride 103, Carbon Dioxide 30.0, Anion Gap 4 L, BUN 19 H, Creatinine 0.87, Estim Creat Clear Calc 53.68, Est GFR (MDRD) Af Amer 80, Est GFR (MDRD) Non-Af 66, BUN/Creatinine Ratio 21.9 H, Glucose 210 H, Calcium 9.1, Total Bilirubin 0.60, AST 24, ALT 30, Alkaline Phosphatase 79, Total Protein 6.4, Albumin 3.0 L, Globulin 3.4, Albumin/Globulin Ratio 0.9 Radiography Diagnostic Testing: Radiology Impression Cholangiogram 10/29/23 08:00 IMPRESSION: Mild degree of dilatation of the intrahepatic and extrahepatic biliary ducts. Electronically Signed: Sharad Hooks MD at 15:29 EDT , D/C Instructions Discharge Diet: No restrictions May shower in (days): 1 Ice area for (Minutes): 20 Call your doctor if your incision/area has: Continuous Slow Oozing, Increased Pain/ Swelling, Increased Redness, Foul Smelling Discharge and Swelling at the incision site Call your doctor if you observe: Fever of 101 or Higher Cleanse incision/area with: Soap & Water Please Follow Up With: Nabeel Hudson MD When: 7-10days postop Meaningful Use Info Meaningful Use Meaningful Use Diagnoses (Choose all that apply): None applicable Ischemic Stroke Statin Dosing Therapy Reference: STATIN DOSE THERAPY REFERENCE: * Patients > 75 years receive moderate or high dose statin therapy. * Patients 75 years or YOUNGER should receive HIGH intensity statin dose unless contraindicated. You will be required to document reason for non-treatment if statin daily dose does not meet guidelines. HIGH DOSE STATIN THERAPY DAILY Atorvastatin > than or = to 40 mg Rosuvastatin > than or = to 20 mg Amlodipine + Atorvastatin > than or = to 2.5/40 mg Ezetimibe + Simvastatin 10/80 mg Simvastatin 80mg Discharge Plan Admission Admit Date/Time: 10/29/23 09:56 Attending Provider: Nabeel Hudson Primary Care Provider: Janet Zhao Discharge Orders/Prescriptions Prescriptions: No Action ascorbate calcium (vitamin C) 500 mg tablet 500 mg PO DAILY nitroglycerin [Nitrostat] 0.4 mg tablet, sublingual 0.4 mg SUBLINGUAL Q5M PRN (Reason: chest pain) Qty: 25 3RF Rx Instructions: do not exceed 3 doses per episode cholecalciferol (vitamin D3) 50 mcg (2,000 unit) tablet 50 mcg PO BID vitamin B complex Tablet 1 tab PO DAILY coenzyme Q10 [CoQ-10] 100 mg capsule 100 mg PO DAILY insulin glargine [Lantus Solostar U-100 Insulin] 100 unit/mL (3 mL) insulin pen 14 unit SUBCUT DAILY glimepiride 4 mg tablet 4 mg PO BID ondansetron 4 mg tablet,disintegrating 4 mg PO Q8H PRN PRN (Reason: Nausea) Qty: 10 0RF hydrocodone-acetaminophen 5-325 mg tablet 1 tab PO Q6H PRN PRN (Reason: Pain) 2 Days Qty: 8 0RF gabapentin 300 mg capsule 300 mg PO BID PRN (Reason: NERVE PAIN) duloxetine 60 mg capsule,delayed release(DR/EC) 60 mg PO DAILY potassium chloride 20 mEq tablet extended release 20 meq PO DAILY pantoprazole 40 mg Tablet,Delayed Release (Dr/Ec) 40 mg PO DAILY Qty: 0 0RF acetaminophen 500 mg capsule 1,000 mg PO Q6H PRN (Reason: pain) NewFlora 10 billion cell capsule 100 mmu cells PO DAILY aspirin 81 mg capsule 81 mg PO DAILY furosemide 40 mg tablet 40 mg PO DAILY atorvastatin 40 mg tablet 40 mg PO DAILY Qty: 90 3RF Referrals / Follow Up: Janet Zhao MD [Primary Care Provider] - Disposition Disposition (needs filled in before D/C Order can be placed): Home, Self Care
--- NOTE | 2023-10-30 08:56 | CASEMGMT ---
RENEA CM into pt room as pt has a dc in. Pt sitting up in chair eating breakfast. Pt states she had [place] private duty 3 days a week who assists her with bathing, meals and laundry. Pt states she has not contacted them since her surgery but plans to do so so they start coming back out. Pt states she feels jerky at times. Discussed home therapy or home health, pt denies need for this. Pt states she has been through therapy many of times. Pt dtr is transporting pt home this afternoon. Pt denies any homegoing needs.
[2023-10-30] MEDS: Potassium Chloride Oral Tablet 20 MEQ PO (10:35)
[2023-10-30] MEDS: DULoxetine Hcl 60 MG Capsule PO (10:36)
[2023-10-30] MEDS: Glimepiride 4 MG Tablet PO (10:37)
[2023-10-30] MEDS: Aspirin 81 MG TAB.CHEW PO (10:37)
[2023-10-30] MEDS: Furosemide 40 MG Tablet PO (10:37)
[2023-10-30] MEDS: Insulin Glargine-YFGN 100 UNIT/ML Pen 14 UNIT SC (10:37)
[2023-10-30] MEDS: Lactobacillis Acidophilus 1 CAP PO (10:37)
[2023-10-30] MEDS: Cholecalciferol (VIT D3) 25 MCG TABLET (1,000 UNITS) 50 MCG PO (10:39)
[2023-10-30] MEDS: Pantoprazole Sodium 40 MG Tablet PO (10:39)
[2023-10-30] MEDS: Ascorbic Acid 500 MG Tablet PO (10:39)
== END 2023-10-30 16:12 | disposition home or self-care (01) ==
LOC: SDC 14:16 → MS3 14:16
PROVIDERS: Admitting Provider Surgery; PCP Family Medicine; Referring Provider Surgery; Visit Provider Surgery
PROC: (CPT 47610; principal; 2023-10-29 07:10)
DX: K80.62 Calculus of gallbladder and bile duct with acute cholecystitis without obstruction (principal); I48.0 Paroxysmal atrial fibrillation; I42.0 Dilated cardiomyopathy; E11.65 Type 2 diabetes mellitus with hyperglycemia; Z79.4 Long term (current) use of insulin; E78.5 Hyperlipidemia, unspecified; I10 Essential (primary) hypertension; Z95.0 Presence of cardiac pacemaker; I25.10 Atherosclerotic heart disease of native coronary artery without angina pectoris; Z79.84 Long term (current) use of oral hypoglycemic drugs; Z79.899 Other long term (current) drug therapy; I44.1 Atrioventricular block, second degree
CPT/HCPCS: 47563; 36415; 74300; 76000; 80053; 82962; 85025; 88304; 88305; 93005; 94668; 99221; J7030; J7120; G0378; J2405

== ENCOUNTER → 2023-11-11 | Outpatient (CLI) | payer MEDICARE, SELFPAY ==
[2023-11-11 10:35] LABS: Mucous, Urine 0 SEEN /hpf (<or=2+); Red Blood Cells-Urine 0 SEEN /hpf (0-5)
[2023-11-11 10:40] LABS: Absolute Neutrophil Count 5.9 X10^3/uL (2.0-7.7); Basophil# 0.12 X10^3/uL; Basophil% 1.5 % (0-1); Eosinophil# 0.44 X10^3/uL; Eosinophils% 5.5 % (0-5); Hematocrit 41.1 % (37-47); Lymphocyte % 12.6 % (19-41); Mean Corp Hgb Conc 31.6 g/dL (32-36); Mean Corpuscular Hgb 29.1 pg (27.0-32.0); Mean Corpuscular Volume 91.9 fL (81-99); Monocyte% 6.3 % (0-10); NRBC Flagged by Analyzer 0 % (0-5); Neutrophil # 5.87 X10^3/uL (2.7-7.7); Neutrophil % 73.7 % (47-70); Platelet Count 262 K/mm3 (150-450); RBC Distribution Width CV 13.9 % (11.6-14.6); RBC Distribution Width SD 46.6 fl (35.1-43.9); Red Blood Count 4.47 M/mm3 (4.2-5.4)
[2023-11-11 10:46] LABS: Color, Urine Yellow (Yellow); Glucose, Dipstick Normal (Normal); Ketone-Dipstick Negative (Negative); Leukocyte Esterase-Dipstick 500 /ul (Negative); Nitrite-Dipstick Positive (Negative); Occult Blood-Urine 25 /ul (Negative); Protein-Dipstick 30 mg/dl (Negative); Urine Bilirubin Dipstick Negative (Negative); Urine Clarity Cloudy (Clear); Urine Urobilinogen Normal (Normal)
[2023-11-11 10:56] LABS: ALB/GLOB Ratio 0.9 RATIO (0.9-2.4); AST(SGOT) 17 U/L (15-37); Alanine Aminotransfer ALT/SGPT 28 U/L (13-56); Albumin, Serum 3.2 g/dL (3.2-5.0); Alkaline Phosphatase 94 U/L (45-117); Anion Gap 7 (5-15); BUN 21 mg/dL (7-18); BUN/Creat Ratio 17.5 RATIO (10-20); Chloride 105 mmol/L (98-107); EST Glomerular Filtration Rate 46 mL/min (>60); Est Glom Filt Rate - Afr Amer 55 mL/min (>60); Globulin 3.6 g/dL (2.2-4.2); Glucose 296 mg/dL (74-106); Potassium 4.2 mmol/L (3.5-5.1); Protein, Total 6.8 g/dL (6.4-8.2); Sodium Level 138 mmol/L (136-145)
[2023-11-11 10:59] LABS: White Blood Cells >100 SEEN /hpf (0-5)
[2023-11-11 11:00] LABS: Bacteria 1+ /hpf (None Seen); Squamous Epithelial Cells - UA 5-10 SEEN /hpf (5-10)
== END | disposition home or self-care (01) ==
LOC: PAVLAB 10:10
PROVIDERS: PCP Family Medicine; Referring Provider Physician Assistant; Visit Provider Physician Assistant
DX: R10.9 Unspecified abdominal pain (principal); R30.0 Dysuria
CPT/HCPCS: 36415; 80053; 81001; 85025; 87077; 87086; 87088; 87186

== ENCOUNTER → 2024-03-16 | Outpatient (CLI) | payer MEDICARE, SELFPAY | END | disposition home or self-care (01) | LOC: LABSPEC 13:29 | PROVIDERS: PCP Family Medicine; Referring Provider Family Medicine; Visit Provider Family Medicine | DX: R39.9 Unspecified symptoms and signs involving the genitourinary system (principal) ==

== ENCOUNTER → 2024-10-14 | Outpatient (CLI) | payer MEDICARE, SELFPAY ==
[2024-10-14 12:52] LABS: AST(SGOT) 27 U/L (<=31); Alanine Aminotransfer ALT/SGPT 24 U/L (<=34); Albumin, Serum 3.8 g/dL (3.4-4.8); Alkaline Phosphatase 93 U/L (35-104); Anion Gap 9 (5-15); BUN 20 mg/dL (4-19); BUN/Creat Ratio 22.1 RATIO (10-20); Calcium,Total 9.4 mg/dL (7.6-11.0); Carbon Dioxide 27.1 mmol/L (21.0-32.0); Chloride 108 mmol/L (98-108); Globulin 2.6 g/dL (2.2-4.2); Glucose 95 mg/dL (70-99); Potassium 5.2 mmol/L (3.3-5.1)
[2024-10-14 13:37] LABS: Cholesterol 118 mg/dL (<=200); Low Density Lipoprotein Calc. 48 mg/dL; Triglycerides 71 mg/dL; Very Low Density Lipoprotein 14 mg/dL (5-40); cholesterol:hdl ratio screen 2.13
== END | disposition home or self-care (01) ==
LOC: MFPLAB 10:26
PROVIDERS: PCP Family Medicine; Visit Provider Family Medicine
DX: N39.0 Urinary tract infection, site not specified (principal); E11.9 Type 2 diabetes mellitus without complications
CPT/HCPCS: 36415; 80053; 80061; 83036; 87077; 87086; 87088; 87186

== ENCOUNTER → 2024-11-09 | Outpatient (CLI) | payer MEDICARE, SELFPAY ==
[2024-11-09 17:34] LABS: Hematocrit 42.7 % (37-47); Hemoglobin 13.8 g/dL (12.0-15.0); Immature Granulocytes Count 0.030 X10^3/uL (0.0-0.0); Mean Corp Hgb Conc 32.3 g/dL (32-36); Mean Corpuscular Volume 91.2 fL (81-99); Mean Platelet Vol. 10.8 fl (6.2-12.0); NRBC Flagged by Analyzer 0 % (0-5); Platelet Count 278 K/mm3 (150-450); RBC Distribution Width CV 13.4 % (11.6-14.6); RBC Distribution Width SD 45.1 fl (35.1-43.9); Red Blood Count 4.68 M/mm3 (4.2-5.4); White Blood Count 12.1 K/mm3 (4.4-11.0)
[2024-11-09 18:45] LABS: Anion Gap 14 (5-15); BUN 24 mg/dL (4-19); BUN/Creat Ratio 22.5 RATIO (10-20); Calcium,Total 9.9 mg/dL (7.6-11.0); Carbon Dioxide 24.7 mmol/L (21.0-32.0); Chloride 101 mmol/L (98-108); Glucose 52 mg/dL (70-99); Potassium 4.1 mmol/L (3.3-5.1); Pro- Brain NATRIURETIC PEPTIDE 427 pg/mL (<=1800)
== END | disposition home or self-care (01) ==
LOC: LAB 16:30
PROVIDERS: PCP Family Medicine; Referring Provider Nurse Practitioner Family; Visit Provider Nurse Practitioner Family
DX: R42 Dizziness and giddiness (principal); I48.0 Paroxysmal atrial fibrillation; I10 Essential (primary) hypertension; Z95.0 Presence of cardiac pacemaker; I44.1 Atrioventricular block, second degree; R06.00 Dyspnea, unspecified
CPT/HCPCS: 36415; 80048; 83880; 85025

== ENCOUNTER → 2024-12-10 | Outpatient (CLI) | payer MEDICARE, SELFPAY ==
--- NOTE | 2024-12-10 08:48 | ECHOD_ITS ---
Reason For Study Reason For Study: SOB, Fatigue Procedure This was a 2D Doppler, Color Flow transthoracic echocardiogram. Exam performed in department. Left Ventricle Normal LV size. Left ventricular systolic function is normal. The left ventricular ejection fraction is 65 %. Stage 1 diastolic dysfunction. No regional wall motion abnormalities noted. Right Ventricle Normal RV size. ICD or pacer leads identified within the right ventricle. Normal systolic function. Atria Normal left atrium. Normal right atrium. Mitral Valve Mild mitral annular calcification extending into the posterior leaflet. Mild focal mitral valve calcification. Mild (1+) eccentric mitral valve insufficiency. Tricuspid Valve Normal tricuspid valve. Mild (1+) tricuspid valve insufficiency. Pulmonary artery systolic pressure is 32 mmHg. Aortic Valve Trisinus/trileaflet aortic valve. Pulmonic Valve Normal pulmonic valve. Great Vessels Normal aortic root. The pulmonary artery is normal size. Inferior vena cava collapse with respiration. Pericardium/Pleural No pericardial effusion. MMode/2D Measurements & Calculations LVIDd: 4.1 cm IVSd: 1.1 cm Ao root diam: 3.1 cm LVIDs: 2.8 cm LVPWd: 1.2 cm RVDd: 3.4 cm FS: 32.0 % LAV(MOD-bp): 49.9 ml LVAd ap4: 24.4 cm2 LVAd ap2: 22.2 cm2 LAV(MOD-bp) Indexed: 25.9 ml/m2 LVLd ap4: 7.2 cm LVLd ap2: 7.0 cm LAV(MOD-sp2): 50.7 ml EDV(MOD-sp4): 67.0 ml EDV(MOD-sp2): 60.2 ml LAV(MOD-sp4): 48.4 ml EDV(sp4-el): 70.4 ml EDV(sp2-el): 59.4 ml LVAs ap4: 14.2 cm2 LVAs ap2: 11.7 cm2 LVLs ap4: 6.1 cm LVLs ap2: 6.0 cm ESV(MOD-sp4): 27.8 ml ESV(MOD-sp2): 19.8 ml ESV(sp4-el): 27.9 ml ESV(sp2-el): 19.5 ml EF(MOD-sp4): 58.5 % EF(MOD-sp2): 67.1 % EF(sp4-el): 60.4 % SV(MOD-sp4): 39.2 ml SV(MOD-sp2): 40.4 ml SV(sp4-el): 42.5 ml SI(MOD-sp4): 20.3 ml/m2 SI(MOD-sp2): 21.0 ml/m2 LA A4 area: 18.9 cm2 LA dimension(2D): 4.3 cm RA A4 area: 14.0 cm2 TAPSE: 1.1 cm Time Measurements MV dec time: 0.33 sec Doppler Measurements & Calculations MV E max bairon: 55.8 cm/sec Lat Peak E' Bairon: 7.1 cm/sec Med Peak E' Bairon: 4.6 cm/sec MV A max bairon: 96.4 cm/sec E/E' lat: 7.9 E/E' med: 12.2 MV E/A: 0.58 Ao V2 max: 132.4 cm/sec LV V1 max: 99.7 cm/sec MV dec slope: 168.0 cm/sec2 Ao max P.1 mmHg LV V1 max P.0 mmHg Ao V2 mean: 91.9 cm/sec LV V1 mean P.1 mmHg Ao mean P.8 mmHg LV V1 mean: 66.7 cm/sec Ao V2 VTI: 24.8 cm LV V1 VTI: 21.6 cm AV (velocity ratio): 0.87 PA V2 max: 92.7 cm/sec TR max bairon: 266.3 cm/sec TR max P.4 mmHg ECHO/Echo Complete Interpretation Summary Normal LV size. Left ventricular systolic function is normal. The left ventricular ejection fraction is 65 %. Stage 1 diastolic dysfunction. Mild (1+) eccentric mitral valve insufficiency. Ordering Physician: Ángel Westbrook Referring Physician: Pradip Braga Performed By: Alisia Aj RDCS
== END | disposition home or self-care (01) ==
PROVIDERS: PCP Family Medicine; Referring Provider Nurse Practitioner Family; Visit Provider Nurse Practitioner Family
DX: R06.02 Shortness of breath (principal); I48.0 Paroxysmal atrial fibrillation; I25.10 Atherosclerotic heart disease of native coronary artery without angina pectoris; E78.5 Hyperlipidemia, unspecified; R42 Dizziness and giddiness; I10 Essential (primary) hypertension; I44.1 Atrioventricular block, second degree; Z95.0 Presence of cardiac pacemaker
CPT/HCPCS: 93306

== ENCOUNTER 2024-12-27 14:57 | Inpatient (IN) | payer MEDICARE, SELFPAY ==
[2024-12-27] VITALS (12 sets, daily range): BP systolic 120–152; BP diastolic 59–100; PULSE 43–90; RESP 16–19; TEMP 36.4–36.9; O2SAT 93–100; BMI 32.1; BMI 36.6
--- NOTE | 2024-12-27 15:46 | EX.ED.DYSGE1 ---
HPI History of Present Illness Chief Complaint: Palpitations Narrative Narrative: Patient is a 84-year-old female presenting to the emergency department for generalized weakness for the past week. States she feels weak as a kitten. She states that the pacemaker called her yesterday and said that she was in A-fib on Friday. The patient has a past medical history of type 2 diabetes, hypertension, vertigo, dilated cardiomyopathy, paroxysmal A-fib and a flutter, stented coronary artery in 2010, hyperlipidemia, pacemaker placement in 2017. Follows with Dr. Kaiser. She reports that she was sick last week with nausea and vomiting from Friday through Friday which is now resolved. She endorses shortness of breath. Denies any fever, chills, chest pain, abdominal pain, dysuria or hematuria. Brought in by daughter for evaluation. [facility] Medical History Wears partial dentures Wears glasses Anxiety Post-menopausal Insulin dependent diabetes mellitus Diabetes Arthritis High cholesterol Gastric reflux Non-smoker Shortness of breath on exertion History of stress test History of echocardiogram Cardiology follow-up encounter Hx of cardiac pacemaker Hx of recurrent urinary tract infection Choledocholithiasis with cholecystitis Gallstones Debility Back pain Essential hypertension Vertigo Chest pain Ataxia Presence of cardiac pacemaker Second degree AV block Atherosclerosis of [place] coronary artery of [place] heart without angina pectoris Depression Type 2 diabetes mellitus Atherosclerotic heart disease of [place] coronary artery without angina pectoris Angina pectoris Cardiomyopathy, dilated Paroxysmal atrial fibrillation Paroxysmal atrial flutter Fatigue Dyspnea Chest discomfort Abnormal EKG Long-term use of high-risk medication Old myocardial infarction History of atrial fibrillation DM2 (diabetes mellitus, type 2) HLD (hyperlipidemia) Depression CAD (coronary artery disease) Home Medications ?Medication ?Instructions ?Recorded ?Last Taken ?Type ascorbate calcium (vitamin C) 500 500 mg PO DAILY supplement 08/27/19 12/26/24 History mg tablet nitroglycerin 0.4 mg sublingual 0.4 mg sublingual Q5M PRN chest 08/27/19 Unknown Rx tablet (Nitrostat) pain #25 tabs atorvastatin 40 mg tablet 40 mg PO DAILY CHOLESTEROL #90 tabs 10/22/19 12/26/24 Rx cholecalciferol (vitamin D3) 50 50 mcg PO BID supplement 07/10/20 12/27/24 History mcg (2,000 unit) tablet vitamin B complex 1 tab PO DAILY supplement 07/10/20 12/27/24 History insulin glargine 100 unit/mL (3 14 unit subcut DAILY diabetes 12/12/22 12/27/24 History mL) subcutaneous pen (Lantus Solostar U-100 Insulin) glimepiride 4 mg tablet 4 mg PO BID 08/15/23 12/27/24 History coenzyme Q10 100 mg capsule 100 mg PO DAILY 10/03/23 12/27/24 History (CoQ-10) gabapentin 300 mg capsule 300 mg PO BID PRN NERVE PAIN 10/03/23 12/27/24 History acetaminophen 500 mg capsule 1,000 mg PO BID pain 10/28/23 12/27/24 History aspirin 81 mg capsule 81 mg PO DAILY 10/28/23 12/27/24 History buspirone 7.5 mg tablet 7.5 mg PO BID 12/27/24 12/27/24 History duloxetine 60 mg capsule,delayed 60 mg PO DAILY 12/27/24 12/26/24 History release Allergy/AdvReac Type Severity Reaction Status Date / Time amoxicillin Allergy Intermediate Rash Verified 12/27/24 15:00 latex Allergy Intermediate Other Verified 12/27/24 15:00 Sulfa (Sulfonamide Allergy Rash Verified 12/27/24 15:00 Antibiotics) tizanidine (From Zanaflex) AdvReac Other Verified 12/27/24 15:00 Family History Mother CAD (coronary artery disease) Sister , age 73 Atrial fibrillation Sister , Age 68 CAD (coronary artery disease) COPD (chronic obstructive pulmonary disease) Surgical History S/P laparoscopic cholecystectomy History of ERCP Pacemaker (~12/05/17) History of right cataract surgery History of left cataract surgery History of bilateral knee replacement Status post ablation of atrial fibrillation (~2002) History of foot surgery Presence of stent in coronary artery (~08/2010) Social History Smoking Status: Never smoker alcohol intake: never substance use type: does not use caffeine: Yes Type: coffee Number of servings: 2 ROS ROS ED ROS Narrative see HPI EXAM Physical Exam Narrative Exam Narrative: Vital signs: Reviewed General: Alert and oriented x 3. No acute distress HEENT: Head is normocephalic and atraumatic, sinuses nontender, pupils equal round and reactive. Nares are patent. Oropharynx and throat exams normal. Neck: Supple without lymphadenopathy nontender Cardiovascular: Regular rate and rhythm, no murmurs. No rubs or gallops. Normal S1 and S2 Respiratory: Clear to auscultation bilaterally. No wheezes, rales, rhonchi Abdominal: Soft and nontender. Normal bowel sounds. No guarding or rebound. Nonsurgical abdomen Extremities: No tenderness. No bruising. Normal range of motion. Normal sensation. Skin: No rash or redness. Neurological: Cranial nerves II through XII are grossly intact. Normal strength and sensation. Normal cerebellar function The rest of the physical exam is unremarkable Const Vital Signs: 12/27/24 14:57 12/27/24 15:57 12/27/24 16:00 Temperature 98.4 F Temperature Source Oral Pulse Rate 88 90 81 Respiratory Rate 16 17 16 Respiratory Effort Blood Pressure 141/60 H 139/100 H 135/65 H Blood Pressure Mean 87 113 88 Pulse Ox 96 98 96 Oxygen Delivery Method Room Air Room Air Room Air 12/27/24 16:01 12/27/24 17:00 12/27/24 18:00 Temperature Temperature Source Pulse Rate 75 74 Respiratory Rate 16 Respiratory Effort Normal Non-Labored Blood Pressure 120/82 H 152/80 H Blood Pressure Mean 94 104 Pulse Ox 99 100 Oxygen Delivery Method Room Air Room Air 12/27/24 19:00 12/27/24 20:00 12/27/24 21:00 Temperature Temperature Source Pulse Rate 60 69 67 Respiratory Rate 19 H 18 Respiratory Effort Blood Pressure 148/64 H 146/74 H 144/63 H Blood Pressure Mean 92 98 90 Pulse Ox 96 99 99 Oxygen Delivery Method Room Air Room Air Room Air 12/27/24 22:00 12/27/24 22:07 12/27/24 22:08 Temperature 97.6 F L 97.6 F L Temperature Source Oral Pulse Rate 72 72 72 Respiratory Rate 16 16 16 Respiratory Effort Blood Pressure 132/59 H 132/59 H 132/59 H Blood Pressure Mean 83 83 83 Pulse Ox 97 97 97 Oxygen Delivery Method Room Air Room Air MDM MDM MDM Narrative Medical decision making narrative: Patient is a 84-year-old female presenting to the emergency department for generalized weakness. Patient was seen and examined. Patient resting bed comfortably no acute distress. Differential includes but is not limited to: ACS, pacemaker malfunction, CHF, UTI, electrolyte imbalance CBC with no leukocytosis and a normal hemoglobin. BMP with mildly elevated BUN at 28 otherwise no significant normalities. Magnesium within normal limits. BNP within normal limits. Troponins of 34, 32, 37. Urinalysis with evidence of urinary tract infection. Patient started on Rocephin for coverage of her urinary tract infection. Chest x-ray reviewed and shows evidence of pulmonary vascular congestion. Radiology read with extensive pulmonary edema. Underlying focal consolidation not excluded with mild cardiomegaly. Pacemaker was interrogated and she is going in and out of A-fib. She is not on any current oral anticoagulation. This will be started. I did speak with Dr. Dubon, cardiology, due to my concern for possible cardiac cause of her fatigue and weakness given the new findings of pulmonary vascular congestion, mildly elevated troponin and findings of new A-fib. He had no specific recommendations. Given the patient's age and symptoms of fatigue and generalized weakness with evidence of UTI, and new atrial fibrillation, I recommend admission for further management. Daughter states that she would not feel comfortable taking the patient home otherwise. Patient admitted to Dr. Braga for further management. Clinical impression: Generalized weakness Elevated troponin new A fib UTI History & Record Review Discussion w/independent historian: Patient and Family Lab Data Attestation: I reviewed the patient's lab results. Labs: Laboratory Results - last 24 hr 12/27/24 12/27/24 12/27/24 15:54 16:40 17:54 WBC 6.5 RBC 4.33 Hgb 12.8 Hct 39.4 MCV 91.0 MCH 29.6 MCHC 32.5 RDW Std Deviation 44.4 H RDW Coeff of Gerry 13.2 Plt Count 215 MPV 10.3 Immature Gran % (Auto) 0.300 Neut % (Auto) 63.3 Lymph % (Auto) 22.1 [place] % (Auto) 10.6 H Eos % (Auto) 2.6 Baso % (Auto) 1.1 H Absolute Neuts (auto) 4.1 Absolute Lymphs (auto) 1.44 Nucleated RBC % 0 Sodium 143 Potassium 4.1 Chloride 105 Carbon Dioxide 28.2 Anion Gap 9 BUN 28 H Creatinine 0.95 Estim Creat Clear Calc 48.21 L Est GFR (MDRD) Non-Af 59 L BUN/Creatinine Ratio 29.5 H Glucose 183 H Calcium 9.2 Magnesium 1.8 Troponin T High Sens 34 H Troponin T Hi Sens 2 Hr 32 H Troponin T Hi Sens 4Hr NT pro BNP II 431 Urine Color Yellow Urine Clarity Clear Urine pH 5.0 Ur Specific [place] 1.025 Urine Protein 30 H Urine Glucose (UA) 50 H Urine Ketones Negative Urine Occult Blood Negative Urine Nitrite Positive H Urine Bilirubin Negative Urine Urobilinogen Normal Ur Leukocyte Esterase 100 H Urine RBC 0-5 SEEN Urine WBC 25-50 SEEN Ur Squamous Epith Cells 0-5 SEEN Urine Bacteria 4+ Urine Mucus 0 SEEN 12/27/24 20:01 WBC RBC Hgb Hct MCV MCH MCHC RDW Std Deviation RDW Coeff of Gerry Plt Count MPV Immature Gran % (Auto) Neut % (Auto) Lymph % (Auto) [place] % (Auto) Eos % (Auto) Baso % (Auto) Absolute Neuts (auto) Absolute Lymphs (auto) Nucleated RBC % Sodium Potassium Chloride Carbon Dioxide Anion Gap BUN Creatinine Estim Creat Clear Calc Est GFR (MDRD) Non-Af BUN/Creatinine Ratio Glucose Calcium Magnesium Troponin T High Sens Troponin T Hi Sens 2 Hr Troponin T Hi Sens 4Hr 37 H NT pro BNP II Urine Color Urine Clarity Urine pH Ur Specific [place] Urine Protein Urine Glucose (UA) Urine Ketones Urine Occult Blood Urine Nitrite Urine Bilirubin Urine Urobilinogen Ur Leukocyte Esterase Urine RBC Urine WBC Ur Squamous Epith Cells Urine Bacteria Urine Mucus Radiography Diagnostic Testing: Clinical Impression(s) from Imaging Studies Chest X-Ray 12/27/24 16:08 IMPRESSION: Extensive pulmonary edema. Underlying focal consolidation not excluded.Mild cardiomegaly. Reading Location: [id number] Discharge Plan Disposition Disposition: Acute Care Hospital [facility] Discharge Date/Time: 12/27/24 23:02
[2024-12-27] MEDS: 0.9% Normal Saline (1000mL) 1,000 ML 1000 ML IV (16:00)
--- NOTE | 2024-12-27 16:08 | RAD_ITS ---
PROCEDURE: RAD/Chest PA and Lateral
[2024-12-27 16:14] LABS: Hematocrit 39.4 % (37-47); Hemoglobin 12.8 g/dL (12.0-15.0); Immature Granulocytes Count 0.020 X10^3/uL (0.0-0.0); Mean Corp Hgb Conc 32.5 g/dL (32-36); Mean Corpuscular Volume 91.0 fL (81-99); Mean Platelet Vol. 10.3 fl (6.2-12.0); NRBC Flagged by Analyzer 0 % (0-5); Platelet Count 215 K/mm3 (150-450); RBC Distribution Width CV 13.2 % (11.6-14.6); RBC Distribution Width SD 44.4 fl (35.1-43.9); Red Blood Count 4.33 M/mm3 (4.2-5.4); White Blood Count 6.5 K/mm3 (4.4-11.0)
[2024-12-27 16:35] LABS: Anion Gap 9 (5-15); BUN 28 mg/dL (4-19); BUN/Creat Ratio 29.5 RATIO (10-20); Calcium,Total 9.2 mg/dL (7.6-11.0); Carbon Dioxide 28.2 mmol/L (21.0-32.0); Chloride 105 mmol/L (98-108); Estimated Creatinine Clearance 48.21 ml/min (50-250); Glucose 183 mg/dL (70-99); Magnesium 1.8 mg/dL (1.5-2.2); Potassium 4.1 mmol/L (3.3-5.1)
[2024-12-27 16:38] LABS: Troponin T High Sensitivity 34 ng/L (<=14)
[2024-12-27 16:44] LABS: Mucous, Urine 0 SEEN /hpf (<or=2+)
[2024-12-27 16:55] LABS: Color, Urine Yellow (Yellow); Glucose, Dipstick 50 mg/dl (Normal); Ketone-Dipstick Negative (Negative); Leukocyte Esterase-Dipstick 100 /ul (Negative); Nitrite-Dipstick Positive (Negative); Occult Blood-Urine Negative /ul (Negative); Protein-Dipstick 30 mg/dl (Negative); Specific Gravity, Urine 1.025 (1.002-1.030); Urine Bilirubin Dipstick Negative (Negative)
[2024-12-27 17:13] LABS: Red Blood Cells-Urine 0-5 SEEN /hpf (0-5)
[2024-12-27 17:17] LABS: Squamous Epithelial Cells - UA 0-5 SEEN /hpf (5-10)
[2024-12-27] MEDS: Furosemide 20 MG/2 ML VIAL IV (17:47)
[2024-12-27 18:04] LABS: Pro- Brain NATRIURETIC PEPTIDE 431 pg/mL (<=1800)
[2024-12-27 18:39] LABS: Troponin T High Sens 2 HR 32 ng/L (<=14)
[2024-12-27 20:30] LABS: Troponin T High Sens 4 HR 37 ng/L (<=14)
--- NOTE | 2024-12-27 21:59 | PCM.HP.STD ---
[facility] - General General Date of Admission: 12/27/24 Date of Service: 12/27/24 Chief Complaint: Generalized weakness, palpitations [facility] Narrative JERROD SALAZAR, is a 84 F who presents to the emergency room with chief complaint of generalized weakness. She states she began having nausea and vomiting this past Friday which progressed to diarrhea through the week into and has subsequently been feeling weak and low energy. She has also complained of new onset of palpitations. Patient does have have a past medical history of type 2 diabetes, hypertension, vertigo, dilated cardiomyopathy, paroxysmal atrial fibs and flutter with history of coronary artery stent in 2010, hyperlipidemia, pacemaker placed in 2018 and is seen by cardiology. Patient denies any fevers or chills, chest pain but is having some periodic shortness of breath. Laboratory studies reveal white blood cell count of 6.5, hemoglobin 12.8, hematocrit 39.4, platelets 215, sodium 143, potassium 4.1, chloride 105, bicarb 20.2, BUN 20, creatinine 0.95, magnesium 1.8, troponin 34, 32, 37, pro BN TP 431, UA positive nitrates, chest x-ray positive for extensive pulmonary edema, negative for pneumonia. Patient has expressed wishes to be DNR Comfort Care arrest and patient is well-known to me. Pacemaker was interrogated in the emergency room and found to be in and out of atrial fibrillation. [facility] Medical History Wears partial dentures Wears glasses Anxiety Post-menopausal Insulin dependent diabetes mellitus Diabetes Arthritis High cholesterol Gastric reflux Non-smoker Shortness of breath on exertion History of stress test History of echocardiogram Cardiology follow-up encounter Hx of cardiac pacemaker Hx of recurrent urinary tract infection Choledocholithiasis with cholecystitis Gallstones Debility Back pain Essential hypertension Vertigo Chest pain Ataxia Presence of cardiac pacemaker Second degree AV block Atherosclerosis of [place] coronary artery of [place] without angina pectoris Depression Type 2 diabetes mellitus Atherosclerotic heart disease of [place] artery without angina pectoris Angina pectoris Cardiomyopathy, dilated Paroxysmal atrial fibrillation Paroxysmal atrial flutter Fatigue Dyspnea Chest discomfort Abnormal EKG Long-term use of high-risk medication Old myocardial infarction History of atrial fibrillation DM2 (diabetes mellitus, type 2) HLD (hyperlipidemia) Depression CAD (coronary artery disease) Home Medications ?Medication ?Instructions ?Recorded ?Last Taken ?Type ascorbate calcium (vitamin C) 500 500 mg PO DAILY supplement 08/27/19 12/26/24 History mg tablet nitroglycerin 0.4 mg sublingual 0.4 mg sublingual Q5M PRN chest 08/27/19 Unknown Rx tablet (Nitrostat) pain #25 tabs atorvastatin 40 mg tablet 40 mg PO DAILY CHOLESTEROL #90 tabs 10/22/19 12/26/24 Rx cholecalciferol (vitamin D3) 50 50 mcg PO BID supplement 07/10/20 12/27/24 History mcg (2,000 unit) tablet vitamin B complex 1 tab PO DAILY supplement 07/10/20 12/27/24 History insulin glargine 100 unit/mL (3 14 unit subcut DAILY diabetes 12/12/22 12/27/24 History mL) subcutaneous pen (Lantus Solostar U-100 Insulin) glimepiride 4 mg tablet 4 mg PO BID 08/15/23 12/27/24 History coenzyme Q10 100 mg capsule 100 mg PO DAILY 10/03/23 12/27/24 History (CoQ-10) gabapentin 300 mg capsule 300 mg PO BID PRN NERVE PAIN 10/03/23 12/27/24 History acetaminophen 500 mg capsule 1,000 mg PO BID pain 10/28/23 12/27/24 History aspirin 81 mg capsule 81 mg PO DAILY 10/28/23 12/27/24 History buspirone 7.5 mg tablet 7.5 mg PO BID 12/27/24 12/27/24 History duloxetine 60 mg capsule,delayed 60 mg PO DAILY 12/27/24 12/26/24 History release Allergy/AdvReac Type Severity Reaction Status Date / Time amoxicillin Allergy Intermediate Rash Verified 12/27/24 15:00 latex Allergy Intermediate Other Verified 12/27/24 15:00 Sulfa (Sulfonamide Allergy Rash Verified 12/27/24 15:00 Antibiotics) tizanidine (From Zanaflex) AdvReac Other Verified 12/27/24 15:00 Family History Mother CAD (coronary artery disease) Sister , age 73 Atrial fibrillation Sister , Age 68 CAD (coronary artery disease) COPD (chronic obstructive pulmonary disease) Surgical History S/P laparoscopic cholecystectomy History of ERCP Pacemaker (~12/05/17) History of right cataract surgery History of left cataract surgery History of bilateral knee replacement Status post ablation of atrial fibrillation (~2002) History of foot surgery Presence of stent in coronary artery (~08/2010) Social History Smoking Status: Never smoker alcohol intake: never substance use type: does not use caffeine: Yes Type: coffee Number of servings: 2 ROS Constitutional Constitutional: Reports fatigue and weakness; Denies chills or fever(s) Eyes Eyes: Denies blurry vision ENT HEENT: Denies abnormal hearing Cardiovascular Cardiovascular: Reports palpitations; Denies chest pain Respiratory/Chest Respiratory/Chest: Denies cough Gastrointestinal Gastrointestinal: Reports diarrhea, nausea and vomiting Genitourinary Genitourinary: Denies dysuria Musculoskeletal Musculoskeletal: Denies back pain Integumentary Integumentary: Denies dry skin Neurologic Neurologic: Denies abnormal speech Psychiatric Psychiatric: Denies anxiety or depression Hematologic/Lymphatic Hematologic/Lymphatic: Denies anemia Vital Signs Vital Signs Vital Signs: 12/27/24 14:57 12/27/24 15:57 12/27/24 16:00 Temperature 98.4 F Temperature Source Oral Pulse Rate 88 90 81 Respiratory Rate 16 17 16 Respiratory Effort Blood Pressure 141/60 H 139/100 H 135/65 H Blood Pressure Mean 87 113 88 Pulse Ox 96 98 96 Oxygen Delivery Method Room Air Room Air Room Air 12/27/24 16:01 12/27/24 17:00 12/27/24 18:00 Temperature Temperature Source Pulse Rate 75 74 Respiratory Rate 16 Respiratory Effort Normal Non-Labored Blood Pressure 120/82 H 152/80 H Blood Pressure Mean 94 104 Pulse Ox 99 100 Oxygen Delivery Method Room Air Room Air 12/27/24 19:00 12/27/24 20:00 12/27/24 21:00 Temperature Temperature Source Pulse Rate 60 69 67 Respiratory Rate 19 H 18 Respiratory Effort Blood Pressure 148/64 H 146/74 H 144/63 H Blood Pressure Mean 92 98 90 Pulse Ox 96 99 99 Oxygen Delivery Method Room Air Room Air Room Air Weight Weight: 193 lb 5.526 oz Body Mass Index (BMI) 32.1 Physical Exam Const alert, oriented x3 and no apparent distress Constitutional Narrative: Appears fatigued HEENT normocephalic and head/scalp atraumatic Eyes PERRL Neck no lymphadenopathy Lymph Lymphatic: no lymphadenopathy noted Resp normal respiratory effort, normal air movement and clear to auscultation bilaterally Cardio regular rate, regular rhythm, S1 normal heart sound, S2 normal heart sound and no murmurs GI normal to inspection, nondistended, normoactive bowel sounds Extremity normal capillary refill General Extremity: Negative for edema Skin General Skin Exam: no breakdown Neuro CN's II-XII intact bilaterally Speech: speech normal Motor Exam: general weakness Psych thought process normal, cooperative and affect normal Results Lab / Micro Data 12/27/24 15:54 12/27/24 15:54 Labs: Laboratory Results - last 24 hr 12/27/24 15:54: WBC 6.5, RBC 4.33, Hgb 12.8, Hct 39.4, MCV 91.0, MCH 29.6, MCHC 32.5, RDW Std Deviation 44.4 H, RDW Coeff of Gerry 13.2, Plt Count 215, MPV 10.3, Immature Gran % (Auto) 0.300, Neut % (Auto) 63.3, Lymph % (Auto) 22.1, [place] % (Auto) 10.6 H, Eos % (Auto) 2.6, Baso % (Auto) 1.1 H, Absolute Neuts (auto) 4.1, Absolute Lymphs (auto) 1.44, Nucleated RBC % 0, Sodium 143, Potassium 4.1, Chloride 105, Carbon Dioxide 28.2, Anion Gap 9, BUN 28 H, Creatinine 0.95, Estim Creat Clear Calc 48.21 L, Est GFR (MDRD) Non-Af 59 L, BUN/Creatinine Ratio 29.5 H, Glucose 183 H, Calcium 9.2, Magnesium 1.8, Troponin T High Sens 34 H, NT pro BNP II 431 12/27/24 16:40: Urine Color Yellow, Urine Clarity Clear, Urine pH 5.0, Ur Specific [place] 1.025, Urine Protein 30 H, Urine Glucose (UA) 50 H, Urine Ketones Negative, Urine Occult Blood Negative, Urine Nitrite Positive H, Urine Bilirubin Negative, Urine Urobilinogen Normal, Ur Leukocyte Esterase 100 H, Urine RBC 0-5 SEEN, Urine WBC 25-50 SEEN, Ur Squamous Epith Cells 0-5 SEEN, Urine Bacteria 4+, Urine Mucus 0 SEEN 12/27/24 17:54: Troponin T Hi Sens 2 Hr 32 H 12/27/24 20:01: Troponin T Hi Sens 4Hr 37 H Micro: Microbiology 12/27/24 15:53 Mucosa - Nose SARS-CoV-2, Influenza & RSV (PCR) - Final Imaging Radiology Impression Chest X-Ray 12/27/24 16:08 IMPRESSION: Extensive pulmonary edema. Underlying focal consolidation not excluded.Mild cardiomegaly. Reading Location: [facility] Assessment & Plan Assessment/Plan (1) Presence of cardiac pacemaker: (2) Essential hypertension: (3) DM2 (diabetes mellitus, type 2): (4) Atherosclerosis of [place] coronary artery of [place] heart without angina pectoris: (5) Paroxysmal atrial fibrillation: PLAN: Plan 1 generalized weakness?secondary to gastroenteritis infection patient continues to have poor p.o. intake and hydration. She is now able to tolerate oral hydration and regular diet and will encourage p.o. intake over IV hydration due to chest x-ray findings of pulmonary edema. Will consult physical therapy for assistance with strengthening, will add Zofran as needed for any nausea 2. Paroxysmal atrial fibrillation?patient request consult with Dr. Kaiser, will initiate anticoagulation therapy. Patient's rate is controlled with her pacemaker at present time 3. Diabetes?check an A1c, repeat BMP in the a.m. 4. Urinary tract infection?Rocephin 1 g IV every 24 hours 5. History of hypertension?controlled will continue routine home medications at this time 6. DVT prophylaxis?patient will be placed on anticoagulation with Eliquis 7. CODE STATUS?DNR Comfort Care arrest discussed with patient Charges/Coding Visit Charges Inpatient E&M: 39846 Init Hosp L2
[2024-12-28 05:00] VITALS: BP 123/66; PULSE 74; RESP 16; TEMP 36.7; O2SAT 96
[2024-12-28 05:49] LABS: Hematocrit 36.1 % (37-47); Hemoglobin 11.9 g/dL (12.0-15.0); Immature Granulocytes Count 0.020 X10^3/uL (0.0-0.0); Mean Corp Hgb Conc 33.0 g/dL (32-36); Mean Corpuscular Volume 90.0 fL (81-99); Mean Platelet Vol. 10.2 fl (6.2-12.0); NRBC Flagged by Analyzer 0 % (0-5); Platelet Count 201 K/mm3 (150-450); RBC Distribution Width CV 13.2 % (11.6-14.6); RBC Distribution Width SD 43.7 fl (35.1-43.9); Red Blood Count 4.01 M/mm3 (4.2-5.4); White Blood Count 7.9 K/mm3 (4.4-11.0)
[2024-12-28 06:25] LABS: AST(SGOT) 17 U/L (<=31); Alanine Aminotransfer ALT/SGPT 12 U/L (<=34); Albumin, Serum 3.5 g/dL (3.4-4.8); Alkaline Phosphatase 59 U/L (35-104); Anion Gap 9 (5-15); BUN 23 mg/dL (4-19); BUN/Creat Ratio 24.2 RATIO (10-20); Calcium,Total 8.8 mg/dL (7.6-11.0); Carbon Dioxide 28.7 mmol/L (21.0-32.0); Chloride 105 mmol/L (98-108); Estimated Creatinine Clearance 42.66 ml/min (50-250); Globulin 2.4 g/dL (2.2-4.2); Glucose 81 mg/dL (70-99); Potassium 3.7 mmol/L (3.3-5.1)
[2024-12-28 09:36] VITALS: BP 133/65; PULSE 91; RESP 16; TEMP 36.1; O2SAT 93
[2024-12-28] MEDS: Vitamin B Comp W-C Capsule 1 CAP PO (09:43)
[2024-12-28] MEDS: Cholecalciferol (VIT D3) 25 MCG TABLET (1,000 UNITS) 50 MCG PO ×2 (09:43→20:24)
[2024-12-28] MEDS: APIXABAN 2.5 MG TABLET (WCH) PO (09:43)
[2024-12-28] MEDS: Insulin Glargine-YFGN 100 UNIT/ML Pen 14 UNIT SC (09:44)
--- NOTE | 2024-12-28 10:19 | CASEMGMT ---
Social Work SW spoke with the . The reported the DC plan is for home unless she is not able to care for him. [facility]. The is considering hospice. [facility] [place]
--- NOTE | 2024-12-28 10:51 | PCM.CONS.C ---
Assessment & Plan Assessment/Plan (1) Paroxysmal atrial fibrillation: PLAN: Already started on low-dose apixaban. Discussed with patient and her daughter in detail about risks and benefits of long-term oral anticoagulation. It is noted that she has history of occasional falls. Per patient, she will try to be more careful when she walks. We will also get her help with PT/OT. Both patient and her daughter expressed their wish to continue anticoagulation to reduce thromboembolic risk. Started on beta-blockers. (2) Presence of cardiac pacemaker: PLAN: Periodic pacemaker interrogation. (3) History of coronary artery disease: PLAN: Apixaban. Start on beta-blockers. (4) DM2 (diabetes mellitus, type 2): PLAN: As per internal medicine. HPI Consult Data Date of Consult: 12/28/24 HPI Narrative Reason for Consultation: New onset atrial fibrillation HPI Narrative: 84-year-old female with past medical history significant for sick sinus syndrome, dyslipidemia and diabetes mellitus. She presented to the hospital with complaints of generalized weakness and fatigue. She has been diagnosed with gastroenteritis and a UTI and being treated for these. As part of her workup, her permanent pacemaker was also interrogated. It revealed paroxysms of atrial fibrillation. Patient complains of intermittent palpitations for the past some time. Denies any chest pains or shortness of breath. No orthopnea or PND. No ankle edema. Denies any history of CVA or TIA. Denies any bleeding disorders. According to the patient, she has occasional falls. [facility] Medical History Wears partial dentures Wears glasses Anxiety Post-menopausal Insulin dependent diabetes mellitus Diabetes Arthritis High cholesterol Gastric reflux Non-smoker Shortness of breath on exertion History of stress test History of echocardiogram Cardiology follow-up encounter Hx of cardiac pacemaker Hx of recurrent urinary tract infection Choledocholithiasis with cholecystitis Gallstones Debility Back pain Essential hypertension Vertigo Chest pain Ataxia Presence of cardiac pacemaker Second degree AV block Atherosclerosis of [place] coronary artery of [place] heart without angina pectoris Depression Type 2 diabetes mellitus Atherosclerotic heart disease of [place] coronary artery without angina pectoris Angina pectoris Cardiomyopathy, dilated Paroxysmal atrial fibrillation Paroxysmal atrial flutter Fatigue Dyspnea Chest discomfort Abnormal EKG Long-term use of high-risk medication Old myocardial infarction History of atrial fibrillation DM2 (diabetes mellitus, type 2) HLD (hyperlipidemia) Depression CAD (coronary artery disease) Home Medications ?Medication ?Instructions ?Recorded ?Last Taken ?Type ascorbate calcium (vitamin C) 500 500 mg PO DAILY supplement 08/27/19 12/26/24 History mg tablet nitroglycerin 0.4 mg sublingual 0.4 mg sublingual Q5M PRN chest 08/27/19 Unknown Rx tablet (Nitrostat) pain #25 tabs atorvastatin 40 mg tablet 40 mg PO DAILY CHOLESTEROL #90 tabs 10/22/19 12/26/24 Rx cholecalciferol (vitamin D3) 50 50 mcg PO BID supplement 07/10/20 12/27/24 History mcg (2,000 unit) tablet vitamin B complex 1 tab PO DAILY supplement 07/10/20 12/27/24 History insulin glargine 100 unit/mL (3 14 unit subcut DAILY diabetes 12/12/22 12/27/24 History mL) subcutaneous pen (Lantus Solostar U-100 Insulin) glimepiride 4 mg tablet 4 mg PO BID 08/15/23 12/27/24 History coenzyme Q10 100 mg capsule 100 mg PO DAILY 10/03/23 12/27/24 History (CoQ-10) gabapentin 300 mg capsule 300 mg PO BID PRN NERVE PAIN 10/03/23 12/27/24 History acetaminophen 500 mg capsule 1,000 mg PO BID pain 10/28/23 12/27/24 History aspirin 81 mg capsule 81 mg PO DAILY 10/28/23 12/27/24 History buspirone 7.5 mg tablet 7.5 mg PO BID 12/27/24 12/27/24 History duloxetine 60 mg capsule,delayed 60 mg PO DAILY 12/27/24 12/26/24 History release Allergy/AdvReac Type Severity Reaction Status Date / Time amoxicillin Allergy Intermediate Rash Verified 12/27/24 15:00 latex Allergy Intermediate Other Verified 12/27/24 15:00 Sulfa (Sulfonamide Allergy Rash Verified 12/27/24 15:00 Antibiotics) tizanidine (From Zanaflex) AdvReac Other Verified 12/27/24 15:00 Family History Mother CAD (coronary artery disease) Sister , age 73 Atrial fibrillation Sister , Age 68 CAD (coronary artery disease) COPD (chronic obstructive pulmonary disease) Surgical History S/P laparoscopic cholecystectomy History of ERCP Pacemaker (~12/05/17) History of right cataract surgery History of left cataract surgery History of bilateral knee replacement Status post ablation of atrial fibrillation (~2002) History of foot surgery Presence of stent in coronary artery (~08/2010) Social History Smoking Status: Never smoker alcohol intake: never substance use type: does not use caffeine: Yes Type: coffee Number of servings: 2 Physical Exam Narrative Comfortable. Lying flat in the bed. No apparent distress. Heart sounds 1 and 2 normal. Chest clear to auscultation bilaterally. Alert oriented x 3. No ankle edema. Objective Data Vital Signs: Vital Signs Temp Pulse Resp BP Pulse Ox O2 Del Method 96.9 F L 91 16 133/65 H 93 Room Air 12/28/24 09:36 12/28/24 09:36 12/28/24 09:36 12/28/24 09:36 12/28/24 09:36 12/28/24 09:36 Oxygen Delivery Method Room Air Weight: 187 lb 6.287 oz Body Mass Index (BMI) 36.6 Intake & Output: Intake and Output for Last 24 Hours 12/26/24 12/27/24 12/28/24 23:59 23:59 23:59 Intake Total 1050 / 1050 Output Total 300 / 300 Balance 1050 / 1050 -300 / -300 Lab / Micro Data Attestation: I reviewed the patient's lab results. 12/28/24 05:32 12/28/24 05:32 Labs: Laboratory Results - last 24 hr 12/27/24 15:54: WBC 6.5, RBC 4.33, Hgb 12.8, Hct 39.4, MCV 91.0, MCH 29.6, MCHC 32.5, RDW Std Deviation 44.4 H, RDW Coeff of Gerry 13.2, Plt Count 215, MPV 10.3, Immature Gran % (Auto) 0.300, Neut % (Auto) 63.3, Lymph % (Auto) 22.1, [place] % (Auto) 10.6 H, Eos % (Auto) 2.6, Baso % (Auto) 1.1 H, Absolute Neuts (auto) 4.1, Absolute Lymphs (auto) 1.44, Nucleated RBC % 0, Sodium 143, Potassium 4.1, Chloride 105, Carbon Dioxide 28.2, Anion Gap 9, BUN 28 H, Creatinine 0.95, Estim Creat Clear Calc 48.21 L, Est GFR (MDRD) Non-Af 59 L, BUN/Creatinine Ratio 29.5 H, Glucose 183 H, Calcium 9.2, Magnesium 1.8, Troponin T High Sens 34 H, NT pro BNP II 431 12/27/24 16:40: Urine Color Yellow, Urine Clarity Clear, Urine pH 5.0, Ur Specific [place] 1.025, Urine Protein 30 H, Urine Glucose (UA) 50 H, Urine Ketones Negative, Urine Occult Blood Negative, Urine Nitrite Positive H, Urine Bilirubin Negative, Urine Urobilinogen Normal, Ur Leukocyte Esterase 100 H, Urine RBC 0-5 SEEN, Urine WBC 25-50 SEEN, Ur Squamous Epith Cells 0-5 SEEN, Urine Bacteria 4+, Urine Mucus 0 SEEN 12/27/24 17:54: Troponin T Hi Sens 2 Hr 32 H 12/27/24 20:01: Troponin T Hi Sens 4Hr 37 H 12/28/24 05:32: WBC 7.9, RBC 4.01 L, Hgb 11.9 L, Hct 36.1 L, MCV 90.0, MCH 29.7, MCHC 33.0, RDW Std Deviation 43.7, RDW Coeff of Gerry 13.2, Plt Count 201, MPV 10.2, Immature Gran % (Auto) 0.300, Neut % (Auto) 58.3, Lymph % (Auto) 25.5, [place] % (Auto) 11.2 H, Eos % (Auto) 3.7, Baso % (Auto) 1.0, Absolute Neuts (auto) 4.6, Absolute Lymphs (auto) 2.01, Nucleated RBC % 0, Sodium 143, Potassium 3.7, Chloride 105, Carbon Dioxide 28.7, Anion Gap 9, BUN 23 H, Creatinine 0.95, Estim Creat Clear Calc 42.66 L, Est GFR (MDRD) Non-Af 59 L, BUN/Creatinine Ratio 24.2 H, Glucose 81, Calcium 8.8, Total Bilirubin 0.29, AST 17, ALT 12, Alkaline Phosphatase 59, Total Protein 5.9, Albumin 3.5, Globulin 2.4, Albumin/Globulin Ratio 1.5 Micro: Microbiology 12/27/24 15:53 Mucosa - Nose SARS-CoV-2, Influenza & RSV (PCR) - Final Cardiology Labs/Tests 12/27/24 15:54: WBC 6.5, RBC 4.33, Hgb 12.8, Hct 39.4, MCV 91.0, MCH 29.6, MCHC 32.5, Plt Count 215, MPV 10.3, Immature Gran % (Auto) 0.300, Neut % (Auto) 63.3, Lymph % (Auto) 22.1, [place] % (Auto) 10.6 H, Eos % (Auto) 2.6, Baso % (Auto) 1.1 H, Absolute Neuts (auto) 4.1, Nucleated RBC % 0, Sodium 143, Potassium 4.1, Chloride 105, Carbon Dioxide 28.2, Anion Gap 9, BUN 28 H, Creatinine 0.95, Est GFR (MDRD) Non-Af 59 L, BUN/Creatinine Ratio 29.5 H, Glucose 183 H, Calcium 9.2, Magnesium 1.8 12/27/24 16:40: Urine Color Yellow, Urine Clarity Clear, Urine pH 5.0, Ur Specific [place] 1.025, Urine Protein 30 H, Urine Glucose (UA) 50 H, Urine Ketones Negative, Urine Occult Blood Negative, Urine Nitrite Positive H, Urine Bilirubin Negative, Urine Urobilinogen Normal, Ur Leukocyte Esterase 100 H, Urine RBC 0-5 SEEN, Urine WBC 25-50 SEEN 12/28/24 05:32: WBC 7.9, RBC 4.01 L, Hgb 11.9 L, Hct 36.1 L, MCV 90.0, MCH 29.7, MCHC 33.0, Plt Count 201, MPV 10.2, Immature Gran % (Auto) 0.300, Neut % (Auto) 58.3, Lymph % (Auto) 25.5, [place] % (Auto) 11.2 H, Eos % (Auto) 3.7, Baso % (Auto) 1.0, Absolute Neuts (auto) 4.6, Nucleated RBC % 0, Sodium 143, Potassium 3.7, Chloride 105, Carbon Dioxide 28.7, Anion Gap 9, BUN 23 H, Creatinine 0.95, Est GFR (MDRD) Non-Af 59 L, BUN/Creatinine Ratio 24.2 H, Glucose 81, Calcium 8.8, Total Bilirubin 0.29 Rhythm: EKG: A sensed, V paced ECHO: Stress Test: Cardiac Cath: PCI: CT Surgery: Holter monitor: EPS: PPM: CXR: Chest CT Scan: Radiography Diagnostic Testing: Radiology Impression Chest X-Ray 12/27/24 16:08 IMPRESSION: Extensive pulmonary edema. Underlying focal consolidation not excluded.Mild cardiomegaly. Reading Location: [id number] Risk Score for UA/STEMI Assesmment (YES = 1) Risk Stratification Applicable: No
[2024-12-28 13:13] VITALS: BP 135/78; PULSE 94; RESP 16; TEMP 36.6; O2SAT 95
--- NOTE | 2024-12-28 13:25 | CASEMGMT ---
RENEA SULLIVAN Face to Face with patient for initial transition planning/care coordination assessment. RENEA SULLIVAN introduced self and role at [facility]. Patient lying in bed, alert and oriented. Patient willing to participate in assessment and is able to answer all questions appropriately. Care providers, pharmacy, and demographics verified. Strata: 2 PCP: Omi Specialists: Amaya, impact hammer operator Preferred Pharmacy: [facility] Insurance: [facility] Prescription Benefit: yes Living Will/HPOA: yes, daughter Salud LNOK: daughter, son Living Arrangements: Patient lives alone in a 2 story home with bed and bath on first floor. Patient states she is independent at home. Transportation: daughter or DIL DME/HHC: Patient has shower chair, raised toilet, cane, walker, grab bars at home. Patient has been to [facility] in the past. Patient has had [facility] in the past. Patient states at first that she would like to go to rehab somewhere so she can have people to talk to. RENEA SULLIVAN reviewed progress with therapy, patient ambulated 210 ft modified independent and no therapy recommended at discharge. RN NATE explained to patient that her insurance would not approve for patient to go to SNF/RU and would have to privately pay, patient voiced understanding. RN NATE discussed HHC vs outpatient therapy. Patient states she would like HHC and [facility] again because she like how they would visit her and do all her cooking and cleaning. Patient states that her daughter is helping with discharge planning, permission given to this RN CM to call daughter to discuss discharge planning. Patient states she has no further needs or concerns at this time. CM to follow for discharge planning needs that may arise. Disposition Plan: TBD, anticipate patient to discharge home with family support and follow-up plans in place, will monitor for HHC. Ngozi LOCKHART, RN, CM
--- NOTE | 2024-12-28 15:11 | CASEMGMT ---
RENEA SULLIVAN attempted to call daughter Salud, no answer, voicemail left with return contact information.
--- NOTE | 2024-12-28 15:40 | CASEMGMT ---
RENEA SULLIVAN received call back from daughter Salud. RENEA SULLIVAN updated daughter of patient's progress with therapy and no recommendations for therapy at discharge. Daughter voiced understanding and is agreeable for patient to discharge home and will evaluate if patient will need HHC at discharge. RENEA SULLIVAN updated daughter that patient voiced she would like [employer] at discharge to assist with cooking and cleaning. Daughter states patient had aides in the past and they will consider setting up aides again. Daughter had no further questions or concerns. RENEA SULLIVAN will continue to follow this patient and plan for safe discharge.
[2024-12-28 16:43] VITALS: BP 117/58; PULSE 75; RESP 16; TEMP 36.6; O2SAT 96
--- NOTE | 2024-12-28 18:40 | PN.HOSP_ITS ---
Reason for Visit
--- NOTE | 2024-12-28 18:40 | PCM.PN.HOSP ---
Reason for Visit Chief Complaint: Generalized weakness, palpitations Subjective Subjective Patient was seen and examined today, I had a long conversation with the patient and her daughter who was in the room at the time my examination. The daughter would like the patient to go to an extended care facility for short-term rehab services, according to social work faculty member, patient did fairly well with physical therapy today, the daughter is aware that she may not be approved to go to a prison facility and may have to pay [id number]. I did talk briefly with cardiology about her care, patient was placed on Eliquis-I increased the dosage to 5 mg twice daily because that is the appropriate dosage for the patient, the patient and the patient's daughter are aware that if the patient falls she could be at risk of bleeding but she is also at risk for stroke due to her paroxysmal A-fib. Objective Data Objective Data Vital Signs: Vital Signs Temp Pulse Resp BP Pulse Ox O2 Del Method 97.9 F 75 16 117/58 L 96 Room Air 12/28/24 16:43 12/28/24 16:43 12/28/24 16:43 12/28/24 16:43 12/28/24 16:43 12/28/24 16:43 Oxygen Delivery Method Room Air Weight: 85 kg Body Mass Index (BMI) 36.6 Intake & Output: Intake and Output for Last 24 Hours 12/26/24 12/27/24 12/28/24 23:59 23:59 23:59 Intake Total 1050 / 1050 50 / 50 Output Total 300 / 300 Balance 1050 / 1050 -250 / -250 Lab / Micro Data 12/28/24 05:32 12/28/24 05:32 Labs: Laboratory Results - last 24 hr 12/27/24 20:01: Troponin T Hi Sens 4Hr 37 H 12/28/24 05:32: WBC 7.9, RBC 4.01 L, Hgb 11.9 L, Hct 36.1 L, MCV 90.0, MCH 29.7, MCHC 33.0, RDW Std Deviation 43.7, RDW Coeff of Gerry 13.2, Plt Count 201, MPV 10.2, Immature Gran % (Auto) 0.300, Neut % (Auto) 58.3, Lymph % (Auto) 25.5, [place] % (Auto) 11.2 H, Eos % (Auto) 3.7, Baso % (Auto) 1.0, Absolute Neuts (auto) 4.6, Absolute Lymphs (auto) 2.01, Nucleated RBC % 0, Sodium 143, Potassium 3.7, Chloride 105, Carbon Dioxide 28.7, Anion Gap 9, BUN 23 H, Creatinine 0.95, Estim Creat Clear Calc 42.66 L, Est GFR (MDRD) Non-Af 59 L, BUN/Creatinine Ratio 24.2 H, Glucose 81, Calcium 8.8, Total Bilirubin 0.29, AST 17, ALT 12, Alkaline Phosphatase 59, Total Protein 5.9, Albumin 3.5, Globulin 2.4, Albumin/Globulin Ratio 1.5, TSH 1.680 Micro: Microbiology 12/27/24 15:53 Mucosa - Nose SARS-CoV-2, Influenza & RSV (PCR) - Final Physical Exam Const alert, oriented x3, no apparent distress and healthy appearing General Appearance: cooperative, well kempt and well developed Orientation / Consciousness: awake, oriented to person, oriented to place and oriented to time HEENT normocephalic and moist oral mucous membranes Eyes PERRL, EOMs intact bilaterally and conjunctivae normal Neck supple, no JVD, thyroid normal and no carotid bruits General: trachea midline Resp normal respiratory effort and clear to auscultation bilaterally Auscultation: Negative for rales, rhonchi or wheezes Cardio regular rate, regular rhythm, no murmurs, no rub and no gallops GI normal to inspection, nondistended, normoactive bowel sounds, soft to palpation, non-tender and non-distended Extremity no clubbing, cyanosis or edema Skin no rashes or lesions noted General Skin Exam: no breakdown Neuro oriented x3, CN's II-XII intact bilaterally, no focal motor deficits and no sensory deficits noted Sensorium / Orientation: awake and alert Speech: speech normal Psych affect normal Assessment & Plan Assessment/Plan (1) Paroxysmal atrial fibrillation: PLAN: Plan 1. Acute on chronic debility-PT and OT will work with the patient, daughter has requested the patient go to an extended care facility for short-term rehab services, I am not sure that her insurance will approve this due to the fact she did fairly well with physical therapy today. #2 acute cystitis-patient currently is on Rocephin, urine cultures are pending #3 paroxysmal atrial fibrillation-patient is on anticoagulation (Eliquis) #4 type 2 diabetes-patient's blood sugars will be monitored, sliding scale insulin will be administered as indicated #5 chronic back pain-I have elected to place patient on a small dose of prednisone and I have placed the patient on tramadol for pain-daughter stated that at 1 time patient was on Vicodin and she became sedated with the Vicodin. I do not feel the patient has pulmonary edema-I feel the chest x-ray was a bad study, chest x-ray will be repeated tomorrow Total clinical time spent by myself addressing the patient's medical issues, reviewing all of her data, and collaborating with patient's care team: 35 minutes Charges/Coding Visit Charges Inpatient E&M: 68257 Subs Hosp L2
[2024-12-28 19:00] VITALS: PULSE 81
[2024-12-28 20:18] VITALS: BP 129/74; PULSE 81; RESP 16; TEMP 36.9; O2SAT 93
[2024-12-28] MEDS: APIXABAN 5 MG TABLET PO (20:25)
[2024-12-29 03:57] VITALS: BP 135/66; PULSE 70; RESP 16; TEMP 36.6; O2SAT 95
[2024-12-29 08:00] VITALS: PULSE 84
[2024-12-29 08:35] VITALS: BP 127/72; PULSE 73; RESP 16; TEMP 36.8; O2SAT 99
[2024-12-29] MEDS: Vitamin B Comp W-C Capsule 1 CAP PO (09:11)
[2024-12-29] MEDS: APIXABAN 5 MG TABLET PO (09:12)
[2024-12-29] MEDS: Insulin Glargine-YFGN 100 UNIT/ML Pen 14 UNIT SC (09:12)
[2024-12-29] MEDS: 0.9% Normal Saline (250mL Bag) 250 ML 100 ML IV (09:14)
[2024-12-29] MEDS: 0.9% Saline Lock 10 ML Syringe IV ×2 (09:14→17:18)
[2024-12-29] MEDS: Cholecalciferol (VIT D3) 25 MCG TABLET (1,000 UNITS) 50 MCG PO (09:15)
--- NOTE | 2024-12-29 09:16 | RAD_ITS ---
PROCEDURE: RAD/Chest 1 View (Portable)
[2024-12-29 10:00] VITALS: RESP 16
--- NOTE | 2024-12-29 13:15 | PCM.PN.CARD ---
Subjective Subjective Feels better. No complaints. Objective Data Vital Signs: Vital Signs Temp Pulse Resp BP Pulse Ox O2 Del Method 98.2 F 73 16 127/72 H 99 Room Air 12/29/24 08:35 12/29/24 08:35 12/29/24 10:00 12/29/24 08:35 12/29/24 08:35 12/29/24 10:00 Oxygen Delivery Method Room Air Weight: 187 lb 6.287 oz Body Mass Index (BMI) 36.6 Intake & Output: Intake and Output for Last 24 Hours 12/27/24 12/28/24 12/29/24 23:59 23:59 23:59 Intake Total 1050 / 1050 50 / 50 185 / 185 Output Total 300 / 300 Balance 1050 / 1050 -250 / -250 185 / 185 Lab / Micro Data 12/28/24 05:32 12/28/24 05:32 Labs: Laboratory Results - last 24 hr 12/29/24 09:05: POC Glucose 126 H Cardiology Labs/Tests Rhythm: EKG: ECHO: Stress Test: Cardiac Cath: PCI: CT Surgery: Holter monitor: EPS: PPM: CXR: Chest CT Scan: Radiography Diagnostic Testing: Radiology Impression Chest X-Ray 12/29/24 09:16 IMPRESSION: Marked right hemidiaphragm elevation is again noted. Left thoracic transvenous pacemaker with leads appear stable. Examination limited by hypoinflation. No significant pulmonary edema is now seen. Minimal left lower lung discoid atelectasis is again seen. No pleural effusion or pneumothorax is noted. The cardiomediastinal silhouette is unchanged, with a calcified and tortuous aorta noted; no evidence of cardiomegaly. Reading Location: [facility] Physical Exam Narrative Comfortable. Lying flat in the bed. No apparent distress. Heart sounds 1 and 2 normal. Chest clear to auscultation bilaterally. Alert oriented x 3. No ankle edema. Assessment & Plan Assessment/Plan (1) Paroxysmal atrial fibrillation: PLAN: Continue apixaban. Start on beta-blockers. (2) Presence of cardiac pacemaker: PLAN: Periodic pacemaker interrogation. (3) History of coronary artery disease: PLAN: Apixaban. Start on beta-blockers. (4) DM2 (diabetes mellitus, type 2): PLAN: As per internal medicine. PLAN: Plan No further cardiac input at this point in time. Will sign off. Please call if needed.
[2024-12-29 14:26] VITALS: BP 142/43; PULSE 63
[2024-12-29] MEDS: Metoprolol(XL)Succ 25 MG Tablet PO (14:26)
--- NOTE | 2024-12-29 14:30 | DCINST_ITS ---
Discharge Instructions
--- NOTE | 2024-12-29 14:30 | PCM.DC ---
Discharge Instructions DC O2, CPAP, BIPAP needs Home O2 Discharge instructions: No Dressing / Incision Discharge Activity: Return to Normal Activity Weight Bearing Status: Full weight bearing Follow Up Care Test Results: Test results from this visit will be discussed in further detail at your follow-up appointment, if applicable. Discharge Plan Admission Admit Date/Time: 12/27/24 22:13 Primary Reason for Your Visit: Weakness, urinary tract infection Attending Provider: Alex Garcia Primary Care Provider: Pradip Braga Consulting Providers: Waqar Kaiser; Pradip Braga Instructions Additional Instructions / Restrictions: Do not take any medication for pain except for Tylenol and your Ultram, do not take ibuprofen, Aleve, or aspirin Discharge Orders/Prescriptions Prescriptions: New tramadol 50 mg Tablet 100 mg PO TID PRN (Reason: Back Pain) Qty: 21 0RF Eliquis 5 mg Tablet 5 mg PO BID Qty: 0 0RF cefdinir 300 mg capsule 300 mg PO BID Qty: 12 0RF Rx Instructions: Start on 12/30/2024 metoprolol succinate 25 mg Tablet Extended Release 24 Hr 25 mg PO DAILY Qty: 30 0RF Continued ascorbate calcium (vitamin C) 500 mg tablet 500 mg PO DAILY nitroglycerin [Nitrostat] 0.4 mg tablet, sublingual 0.4 mg SUBLINGUAL Q5M PRN (Reason: chest pain) Qty: 25 3RF Rx Instructions: do not exceed 3 doses per episode cholecalciferol (vitamin D3) 50 mcg (2,000 unit) tablet 50 mcg PO BID vitamin B complex Tablet 1 tab PO DAILY coenzyme Q10 [CoQ-10] 100 mg capsule 100 mg PO DAILY insulin glargine [Lantus Solostar U-100 Insulin] 100 unit/mL (3 mL) insulin pen 14 unit SUBCUT DAILY glimepiride 4 mg tablet 4 mg PO BID gabapentin 300 mg capsule 300 mg PO BID PRN (Reason: NERVE PAIN) acetaminophen 500 mg capsule 1,000 mg PO BID buspirone 7.5 mg tablet 7.5 mg PO BID duloxetine 60 mg capsule,delayed release(DR/EC) 60 mg PO DAILY atorvastatin 40 mg tablet 40 mg PO DAILY Qty: 90 3RF Discontinued aspirin 81 mg capsule 81 mg PO DAILY Referrals / Follow Up: Pradip Braga MD [Primary Care Provider, Family Practice] - See Referral Note Referral Note: in 2 weeks Disposition Disposition (needs filled in before D/C Order can be placed): Home, Self Care
--- NOTE | 2024-12-29 14:48 | PCM.DC.SUM ---
Providers Date of Admission: 12/27/24 Date of Discharge: 12/29/24 Primary Care Physician: Dr. Pradip Braga MD Consultations 12/27/24 23:18 Consult: Cardiology Routine Consulting Provider: Waqar Kaiser Reason for Consult: Paroxysmal A-fib EMERGENT Consult: No MD Notified: Yes Date Notified: 12/27/24 Time Notified: 22:18 Method of Notification: ED Physician Initiated Reason For Visit: GENERALIZED WEAKNESS, PAROXYSMAL ATRIAL Diagnosis Discharge Diagnosis (1) Paroxysmal atrial fibrillation: Status: Chronic Code(s): I48.0 - Paroxysmal atrial fibrillation (2) Presence of cardiac pacemaker: Status: Chronic Code(s): Z95.0 - Presence of cardiac pacemaker (3) History of coronary artery disease: Status: Acute Code(s): Z86.79 - Personal history of other diseases of the circulatory system (4) DM2 (diabetes mellitus, type 2): Status: Acute Code(s): E11.9 - Type 2 diabetes mellitus without complications Plan 1. Acute on chronic debility-PT and OT will work with the patient, daughter has requested the patient go to an extended care facility for short-term rehab services, I am not sure that her insurance will approve this due to the fact she did fairly well with physical therapy today. #2 acute cystitis-patient currently is on Rocephin, urine cultures are pending #3 paroxysmal atrial fibrillation-patient is on anticoagulation (Eliquis) #4 type 2 diabetes-patient's blood sugars will be monitored, sliding scale insulin will be administered as indicated #5 chronic back pain-I have elected to place patient on a small dose of prednisone and I have placed the patient on tramadol for pain-daughter stated that at 1 time patient was on Vicodin and she became sedated with the Vicodin. I do not feel the patient has pulmonary edema-I feel the chest x-ray was a bad study, chest x-ray will be repeated tomorrow Total clinical time spent by myself addressing the patient's medical issues, reviewing all of her data, and collaborating with patient's care team: 35 minutes Medications at Discharge Home Medications ascorbate calcium (vitamin C) 500 mg tablet 500 mg PO DAILY supplement 08/27/19 nitroglycerin 0.4 mg sublingual tablet (Nitrostat) 0.4 mg sublingual Q5M PRN chest pain #25 tabs 08/27/19 atorvastatin 40 mg tablet 40 mg PO DAILY CHOLESTEROL #90 tabs 10/22/19 cholecalciferol (vitamin D3) 50 mcg (2,000 unit) tablet 50 mcg PO BID supplement 07/10/20 vitamin B complex 1 tab PO DAILY supplement 07/10/20 insulin glargine 100 unit/mL (3 mL) subcutaneous pen (Lantus Solostar U-100 Insulin) 14 unit subcut DAILY diabetes 12/12/22 glimepiride 4 mg tablet 4 mg PO BID diabetes 08/15/23 coenzyme Q10 100 mg capsule (CoQ-10) 100 mg PO DAILY supplement 10/03/23 gabapentin 300 mg capsule 300 mg PO BID PRN NERVE PAIN 10/03/23 acetaminophen 500 mg capsule 1,000 mg PO BID pain 10/28/23 buspirone 7.5 mg tablet 7.5 mg PO BID mental health 12/27/24 duloxetine 60 mg capsule,delayed release 60 mg PO DAILY mental health 12/27/24 apixaban 5 mg tablet (Eliquis) 5 mg PO BID #0 tabs 12/29/24 cefdinir 300 mg capsule 300 mg PO BID #12 caps 12/29/24 metoprolol succinate 25 mg tablet,extended release 24 hr 25 mg PO DAILY #30 tabs 12/29/24 tramadol 50 mg tablet 100 mg (2 x 50 mg) PO TID PRN Back Pain #21 tabs 12/29/24 Hospital Course Operations None Summary of Care Provided Minutes Spent on Discharge: 31 Hospital Course: This 84-year-old white female was seen in the emergency room at [facility] with complaints of generalized weakness and palpitation. Patient has a past history of paroxysmal atrial fibrillation, and a history of a pacemaker placement. Workup in the emergency room included an interrogation of the pacemaker which showed the patient to be in and out of atrial fibrillation at times, labs were remarkable for a blood sugar of 183, BUN and creatinine were 28 and 0.95. Urinalysis showed +4 bacteria and 25-50 white blood cells. Patient's chest x-ray was read out as pulmonary edema although the patient showed no evidence pointing to pulmonary edema on her physical exam. Patient was admitted to PCU for acute cystitis and paroxysmal A-fib and generalized weakness, she was seen in consultation by PT and OT and seen in consultation by cardiology. Repeat chest x-ray showed no evidence pulmonary edema. Patient's weakness improved during her hospitalization, on 12/29/2024, patient was seen and examined: On examination she appeared in good health and spirits, she does not appear to be in any distress. Vital signs as documented. Skin warm and dry and without overt rashes. Neck without JVD, thyroid appears normal, trachea is midline, neck is supple. Lungs clear, normal air movement was noted. Heart exam notable for regular rhythm, normal sounds and absence of murmurs, rubs or gallops. Abdomen unremarkable and without evidence of organomegaly, masses, or abdominal aortic enlargement, bowel sounds are present in all 4 quadrants, no abdominal tenderness was noted. Extremities nonedematous, no cyanosis was noted, no clubbing was noted. Neuro: Cranial nerves II through XII are grossly intact, no focal motor deficits were noted, sensation to light touch and pinprick is intact, motor exam 5/5 throughout. Psych: Patient is alert and oriented x3, she does not appear anxious or depressed, she does not appear agitated. Patient was discharged home in stable condition on 12/29/2024. Weight / BMI Weight Weight: 85 kg Body Mass Index (BMI) 36.6 ABG / Lab / Microbiology Data 12/28/24 05:32 12/28/24 05:32 Laboratory: Laboratory Results - last 24 hr 12/29/24 09:05: POC Glucose 126 H Microbiology: Microbiology 12/27/24 15:53 Mucosa - Nose SARS-CoV-2, Influenza & RSV (PCR) - Final Radiography Diagnostic Testing: Radiology Impression Chest X-Ray 12/29/24 09:16 IMPRESSION: Marked right hemidiaphragm elevation is again noted. Left thoracic transvenous pacemaker with leads appear stable. Examination limited by hypoinflation. No significant pulmonary edema is now seen. Minimal left lower lung discoid atelectasis is again seen. No pleural effusion or pneumothorax is noted. The cardiomediastinal silhouette is unchanged, with a calcified and tortuous aorta noted; no evidence of cardiomegaly. Reading Location: [place] [id number] D/C Instructions Weight Bearing Status: Full weight bearing DC O2, CPAP, BIPAP Needs Home O2 Discharge instructions: No Meaningful Use Info Meaningful Use Meaningful Use Diagnoses (Choose all that apply): None applicable Discharge Plan Admission Admit Date/Time: 12/27/24 22:13 Primary Reason for Your Visit: Weakness, urinary tract infection Attending Provider: Alex Garcia Primary Care Provider: Pradip Braga Consulting Providers: Waqar Kaiser; Pradip Braga Instructions Additional Instructions / Restrictions: Do not take any medication for pain except for Tylenol and your Ultram, do not take ibuprofen, Aleve, or aspirin Discharge Orders/Prescriptions Prescriptions: New tramadol 50 mg Tablet 100 mg PO TID PRN (Reason: Back Pain) Qty: 21 0RF Eliquis 5 mg Tablet 5 mg PO BID Qty: 0 0RF cefdinir 300 mg capsule 300 mg PO BID Qty: 12 0RF Rx Instructions: Start on 12/30/2024 metoprolol succinate 25 mg Tablet Extended Release 24 Hr 25 mg PO DAILY Qty: 30 0RF Continued ascorbate calcium (vitamin C) 500 mg tablet 500 mg PO DAILY nitroglycerin [Nitrostat] 0.4 mg tablet, sublingual 0.4 mg SUBLINGUAL Q5M PRN (Reason: chest pain) Qty: 25 3RF Rx Instructions: do not exceed 3 doses per episode cholecalciferol (vitamin D3) 50 mcg (2,000 unit) tablet 50 mcg PO BID vitamin B complex Tablet 1 tab PO DAILY coenzyme Q10 [CoQ-10] 100 mg capsule 100 mg PO DAILY insulin glargine [Lantus Solostar U-100 Insulin] 100 unit/mL (3 mL) insulin pen 14 unit SUBCUT DAILY glimepiride 4 mg tablet 4 mg PO BID gabapentin 300 mg capsule 300 mg PO BID PRN (Reason: NERVE PAIN) acetaminophen 500 mg capsule 1,000 mg PO BID buspirone 7.5 mg tablet 7.5 mg PO BID duloxetine 60 mg capsule,delayed release(DR/EC) 60 mg PO DAILY atorvastatin 40 mg tablet 40 mg PO DAILY Qty: 90 3RF Discontinued aspirin 81 mg capsule 81 mg PO DAILY Referrals / Follow Up: Pradip Braga MD [Primary Care Provider, Family Practice] - 01/10/25 11:20 am Referral Note: in 2 weeks Disposition Disposition (needs filled in before D/C Order can be placed): Home Health Service Charges/Coding Visit Charges Inpatient E&M: 99518 Disch Hosp >30min
[2024-12-29 15:13] VITALS: BP 133/55; PULSE 67; RESP 16; TEMP 36.2; O2SAT 99
--- NOTE | 2024-12-29 15:16 | PHA.DC_ITS ---
Pharmacy DC Med Counseling
--- NOTE | 2024-12-29 15:16 | PHA.DC.COU.R ---
Pharmacy [facility] has performed discharge medication counseling for this patient. The patient was counseled on the following discharge medications and changes in medications for homegoing review. - Cefdinir 300 mg capsule, Eliquis 5 mg tablet, Metoprolol Succinate 25 mg tablet, Tramadol 50 mg tablet The Reason for Use, instructions for use, and potential side effects were reviewed for all new medications. The patient's questions regarding all of their medications were answered. The patient was able to verbally demonstrate an understanding of their discharge medications. Medications at Discharge Home Medications ascorbate calcium (vitamin C) 500 mg tablet 500 mg PO DAILY supplement 08/27/19 nitroglycerin 0.4 mg sublingual tablet (Nitrostat) 0.4 mg sublingual Q5M PRN chest pain #25 tabs 08/27/19 atorvastatin 40 mg tablet 40 mg PO DAILY CHOLESTEROL #90 tabs 10/22/19 cholecalciferol (vitamin D3) 50 mcg (2,000 unit) tablet 50 mcg PO BID supplement 07/10/20 vitamin B complex 1 tab PO DAILY supplement 07/10/20 insulin glargine 100 unit/mL (3 mL) subcutaneous pen (Lantus Solostar U-100 Insulin) 14 unit subcut DAILY diabetes 12/12/22 glimepiride 4 mg tablet 4 mg PO BID diabetes 08/15/23 coenzyme Q10 100 mg capsule (CoQ-10) 100 mg PO DAILY supplement 10/03/23 gabapentin 300 mg capsule 300 mg PO BID PRN NERVE PAIN 10/03/23 acetaminophen 500 mg capsule 1,000 mg PO BID pain 10/28/23 buspirone 7.5 mg tablet 7.5 mg PO BID mental health 12/27/24 duloxetine 60 mg capsule,delayed release 60 mg PO DAILY mental health 12/27/24 apixaban 5 mg tablet (Eliquis) 5 mg PO BID #0 tabs 12/29/24 cefdinir 300 mg capsule 300 mg PO BID #12 caps 12/29/24 metoprolol succinate 25 mg tablet,extended release 24 hr 25 mg PO DAILY #30 tabs 12/29/24 tramadol 50 mg tablet 100 mg (2 x 50 mg) PO TID PRN Back Pain #21 tabs 12/29/24
--- NOTE | 2024-12-29 16:32 | CASEMGMT ---
Patient has order for discharge. RN CM in to discuss needs at discharge, daughter and DIL at bedside. RN CM reviewed patient's progress with therapy and no therapy recommended at discharge. RN CM discussed C for custodial for medication management and education. Patient and family agreeable. HHC list provided and patient and family prefer [facility] RENEA SULLIVAN also provided list for [facility]. Patient and family had no further questions. RN CM made referral to [facility], they are able to accept the patient with Friday start of care. RN CM updated patient and family. Discharge plan updated.
== END 2024-12-29 18:13 | disposition home health service (06) | DRG 690 ==
LOC: ED 21:52 → PCU 22:36
PROVIDERS: Internal Medicine Cardiovascular Disease; Admitting Provider Family Medicine; Emergency Provider Student in an Organized Health Care Education/Training Program; PCP Family Medicine; Visit Provider Internal Medicine
DX: N30.00 Acute cystitis without hematuria (principal); E11.9 Type 2 diabetes mellitus without complications; Z66 Do not resuscitate; I10 Essential (primary) hypertension; I48.0 Paroxysmal atrial fibrillation; Z79.4 Long term (current) use of insulin; I25.10 Atherosclerotic heart disease of native coronary artery without angina pectoris; I25.2 Old myocardial infarction; M54.9 Dorsalgia, unspecified; E78.00 Pure hypercholesterolemia, unspecified; G89.29 Other chronic pain; R53.81 Other malaise; R29.6 Repeated falls; Z95.0 Presence of cardiac pacemaker; Z95.5 Presence of coronary angioplasty implant and graft; Z79.84 Long term (current) use of oral hypoglycemic drugs; Z79.899 Other long term (current) drug therapy
CPT/HCPCS: 36415; 71045; 71046; 80048; 80053; 81001; 82962; 83735; 83880; 84443; 84484; 85025; 87631; 93005; 93288; 97161; 97166; 99285; A4216; J1938; J2405

== ENCOUNTER → 2025-01-10 | Outpatient (CLI) | payer MEDICARE, SELFPAY | END | disposition home or self-care (01) | LOC: LABSPEC 12:02 | PROVIDERS: PCP Family Medicine; Visit Provider Family Medicine | DX: R39.9 Unspecified symptoms and signs involving the genitourinary system (principal) | CPT/HCPCS: 87077; 87086; 87088; 87186 ==

== ENCOUNTER 2025-02-16 17:31 | Inpatient (IN) | payer MEDICARE, SELFPAY ==
[2025-02-16 17:33] VITALS: BP 173/92; PULSE 59; RESP 18; TEMP 36.6; O2SAT 96; BMI 33.7
--- NOTE | 2025-02-16 17:47 | EKG12_ITS ---
Test Reason : Blood Pressure : */* mmHG Vent. Rate : 69 BPM Atrial Rate : 117 BPM P-R Int : * ms QRS Dur : 154 ms QT Int : 444 ms P-R-T Axes : * -69 67 degrees QTcB Int : 475 ms A-V Paced Rhythm Abnormal ECG Confirmed by Nabeel Salas ([id number]), make up editor AMI CUNNINGHAM ([id number]) on 02/18/2025 10:25:47 AM Referred By: Confirmed By: Nabeel Salas
[2025-02-16] MEDS: 0.9% Normal Saline (1000mL) 1,000 ML 150 ML IV ×2 (18:02→20:09)
[2025-02-16 18:09] LABS: Hematocrit 40.6 % (37-47); Hemoglobin 13.5 g/dL (12.0-15.0); Immature Granulocytes Count 0.020 X10^3/uL (0.0-0.0); Mean Corp Hgb Conc 33.3 g/dL (32-36); Mean Corpuscular Volume 91.2 fL (81-99); Mean Platelet Vol. 10.5 fl (6.2-12.0); NRBC Flagged by Analyzer 0 % (0-5); Platelet Count 182 K/mm3 (150-450); RBC Distribution Width CV 13.2 % (11.6-14.6); RBC Distribution Width SD 44.4 fl (35.1-43.9); Red Blood Count 4.45 M/mm3 (4.2-5.4); White Blood Count 9.9 K/mm3 (4.4-11.0)
--- NOTE | 2025-02-16 18:13 | RAD_ITS ---
PROCEDURE: HIP, UNI W/ PELVIS 2-3 VIEWS 02/16/2025 REASON FOR EXAM: INJURY/PAIN TECHNIQUE: Procedure Code: RAD Modality: DX Procedure: HIP, UNI W/ PELVIS 2-3 VIEWS Laterality: Right COMPARISON: None. FINDINGS: No acute fracture or dislocation appreciated. Intact bilateral hip joints with mild degenerative arthrosis. Degenerative changes of the lower lumbosacral spine. Grossly unremarkable soft tissues. Scattered atherosclerotic vascular calcifications. RAD/HIP, UNI W/ Pelvis 2-3 Views IMPRESSION: No acute fracture or dislocation appreciated. Reading Location: [id number]
--- NOTE | 2025-02-16 18:13 | RAD_ITS ---
PROCEDURE: RIGHT KNEE 1 OR 2 VIEWS 02/16/2025 REASON FOR EXAM: INJURY/PAIN TECHNIQUE: Procedure Code: RADK Modality: DX Procedure: KNEE 1 OR 2 VIEWS Laterality: Right COMPARISON: None. FINDINGS: Status post total right knee arthroplasty. No evidence for hardware loosening or failure. There is an acute mildly displaced oblique periprosthetic fracture of the distal right femur. Qualitative osteopenia. Generalized soft tissue swelling about the knee. Atherosclerotic vascular calcifications. RAD/Knee 1 or 2 Views IMPRESSION: Acute mildly displaced periprosthetic fracture of the distal right femur. Total knee arthroplasty hardware appears intact. Reading Location: [id number]
--- NOTE | 2025-02-16 18:13 | RAD_ITS ---
PROCEDURE: CHEST 1 VIEW (PORTABLE) 02/16/2025 REASON FOR EXAM: PREOPERATIVE CLEARANCE TECHNIQUE: Frontal view of the chest. COMPARISON: 12/29/2024 FINDINGS: Left chest wall dual lead ICD appears appropriately positioned. Additional electronic device projects over the lower midthorax. Cardiomegaly with mild central vascular congestion. No appreciable focal consolidation, pneumothorax or sizable pleural effusion. Mild left basilar streaky/discoid subsegmental atelectasis. Degenerative changes of the spine. Probable chronic compression fracture deformities of the lower thoracolumbar spine. Cholecystectomy surgical clips. RAD/Chest 1 View (Portable) IMPRESSION: No acute findings. Reading Location: [id number]
--- NOTE | 2025-02-16 18:19 | EX.ED.GENINJ ---
HPI History of Present Illness Chief Complaint: Lower Extremity Injury Detail of Chief Complaint: Fall with injury to right hip and knee Informant: patient, family and EMS Onset/Context/Timing Onset: Today and Hours Mechanism/Context: Blunt Injury and Fall (Standing position onto right side) Location of pain/injuries: Right hip and Right Knee Location: Right hip and thigh Current Severity: Mild Maximum Severity: Severe Worsened by: Any attempt to move the extremity Relieved by: Nothing Associated Symptoms Associated Symptoms: Positive for Loss of function and Inability to ambulate; Negative for Parasthesias, Weakness, Loss of consciousness or Amnesia Narrative Narrative: Patient is a 84-year-old woman. She was admitted 2 months ago for A-fib with RVR. She is presently on anticoagulant, apixaban 5 mg twice daily patient had mechanical fall. She landed on her right side. She presented by EMS because of right hip pain and knee pain and unable to move her extremity without experiencing exquisite pain. She denies head trauma. Denies headache. She denies double vision, blurred vision loss of vision. She denies ringing or ears. She denies neck pain. She denies chest pain or shortness of breath. Denies abdominal pain. She denies upper or lower back pain. She denies pain in her upper extremities or left lower extremities. Patient is status post total knee arthroplasty on the right and left. Prior similar symptoms: No Recent Illness/Hospitalization: No (2 months ago for A-fib) [facility] Medical History History of coronary artery disease Wears partial dentures Wears glasses Anxiety Post-menopausal Insulin dependent diabetes mellitus Diabetes Arthritis High cholesterol Gastric reflux Non-smoker Shortness of breath on exertion History of stress test History of echocardiogram Cardiology follow-up encounter Hx of cardiac pacemaker Hx of recurrent urinary tract infection Choledocholithiasis with cholecystitis Gallstones Debility Back pain Essential hypertension Vertigo Chest pain Ataxia Presence of cardiac pacemaker Second degree AV block Atherosclerosis of [place] coronary artery of [place] heart without angina pectoris Depression Type 2 diabetes mellitus Atherosclerotic heart disease of [place] coronary artery without angina pectoris Angina pectoris Cardiomyopathy, dilated Paroxysmal atrial fibrillation Paroxysmal atrial flutter Fatigue Dyspnea Chest discomfort Abnormal EKG Long-term use of high-risk medication Old myocardial infarction History of atrial fibrillation DM2 (diabetes mellitus, type 2) HLD (hyperlipidemia) Depression CAD (coronary artery disease) Home Medications ?Medication ?Instructions ?Recorded ?Last Taken ?Type ascorbate calcium (vitamin C) 500 500 mg PO DAILY supplement 08/27/19 12/26/24 History mg tablet nitroglycerin 0.4 mg sublingual 0.4 mg sublingual Q5M PRN chest 08/27/19 Unknown Rx tablet (Nitrostat) pain #25 tabs atorvastatin 40 mg tablet 40 mg PO DAILY CHOLESTEROL #90 tabs 10/22/19 12/26/24 Rx cholecalciferol (vitamin D3) 50 50 mcg PO BID supplement 07/10/20 12/27/24 History mcg (2,000 unit) tablet vitamin B complex 1 tab PO DAILY supplement 07/10/20 12/27/24 History insulin glargine 100 unit/mL (3 14 unit subcut DAILY diabetes 12/12/22 12/27/24 History mL) subcutaneous pen (Lantus Solostar U-100 Insulin) glimepiride 4 mg tablet 4 mg PO BID diabetes 08/15/23 12/27/24 History coenzyme Q10 100 mg capsule 100 mg PO DAILY supplement 10/03/23 12/27/24 History (CoQ-10) gabapentin 300 mg capsule 300 mg PO BID PRN NERVE PAIN 10/03/23 12/27/24 History acetaminophen 500 mg capsule 1,000 mg PO BID pain 10/28/23 12/27/24 History duloxetine 60 mg capsule,delayed 60 mg PO DAILY mental health 12/27/24 12/26/24 History release apixaban 5 mg tablet (Eliquis) 5 mg PO BID #0 tabs 12/29/24 Unknown Rx metoprolol succinate 25 mg 25 mg PO DAILY #30 tabs 12/29/24 Unknown Rx tablet,extended release 24 hr tramadol 50 mg tablet 100 mg (2 x 50 mg) PO TID PRN Back 12/29/24 Unknown Rx Pain #21 tabs buspirone 7.5 mg tablet 7.5 mg PO TID mental health 01/11/25 Unknown History Allergy/AdvReac Type Severity Reaction Status Date / Time amoxicillin Allergy Intermediate Rash Verified 02/16/25 17:37 latex Allergy Intermediate Other Verified 02/16/25 17:37 Sulfa (Sulfonamide Allergy Rash Verified 02/16/25 17:37 Antibiotics) tizanidine (From Zanaflex) AdvReac Other Verified 02/16/25 17:37 Family History Mother CAD (coronary artery disease) Sister , age 73 Atrial fibrillation Sister , Age 68 CAD (coronary artery disease) COPD (chronic obstructive pulmonary disease) Surgical History S/P laparoscopic cholecystectomy History of ERCP Pacemaker (~12/05/17) History of right cataract surgery History of left cataract surgery History of bilateral knee replacement Status post ablation of atrial fibrillation (~2002) History of foot surgery Presence of stent in coronary artery (~08/2010) Social History Smoking Status: Never smoker alcohol intake: never substance use type: does not use caffeine: Yes Type: coffee Number of servings: 2 ROS ROS ED Constitutional Constitutional ED: Denies chills, fever(s) or subjective Eyes Eyes: Denies blurry vision or change in vision ENT ENT ED: Denies rhinorrhea or sore throat Cardiovascular Cardiovascular: Denies chest pain or palpitations Respiratory/Chest Respiratory/Chest: Denies cough, dyspnea or dyspnea on exertion Gastrointestinal Gastrointestinal: Denies abdominal pain, nausea or vomiting Genitourinary Genitourinary ED: Denies dysuria, hematuria or urinary frequency Musculoskeletal Musculoskeletal: Reports other Details: Right hip and right knee pain ; Denies arthralgias, back pain, myalgias or neck pain Integumentary Denies rash Psychiatric Psychiatric: Denies anxiety Hematologic/Lymphatic Hematologic/Lymphatic: Denies easy bleeding or easy bruising EXAM Physical Exam Const Vital Signs: 02/16/25 17:33 Temperature 98 F Temperature Source Oral Pulse Rate 59 L Respiratory Rate 18 Blood Pressure 173/92 H Blood Pressure Mean 119 Pulse Ox 96 Oxygen Delivery Method Room Air Positive well nourished, well developed and obese General Appearance ED: well developed; Negative for NAD Nutritional Appearance: obese HEENT Reports TM's clear atraumatic; Negative for tenderness Nose: Negative for septum abnormal Tympanic Membrane ED: Yes TM's clear Eyes PERRL and EOMs intact bilaterally General Eye ED: Yes other Other Details: There is no subconjunctival hemorrhage. Neck full ROM General: Negative for tenderness Chest Wall inspection of chest normal and palpation of chest normal Resp normal respiratory effort and clear to auscultation bilaterally Cardio S1 normal heart sound, S2 normal heart sound and no murmurs Rate: regular rate Rhythm: abnormal rhythm irregularly irregular GI normal to inspection, nondistended, normoactive bowel sounds, non-tender, non-distended and no masses GI Narrative: There is no pain ovation of the pelvis i.e. right or left iliac wing, pubic symphysis or right or left ischial tuberosity Back/Spine no thoracic nor lumbar tenderness Extremity Negative for normal to inspection Extremity Narrative: Patient has shortening of her right leg and external rotation. There is obvious hematoma of the right knee. There appears to be an effusion. She also has pain ovation over the greater trochanteric and right inguinal area. Any type of movement causes her pain in her hip and knee. Neuro oriented x3, CN's II-XII intact bilaterally and moves all extremities [place] Coma Scale: document GCS findings Spontaneous Obeys Commands Oriented 15 Sensorium / Orientation: alert Psych mental status grossly normal and thought process normal Skin no rashes or lesions noted, no wounds, skin turgor normal and no jaundice MDM MDM MDM Narrative Medical decision making narrative: Need to obtain x-ray of the hip and knee to rule out fracture versus contusion versus traumatic hematoma of the knee and evaluate for contusion versus fracture of the right hip since patient will require orthopedic intervention will obtain appropriate screening labs and imaging for preoperative risk ratification Lab Data Attestation: I reviewed the patient's lab results. Lab results narrative: CBC is unremarkable. Electrolyte panel is unremarkable. BUN to Cardio-H was elevated. Estimated GFR is 56. Patient is O+ blood. Labs: Laboratory Results - last 24 hr 02/16/25 18:00 WBC 9.9 RBC 4.45 Hgb 13.5 Hct 40.6 MCV 91.2 MCH 30.3 MCHC 33.3 RDW Std Deviation 44.4 H RDW Coeff of Gerry 13.2 Plt Count 182 MPV 10.5 Immature Gran % (Auto) 0.200 Neut % (Auto) 73.9 H Lymph % (Auto) 13.0 L [place] % (Auto) 10.3 H Eos % (Auto) 2.1 Baso % (Auto) 0.5 Absolute Neuts (auto) 7.3 Absolute Lymphs (auto) 1.28 Nucleated RBC % 0 Sodium 141 Potassium 4.3 Chloride 101 Carbon Dioxide 31.1 Anion Gap 9 BUN 24 H Creatinine 0.99 Estim Creat Clear Calc 47.36 L Est GFR (MDRD) Non-Af 56 L BUN/Creatinine Ratio 24.3 H Glucose 105 H Calcium 9.5 Blood Type O POSITIVE Antibody Screen NEGATIVE Radiography Chest X-Ray - ED: 1 View (Preop chest x-ray reveals no acute process. Cardiac silhouette is normal. No evidence of heart failure, effusion or infiltrate. [place] is normal. Osseous structures reveal no acute abnormality.), 2 View (Of the knee reveals a spiral displaced slightly shortened periprosthetic fracture, supracondylar) and Read by ED Physician (Three-view x-ray of the right hip reveals some degenerative changes no evidence of fracture, subluxation or dislocation.) Diagnostic Testing: Clinical Impression(s) from Imaging Studies Chest X-Ray 02/16/25 18:13 IMPRESSION: No acute findings. Reading Location: [facility] Hip/Pelvis X-Ray 02/16/25 18:13 IMPRESSION: No acute fracture or dislocation appreciated. Reading Location: [facility] Knee X-Ray 02/16/25 18:13 IMPRESSION: Acute mildly displaced periprosthetic fracture of the distal right femur. Total knee arthroplasty hardware appears intact. Reading Location: [facility] EKG Initial EKG: Attestation: I personally reviewed and interpreted this EKG as follows: Interpretation: Paced (Rate is 69. QRS duration 104 ms. Cures duration 444 ms. [place] the left) Management Discussion w/another healthcare provider: Hospitalist (Spoke with Dr. Som Ziegler. Full admit MedSurg. Will risk ratified for surgery planned for Friday by Dr. Benito Gaston) and Child Care Nurse (Spoke with Dr. Rj Eli. He recommend I speak with Dr. Benito Gaston since the knee arthroplasty was done by Dr. Smalls. Spoke with Dr. Benito Gaston. He would like patient mated to hospitalist and plan is surgery on Friday.) Discharge Plan Dx/Rx/DC Orders Clinical Impression: Periprosthetic fracture around internal prosthetic right knee joint, initial encounter, Contusion of right hip, initial encounter, Injury due to fall, Anticoagulant long-term use, Paroxysmal atrial fibrillation, Cardiomyopathy, dilated, Atherosclerosis of [place] coronary artery of [place] heart without angina pectoris, Type 2 diabetes mellitus, with long-term current use of insulin, Essential hypertension, Presence of cardiac pacemaker Disposition Disposition: Acute Care Hospital [facility]
[2025-02-16 18:34] LABS: Anion Gap 9 (5-15); BUN 24 mg/dL (4-19); BUN/Creat Ratio 24.3 RATIO (10-20); Calcium,Total 9.5 mg/dL (7.6-11.0); Carbon Dioxide 31.1 mmol/L (21.0-32.0); Chloride 101 mmol/L (98-108); Estimated Creatinine Clearance 47.36 ml/min (50-250); Glucose 105 mg/dL (70-99); Potassium 4.3 mmol/L (3.3-5.1)
--- NOTE | 2025-02-16 18:47 | HP.PCM.HOS_ITS ---
HPI - General General Date of Admission: 02/16/25 Date of Service: 02/16/25 Chief Complaint: Fall with right leg pain HPI Narrative JERROD SALAZAR, is a 84 F who presented to [facility] ED on 02/16/25 with right leg pain after a fall at home. Patient lives at home alone, has family that lives close by. Medical history significant for right knee replacement about 30 years ago, paroxysmal A-fib on Eliquis, second-degree AV block s/p pacemaker placement, type 2 diabetes mellitus, hypertension and hyperlipidemia. Knee x-ray in the ED showed an acute mildly displaced periprosthetic fracture of the distal right femur. Hip/pelvis x-ray and chest x-ray were normal. Patient was mildly hypertensive but otherwise in normal sinus rhythm, afebrile and stable on room air at rest. CBC and BMP were benign. Case was discussed with Dr. Gaston and plan is for surgery on Friday. Hospitalist was then contacted for admission. I saw the patient at bedside in the ED, 2 other family members present. Patient was laying back in bed and appeared mildly uncomfortable due to ongoing right lower thigh pain, was otherwise answering questions appropriately. She noted her pain was about a 6 currently and was improved with a dose of IV Dilaudid in the ED. No other acute concerns currently. Will be admitted for further management. [facility] Medical History History of coronary artery disease Wears partial dentures Wears glasses Anxiety Post-menopausal Insulin dependent diabetes mellitus Diabetes Arthritis High cholesterol Gastric reflux Non-smoker Shortness of breath on exertion History of stress test History of echocardiogram Cardiology follow-up encounter Hx of cardiac pacemaker Hx of recurrent urinary tract infection Choledocholithiasis with cholecystitis Gallstones Debility Back pain Essential hypertension Vertigo Chest pain Ataxia Presence of cardiac pacemaker Second degree AV block Atherosclerosis of [place] coronary artery of [place] heart without angina pectoris Depression Type 2 diabetes mellitus Atherosclerotic heart disease of [place] coronary artery without angina pectoris Angina pectoris Cardiomyopathy, dilated Paroxysmal atrial fibrillation Paroxysmal atrial flutter Fatigue Dyspnea Chest discomfort Abnormal EKG Long-term use of high-risk medication Old myocardial infarction History of atrial fibrillation DM2 (diabetes mellitus, type 2) HLD (hyperlipidemia) Depression CAD (coronary artery disease) Home Medications ?Medication ?Instructions ?Recorded ?Last Taken ?Type ascorbate calcium (vitamin C) 500 500 mg PO DAILY supp lement 08/27/19 12/26/24 History mg tablet nitroglycerin 0.4 mg sublingual 0.4 mg sublingual Q5M PRN chest 08/27/19 Unknown Rx tablet (Nitrostat) pain #25 tabs atorvastatin 40 mg tablet 40 mg PO DAILY CHOLESTEROL # 90 tabs 10/22/19 12/26/24 Rx cholecalciferol (vitamin D3) 50 50 mcg PO BID suppleme nt 07/10/20 12/27/24 History mcg (2,000 unit) tablet vitamin B complex 1 tab PO DAILY supplement 12/27/24 History insulin glargine 100 unit/mL (3 14 unit subcut DAILY d iabetes 12/12/22 12/27/24 History mL) subcutaneous pen (Lantus Solostar U-100 Insulin) glimepiride 4 mg tablet 4 mg PO BID diabetes 4 12/27/24 History coenzyme Q10 100 mg capsule 100 mg PO DAILY supplement 10/03/23 12/27/24 History (CoQ-10) gabapentin 300 mg capsule 300 mg PO BID PRN NERVE PAIN 10/03/23 12/27/24 History acetaminophen 500 mg capsule 1,000 mg PO BID pain 10/0212/27/24 History duloxetine 60 mg capsule,delayed 60 mg PO DAILY mental health 12/27/24 12/26/24 History release apixaban 5 mg tablet (Eliquis) 5 mg PO BID #0 tabs Unknown Rx metoprolol succinate 25 mg 25 mg PO DAILY #30 tabs Unknown Rx tablet,extended release 24 hr tramadol 50 mg tablet 100 mg (2 x 50 mg) PO TID UT N Back 12/29/24 Unknown Rx Pain #21 tabs buspirone 7.5 mg tablet 7.5 mg PO TID mental health 01/11/25 Unknown History Allergy/AdvReac Type Severity Reaction Status Date / Time amoxicillin Allergy Intermediate Rash Verified 02/16/25 17:37 latex Allergy Intermediate Other Verified 02/16/25 17:37 Sulfa (Sulfonamide Allergy Rash Verified 02/16/25 17:37 Antibiotics) tizanidine (From Zanaflex) AdvReac Other Verified 02/16/25 17:37 Family History Mother CAD (coronary artery disease) Sister , age 73 Atrial fibrillation Sister , Age 68 CAD (coronary artery disease) COPD (chronic obstructive pulmonary disease) Surgical History S/P laparoscopic cholecystectomy History of ERCP Pacemaker (~12/05/17) History of right cataract surgery History of left cataract surgery History of bilateral knee replacement Status post ablation of atrial fibrillation (~2002) History of foot surgery Presence of stent in coronary artery (~08/2010) Social History Smoking Status: Never smoker alcohol intake: never substance use type: does not use caffeine: Yes Type: coffee Number of servings: 2 ROS Constitutional Constitutional: Denies chills, fatigue or fever(s) Cardiovascular Cardiovascular: Denies chest pain Respiratory/Chest Respiratory/Chest: Denies shortness of breath at rest Gastrointestinal Gastrointestinal: Denies abdominal pain Musculoskeletal Musculoskeletal: Reports joint pain; Denies myalgias Neurologic Neurologic: Denies dizziness, focal weakness, headache(s), numbness or tingling Patient's Goals Of Care . What matters most to you about your health?: Quality of life What would you like to achieve or improve as a result of your hospital stay?: H ave femur fracture fixed and then get stronger Vital Signs Vital Signs Vital Signs: 02/16/25 17:33 Temperature 98 F Temperature Source Oral Pulse Rate 59 L Respiratory Rate 18 Blood Pressure 173/92 H Blood Pressure Mean 119 Pulse Ox 96 Oxygen Delivery Method Room Air Weight Weight: 91.8 kg Body Mass Index (BMI) 33.7 Physical Exam Const alert and oriented x3 Constitutional Narrative: Elderly female, class I obesity, mildly uncomfortable appearing due to ongoing right lower thigh pain, otherwise laying back in bed and answer questions appropriately. General Appearance: cooperative HEENT normocephalic, head/scalp atraumatic, hearing grossly normal bilaterally, nasal mucous membranes and turbinates normal and moist oral mucous membranes Eyes PERRL, EOMs intact bilaterally and conjunctivae normal Neck full ROM Chest inspection of chest normal Resp normal respiratory effort, normal air movement, no use of accessory muscles and clear to auscultation bilaterally Cardio regular rate, regular rhythm, no murmurs and peripheral pulses 2+ throughout GI normal to inspection, nondistended, normoactive bowel sounds, soft to palpation, non-tender and non-distended Back/Spine normal ROM Extremity Extremity Narrative: No gross abnormalities on exam. Mild right lower lateral thigh tenderness to palpation. Surgical scars from prior knee replacement therapies noted on both knees. Skin no rashes or lesions noted Psych mental status grossly normal Results Lab / Micro Data 02/16/25 18:00 02/16/25 18:00 Labs: Laboratory Results - last 24 hr 02/16/25 18:00: WBC 9.9, RBC 4.45, Hgb 13.5, Hct 40.6, MCV 91.2, MCH 30.3, MCHC 33.3, RDW Std Deviation 44.4 H, RDW Coeff of Gerry 13.2, Plt Count 182, MPV 10.5, Immature Gran % (Auto) 0.200, Neut % (Auto) 73.9 H, Lymph % (Auto) 13.0 L, [place] % (Auto) 10.3 H, Eos % (Auto) 2.1, Baso % (Auto) 0.5, Absolute Neuts (auto) 7.3, Absolute Lymphs (auto) 1.28, Nucleated RBC % 0, Sodium 141, Potassium 4.3, Chloride 101, Carbon Dioxide 31.1, Anion Gap 9, BUN 24 H, Creatinine 0.99, Estim Creat Clear Calc 47.36 L, Est GFR (MDRD) Non-Af 56 L, BUN/Creatinine Ratio 24.3 H, Glucose 105 H, Calcium 9.5, Blood Type O POSITIVE Imaging Radiology Impression Chest X-Ray 02/16/25 18:13 IMPRESSION: No acute findings. Reading Location: [facility] Hip/Pelvis X-Ray 02/16/25 18:13 IMPRESSION: No acute fracture or dislocation appreciated. Reading Location: [facility] Knee X-Ray 02/16/25 18:13 IMPRESSION: Acute mildly displaced periprosthetic fracture of the distal right femur. Total knee arthroplasty hardware appears intact. Reading Location: [facility] Assessment & Plan Assessment/Plan (1) Femur fracture, right: PLAN: Plan Patient is an 84-year-old female who presented to [facility] ED on 02/16/2025 with right leg pain after a fall at home. 1. Right distal femur fracture secondary to mechanical fall in setting of chronic debility ? Admit under inpatient status to [facility]. Orthopedic surgery consulted. PT/OT/case management consulted. Lives at home alone. Was hospitalized here in late December for new onset A-fib and acute on chronic debility. She was able to be discharged home with home health care at that time and home health care was seeing her until a few weeks ago. Patient had a mechanical fall at home onto her right side. Right knee x-ray showed an acute mildly displaced periprosthetic fracture of the distal right femur. Plan is for surgery on Friday, will make n.p.o. admitted on . Preoperative evaluation as below. Pain control scheduled Tylenol, tramadol as needed and IV morphine as needed; patient and family noted that patient has become too loopy in the past on oxycodone. SCDs for DVT prophylaxis for now. 2. Preoperative evaluation ? Labs/imaging: Hemoglobin 13.5, creatinine 0.99 on admit, plus at baseline. No other lab abnormalities noted. Chest x-ray benign and patient stable on room air at rest. No further labs or imaging needed preoperatively. Follow-up labs postoperatively. ? Cardiac eval: Recent diagnosed with paroxysmal A-fib in late October and was started on Eliquis for anticoagulation. Echo on 12/10 with EF 65%, stage I diastolic dysfunction, no other concerning findings. Has history of pacemaker placement as below. EKG in the ED with a ventricular paced rhythm noted and no ischemic changes. Euvolemic on exam, no concern for heart failure. No further cardiac workup needed preoperatively. ? Medications: Eliquis held on admission and will defer to orthopedics on timing of restarting this. Continue other home medications as prescribed. ? Prior procedural complications: None. ? Recommendation: Patient is medically optimized for procedure. 3. Paroxysmal A-fib, hypertension, hyperlipidemia, history of second-degree block s/p pacemaker placement ? Follows with cardiology. Recently diagnosed with new onset paroxysmal A-fib in late December, echo at that time with normal EF as above. EKG on this admit with ventricular paced rhythm. Patient hypertensive to the 150s to 160s systolic in the ED. Holding home Eliquis for procedures above. Continue home statin and Toprol. 4. Type 2 diabetes mellitus with diabetic neuropathy ? Most recent A1c 6.2% on 10/14. Glucose 105 on admit. Will hold home Lantus and glimepiride and treat with only sliding scale insulin with meals for now, adjust as needed. Continue home gabapentin. 5. Chronic back pain ? Pain has been well-controlled on tramadol as needed at home. Pain regimen for now as above. 6. History of remote bilateral knee replacements ? Reports knee replacements were approximately 30 years ago. DVT prophylaxis: SCDs CODE STATUS: DNR CCA, DNI. Patient is okay for short-term intubation for surgery. Expected disposition: Likely SNF, TBD Total clinical time spent by myself addressing the patient's medical issues, reviewing all the data, and collaborating with patient's care team: 76 minutes. Charges/Coding Visit Charges Inpatient E&M: 11693 Init Hosp L3
[2025-02-16 18:51] LABS: Mucous, Urine 0 SEEN /hpf (<or=2+)
[2025-02-16 18:59] VITALS: BP 161/69; PULSE 65; RESP 20; TEMP 36.6; O2SAT 99
[2025-02-16 19:03] LABS: Color, Urine Yellow (Yellow); Glucose, Dipstick Normal (Normal); Ketone-Dipstick Negative (Negative); Leukocyte Esterase-Dipstick Negative /ul (Negative); Nitrite-Dipstick Negative (Negative); Occult Blood-Urine Negative /ul (Negative); Protein-Dipstick 30 mg/dl (Negative); Specific Gravity, Urine 1.015 (1.002-1.030); Urine Bilirubin Dipstick Negative (Negative)
[2025-02-16 19:12] LABS: Red Blood Cells-Urine 0-5 SEEN /hpf (0-5); Squamous Epithelial Cells - UA 0-5 SEEN /hpf (5-10)
[2025-02-16 19:20] VITALS: BMI 31.6
[2025-02-16] MEDS: 0.9% Saline Lock 10 ML Syringe IV ×2 (19:56→23:07)
[2025-02-16 20:00] VITALS: BP 146/81; PULSE 79; RESP 14; TEMP 36.6; O2SAT 92
[2025-02-16 21:00] VITALS: O2SAT 93
[2025-02-16 21:40] VITALS: BP 134/61; PULSE 83; RESP 16; TEMP 36.3; O2SAT 93
[2025-02-16] MEDS: MELATONIN 3 MG TABLET PO (21:44)
[2025-02-16 23:05] VITALS: BP 123/52; PULSE 76; RESP 16; TEMP 36.5; O2SAT 94
[2025-02-17] VITALS (8 sets, daily range): BP systolic 100–125; BP diastolic 52–74; PULSE 65–80; RESP 14–18; TEMP 36.3–36.7; O2SAT 92–99
[2025-02-17] MEDS: 0.9% Normal Saline (1000mL) 1,000 ML 150 ML IV ×4 (02:33→21:45)
[2025-02-17 07:25] LABS: Prothrombin Time (Protime)PT. 14.9 SECONDS (11.7-14.9)
[2025-02-17 07:26] LABS: Partial Thromboplast Time 28.3 Seconds (24.1-36.2)
[2025-02-17 07:30] LABS: Hematocrit 32.3 % (37-47); Hemoglobin 10.4 g/dL (12.0-15.0); Mean Corp Hgb Conc 32.2 g/dL (32-36); Mean Corpuscular Volume 93.6 fL (81-99); Mean Platelet Vol. 11.0 fl (6.2-12.0); Platelet Count 180 K/mm3 (150-450); RBC Distribution Width CV 13.5 % (11.6-14.6); RBC Distribution Width SD 46.2 fl (35.1-43.9); Red Blood Count 3.45 M/mm3 (4.2-5.4); White Blood Count 9.4 K/mm3 (4.4-11.0)
[2025-02-17 08:06] LABS: Anion Gap 8 (5-15); BUN 23 mg/dL (4-19); BUN/Creat Ratio 20.4 RATIO (10-20); Calcium,Total 8.5 mg/dL (7.6-11.0); Carbon Dioxide 26.9 mmol/L (21.0-32.0); Chloride 105 mmol/L (98-108); Estimated Creatinine Clearance 40.18 ml/min (50-250); Glucose 157 mg/dL (70-99); Potassium 4.6 mmol/L (3.3-5.1)
--- NOTE | 2025-02-17 09:01 | PN.HOSP_ITS ---
Reason for Visit Chief Complaint: Fall with right leg pain Objective Data Objective Data Vital Signs: Vital Signs Temp Pulse Resp BP Pulse Ox O2 Del Method O2 Flow Rate 97.6 F L 67 18 100/52 L 92 Nasal Cannula 2 02/17/25 08:57 02/17/25 08:57 02/17/25 08:57 02/17/25 08:57 02/17/25 08:57 02/17/25 08:57 02/17/25 08:57 Oxygen Flow Rate (L/min) 2 Oxygen Delivery Method Nasal Cannula Weight: 86.183 kg Body Mass Index (BMI) 31.6 Intake & Output: Intake and Output for Last 24 Hours 02/15/25 02/16/25 02/17/25 23:59 23:59 23:59 Intake Total 550 / 550 1920 / 1920 Output Total 400 / 400 150 / 150 Balance 150 / 150 1770 / 1770 Lab / Micro Data 02/17/25 06:34 02/17/25 06:34 Labs: Laboratory Results - last 24 hr 02/16/25 18:00: WBC 9.9, RBC 4.45, Hgb 13.5, Hct 40.6, MCV 91.2, MCH 30.3, MCHC 33.3, RDW Std Deviation 44.4 H, RDW Coeff of Gerry 13.2, Plt Count 182, MPV 10.5, Immature Gran % (Auto) 0.200, Neut % (Auto) 73.9 H, Lymph % (Auto) 13.0 L, [place] % (Auto) 10.3 H, Eos % (Auto) 2.1, Baso % (Auto) 0.5, Absolute Neuts (auto) 7.3, Absolute Lymphs (auto) 1.28, Nucleated RBC % 0, Sodium 141, Potassium 4.3, Chloride 101, Carbon Dioxide 31.1, Anion Gap 9, BUN 24 H, Creatinine 0.99, Estim Creat Clear Calc 47.36 L, Est GFR (MDRD) Non-Af 56 L, BUN/Creatinine Ratio 24.3 H, Glucose 105 H, Calcium 9.5, Blood Type O POSITIVE, Antibody Screen NEGATIVE 02/16/25 18:45: Urine Color Yellow, Urine Clarity Clear, Urine pH 6.0, Ur Specific [place] 1.015, Urine Protein 30 H, Urine Glucose (UA) Normal, Urine Ketones Negative, Urine Occult Blood Negative, Urine Nitrite Negative, Urine Bilirubin Negative, Urine Urobilinogen Normal, Ur Leukocyte Esterase Negative, Urine RBC 0-5 SEEN, Urine WBC 0-5 SEEN, Ur Squamous Epith Cells 0-5 SEEN, Urine Bacteria 0 SEEN, Hyaline Casts 0-5 SEEN, Urine Mucus 0 SEEN 02/16/25 21:43: POC Glucose 187 H 02/17/25 05:59: POC Glucose 152 H 02/17/25 06:34: WBC 9.4, RBC 3.45 L, Hgb 10.4 L, Hct 32.3 L, MCV 93.6, MCH 30.1, MCHC 32.2, RDW Std Deviation 46.2 H, RDW Coeff of Gerry 13.5, Plt Count 180, MPV 11.0, PT 14.9, INR 1.1, APTT 28.3, Sodium 140, Potassium 4.6, Chloride 105, Carbon Dioxide 26.9, Anion Gap 8, BUN 23 H, Creatinine 1.13, Estim Creat Clear Calc 40.18 L, Est GFR (MDRD) Non-Af 48 L, BUN/Creatinine Ratio 20.4 H, Glucose 157 H, Calcium 8.5 Radiography Diagnostic Testing: Radiology Impression Chest X-Ray 02/16/25 18:13 IMPRESSION: No acute findings. Reading Location: [facility] Hip/Pelvis X-Ray 02/16/25 18:13 IMPRESSION: No acute fracture or dislocation appreciated. Reading Location: [facility] Knee X-Ray 02/16/25 18:13 IMPRESSION: Acute mildly displaced periprosthetic fracture of the distal right femur. Total knee arthroplasty hardware appears intact. Reading Location: [facility] Patient's Goals Of Care - F/U Goal Hisotry Goal History: Patient's Goals of Care History 3 What matters most to you about Quality of life 02/16/25 19:17 your health? What would you like to achieve Have femur fracture fixed 02/16/25 19:17 or improve as a result of you and then get stronger Assessment & Plan Assessment/Plan (1) Femur fracture, right: PLAN: Plan Patient is an 84-year-old lady who presented to the ED following a fall. Imaging studies demonstrated right distal femur fracture admitted to regular nursing floor with consult placed to Ortho 1. Distal right femur fracture ? Patient presented with a fall imaging studies did show Acute mildly displaced periprosthetic fracture of the distal right femur. Total knee arthroplasty hardware appears intact.. Patient admitted to monitored bed manage with immobilization consult placed to Ortho. Patient preop evaluation regarding risk as documented by admitting physician 2. Paroxysmal A-fib ? 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 Hypertension ? Blood pressure controlled, home medications continued with dose adjustment as needed 5. Diabetes mellitus type II -patient's oral hypoglycemics held. Placed on long acting insulin, Accu-Cheks a.c. and at bedtime and covered with sliding scale insulin patient is an 84-year-old female who presented to [facility] ED on 02/16/2025 with right leg pain after a fall at home. 1. Right distal femur fracture secondary to mechanical fall in setting of chronic debility ? Admit under inpatient status to [facility]. Orthopedic surgery consulted. PT/OT/case management consulted. Lives at home alone. Was hospitalized here in late December for new onset A-fib and acute on chronic debility. She was able to be discharged home with home health care at that time and home health care was seeing her until a few weeks ago. Patient had a mechanical fall at home onto her right side. Right knee x-ray showed an acute mildly displaced periprosthetic fracture of the distal right femur. Plan is for surgery on Friday, will make n.p.o. admitted on . Preoperative evaluation as below. Pain control scheduled Tylenol, tramadol as needed and IV morphine as needed; patient and family noted that patient has become too loopy in the past on oxycodone. SCDs for DVT prophylaxis for now. 2. Preoperative evaluation ? Labs/imaging: Hemoglobin 13.5, creatinine 0.99 on admit, plus at baseline. No other lab abnormalities noted. Chest x-ray benign and patient stable on room air at rest. No further labs or imaging needed preoperatively. Follow-up labs postoperatively. ? Cardiac eval: Recent diagnosed with paroxysmal A-fib in late October and was started on Eliquis for anticoagulation. Echo on 12/10 with EF 65%, stage I diastolic dysfunction, no other concerning findings. Has history of pacemaker placement as below. EKG in the ED with a ventricular paced rhythm noted and no ischemic changes. Euvolemic on exam, no concern for heart failure. No further cardiac workup needed preoperatively. ? Medications: Eliquis held on admission and will defer to orthopedics on timing of restarting this. Continue other home medications as prescribed. ? Prior procedural complications: None. ? Recommendation: Patient is medically optimized for procedure. 3. Paroxysmal A-fib, hypertension, hyperlipidemia, history of second-degree block s/p pacemaker placement ? Follows with cardiology. Recently diagnosed with new onset paroxysmal A-fib in late December, echo at that time with normal EF as above. EKG on this admit with ventricular paced rhythm. Patient hypertensive to the 150s to 160s systolic in the ED. Holding home Eliquis for procedures above. Continue home statin and Toprol. 4. Type 2 diabetes mellitus with diabetic neuropathy ? Most recent A1c 6.2% on 10/14. Glucose 105 on admit. Will hold home Lantus and glimepiride and treat with only sliding scale insulin with meals for now, adjust as needed. Continue home gabapentin. 5. Chronic back pain ? Pain has been well-controlled on tramadol as needed at home. Pain regimen for now as above. 6. History of remote bilateral knee replacements ? Reports knee replacements were approximately 30 years ago. DVT prophylaxis: SCDs CODE STATUS: DNR CCA, DNI. Patient is okay for short-term intubation for surgery. Expected disposition: Likely SNF, TBD Total clinical time spent by myself addressing the patient's medical issues, reviewing all the data, and collaborating with patient's care team: 76 minutes.
--- NOTE | 2025-02-17 09:01 | PCM.PN.HOSP ---
Reason for Visit Chief Complaint: Fall with right leg pain Subjective Subjective Patient is an 84-year-old lady who presented to the ED following a fall. Imaging studies demonstrated right distal femur fracture admitted to regular nursing floor with consult placed to Ortho Objective Data Objective Data Vital Signs: Vital Signs Temp Pulse Resp BP Pulse Ox O2 Del Method O2 Flow Rate 97.6 F L 67 18 100/52 L 92 Nasal Cannula 2 02/17/25 08:57 02/17/25 08:57 02/17/25 08:57 02/17/25 08:57 02/17/25 08:57 02/17/25 08:57 02/17/25 08:57 Oxygen Flow Rate (L/min) 2 Oxygen Delivery Method Nasal Cannula Weight: 86.183 kg Body Mass Index (BMI) 31.6 Intake & Output: Intake and Output for Last 24 Hours 02/15/25 02/16/25 02/17/25 23:59 23:59 23:59 Intake Total 550 / 550 1920 / 1920 Output Total 400 / 400 150 / 150 Balance 150 / 150 1770 / 1770 Lab / Micro Data 02/17/25 06:34 02/17/25 06:34 Labs: Laboratory Results - last 24 hr 02/16/25 18:00: WBC 9.9, RBC 4.45, Hgb 13.5, Hct 40.6, MCV 91.2, MCH 30.3, MCHC 33.3, RDW Std Deviation 44.4 H, RDW Coeff of Gerry 13.2, Plt Count 182, MPV 10.5, Immature Gran % (Auto) 0.200, Neut % (Auto) 73.9 H, Lymph % (Auto) 13.0 L, [place] % (Auto) 10.3 H, Eos % (Auto) 2.1, Baso % (Auto) 0.5, Absolute Neuts (auto) 7.3, Absolute Lymphs (auto) 1.28, Nucleated RBC % 0, Sodium 141, Potassium 4.3, Chloride 101, Carbon Dioxide 31.1, Anion Gap 9, BUN 24 H, Creatinine 0.99, Estim Creat Clear Calc 47.36 L, Est GFR (MDRD) Non-Af 56 L, BUN/Creatinine Ratio 24.3 H, Glucose 105 H, Calcium 9.5, Blood Type O POSITIVE, Antibody Screen NEGATIVE 02/16/25 18:45: Urine Color Yellow, Urine Clarity Clear, Urine pH 6.0, Ur Specific [place] 1.015, Urine Protein 30 H, Urine Glucose (UA) Normal, Urine Ketones Negative, Urine Occult Blood Negative, Urine Nitrite Negative, Urine Bilirubin Negative, Urine Urobilinogen Normal, Ur Leukocyte Esterase Negative, Urine RBC 0-5 SEEN, Urine WBC 0-5 SEEN, Ur Squamous Epith Cells 0-5 SEEN, Urine Bacteria 0 SEEN, Hyaline Casts 0-5 SEEN, Urine Mucus 0 SEEN 02/16/25 21:43: POC Glucose 187 H 02/17/25 05:59: POC Glucose 152 H 02/17/25 06:34: WBC 9.4, RBC 3.45 L, Hgb 10.4 L, Hct 32.3 L, MCV 93.6, MCH 30.1, MCHC 32.2, RDW Std Deviation 46.2 H, RDW Coeff of Gerry 13.5, Plt Count 180, MPV 11.0, PT 14.9, INR 1.1, APTT 28.3, Sodium 140, Potassium 4.6, Chloride 105, Carbon Dioxide 26.9, Anion Gap 8, BUN 23 H, Creatinine 1.13, Estim Creat Clear Calc 40.18 L, Est GFR (MDRD) Non-Af 48 L, BUN/Creatinine Ratio 20.4 H, Glucose 157 H, Calcium 8.5 Radiography Diagnostic Testing: Radiology Impression Chest X-Ray 02/16/25 18:13 IMPRESSION: No acute findings. Reading Location: [facility] Hip/Pelvis X-Ray 02/16/25 18:13 IMPRESSION: No acute fracture or dislocation appreciated. Reading Location: [facility] Knee X-Ray 02/16/25 18:13 IMPRESSION: Acute mildly displaced periprosthetic fracture of the distal right femur. Total knee arthroplasty hardware appears intact. Reading Location: [facility] Patient's Goals Of Care - F/U Goal Hisotry Goal History: Patient's Goals of Care History What matters most to you about Quality of life 02/16/25 19:17 your health? What would you like to achieve Have femur fracture fixed 02/16/25 19:17 or improve as a result of you and then get stronger Physical Exam Narrative GENERAL: cooperative HEENT: Atraumatic; normocephalic EYES; Anicteric, Normal Conjunctiva NECK; supple, normal thyroid, RESPIRATORY: Diminished to auscultation CARDIOVASCULAR: Regular S1 S2, GI: soft, normoactive bowel sounds, : No Renal angle tenderness; EXTREMITIES: No edema, no clubbing, MUSCULOSKELETAL: no muscle wasting NEURO: Awake; no lateralizing signs. SKIN: No Rash PSYCH; Flat affect Assessment & Plan Assessment/Plan (1) Femur fracture, right: PLAN: Plan Patient is an 84-year-old lady who presented to the ED following a fall. Imaging studies demonstrated right distal femur fracture admitted to regular nursing floor with consult placed to Ortho 1. Distal right femur fracture ? Patient presented with a fall imaging studies did show Acute mildly displaced periprosthetic fracture of the distal right femur. Total knee arthroplasty hardware appears intact.. Patient admitted to monitored bed manage with immobilization consult placed to Ortho. Patient preop evaluation regarding risk as documented by admitting physician 2. Paroxysmal A-fib ? 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 Hypertension ? Blood pressure controlled, home medications continued with dose adjustment as needed 5. Diabetes mellitus type II -patient's oral hypoglycemics held. Placed on long acting insulin, Accu-Cheks a.c. and at bedtime and covered with sliding scale insulin 6. Diabetic polyneuropathy ? Patient is on gabapentin did continue 7. Chronic back pain ? Did continue patient pain regimen 8. Generalized osteoarthritis ? With remote history of bilateral knee replacement 9. Depression with anxiety ? Patient is on buspirone 10. Dyslipidemia ?Patient is on statin therapy, continued at home dose 11. DVT prophylaxis ? SCDs for now Time spent in the patient's overall evaluation,decision-making process, review of diagnostic data, adjustment of management, discussion with other providers, nursing nursing and ancillary staff involved in patient's care documentation, 40 Minutes Charges/Coding Visit Charges Inpatient E&M: 27021 Subs Hosp L2
--- NOTE | 2025-02-17 09:36 | CASEMGMT ---
Social Work Face to Face with pt for initial transition planning/care coordination assessment. SW introduced self and role at [facility], pt voices understanding and consents to assessment. Patient was able to answer most of the questions. The daughter Salud answer the rest of the questions. Admitting Dx: fall with right distal femur fracture Primary Care Doctor: Dr. Truong Speciality doctors: Dr. Kaiser- cardio Insurance: [facility] Medicare Pharmacy: Patient utilizes [facility] in [place]. Advanced directives: yes LNOK:. daughter Salud and son Bharat Living Situation: Patient lives at home alone. She has 1 step into the home. She lives on the 1st floor. Her daughter Salud lives behind her and her son Bharat and PADMINI live beside her. ADL's/Prior level of functioning: independent Transportation: The daughter and PADMINI transport the patient. DME: FWW, WC, SC, BSC, bars beside the toilet shelter/home health history: [facility] about 3 years ago, [facility] about 30 years ago. recently discharged from [facility] HH Mental Health: none Substance abuse history: none Assessment: Patient lives at home alone. She has 1 step into the home. She lives on the 1st floor. Her daughter Salud lives behind her and her son Bharat and PADMINI live beside her. PLAN: To be determined. [facility] [place]
[2025-02-17] MEDS: Cholecalciferol (VIT D3) 25 MCG TABLET (1,000 UNITS) 50 MCG PO (11:03)
[2025-02-17] MEDS: Metoprolol(XL)Succ 25 MG Tablet PO (11:04)
--- NOTE | 2025-02-17 15:43 | CONS.ORTHO ---
HPI Consult Data Date of Consult: 02/17/25 HPI Narrative Reason for Consultation: Right leg pain HPI Narrative: JERROD SALAZAR, is a 84 F who presents today with right leg pain. Patient reports yesterday she was getting some furniture out of her vehicle when she had a fall from standing. Her son and daughter are at bedside and confirm her history. Patient lives at home by herself she lives on 1 floor of her two-story home. She uses a cane but has been instructed recently to use her walker more and has recently been through physical therapy in relation to generalized weakness and concerns for mobility. Her children stated this was relatively unsuccessful. She denies any associated numbness and tingling pain is worse with motion better with immobilization. Patient does report that she does her own ADLs at home. Based on the family's reporting patient's function has been declining. She has atrial fibrillation and is on Eliquis. She took her last dose of Eliquis yesterday morning. [facility] Medical History History of coronary artery disease Wears partial dentures Wears glasses Anxiety Post-menopausal Insulin dependent diabetes mellitus Diabetes Arthritis High cholesterol Gastric reflux Non-smoker Shortness of breath on exertion History of stress test History of echocardiogram Cardiology follow-up encounter Hx of cardiac pacemaker Hx of recurrent urinary tract infection Choledocholithiasis with cholecystitis Gallstones Debility Back pain Essential hypertension Vertigo Chest pain Ataxia Presence of cardiac pacemaker Second degree AV block Atherosclerosis of [place] coronary artery of [place] heart without angina pectoris Depression Type 2 diabetes mellitus Atherosclerotic heart disease of [place] coronary artery without angina pectoris Angina pectoris Cardiomyopathy, dilated Paroxysmal atrial fibrillation Paroxysmal atrial flutter Fatigue Dyspnea Chest discomfort Abnormal EKG Long-term use of high-risk medication Old myocardial infarction History of atrial fibrillation DM2 (diabetes mellitus, type 2) HLD (hyperlipidemia) Depression CAD (coronary artery disease) Home Medications ?Medication ?Instructions ?Recorded ?Last Taken ?Type ascorbate calcium (vitamin C) 500 500 mg PO DAILY supplement 08/27/19 12/26/24 History mg tablet nitroglycerin 0.4 mg sublingual 0.4 mg sublingual Q5M PRN chest 08/27/19 Unknown Rx tablet (Nitrostat) pain #25 tabs atorvastatin 40 mg tablet 40 mg PO DAILY CHOLESTEROL #90 tabs 10/22/19 12/26/24 Rx cholecalciferol (vitamin D3) 50 50 mcg PO BID supplement 07/10/20 12/27/24 History mcg (2,000 unit) tablet vitamin B complex 1 tab PO DAILY supplement 07/10/20 12/27/24 History insulin glargine 100 unit/mL (3 14 unit subcut DAILY diabetes 12/12/22 12/27/24 History mL) subcutaneous pen (Lantus Solostar U-100 Insulin) glimepiride 4 mg tablet 4 mg PO BID diabetes 08/15/23 12/27/24 History coenzyme Q10 100 mg capsule 100 mg PO DAILY supplement 10/03/23 12/27/24 History (CoQ-10) gabapentin 300 mg capsule 300 mg PO BID PRN NERVE PAIN 10/03/23 12/27/24 History acetaminophen 500 mg capsule 1,000 mg PO BID pain 10/28/23 12/27/24 History duloxetine 60 mg capsule,delayed 60 mg PO DAILY mental health 12/27/24 12/26/24 History release apixaban 5 mg tablet (Eliquis) 5 mg PO BID #0 tabs 12/29/24 Unknown Rx metoprolol succinate 25 mg 25 mg PO DAILY #30 tabs 12/29/24 Unknown Rx tablet,extended release 24 hr buspirone 7.5 mg tablet 7.5 mg PO BID mental health 01/11/25 Unknown History tramadol 50 mg tablet 50 mg PO TID PRN Back Pain 02/16/25 Unknown History Allergy/AdvReac Type Severity Reaction Status Date / Time amoxicillin Allergy Intermediate Rash Verified 02/16/25 17:37 latex Allergy Intermediate Other Verified 02/16/25 17:37 Sulfa (Sulfonamide Allergy Rash Verified 02/16/25 17:37 Antibiotics) tizanidine (From Zanaflex) AdvReac Other Verified 02/16/25 17:37 Family History Mother CAD (coronary artery disease) Sister , age 73 Atrial fibrillation Sister , Age 68 CAD (coronary artery disease) COPD (chronic obstructive pulmonary disease) Surgical History S/P laparoscopic cholecystectomy History of ERCP Pacemaker (~12/05/17) History of right cataract surgery History of left cataract surgery History of bilateral knee replacement Status post ablation of atrial fibrillation (~2002) History of foot surgery Presence of stent in coronary artery (~08/2010) Social History Smoking Status: Never smoker alcohol intake: never substance use type: does not use caffeine: Yes Type: coffee Number of servings: 2 ROS ROS Narrative 14 point review of systems outside what is mentioned in HPI is negative Vital Signs Vital Signs Vital Signs: 02/16/25 17:33 02/16/25 18:59 02/16/25 20:00 Temperature 98 F 97.9 F 97.8 F Temperature Source Oral Oral Pulse Rate 59 L 65 79 Pulse Strength Respiratory Rate 18 20 H 14 Respiratory Effort Respiratory Depth Respiratory Pattern Blood Pressure 173/92 H 161/69 H 146/81 H Blood Pressure Mean 119 99 102 Blood Pressure Source Monitor Blood Pressure Position Semi-Fowlers Blood Pressure Location Right Arm Pulse Ox 96 99 92 Oxygen Delivery Method Room Air Room Air Oxygen Flow Rate (L/min) 02/16/25 20:23 02/16/25 20:24 02/16/25 21:00 Temperature Temperature Source Pulse Rate Pulse Strength Normal (2+) Respiratory Rate Respiratory Effort Normal Non-Labored Respiratory Depth Normal Respiratory Pattern Normal Blood Pressure Blood Pressure Mean Blood Pressure Source Blood Pressure Position Blood Pressure Location Pulse Ox 93 Oxygen Delivery Method Room Air Room Air Oxygen Flow Rate (L/min) 02/16/25 21:40 02/16/25 23:05 02/17/25 02:30 Temperature 97.4 F L 97.7 F L 97.6 F L Temperature Source Temporal Temporal Temporal Pulse Rate 83 76 80 Pulse Strength Respiratory Rate 16 16 14 Respiratory Effort Respiratory Depth Respiratory Pattern Blood Pressure 134/61 H 123/52 H 121/57 H Blood Pressure Mean 85 75 78 Blood Pressure Source Monitor Monitor Monitor Blood Pressure Position Semi-Fowlers Semi-Fowlers Semi-Fowlers Blood Pressure Location Right Arm Right Arm Right Arm Pulse Ox 93 94 92 Oxygen Delivery Method Room Air Room Air Room Air Oxygen Flow Rate (L/min) 02/17/25 02:42 02/17/25 05:55 02/17/25 08:57 Temperature 97.4 F L 97.6 F L Temperature Source Temporal Oral Pulse Rate 66 67 Pulse Strength Respiratory Rate 16 18 Respiratory Effort Normal Non-Labored Respiratory Depth Normal Respiratory Pattern Normal Blood Pressure 108/58 L 100/52 L Blood Pressure Mean 74 68 Blood Pressure Source Monitor Monitor Blood Pressure Position Semi-Fowlers Semi-Fowlers Blood Pressure Location Right Arm Right Arm Pulse Ox 94 92 Oxygen Delivery Method Room Air Room Air Nasal Cannula Oxygen Flow Rate (L/min) 2 02/17/25 10:00 02/17/25 10:00 02/17/25 11:00 Temperature 97.8 F Temperature Source Temporal Pulse Rate 68 Pulse Strength Normal (2+) Respiratory Rate 18 Respiratory Effort Normal Non-Labored Respiratory Depth Normal Respiratory Pattern Normal Blood Pressure 123/74 H Blood Pressure Mean 90 Blood Pressure Source Monitor Blood Pressure Position Semi-Fowlers Blood Pressure Location Right Arm Pulse Ox 95 Oxygen Delivery Method Nasal Cannula Nasal Cannula Oxygen Flow Rate (L/min) 2 2 02/17/25 11:04 02/17/25 11:07 02/17/25 13:16 Temperature Temperature Source Pulse Rate 67 Pulse Strength Respiratory Rate Respiratory Effort Normal Non-Labored Respiratory Depth Normal Respiratory Pattern Normal Blood Pressure Blood Pressure Mean Blood Pressure Source Blood Pressure Position Blood Pressure Location Pulse Ox Oxygen Delivery Method Room Air Nasal Cannula Oxygen Flow Rate (L/min) 2 Weight Weight: 190 lb Body Mass Index (BMI) 31.6 Physical Exam Const alert and oriented x3 General Appearance: cooperative HEENT normocephalic and head/scalp atraumatic Eyes PERRL Neck no JVD Resp normal respiratory effort Cardio Cardio Narrative: Regular pulse rate distally GI non-distended Extremity Extremity Narrative: Right lower extremity skin clean, dry, and intact. Limb is shortened and externally rotated Motor is intact dorsiflexion, EHL and plantar flexion. Sensation is intact to light touch saphenous, nel,l superficial peroneal, deep peroneal and tibial distributions. Calves are soft and supple. Neuro CN's II-XII intact bilaterally Psych affect normal Medical Records Data Attestation: I reviewed the patient's medical records Lab / Micro Data Attestation: I reviewed the patient's lab results. 02/17/25 06:34 02/17/25 06:34 Labs: Laboratory Results - last 24 hr 02/16/25 18:00: WBC 9.9, RBC 4.45, Hgb 13.5, Hct 40.6, MCV 91.2, MCH 30.3, MCHC 33.3, RDW Std Deviation 44.4 H, RDW Coeff of Gerry 13.2, Plt Count 182, MPV 10.5, Immature Gran % (Auto) 0.200, Neut % (Auto) 73.9 H, Lymph % (Auto) 13.0 L, [place] % (Auto) 10.3 H, Eos % (Auto) 2.1, Baso % (Auto) 0.5, Absolute Neuts (auto) 7.3, Absolute Lymphs (auto) 1.28, Nucleated RBC % 0, Sodium 141, Potassium 4.3, Chloride 101, Carbon Dioxide 31.1, Anion Gap 9, BUN 24 H, Creatinine 0.99, Estim Creat Clear Calc 47.36 L, Est GFR (MDRD) Non-Af 56 L, BUN/Creatinine Ratio 24.3 H, Glucose 105 H, Calcium 9.5, Blood Type O POSITIVE, Antibody Screen NEGATIVE 02/16/25 18:45: Urine Color Yellow, Urine Clarity Clear, Urine pH 6.0, Ur Specific [place] 1.015, Urine Protein 30 H, Urine Glucose (UA) Normal, Urine Ketones Negative, Urine Occult Blood Negative, Urine Nitrite Negative, Urine Bilirubin Negative, Urine Urobilinogen Normal, Ur Leukocyte Esterase Negative, Urine RBC 0-5 SEEN, Urine WBC 0-5 SEEN, Ur Squamous Epith Cells 0-5 SEEN, Urine Bacteria 0 SEEN, Hyaline Casts 0-5 SEEN, Urine Mucus 0 SEEN 02/16/25 21:43: POC Glucose 187 H 02/17/25 05:59: POC Glucose 152 H 02/17/25 06:34: WBC 9.4, RBC 3.45 L, Hgb 10.4 L, Hct 32.3 L, MCV 93.6, MCH 30.1, MCHC 32.2, RDW Std Deviation 46.2 H, RDW Coeff of [place]erry 13.5, Plt Count 180, MPV 11.0, PT 14.9, INR 1.1, APTT 28.3, Sodium 140, Potassium 4.6, Chloride 105, Carbon Dioxide 26.9, Anion Gap 8, BUN 23 H, Creatinine 1.13, Estim Creat Clear Calc 40.18 L, Est GFR (MDRD) Non-Af 48 L, BUN/Creatinine Ratio 20.4 H, Glucose 157 H, Calcium 8.5 02/17/25 13:01: POC Glucose 149 H Imaging Radiology Impression Chest X-Ray 02/16/25 18:13 IMPRESSION: No acute findings. Reading Location: [id number] Hip/Pelvis X-Ray 02/16/25 18:13 IMPRESSION: No acute fracture or dislocation appreciated. Reading Location: [id number] Knee X-Ray 02/16/25 18:13 IMPRESSION: Acute mildly displaced periprosthetic fracture of the distal right femur. Total knee arthroplasty hardware appears intact. Reading Location: [id number] Chest x-ray hip x-ray and knee x-rays were all independently reviewed. No acute fractures or bony lesions appreciated on the hip and pelvis x-ra on the pelvis x-ray patient does have evidence of degenerative disease in the lower lumbar spine. Chest x-ray shows no acute fractures or bony lesions. Patient does have pacemaker on the left shoulder. Distal femur fracture evident on knee x-rays long oblique fracture just proximal to the distal femur. Assessment & Plan Assessment/Plan (1) Fracture of distal end of right femur: PLAN: Natural history of the disease process and treatment options were discussed the patient. We discussed nonoperative versus operative intervention. At this time I recommended retrograde nail with likely open reduction. I explained this likely involve 2 incisions 1 laterally to help reduce the fracture and 1 incision through the knee joint to help please see distal femoral nail. Patient demonstrates an understanding of these treatment options. Her son and daughter were at bedside and also demonstrated understanding. At this time we discussed the risk and benefit of the procedure which include but are not limited to blood loss, DVTs, PEs, neurovascular damage, general risk of anesthesia including loss of life. Additionally we discussed nonunion, malunion and additional fractures including intraoperative and postoperative fractures. We also discussed that the approach goes to the total knee replacement and total knee replacement infection can result in significant complications and even need for more surgery. Ultimately, after thorough discussion of risks and benefits patient and her family did desire to move forward with surgical intervention understanding nonoperative treatment not recommended. They also understand patient with weightbearing restrictions afterwards which may be difficult for her to tolerate which could result in significant deconditioning. Patient understands this may be an injury that resulted in significant change in her quality of life. Plan will be to proceed with surgery tomorrow. Patient is on Eliquis we would like to wait 48 hours prior to proceeding with the surgery of this magnitude. All parties are in agreement with this treatment plan.
[2025-02-17] MEDS: MELATONIN 3 MG TABLET PO (20:58)
[2025-02-18] VITALS (19 sets, daily range): BP systolic 88–177; BP diastolic 45–127; PULSE 67–87; RESP 16–18; TEMP 36.4–36.7; O2SAT 61–99; BMI 31.6
[2025-02-18] MEDS: 0.9% Normal Saline (1000mL) 1,000 ML 150 ML IV (03:32)
[2025-02-18 04:40] LABS: Hematocrit 30.6 % (37-47); Hemoglobin 9.5 g/dL (12.0-15.0); Immature Granulocytes Count 0.030 X10^3/uL (0.0-0.0); Mean Corp Hgb Conc 31.0 g/dL (32-36); Mean Corpuscular Volume 95.3 fL (81-99); Mean Platelet Vol. 11.0 fl (6.2-12.0); NRBC Flagged by Analyzer 0 % (0-5); Platelet Count 156 K/mm3 (150-450); RBC Distribution Width CV 13.5 % (11.6-14.6); RBC Distribution Width SD 46.8 fl (35.1-43.9); Red Blood Count 3.21 M/mm3 (4.2-5.4); White Blood Count 8.7 K/mm3 (4.4-11.0)
[2025-02-18 05:18] LABS: Anion Gap 8 (5-15); BUN 25 mg/dL (4-19); BUN/Creat Ratio 23.0 RATIO (10-20); Calcium,Total 8.2 mg/dL (7.6-11.0); Carbon Dioxide 22.0 mmol/L (21.0-32.0); Chloride 110 mmol/L (98-108); Estimated Creatinine Clearance 41.65 ml/min (50-250); Glucose 140 mg/dL (70-99); Potassium 4.8 mmol/L (3.3-5.1)
[2025-02-18] MEDS: Lactated Ringers 1,000 ML 15 ML IV ×2 (06:54→10:12)
--- NOTE | 2025-02-18 07:16 | PCM.PRE.AN2 ---
ASA Classification* ASA Classification ASA Classification: 3 Assessment & Plan Anesthesia* Anesthesia Assessment Anesthesia Assessment: Discussed sedation and/or anesthesia options, risks, benefits, and alternatives with patient/parents/legal guardian/POA. Questions invited. The patient/parents/legal guardian/POA seems to understand and agrees to proceed with anesthesia plan. Reviewed the physical assessment, medical history, allergy history and patient home medications list prior to surgery/procedure/anesthetic and documented any changes. Performed airway and anesthesia risk assessments. Anesthesia Type Anesthesia Type: General History Source History Obtained from:: Patient and Chart Anesthesia Focused Assessment* Temperature: 97.9 F Pulse Rate: 67 Blood Pressure: 124/52 Respiratory Rate: 18 Pulse Ox: 94 Oxygen Delivery Method: Room Air Oxygen Flow Rate (L/min): 2 Airway Assessment Mouth opens: >3 cm Mallampati Score: III Teeth Condition: Partial (Lower partials out.) Neck Range of motion (ROM): Limited ROM (Somewhat Decreased) Labs Anesthesia Preop lab: CBC WBC, (4.4-11.0) 8.7 K/mm3 Today, 04:05 RBC, (4.2-5.4) 3.21 M/mm3 L Today, 04:05 Hgb, (12.0-15.0) 9.5 g/dL L Today, 04:05 Hct, (37-47) 30.6 % L Today, 04:05 Plt Count, (150-450) 156 K/mm3 Today, 04:05 CHEMISTRY Potassium, (3.3-5.1) 4.8 mmol/L Today, 04:05 Sodium, (133-145) 140 mmol/L Today, 04:05 Magnesium, (1.5-2.2) 1.8 mg/dL 12/27/24, 15:54 Phosphorus, (2.5-4.9) 2.8 mg/dL 07/22/23, 06:00 BUN, (4-19) 25 mg/dL H Today, 04:05 Creatinine, (0.70-1.20) 1.09 mg/dL Today, 04:05 Glucose, (70-99) 140 mg/dL H Today, 04:05 POC Glucose, (74-106) 145 mg/dL H Today, 05:45 TSH, (0.300-4.200) 1.680 uIU/mL 12/28/24, 05:32 COAG PT, (11.7-14.9) 14.9 SECONDS 02/17/25, 06:34 Pre-Assessment Diagnosis/Proposed Procedure Planned Operative Procedure(s): Right retrograde femoral nail. Anesthesia History Anesthesia History - health promotion coordinator: Anesthesia History - health promotion coordinator Hx Hospitalization Yes: ERCP 07/17/2023 10/28/23 09:35 Any Problems With Anesthesia No 02/18/25 03:44 Cholinesterase deficiency No 02/18/25 03:44 You/Your Family Experience No 02/18/25 03:44 fever (hyperthermia) with Relationship Recent Exposure to Contagious No 02/18/25 03:44 Disease Does patient have nerve No 02/18/25 03:44 stimulator Patient instructed to have device shut off --Does patient have Pacemaker Yes 02/18/25 05:50 or ICD? When Was Last Pacemaker Check 02/17/25 02/18/25 03:44 QUESTION #4 FULL TEXT: You/Your Family Experience fever (hyperthermia) with Anesthesia Last Oral Intake Last Oral intake: Last Oral Intake NPO since 00:00 02/18/25 05:50 Meds taken in AM with sips of No 02/18/25 05:50 water? Meds patient instructed to take am of surgery PONV PONV - health promotion coordinator: PONV - health promotion coordinator Female HX of Motion Sickness HX of N/V After Surgery Non-Smoker Duration of Surgery greater than 60 minutes Number of Risk Factors PONV Score Height & Weight Height & Weight: Anesthesia: Height & Weight Height 5 ft 5 in 02/18/25 05:50 Weight: 86.183 kg 02/18/25 05:50 Body Mass Index (BMI) 31.6 02/18/25 05:50 Respiratory Assessment Respiratory Assessment - health promotion coordinator: Respiratory Tract Infection Hx - health promotion coordinator Hx Respiratory Tract Infection No 02/18/25 03:44 STOP Sleep Apnea STOP Sleep Apnea - health promotion coordinator: STOP Sleep Apnea - health promotion coordinator Hx Hypertension Yes 02/17/25 09:37 Hx Sleep Apnea No 02/16/25 19:20 CPAP BIPAP Do you snore loudly (louder No 02/16/25 19:20 than talking or can be heard Do you often feel tired/ No 02/16/25 19:20 fatigued/ sleepy during daytime? Has anyone observed you stop No 02/16/25 19:20 breathing during sleep? STOP Results Negative 02/16/25 19:20 QUESTION #5 FULL TEXT : Do you snore loudly (louder than talking or can be heard through closed doors)? Tobacco Use History Tobacco Use History - health promotion coordinator: Tobacco Use History - health promotion coordinator Tobacco Use Smoking Status Never smoker 02/16/25 19:20 Hx Tobacco Use No 02/16/25 19:20 Years Smoking Packs Smoked per Day Smoking Cessation Date was within the last 15 years Hx Smoking Cessation Date Hx Smoking Cessation Counseling Hematologic Medial History Hematologic Hx - health promotion coordinator: Hematologic Medical Hx - cosmetic maker Hx of Blood Transfusion No 02/16/25 19:20 Hx of Transfusion in last 3 No 02/16/25 19:20 Months Date of Last Transfusion (if within last 3 months) Ever experience any problems No 02/16/25 19:20 with transfusion(s)? Specify any problems Hx of Preganancy in last 3 No 02/16/25 19:20 Months Nurse Filling Out Transfusion MGROVE 02/16/25 19:20 & Questions: Date: 02/16/25 02/16/25 19:20 Time: 19:47 02/16/25 19:20 Patient unable to answer at this time (ie. confused, unrespo /Reproduction History /Reproductive History - health promotion coordinator: /Reproductive Hx- health promotion coordinator Hx Now No 02/18/25 03:44 Gestational Age (in weeks): EDC: Hx Hx Para Hx Section SAB No 02/18/25 03:44 Does the father of the baby or his family experience fever w Father of the baby Malignant Hypertension history comment Active Medications Active Medications: Current Medications Generic Name Dose Route Start Last Admin Trade Name Freq PRN Reason Stop Dose Admin Acetaminophen 1,000 mg 02/16/25 22:00 02/18/25 05:23 Acetaminophen 500 Mg Tablet PO Not Given Q8 AAKASH Atorvastatin Calcium 40 mg 02/16/25 22:00 02/17/25 20:58 Atorvastatin Calcium 40 Mg Tablet PO 40 mg QHS AAKASH Administration Buspirone HCl 7.5 mg 02/16/25 22:00 02/18/25 05:23 Buspirone 15 Mg Tablet PO Not Given TID AAKASH Cholecalciferol 50 mcg 12/18/25 10:00 02/17/25 11:03 Cholecalciferol (Vit D3) 25 Mcg Tablet (1,000 Units) PO 50 mcg DAILY AAKASH Administration Duloxetine HCl 60 mg 02/17/25 10:00 02/17/25 11:04 Duloxetine Hcl 60 Mg Capsule PO 60 mg DAILY AAKASH Administration Gabapentin 300 mg 02/16/25 22:00 02/17/25 20:58 Gabapentin 300 Mg Capsule PO 300 mg BID AAKASH Administration Glucagon 1 mg 02/16/25 19:27 Glucagon 1 Mg/Ml Syringe IM X1 PRN Hypoglycemia Protocol Sodium Chloride 1,000 mls @ 150 mls/hr 02/16/25 17:50 02/18/25 03:32 IV 150 mls/hr .[id number] AAKASH Administration Sodium Chloride 250 mls @ 15 mls/hr 02/16/25 19:21 IV .[id number] PRN Saline Flush Sodium Chloride 250 mls @ 15 mls/hr 02/16/25 19:21 IV .[id number] PRN Additional IVPB Infusion Dextrose 250 mls @ 0 mls/hr 02/16/25 19:27 Dextrose 10%-Water IV .Q0M PRN HYPOGLYCEMIA Protocol As Directed Lactated Ringer's 1,000 mls @ 15 mls/hr 02/18/25 06:45 02/18/25 06:54 IV 15 mls/hr .Q48H AAKASH Administration Cefazolin Sodium 2 gm/ Sodium 110 mls @ 200 mls/hr 02/18/25 07:01 Chloride IV 02/18/25 07:33 INTRAOP ONE Insulin Human Lispro 0 unit 02/16/25 22:00 02/18/25 05:51 Insulin Lispro 100 Unit/Ml Insuln.Pen SC Not Given ACHS AAKASH Protocol Melatonin 3 mg 02/16/25 19:20 02/17/25 20:58 Melatonin 3 Mg Tablet PO 3 mg QHS PRN PRN Administration INSOMNIA Methocarbamol 750 mg 02/16/25 22:16 02/17/25 20:58 Methocarbamol 750 Mg Tablet PO 750 mg 4X/DAY PRN PRN Administration MUSCLE SPASM Metoprolol Succinate 25 mg 02/17/25 10:00 02/17/25 11:04 Metoprolol(Xl)Succ 25 Mg Tablet PO 25 mg DAILY AAKASH Administration Protocol Morphine Sulfate 2 mg 02/16/25 19:20 02/17/25 11:04 Morphine 2 Mg/Ml Syringe IV 2 mg Q3H PRN PRN Administration Pain Score 6-10 Ondansetron HCl 4 mg 02/16/25 19:20 Ondansetron 4 Mg/2 Ml Vial IV Q8H PRN PRN NAUSEA/VOMITING Sodium Chloride 10 - 40 ml 02/16/25 19:21 02/16/25 23:07 0.9% Saline Lock 10 Ml Syringe IV 10 ml UD PRN Administration SALINE FLUSH Tramadol HCl 50 mg 02/16/25 19:26 02/17/25 20:58 Tramadol 50 Mg Tablet PO 50 mg Q6H PRN PRN Administration Pain Score 4-10 PFSH Medical History History of coronary artery disease Wears partial dentures Wears glasses Anxiety Post-menopausal Insulin dependent diabetes mellitus Diabetes Arthritis High cholesterol Gastric reflux Non-smoker Shortness of breath on exertion History of stress test History of echocardiogram Cardiology follow-up encounter Hx of cardiac pacemaker Hx of recurrent urinary tract infection Choledocholithiasis with cholecystitis Gallstones Debility Back pain Essential hypertension Vertigo Chest pain Ataxia Presence of cardiac pacemaker Second degree AV block Atherosclerosis of [place] coronary artery of [place] heart without angina pectoris Depression Type 2 diabetes mellitus Atherosclerotic heart disease of [place] coronary artery without angina pectoris Angina pectoris Cardiomyopathy, dilated Paroxysmal atrial fibrillation Paroxysmal atrial flutter Fatigue Dyspnea Chest discomfort Abnormal EKG Long-term use of high-risk medication Old myocardial infarction History of atrial fibrillation DM2 (diabetes mellitus, type 2) HLD (hyperlipidemia) Depression CAD (coronary artery disease) Home Medications ?Medication ?Instructions ?Recorded ?Last Taken ?Type ascorbate calcium (vitamin C) 500 500 mg PO DAILY supplement 08/27/19 12/26/24 History mg tablet nitroglycerin 0.4 mg sublingual 0.4 mg sublingual Q5M PRN chest 08/27/19 Unknown Rx tablet (Nitrostat) pain #25 tabs atorvastatin 40 mg tablet 40 mg PO DAILY CHOLESTEROL #90 tabs 10/22/19 12/26/24 Rx cholecalciferol (vitamin D3) 50 50 mcg PO BID supplement 07/10/20 12/27/24 History mcg (2,000 unit) tablet vitamin B complex 1 tab PO DAILY supplement 07/10/20 12/27/24 History insulin glargine 100 unit/mL (3 14 unit subcut DAILY diabetes 12/12/22 12/27/24 History mL) subcutaneous pen (Lantus Solostar U-100 Insulin) glimepiride 4 mg tablet 4 mg PO BID diabetes 08/15/23 12/27/24 History coenzyme Q10 100 mg capsule 100 mg PO DAILY supplement 10/03/23 12/27/24 History (CoQ-10) gabapentin 300 mg capsule 300 mg PO BID PRN NERVE PAIN 10/03/23 12/27/24 History acetaminophen 500 mg capsule 1,000 mg PO BID pain 10/28/23 12/27/24 History duloxetine 60 mg capsule,delayed 60 mg PO DAILY mental health 12/27/24 12/26/24 History release apixaban 5 mg tablet (Eliquis) 5 mg PO BID #0 tabs 12/29/24 Unknown Rx metoprolol succinate 25 mg 25 mg PO DAILY #30 tabs 12/29/24 Unknown Rx tablet,extended release 24 hr buspirone 7.5 mg tablet 7.5 mg PO BID mental health 01/11/25 Unknown History tramadol 50 mg tablet 50 mg PO TID PRN Back Pain 02/16/25 Unknown History Allergy/AdvReac Type Severity Reaction Status Date / Time amoxicillin Allergy Intermediate Rash Verified 02/16/25 17:37 latex Allergy Intermediate Other Verified 02/16/25 17:37 Sulfa (Sulfonamide Allergy Rash Verified 02/16/25 17:37 Antibiotics) tizanidine (From Zanaflex) AdvReac Other Verified 02/16/25 17:37 Family History Mother CAD (coronary artery disease) Sister , age 73 Atrial fibrillation Sister , Age 68 CAD (coronary artery disease) COPD (chronic obstructive pulmonary disease) Surgical History S/P laparoscopic cholecystectomy History of ERCP Pacemaker (~12/05/17) History of right cataract surgery History of left cataract surgery History of bilateral knee replacement Status post ablation of atrial fibrillation (~2002) History of foot surgery Presence of stent in coronary artery (~08/2010) Social History Smoking Status: Never smoker alcohol intake: never substance use type: does not use caffeine: Yes Type: coffee Number of servings: 2 Review of Systems (Anesthesia) ROS Narrative System reviewed and no additional complaints, except as documented.
[2025-02-18] MEDS: Lactated Ringers 1,000 ML 1000 ML IV (07:35)
[2025-02-18] MEDS: Lidocaine 1% (5 ml sdv) 5 ML Vial IV (07:42)
--- NOTE | 2025-02-18 07:42 | PCM.PN.HOSP ---
Reason for Visit Chief Complaint: Fall with right leg pain Subjective Subjective Patient underwent ORIF this a.m. Objective Data Objective Data Vital Signs: Vital Signs Temp Pulse Resp BP Pulse Ox O2 Del Method O2 Flow Rate 97.9 F 67 18 124/52 H 94 Room Air 2 02/18/25 07:19 02/18/25 07:19 02/18/25 07:19 02/18/25 07:19 02/18/25 07:19 02/18/25 07:24 02/18/25 07:19 Oxygen Flow Rate (L/min) 2 Oxygen Delivery Method Room Air Weight: 86.183 kg Body Mass Index (BMI) 31.6 Intake & Output: Intake and Output for Last 24 Hours 02/16/25 02/17/25 02/18/25 23:59 23:59 23:59 Intake Total 550 / 550 4940 / 4940 865 / 865 Output Total 400 / 400 800 / 800 300 / 300 Balance 150 / 150 4140 / 4140 565 / 565 Lab / Micro Data 02/18/25 04:05 02/18/25 04:05 Labs: Laboratory Results - last 24 hr 02/17/25 06:34: Sodium 140, Potassium 4.6, Chloride 105, Carbon Dioxide 26.9, Anion Gap 8, BUN 23 H, Creatinine 1.13, Estim Creat Clear Calc 40.18 L, Est GFR (MDRD) Non-Af 48 L, BUN/Creatinine Ratio 20.4 H, Glucose 157 H, Calcium 8.5 02/17/25 13:01: POC Glucose 149 H 02/17/25 16:31: POC Glucose 197 H 02/17/25 20:53: POC Glucose 175 H 02/18/25 04:05: WBC 8.7, RBC 3.21 L, Hgb 9.5 L, Hct 30.6 L, MCV 95.3, MCH 29.6, MCHC 31.0 L, RDW Std Deviation 46.8 H, RDW Coeff of Gerry 13.5, Plt Count 156, MPV 11.0, Immature Gran % (Auto) 0.300, Neut % (Auto) 64.6, Lymph % (Auto) 17.3 L, [place] % (Auto) 13.2 H, Eos % (Auto) 3.8, Baso % (Auto) 0.8, Absolute Neuts (auto) 5.6, Absolute Lymphs (auto) 1.50, Nucleated RBC % 0, Sodium 140, Potassium 4.8, Chloride 110 H, Carbon Dioxide 22.0, Anion Gap 8, BUN 25 H, Creatinine 1.09, Estim Creat Clear Calc 41.65 L, Est GFR (MDRD) Non-Af 50 L, BUN/Creatinine Ratio 23.0 H, Glucose 140 H, Calcium 8.2 02/18/25 05:45: POC Glucose 145 H Physical Exam Narrative GENERAL: cooperative HEENT: Atraumatic; normocephalic EYES; Anicteric, Normal Conjunctiva NECK; supple, normal thyroid, RESPIRATORY: Diminished to auscultation CARDIOVASCULAR: Regular S1 S2, GI: soft, normoactive bowel sounds, : No Renal angle tenderness; EXTREMITIES: No edema, no clubbing, MUSCULOSKELETAL: no muscle wasting NEURO: Awake; no lateralizing signs. SKIN: No Rash PSYCH; Flat affect Assessment & Plan Assessment/Plan (1) Femur fracture, right: PLAN: Plan Patient is an 84-year-old lady who presented to the ED following a fall. Imaging studies demonstrated right distal femur fracture admitted to regular nursing floor with consult placed to Ortho 1. Distal right femur fracture ? Patient presented with a fall imaging studies did show Acute mildly displaced periprosthetic fracture of the distal right femur. Total knee arthroplasty hardware appears intact.. Patient admitted to monitored bed manage with immobilization consult placed to Ortho. Patient preop evaluation regarding risk as documented by admitting physician ? 02/18/2025; patient underwent Open reduction retrograde nail right periprosthetic supracondylar femur fracture by Dr. Gaston 2. Paroxysmal A-fib ? 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 Hypertension ? Blood pressure controlled, home medications continued with dose adjustment as needed 5. Diabetes mellitus type II -patient's oral hypoglycemics held. Placed on long acting insulin, Accu-Cheks a.c. and at bedtime and covered with sliding scale insulin 6. Diabetic polyneuropathy ? Patient is on gabapentin did continue 7. Chronic back pain ? Did continue patient pain regimen 8. Generalized osteoarthritis ? With remote history of bilateral knee replacement 9. Depression with anxiety ? Patient is on buspirone 10. Dyslipidemia ?Patient is on statin therapy, continued at home dose 11. DVT prophylaxis ? SCDs for now Time spent in the patient's overall evaluation,decision-making process, review of diagnostic data, adjustment of management, discussion with other providers, nursing nursing and ancillary staff involved in patient's care documentation, 40 Minutes Charges/Coding Visit Charges Inpatient E&M: 34533 Init Hosp L2
[2025-02-18] MEDS: Cefazolin 1 GM/5 ML Vial 2 GM IV (07:55)
--- NOTE | 2025-02-18 08:00 | RAD_ITS ---
PROCEDURE: Intraoperative fluoroscopy for right reduction. 02/18/2025 REASON FOR EXAM: RT FEMORAL NAIL TECHNIQUE: Procedure Code: RADFEM Modality: DX Procedure: FEMUR MIN 2 VIEWS. Intraoperative imaging provided for fixation of the distal femoral fracture. Fluoroscopy: A minute and 37 seconds. Radiation dose: 15.55 mGy. 21 images were submitted. COMPARISON: February 16, 2025. FINDINGS: Intraoperative imaging for ORIF of the distal femoral fracture. RAD/Femur Min 2 Views IMPRESSION: Intraoperative fluoroscopic imaging for ORIF of the distal femoral fracture. Reading Location: [id number]
[2025-02-18] MEDS: fentaNYL 100 MCG/2 ML Ampul IV (08:45)
[2025-02-18] MEDS: TXA 2000mg in NS 100ml (Placed in Wound) OPERA.SITE (09:10)
--- NOTE | 2025-02-18 09:46 | PCM.OPRPT ---
Operative Report (Standard) Operative Information Date of Procedure: 02/18/25 Pre-Operative Diagnosis: Right periprosthetic supracondylar femur fracture Post-Operative Diagnosis: Right periprosthetic supracondylar femur fracture Surgery/Procedure Performed: Open reduction retrograde nail right periprosthetic supracondylar femur fracture manager digital ad operations: Yes Roster Clerk: Mari Phan Tasks completed by instructional assistant: Other (My physician administrative sales assistant was a vital part of this case, they was important because there was not another skilled set of hands available to their training and aptitude needed for safe and appropriate completion of this case. They were important in appropriate retraction during the case, and protectio) Additional administrative sales assistant?: No Type of Anesthesia: General RN Documented Start/Stop Times: Operation Date: 02/18/25 07:30 Case Time Into Pre-Op 02/18/25 06:39 Out of Pre-Op 02/18/25 07:31 Anesthesia Start 02/18/25 07:35 Into Room 02/18/25 07:35 Procedure Start 02/18/25 08:15 Procedure End 02/18/25 10:05 Anesthesia End 02/18/25 10:10 Out of Room 02/18/25 10:10 Into Recovery 02/18/25 10:12 Out of Recovery 02/18/25 11:12 Procedure Start Time: 08:15 Procedure Stop Time: 10:05 Select all DRAINS/GRAFTS/IMPLANTS that apply: Implanted device Implanted device details: Dagoberto 2.0 mm cable. Dagoberto retrograde femoral nail 10 mm x 38 cm Special Medications: Ancef Estimated Blood Loss: 500 mL Fluids Replaced: 900 mL crystalloid Specimen collected: No Description of surgery: Patient was seen in the preoperative area prior to surgery today. Right lower extremity was marked in concordance with her planned surgery. Patient was then taken back to the operating room where anesthesia assumed control of the C-spine and airway. Anesthesia administered anesthetic on the hospital bed after patient was appropriate anesthetized she was transferred to table in the supine position. All bony prominences identified well-padded. Bump was placed underneath the right hip. Blankets were placed underneath the right lower extremity. After adequately positioning the patient attempted to close reduce the fracture using bones however satisfactory reduction was not obtainable using fluoroscopy. Based on this we elected to plan for an open reduction of the fracture. Right lower extremity was prepped in a sterile fashion while the surgeon scrubbed. Upon reentering the room my administrative sales assistant and I gowned and gloved sterilely and then draped the patient in a standard orthopedic fashion. Timeout was called and agreed upon the side, the site, the procedure to be performed, patient's identity and antibiotic given. Live x-rays of the verified position of the fracture and intended position of the cable. Based on this her lateral incision was made. Incision was taken down through skin. Hemostasis was maintained as we dissected sharply down through subcutaneous fatty tissue down to the fascia. Fascia was incised in line with the incision. Vastus lateralis was retracted anteriorly and we were able to identify the 2 main fracture fragments. Once we did this my administrative sales assistant pulled traction and a clamp was placed on the fracture. Once we are happy with the fracture reduction cable was placed. Live fluoroscopy was used to verify cable placement and fracture reduction. Once this was satisfactory we clamped the cable. Our initial reduction was lost and then we did we reduce the fracture satisfactory. Once this was done attention was directed towards the knee. Using the previous skin incision anteriorly we dissected through skin and then created the medial parapatellar arthrotomy from the proximal pole of the patella distally. The joint was opened and the starting point was identified. Live x-ray was used to verify appropriate placement of initial starting point with the starting pin. Starting pin was placed. Starting reamer was placed. Guidewire was placed up the femur and length was obtained. We elected to use a 380 mm nail. We reamed to 11-1/2 mm which gave us good chatter in the isthmus and we elected to use a 380 mm x 10 mm nail. Nail was placed on the guide and placed retrograde into the femur. Fracture remained stable throughout this time with the cable fixation. 3 screws were placed distally using the guide and fluoroscopy. Once we are happy with this the screw placements were verified using live fluoroscopy and the guide was removed. We then directed our attention proximally where in the static screw hole and anterior to posterior screw was placed to give us rotational stability. Once this was completed live fluoroscopy was used to verify appropriate screw length and position. Laparoscopy was then used to verify fracture reduction and placement of the nail at the fracture site. Wound was alicia irrigated out with a dilute Betadine solution followed by chlorhexidine solution followed by copious amounts of normal saline. Arthrotomy was closed with #1 Vicryl interrupted sutures and running #1 strata fix. Skin was closed using 2-0 Vicryl. Fascia was closed laterally using running strata fix #1 suture deep layer was closed using #1 Vicryl and skin closure was done with 2-0 Vicryl. Final skin closure was done with wei on both incisions. Proximal incision for the proximal screw was also closed using wei. Sterile dressings were placed. Compress dressing was placed. Patient was waken anesthesia and transferred to PACU for recovery in stable condition. Postoperative plan? DVT prophylaxis: Patient will resume Eliquis tomorrow a.m. Pain control: Per primary service Therapy: Toe-touch weightbearing for 6 weeks followed by partial weightbearing for 6 weeks we will use x-rays ultimately to guide weightbearing progression. No restriction on range of motion of the knee. Surgical Findings: Stable well reduced fracture. Complications Complications: No Admit VTE Documentation VTE Present on Admission: No VTE Mechan Device Prophylaxis: SCD's and Thigh High ODALYS Hose VTE Pharm Prophylaxis ordered?: Yes
--- NOTE | 2025-02-18 10:23 | PCM.POST.ANE ---
Anesthesia: Postop Eval I Current Vital Signs Temperature: 98.0 F Pulse Rate: 84 Blood Pressure: 122/59 Respiratory Rate: 16 Pulse Ox: 95 Oxygen Delivery Method: Venturi Mask Oxygen Flow Rate (L/min): 8 Assessment Airway patent: Yes Spontaneous unlabored respirations: Yes Mental status: Awake and Calm nausea: No Vomiting: No Anesthesia Complication: No Fluid Hydration Crystalloid volume administer (ml): 1,000 Total IV fluid infused: 1,000 Progress Note Anesthesia document: Postop Eval 1 completed: Yes
--- NOTE | 2025-02-18 10:35 | RAD_ITS ---
PROCEDURE: FEMUR MIN 2 VIEWS 02/18/2025 REASON FOR EXAM: FRX TECHNIQUE: Procedure Code: RADFEM Modality: DX Procedure: FEMUR MIN 2 VIEWS COMPARISON: February 16, 2025. FINDINGS: The patient is status post open reduction and internal fixation of the distal femoral fracture with intra medullary kevin fixation device. There is good alignment. RAD/Femur Min 2 Views IMPRESSION: Satisfactory ORIF of the distal femoral fracture with intramedullary kevin fixati on device. Reading Location: [facility]
--- NOTE | 2025-02-18 12:20 | CASEMGMT ---
Social Work A list of?SNF providers including quality and resource use data and consistent with the patient's preferred geographic region, medical needs, and insurance network was created in [employer] Guide.?This list was provided to the daughter. The daughter chose [facility] and then [facility]. SW spoke with the daughter Salud and explained she would have to pay for usp first due to the patient being non-weight bearing until she can get skilled therapy. The daughter was in agreement with paying private. [facility]
--- NOTE | 2025-02-18 13:21 | CASEMGMT ---
Addendum entered by Nakia Canales 02/18/25 13:28: SW called the daughter and updated her. SW explained insurance will needs to approve her mother to DC to a SNF. Original Note: Social Work Patient to DC SNF instead of LTC. PASSR completed and put in the patients chart. NGOC Warren
--- NOTE | 2025-02-18 14:00 | CASEMGMT ---
Received call from Wade nurse at PCP office who states pt dtr called in and wants pt to go to SNF. Reviewed chart and made aware that that is the plan as of now pending insurance approval once decision for facility and acceptance is received.
--- NOTE | 2025-02-18 15:53 | CASEMGMT ---
Social Work ?SNF referral sent to [facility] for SNF. Pre-cert not started. waiting on therapy notes. PASSR completed and on the chart. Transport paper started. NGOC Warren
--- NOTE | 2025-02-18 15:57 | CASEMGMT ---
Discharge Planning Referral sent via [employer] with note explaining that not all needed clinical were available and that they would be sent on Friday (they do not check [employer] on wk). SW updated. Jane Fernandez DC Planning Asst.
[2025-02-18] MEDS: Cefazolin 1 GM/50 ML BAG IV (16:06)
--- NOTE | 2025-02-18 20:28 | POSTOPAN2_ITS ---
Anesthesia Postop Eval I Sum Postop Eval Completion status Anesthesia document: Postop Eval 1 completed: Yes Anesthesia Postop Eval I Summary Anesthesia Postop Eval I Summary: Anesthesia Postop Eval I: Assessment Summary Airway patent Yes 02/18/25 10:24 [email or web address] Spontaneous unlabored Yes 02/18/25 10:24 [email or web address] respirations Mental status Awake,Calm 02/18/25 10:24 [email or web address] nausea No 02/18/25 10:24 [email or web address] Vomiting No 02/18/25 10:24 [email or web address] Anesthesia Postop Eval I: Fluid Summary Crystalloid volume administer 1,000 02/18/25 10:24 [email or web address] (ml) Colloids volume administered ( ml) Blood Product volume administered (ml) Total IV fluid infused 1,000 02/18/25 10:24 [email or web address] Anesthesia Postop Eval I: Summary Notes Anesthesia Complication No 02/18/25 10:24 [email or web address] Anesthesia Complication Comment: Post-operative progress note Anesthesia: Postop Eval II Evaluation Mental status: Awake and Calm Pain Level: 2 nausea: No Vomiting: No Complications Anesthesia Complication: No
--- NOTE | 2025-02-18 20:28 | PCM.POSTANE2 ---
Anesthesia Postop Eval I Sum Postop Eval Completion status Anesthesia document: Postop Eval 1 completed: Yes Anesthesia Postop Eval I Summary Anesthesia Postop Eval I Summary: Anesthesia Postop Eval I: Assessment Summary Airway patent Yes 02/18/25 10:24 [email or web address] Spontaneous unlabored Yes 02/18/25 10:24 [email or web address] respirations Mental status Awake,Calm 02/18/25 10:24 [email or web address] nausea No 02/18/25 10:24 [email or web address] Vomiting No 02/18/25 10:24 [email or web address] Anesthesia Postop Eval I: Fluid Summary Crystalloid volume administer 1,000 02/18/25 10:24 [email or web address] (ml) Colloids volume administered ( ml) Blood Product volume administered (ml) Total IV fluid infused 1,000 02/18/25 10:24 [email or web address] Anesthesia Postop Eval I: Summary Notes Anesthesia Complication No 02/18/25 10:24 [email or web address] Anesthesia Complication Comment: Post-operative progress note Anesthesia: Postop Eval II Evaluation Mental status: Awake and Calm Pain Level: 2 nausea: No Vomiting: No Complications Anesthesia Complication: No
[2025-02-19] MEDS: Cefazolin 1 GM/50 ML BAG IV (00:07)
[2025-02-19 00:13] VITALS: BP 123/42; PULSE 88; RESP 17; TEMP 36.6; O2SAT 95
[2025-02-19 04:04] VITALS: BP 137/83; PULSE 84; RESP 17; TEMP 36.4; O2SAT 98
--- NOTE | 2025-02-19 07:43 | PN.HOSP_ITS ---
Reason for Visit Chief Complaint: Fall with right leg pain Subjective Subjective Patient had episodes of delirium. Was placed on Seroquel 25 mg p.o. twice daily. Patient still remains delirious ordered an infectious workup with a chest x-ray urinalysis viral respiratory panel as well as COVID Objective Data Objective Data Vital Signs: Vital Signs Temp Pulse Resp BP Pulse Ox O2 Del Method O2 Flow Rate 97.6 F L 84 17 137/83 H 98 Nasal Cannula 2 02/19/25 04:04 02/19/25 04:04 02/19/25 04:04 02/19/25 04:04 02/19/25 04:04 02/19/25 04:04 02/19/25 04:04 Oxygen Flow Rate (L/min) 2 Oxygen Delivery Method Nasal Cannula Weight: 86.183 kg Body Mass Index (BMI) 31.6 Intake & Output: Intake and Output for Last 24 Hours 02/17/25 02/18/25 02/19/25 23:59 23:59 23:59 Intake Total 4940 / 4940 3185 / 3185 300 / 300 Output Total 800 / 800 1400 / 1400 400 / 400 Balance 4140 / 4140 1785 / 1785 -100 / -100 Lab / Micro Data 02/18/25 04:05 02/18/25 04:05 Labs: Laboratory Results - last 24 hr 02/18/25 11:51: POC Glucose 145 H 02/18/25 16:13: POC Glucose 191 H 02/18/25 21:38: POC Glucose 155 H 02/19/25 06:41: POC Glucose 169 H Radiography Diagnostic Testing: Radiology Impression Femur X-Ray 02/18/25 08:00 IMPRESSION: Intraoperative fluoroscopic imaging for ORIF of the distal femoral fracture. Reading Location: [facility] Femur X-Ray 02/18/25 10:35 IMPRESSION: Satisfactory ORIF of the distal femoral fracture with intramedullary kevin fixation device. Reading Location: [facility] Physical Exam Narrative GENERAL: cooperative HEENT: Atraumatic; normocephalic EYES; Anicteric, Normal Conjunctiva NECK; supple, normal thyroid, RESPIRATORY: Diminished to auscultation CARDIOVASCULAR: Regular S1 S2, GI: soft, normoactive bowel sounds, : No Renal angle tenderness; EXTREMITIES: No edema, no clubbing, MUSCULOSKELETAL: no muscle wasting NEURO: Awake; no lateralizing signs. SKIN: No Rash PSYCH; Flat affect Assessment & Plan Assessment/Plan (1) Femur fracture, right: PLAN: Plan Patient is an 84-year-old lady who presented to the ED following a fall. Imaging studies demonstrated right distal femur fracture admitted to regular nursing floor with consult placed to Ortho 1. Distal right femur fracture ? Patient presented with a fall imaging studies did show Acute mildly displaced periprosthetic fracture of the distal right femur. Total knee arthroplasty hardware appears intact.. Patient admitted to monitored bed manage with immobilization consult placed to Ortho. Patient preop evaluation regarding risk as documented by admitting physician ? 02/18/2025; patient underwent Open reduction retrograde nail right periprosthetic supracondylar femur fracture by Dr. Gaston 2. Postop delirium ? Patient had episodes of delirium during the night. Was placed on Seroquel 25 mg p.o. twice daily. Patient still remains delirious ordered an infectious workup with a chest x-ray urinalysis viral respiratory panel as well as COVID 3. Paroxysmal A-fib ? 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 Hypertension ? Blood pressure controlled, home medications continued with dose adjustment as needed 6. Diabetes mellitus type II -patient's oral hypoglycemics held. Placed on long acting insulin, Accu-Cheks a.c. and at bedtime and covered with sliding scale insulin 7. Diabetic polyneuropathy ? Patient is on gabapentin did continue 8. Generalized osteoarthritis ? With remote history of bilateral knee replacement 9. Depression with anxiety ? Patient is on buspirone 10. Dyslipidemia ?Patient is on statin therapy, continued at home dose 11. Chronic back pain ? Did continue patient pain regimen 12. DVT prophylaxis ? SCDs for now ? 02/19/2025; started on heparin 5000 unit Q8 Time spent in the patient's overall evaluation,decision-making process, review of diagnostic data, adjustment of management, discussion with other providers, nursing nursing and ancillary staff involved in patient's care documentation, 38 Minutes Charges/Coding Visit Charges Inpatient E&M: 35522 Subs Hosp L2
[2025-02-19 08:52] VITALS: BP 111/60; PULSE 73; RESP 16; TEMP 37; O2SAT 96
[2025-02-19 09:50] VITALS: PULSE 73
[2025-02-19] MEDS: Metoprolol(XL)Succ 25 MG Tablet PO (09:50)
[2025-02-19] MEDS: Cholecalciferol (VIT D3) 25 MCG TABLET (1,000 UNITS) 50 MCG PO (09:50)
[2025-02-19 10:47] LABS: Hematocrit 22.4 % (37-47); Hemoglobin 7.2 g/dL (12.0-15.0); Mean Corp Hgb Conc 32.1 g/dL (32-36); Mean Corpuscular Volume 92.2 fL (81-99); Mean Platelet Vol. 10.8 fl (6.2-12.0); Platelet Count 127 K/mm3 (150-450); RBC Distribution Width CV 13.2 % (11.6-14.6); RBC Distribution Width SD 44.4 fl (35.1-43.9); Red Blood Count 2.43 M/mm3 (4.2-5.4); White Blood Count 7.8 K/mm3 (4.4-11.0)
[2025-02-19 11:22] LABS: Magnesium 1.6 mg/dL (1.5-2.2)
[2025-02-19 11:26] LABS: AST(SGOT) 12 U/L (<=31); Alanine Aminotransfer ALT/SGPT 12 U/L (<=34); Albumin, Serum 3.0 g/dL (3.4-4.8); Alkaline Phosphatase 55 U/L (35-104); Anion Gap 11 (5-15); BUN 14 mg/dL (4-19); BUN/Creat Ratio 16.2 RATIO (10-20); Calcium,Total 8.2 mg/dL (7.6-11.0); Carbon Dioxide 24.5 mmol/L (21.0-32.0); Chloride 104 mmol/L (98-108); Estimated Creatinine Clearance 54.05 ml/min (50-250); Globulin 2.0 g/dL (2.2-4.2); Glucose 169 mg/dL (70-99); Potassium 4.2 mmol/L (3.3-5.1)
--- NOTE | 2025-02-19 11:30 | RAD_ITS ---
PROCEDURE: CHEST 1 VIEW (PORTABLE) 02/19/2025 REASON FOR EXAM: ENCEPHALOPATHY TECHNIQUE: Frontal view of the chest. COMPARISON: Chest x-ray dated 02/16/2025 FINDINGS: Hardware: Left chest wall pacemaker without lead discontinuity. Heart: The heart size is normal. Lungs: Hypoventilation. Bibasilar streaky atelectasis. Bones: The bones are unremarkable. RAD/Chest 1 View (Portable) IMPRESSION: No acute cardiopulmonary abnormality. Bibasilar atelectasis. Reading Location: [facility]
[2025-02-19 14:36] VITALS: BP 121/65; PULSE 90; RESP 16; TEMP 36.1; O2SAT 96
[2025-02-19 14:38] LABS: Mucous, Urine 0 SEEN /hpf (<or=2+); Red Blood Cells-Urine 0 SEEN /hpf (0-5)
[2025-02-19 14:45] LABS: Color, Urine Yellow (Yellow); Glucose, Dipstick Normal (Normal); Ketone-Dipstick Negative (Negative); Leukocyte Esterase-Dipstick 25 /ul (Negative); Nitrite-Dipstick Negative (Negative); Occult Blood-Urine Negative /ul (Negative); Protein-Dipstick 15 mg/dl (Negative); Specific Gravity, Urine 1.020 (1.002-1.030); Urine Bilirubin Dipstick Negative (Negative)
[2025-02-19 14:51] LABS: Squamous Epithelial Cells - UA 0-5 SEEN /hpf (5-10)
[2025-02-19 20:40] VITALS: BP 136/52; PULSE 88; RESP 18; TEMP 37.2; O2SAT 100
[2025-02-19] MEDS: Heparin Injection (Vial) 5,000 UNIT/ML VIAL 5000 UNIT SC (21:13)
[2025-02-19] MEDS: Na Biphos/Potassium Phosphate PACKET 1 PACKET PO (21:19)
[2025-02-20 03:30] VITALS: BP 106/49; PULSE 69; RESP 20; TEMP 36.4; O2SAT 100
[2025-02-20] MEDS: Heparin Injection (Vial) 5,000 UNIT/ML VIAL 5000 UNIT SC ×3 (05:28→21:37)
[2025-02-20 06:05] LABS: Hematocrit 22.0 % (37-47); Hemoglobin 7.1 g/dL (12.0-15.0); Immature Granulocytes Count 0.050 X10^3/uL (0.0-0.0); Mean Corp Hgb Conc 32.3 g/dL (32-36); Mean Corpuscular Volume 92.4 fL (81-99); Mean Platelet Vol. 11.3 fl (6.2-12.0); NRBC Flagged by Analyzer 0 % (0-5); Platelet Count 130 K/mm3 (150-450); RBC Distribution Width CV 13.2 % (11.6-14.6); RBC Distribution Width SD 43.8 fl (35.1-43.9); Red Blood Count 2.38 M/mm3 (4.2-5.4); White Blood Count 6.9 K/mm3 (4.4-11.0)
[2025-02-20 06:28] LABS: Anion Gap 9 (5-15); BUN 12 mg/dL (4-19); BUN/Creat Ratio 16.0 RATIO (10-20); Calcium,Total 8.4 mg/dL (7.6-11.0); Carbon Dioxide 26.3 mmol/L (21.0-32.0); Chloride 105 mmol/L (98-108); Estimated Creatinine Clearance 56.75 ml/min (50-250); Glucose 136 mg/dL (70-99); Potassium 3.8 mmol/L (3.3-5.1)
[2025-02-20] MEDS: Lactated Ringers 1,000 ML 15 ML IV (06:56)
[2025-02-20] MEDS: 0.9% Saline Lock 10 ML Syringe IV (07:02)
--- NOTE | 2025-02-20 09:00 | PN.HOSP_ITS ---
Reason for Visit Chief Complaint: Fall with right leg pain Subjective Subjective Patient seen had a relatively uneventful night. Patient appears to be more interactive with improvement in her cognition but still forgetful at times. Objective Data Objective Data Vital Signs: Vital Signs Temp Pulse Resp BP Pulse Ox O2 Del Method O2 Flow Rate 97.5 F L 69 20 H 106/49 L 100 Nasal Cannula 2 02/20/25 03:30 02/20/25 03:30 02/20/25 03:30 02/20/25 03:30 02/20/25 03:30 02/20/25 07:27 02/20/25 07:27 Oxygen Flow Rate (L/min) 2 Oxygen Delivery Method Nasal Cannula Weight: 86.183 kg Body Mass Index (BMI) 31.6 Intake & Output: Intake and Output for Last 24 Hours 02/18/25 02/19/25 02/20/25 23:59 23:59 23:59 Intake Total 3185 / 3185 700 / 900 200 / 200 Output Total 1400 / 1400 800 / 1125 675 / 675 Balance 1785 / 1785 -100 / -225 -475 / -475 Lab / Micro Data 02/20/25 05:31 02/20/25 05:31 Labs: Laboratory Results - last 24 hr 02/19/25 10:34: WBC 7.8, RBC 2.43 L, Hgb 7.2 L, Hct 22.4 L, MCV 92.2, MCH 29.6, MCHC 32.1, RDW Std Deviation 44.4 H, RDW Coeff of Gerry 13.2, Plt Count 127 L, MPV 10.8, Sodium 139, Potassium 4.2, Chloride 104, Carbon Dioxide 24.5, Anion Gap 11, BUN 14, Creatinine 0.84, Estim Creat Clear Calc 54.05, Est GFR (MDRD) Non-Af 68, BUN/Creatinine Ratio 16.2, Glucose 169 H, Calcium 8.2, Phosphorus 2.2 L, Magnesium 1.6, Total Bilirubin 0.47, AST 12, ALT 12, Alkaline Phosphatase 55, T otal Protein 5.0 L, Albumin 3.0 L, Globulin 2.0 L, Albumin/Globulin Ratio 1.5 02/19/25 12:01: POC Glucose 166 H 02/19/25 13:45: Urine Color Yellow, Urine Clarity Clear, Urine pH 6.0, Ur Specific [place] 1.020, Urine Protein 15 H, Urine Glucose (UA) Normal, Urine Ketones Negative, Urine Occult Blood Negative, Urine Nitrite Negative, Urine Bilirubin Negative, Urine Urobilinogen Normal, Ur Leukocyte Esterase 25 H, Urine RBC 0 SEEN, Urine WBC 0-5 SEEN, Ur Squamous Epith Cells 0-5 SEEN, Urine Bacteria 1+, Urine Mucus 0 SEEN 02/19/25 17:12: POC Glucose 132 H 02/19/25 21:34: POC Glucose 137 H 02/20/25 05:31: WBC 6.9, RBC 2.38 L, Hgb 7.1 L, Hct 22.0 L, MCV 92.4, MCH 29.8, MCHC 32.3, RDW Std Deviation 43.8, RDW Coeff of Gerry 13.2, Plt Count 130 L, MPV 11.3, Immature Gran % (Auto) 0.700, Neut % (Auto) 71.8 H, Lymph % (Auto) 13.0 L, [place] % (Auto) 11.3 H, Eos % (Auto) 2.6, Baso % (Auto) 0.6, Absolute Neuts (auto) 5.0, Absolute Lymphs (auto) 0.90, Nucleated RBC % 0, Sodium 140, Potassium 3.8, Chloride 105, Carbon Dioxide 26.3, Anion Gap 9, BUN 12, Creatinine 0.78, Estim Creat Clear Calc 56.75, Est GFR (MDRD) Non-Af 75, BUN/Creatinine Ratio 16.0, G lucose 136 H, Calcium 8.4 02/20/25 06:53: POC Glucose 141 H Micro: Microbiology 02/19/25 13:45 Urine Catheter - Catheter Urine Culture - Preliminary Culture exhibits no growth. 02/19/25 10:43 Mucosa - Nasopharyngeal Coronavirus COVID-19 PCR - Final 02/19/25 10:43 Mucosa - Nasopharyngeal Respiratory Panel (PCR) - Final Radiography Diagnostic Testing: Radiology Impression Chest X-Ray 02/19/25 11:30 IMPRESSION: No acute cardiopulmonary abnormality. Bibasilar atelectasis. Reading Location: [facility] Physical Exam Narrative GENERAL: cooperative HEENT: Atraumatic; normocephalic EYES; Anicteric, Normal Conjunctiva NECK; supple, normal thyroid, RESPIRATORY: Diminished to auscultation CARDIOVASCULAR: Regular S1 S2, GI: soft, normoactive bowel sounds, : No Renal angle tenderness; EXTREMITIES: No edema, no clubbing, MUSCULOSKELETAL: no muscle wasting NEURO: Awake; no lateralizing signs. SKIN: No Rash PSYCH; Flat affect Const alert and oriented x3 Constitutional Narrative: Elderly female, class I obesity, mildly uncomfortable appearing due to ongoing right lower thigh pain, otherwise laying back in bed and answer questions appropriately. General Appearance: cooperative HEENT normocephalic, head/scalp atraumatic, hearing grossly normal bilaterally, nasal mucous membranes and turbinates normal and moist oral mucous membranes Eyes PERRL, EOMs intact bilaterally and conjunctivae normal Neck full ROM Chest inspection of chest normal Resp normal respiratory effort, normal air movement, no use of accessory muscles and clear to auscultation bilaterally Cardio regular rate, regular rhythm, no murmurs and peripheral pulses 2+ throughout GI normal to inspection, nondistended, normoactive bowel sounds, soft to palpation, non-tender and non-distended Back/Spine normal ROM Extremity Extremity Narrative: No gross abnormalities on exam. Mild right lower lateral thigh tenderness to palpation. Surgical scars from prior knee replacement therapies noted on both knees. Skin no rashes or lesions noted Psych mental status grossly normal Assessment & Plan Assessment/Plan (1) Femur fracture, right: PLAN: Plan Patient is an 84-year-old lady who presented to the ED following a fall. Imaging studies demonstrated right distal femur fracture admitted to regular nursing floor with consult placed to Ortho 1. Distal right femur fracture ? Patient presented with a fall imaging studies did show Acute mildly displaced periprosthetic fracture of the distal right femur. Total knee arthroplasty hardware appears intact.. Patient admitted to monitored bed manage with immobilization consult placed to Ortho. Patient preop evaluation regarding risk as documented by admitting physician ? 02/18/2025; patient underwent Open reduction retrograde nail right periprosthetic supracondylar femur fracture by Dr. Gaston ? 02/20/2025; plan is for patient to be discharged to senior living facility to continue with her rehab 2. Postop delirium ? Patient had episodes of delirium during the night. Was placed on Seroquel 25 mg p.o. twice daily. Patient still remains delirious ordered an infectious workup with a chest x-ray urinalysis viral respiratory panel as well as COVID 3. Paroxysmal A-fib ? 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 Hypertension ? Blood pressure controlled, home medications continued with dose adjustment as needed 6. Diabetes mellitus type II -patient's oral hypoglycemics held. Placed on long acting insulin, Accu-Cheks a.c. and at bedtime and covered with sliding scale insulin 7. Diabetic polyneuropathy ? Patient is on gabapentin did continue 8. Generalized osteoarthritis ? With remote history of bilateral knee replacement 9. Depression with anxiety ? Patient is on buspirone 10. Dyslipidemia ?Patient is on statin therapy, continued at home dose 11. Chronic back pain ? Did continue patient pain regimen 12. DVT prophylaxis ? SCDs for now ? 02/19/2025; started on heparin 5000 unit Q8 13. Anemia ? 02/21/2024 secondary to acute blood loss anemia from right femur fracture as well as postop losses. Monitoring H&H with plans to transfuse if hemoglobin drops below 7 or patient is found to be symptomatic. With patient count dropping to 7.1 patient was placed on parenteral iron H&H repeated for a 14. Thrombocytopenia ? Will continue with monitoring with low propensity to discontinue heparin Charges/Coding Visit Charges Inpatient E&M: 99455 Subs Hosp L2
[2025-02-20 09:30] VITALS: BP 125/69; PULSE 76; RESP 17; TEMP 36.6; O2SAT 100
[2025-02-20 09:51] LABS: Iron 14 ug/dL (50-170); Iron Binding Capacity,Unsat 185 ug/dL (228-428)
[2025-02-20 10:10] LABS: Iron Binding Capacity,Total 199 ug/dL (250-450)
[2025-02-20] MEDS: Cholecalciferol (VIT D3) 25 MCG TABLET (1,000 UNITS) 50 MCG PO (11:25)
[2025-02-20 11:26] VITALS: PULSE 76
[2025-02-20] MEDS: Metoprolol(XL)Succ 25 MG Tablet PO (11:26)
[2025-02-20] MEDS: Na Biphos/Potassium Phosphate PACKET 1 PACKET PO ×2 (11:27→21:39)
[2025-02-20] MEDS: Sodium Ferric Gluconat/Sucrose 250 MG in 0.9% Normal Saline (250mL Bag) 250 ML 135 MG IV (11:28)
--- NOTE | 2025-02-20 12:32 | PN.ORTHO_ITS ---
Subjective Subjective Patient sitting up in bed. She seems comfortable. No family is at bedside. She is disoriented to place and time/date. Overall she is pleasant and responsive. Answers comfort questions appropriately. She has been on heparin due to her postoperative anemia. I did discuss the medicine team her blood loss and change in hemoglobin is likely what expected and did not feel she needed to have further hold on her full dose anticoagulation which she takes for atrial fibrillation. Objective Data Objective Data Vital Signs: Vital Signs Temp Pulse Resp BP Pulse Ox O2 Del Method O2 Flow Rate 97.8 F 76 17 125/69 H 100 Nasal Cannula 2 02/20/25 09:30 02/20/25 11:26 02/20/25 09:30 02/20/25 09:30 02/20/25 09:30 02/20/25 09:30 02/20/25 10:30 Oxygen Flow Rate (L/min) 2 Oxygen Delivery Method Nasal Cannula Weight: 190 lb 0.016 oz Body Mass Index (BMI) 31.6 Intake & Output: Intake and Output for Last 24 Hours 02/18/25 02/19/25 02/20/25 23:59 23:59 23:59 Intake Total 3185 / 3185 700 / 900 200 / 200 Output Total 1400 / 1400 800 / 1125 675 / 675 Balance 1785 / 1785 -100 / -225 -475 / -475 Lab / Micro Data Attestation: I reviewed the patient's lab results. 02/20/25 05:31 02/20/25 05:31 Labs: Laboratory Results - last 24 hr 02/19/25 12:01: POC Glucose 166 H 02/19/25 13:45: Urine Color Yellow, Urine Clarity Clear, Urine pH 6.0, Ur Specific [place] 1.020, Urine Protein 15 H, Urine Glucose (UA) Normal, Urine Ketones Negative, Urine Occult Blood Negative, Urine Nitrite Negative, Urine Bilirubin Negative, Urine Urobilinogen Normal, Ur Leukocyte Esterase 25 H, Urine RBC 0 SEEN, Urine WBC 0-5 SEEN, Ur Squamous Epith Cells 0-5 SEEN, Urine Bacteria 1+, Urine Mucus 0 SEEN 02/19/25 17:12: POC Glucose 132 H 02/19/25 21:34: POC Glucose 137 H 02/20/25 05:31: WBC 6.9, RBC 2.38 L, Hgb 7.1 L, Hct 22.0 L, MCV 92.4, MCH 29.8, MCHC 32.3, RDW Std Deviation 43.8, RDW Coeff of Gerry 13.2, Plt Count 130 L, MPV 11.3, Immature Gran % (Auto) 0.700, Neut % (Auto) 71.8 H, Lymph % (Auto) 13.0 L, [place] % (Auto) 11.3 H, Eos % (Auto) 2.6, Baso % (Auto) 0.6, Absolute Neuts (auto) 5.0, Absolute Lymphs (auto) 0.90, Nucleated RBC % 0, Sodium 140, Potassium 3.8, Chloride 105, Carbon Dioxide 26.3, Anion Gap 9, BUN 12, Creatinine 0.78, Estim Creat Clear Calc 56.75, Est GFR (MDRD) Non-Af 75, BUN/Creatinine Ratio 16.0, G lucose 136 H, Calcium 8.4, Iron 14 L, TIBC 199 L, Iron Saturation 7.0 L, U nsaturated IBC 185 L 02/20/25 06:53: POC Glucose 141 H Micro: Microbiology 02/19/25 13:45 Urine Catheter - Catheter Urine Culture - Preliminary Culture exhibits no growth. 02/19/25 10:43 Mucosa - Nasopharyngeal Coronavirus COVID-19 PCR - Final 02/19/25 10:43 Mucosa - Nasopharyngeal Respiratory Panel (PCR) - Final Physical Exam Const alert and no apparent distress Constitutional Narrative: Disoriented to place and date General Appearance: cooperative Resp normal respiratory effort Extremity Extremity Narrative: Right lower extremity: Dressing is clean dry and intact Sensations intact to light touch saphenous, sural, superficial peroneal, deep peroneal, and tibial distributions Motors intact EHL, DF, PF calves are soft and supple Thigh is soft and supple Assessment & Plan Assessment/Plan (1) Fracture of distal end of right femur: PLAN: Postop day 2 open reduction internal fixation right distal femur periprosthetic fracture 1. Pain control: Per primary service./Currently requiring minimal narcotics 2. DVT prophylaxis: Patient is on Eliquis for her atrial fibrillation from an orthopedic standpoint she should be able to resume this currently on heparin and SCDs 3. Therapy: No range of motion restrictions. Toe-touch weightbearing. 4. Dressing: Dressings clean dry and intact. Okay to remove dressing 5 days postoperatively. Change as necessary for saturation. Keep covered if wound has drainage. [place] will be removed at 2-week postoperative appointment 5. Anemia: Likely related to anemia of chronic disease, associated fracture bradycardia leading and bleeding associated with surgical intervention. Patient currently getting iron infusion. Would follow symptomatically and transfuse as symptoms indicate. Hemoglobin last 2 days has been stable. 6. Atelectasis: Patient did have atelectasis on x-rays. Continue to encourage incentive spirometry every hour while awake. 7. Disposition: Patient's preoperative functional level, injury and weightbearing restrictions will likely result in patient needing [facility] upon discharge. Have also had significant conversations with the patient and her family about possible need for long-term change in level of living conditions. Upon discharge okay to discontinue dressing on postoperative day 5. Would have the patient return to the office in 2 weeks for x-ray check and staple remover. If patient is unable to make to the office based on transportation we will need to arrange for x-rays and suture removal at that facility. Please call orthopedics for any further questions or concerns. [facility] Office: (2) Anticoagulant long-term use: PLAN: From an orthopedic standpoint patient would be appropriate to resume home dose of Eliquis. I did relay this to the medicine team today over the phone.
[2025-02-20 14:38] VITALS: BP 101/50; PULSE 77; RESP 17; TEMP 36.5; O2SAT 100
[2025-02-20 15:30] VITALS: BP 118/85; PULSE 79; RESP 17; TEMP 36.6; O2SAT 99
[2025-02-20 21:30] VITALS: BP 112/54; PULSE 66; RESP 16; TEMP 36.3; O2SAT 99
--- NOTE | 2025-02-20 23:48 | NURSING ---
This RN attempted two peripheral IVs at this time. (Left wrist, right wrist). Unsuccessful. Contacted another RN to attempt. Primary RN updated.
[2025-02-21] VITALS (7 sets, daily range): BP systolic 90–128; BP diastolic 46–89; PULSE 70–86; RESP 16–18; TEMP 36.2–36.8; O2SAT 94–100
[2025-02-21] MEDS: Heparin Injection (Vial) 5,000 UNIT/ML VIAL 5000 UNIT SC (05:32)
[2025-02-21 06:04] LABS: Hematocrit 20.9 % (37-47); Hemoglobin 6.7 g/dL (12.0-15.0); Immature Granulocytes Count 0.030 X10^3/uL (0.0-0.0); Mean Corp Hgb Conc 32.1 g/dL (32-36); Mean Corpuscular Volume 92.1 fL (81-99); Mean Platelet Vol. 11.4 fl (6.2-12.0); NRBC Flagged by Analyzer 0 % (0-5); Platelet Count 154 K/mm3 (150-450); RBC Distribution Width CV 13.2 % (11.6-14.6); RBC Distribution Width SD 43.9 fl (35.1-43.9); Red Blood Count 2.27 M/mm3 (4.2-5.4); White Blood Count 6.3 K/mm3 (4.4-11.0)
[2025-02-21 06:28] LABS: Anion Gap 9 (5-15); BUN 14 mg/dL (4-19); BUN/Creat Ratio 15.3 RATIO (10-20); Calcium,Total 8.3 mg/dL (7.6-11.0); Carbon Dioxide 27.1 mmol/L (21.0-32.0); Chloride 103 mmol/L (98-108); Estimated Creatinine Clearance 49.90 ml/min (50-250); Glucose 130 mg/dL (70-99); Potassium 3.9 mmol/L (3.3-5.1)
--- NOTE | 2025-02-21 07:09 | PCM.PN.HOSP ---
Reason for Visit Chief Complaint: Fall with right leg pain Subjective Subjective Patient seen hemoglobin down to 6.7. Plans for patient to be transfused 1 unit PRBC. Patient has also been started on parenteral iron the day prior. Case was also discussed with Dr. Gaston with orthopedic surgery who gave the okay for resumption of apixaban Objective Data Objective Data Vital Signs: Vital Signs Temp Pulse Resp BP Pulse Ox O2 Del Method O2 Flow Rate 97.2 F L 70 18 104/46 L 100 Nasal Cannula 2 02/21/25 03:00 02/21/25 03:00 02/21/25 03:00 02/21/25 03:00 02/21/25 03:00 02/21/25 03:00 02/21/25 03:00 Oxygen Flow Rate (L/min) 2 Oxygen Delivery Method Nasal Cannula Weight: 86.2 kg Body Mass Index (BMI) 31.6 Intake & Output: Intake and Output for Last 24 Hours 02/19/25 02/20/25 02/21/25 23:59 23:59 23:59 Intake Total 700 / 900 1230 / 1330 100 / 100 Output Total 800 / 1125 1775 / 1875 350 / 350 Balance -100 / -225 -545 / -545 -250 / -250 Lab / Micro Data 02/21/25 05:24 02/21/25 05:24 Labs: Laboratory Results - last 24 hr 02/20/25 05:31: Iron 14 L, TIBC 199 L, Iron Saturation 7.0 L, Unsaturated IBC 185 L 02/20/25 06:53: POC Glucose 141 H 02/20/25 11:25: POC Glucose 240 H 02/20/25 17:39: POC Glucose 224 H 02/20/25 21:52: POC Glucose 158 H 02/21/25 05:24: WBC 6.3, RBC 2.27 L, Hgb 6.7 L, Hct 20.9 L, MCV 92.1, MCH 29.5, MCHC 32.1, RDW Std Deviation 43.9, RDW Coeff of Gerry 13.2, Plt Count 154, MPV 11.4, Immature Gran % (Auto) 0.500, Neut % (Auto) 63.2, Lymph % (Auto) 17.8 L, [place] % (Auto) 12.4 H, Eos % (Auto) 5.1 H, Baso % (Auto) 1.0, Absolute Neuts (auto) 4.0, Absolute Lymphs (auto) 1.12, Nucleated RBC % 0, Sodium 138, Potassium 3.9, Chloride 103, Carbon Dioxide 27.1, Anion Gap 9, BUN 14, Creatinine 0.91, Estim Creat Clear Calc 49.90 L, Est GFR (MDRD) Non-Af 62, BUN/Creatinine Ratio 15.3, Glucose 130 H, Calcium 8.3 02/21/25 06:16: POC Glucose 105 Micro: Microbiology 02/19/25 13:45 Urine Catheter - Catheter Urine Culture - Preliminary Culture exhibits no growth. 02/19/25 10:43 Mucosa - Nasopharyngeal Coronavirus COVID-19 PCR - Final 02/19/25 10:43 Mucosa - Nasopharyngeal Respiratory Panel (PCR) - Final Physical Exam Narrative GENERAL: cooperative HEENT: Atraumatic; normocephalic EYES; Anicteric, Normal Conjunctiva NECK; supple, normal thyroid, RESPIRATORY: Diminished to auscultation CARDIOVASCULAR: Regular S1 S2, GI: soft, normoactive bowel sounds, : No Renal angle tenderness; EXTREMITIES: No edema, no clubbing, MUSCULOSKELETAL: no muscle wasting NEURO: Awake; no lateralizing signs. SKIN: No Rash PSYCH; Flat affect Assessment & Plan Assessment/Plan (1) Femur fracture, right: PLAN: Plan Patient is an 84-year-old lady who presented to the ED following a fall. Imaging studies demonstrated right distal femur fracture admitted to regular nursing floor with consult placed to Ortho 1. Distal right femur fracture ? Patient presented with a fall imaging studies did show Acute mildly displaced periprosthetic fracture of the distal right femur. Total knee arthroplasty hardware appears intact.. Patient admitted to monitored bed manage with immobilization consult placed to Ortho. Patient preop evaluation regarding risk as documented by admitting physician ? 02/18/2025; patient underwent Open reduction retrograde nail right periprosthetic supracondylar femur fracture by Dr. Gaston ? 02/20/2025; plan is for patient to be discharged to halfway facility to continue with her rehab 2. Postop delirium ? Patient had episodes of delirium during the night. Was placed on Seroquel 25 mg p.o. twice daily. Patient still remains delirious ordered an infectious workup with a chest x-ray urinalysis viral respiratory panel as well as COVID 3. Paroxysmal A-fib ? 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 Hypertension ? Blood pressure controlled, home medications continued with dose adjustment as needed 6. Diabetes mellitus type II -patient's oral hypoglycemics held. Placed on long acting insulin, Accu-Cheks a.c. and at bedtime and covered with sliding scale insulin 7. Diabetic polyneuropathy ? Patient is on gabapentin did continue 8. Generalized osteoarthritis ? With remote history of bilateral knee replacement 9. Depression with anxiety ? Patient is on buspirone 10. Dyslipidemia ?Patient is on statin therapy, continued at home dose 11. Chronic back pain ? Did continue patient pain regimen 12. DVT prophylaxis ? SCDs for now ? 02/19/2025; started on heparin 5000 unit Q8 13. Anemia ? 02/21/2024 secondary to acute blood loss anemia from right femur fracture as well as postop losses. Monitoring H&H with plans to transfuse if hemoglobin drops below 7 or patient is found to be symptomatic. With patient count dropping to 7.1 patient was placed on parenteral iron H&H repeated for am ? 02/21/2025; with patient hemoglobin dropping to 6.7 and order was given for patient to be transfused 1 unit PRBC 14. Thrombocytopenia ? Will continue with monitoring with low propensity to discontinue heparin Time spent in the patient's overall evaluation,decision-making process, review of diagnostic data, adjustment of management, discussion with other providers, nursing nursing and ancillary staff involved in patient's care documentation, 36 Minutes Charges/Coding Visit Charges Inpatient E&M: 25757 Subs Hosp L2
--- NOTE | 2025-02-21 09:20 | CASEMGMT ---
Discharge Planning Updates sent via [facility] to [facility] with request to submit for precert. Jane Fernandez DC Planning Asst.
[2025-02-21] MEDS: Senna/Docusate Sodium 1 Tablet 2 TABLET PO ×2 (09:58→20:21)
[2025-02-21] MEDS: Cholecalciferol (VIT D3) 25 MCG TABLET (1,000 UNITS) 50 MCG PO (09:58)
[2025-02-21] MEDS: Na Biphos/Potassium Phosphate PACKET 1 PACKET PO ×2 (09:58→20:12)
--- NOTE | 2025-02-21 11:50 | CASEMGMT ---
Social Work SW called the daughter Salud and informed her that [facility] has accepted her mother and [facility] has requested approval from the insurance company. GLADYS explained if the insurance approves her mother she will DC the same day. NGOC [place]
[2025-02-21] MEDS: APIXABAN 5 MG TABLET PO ×2 (13:29→20:12)
--- NOTE | 2025-02-21 14:50 | PCM.PN.ORT ---
Subjective Subjective Patient is doing well overall. Pain is well-controlled. Comfortable in the chair today. Oriented to place and date. Objective Data Objective Data Vital Signs: Vital Signs Temp Pulse Resp BP Pulse Ox O2 Del Method O2 Flow Rate 98.1 F 76 18 118/89 H 96 Room Air 2 02/21/25 13:40 02/21/25 13:40 02/21/25 13:40 02/21/25 13:40 02/21/25 13:40 02/21/25 13:40 02/21/25 03:00 Oxygen Flow Rate (L/min) 2 Oxygen Delivery Method Room Air Weight: 190 lb 0.615 oz Body Mass Index (BMI) 31.6 Intake & Output: Intake and Output for Last 24 Hours 02/19/25 02/20/25 02/21/25 23:59 23:59 23:59 Intake Total 700 / 900 1230 / 1330 955.5 / 955.5 Output Total 800 / 1125 1775 / 1875 750 / 750 Balance -100 / -225 -545 / -545 205.5 / 205.5 Lab / Micro Data 02/21/25 05:24 02/21/25 05:24 Labs: Laboratory Results - last 24 hr 02/20/25 11:25: POC Glucose 240 H 02/20/25 17:39: POC Glucose 224 H 02/20/25 21:52: POC Glucose 158 H 02/21/25 05:24: WBC 6.3, RBC 2.27 L, Hgb 6.7 L, Hct 20.9 L, MCV 92.1, MCH 29.5, MCHC 32.1, RDW Std Deviation 43.9, RDW Coeff of Gerry 13.2, Plt Count 154, MPV 11.4, Immature Gran % (Auto) 0.500, Neut % (Auto) 63.2, Lymph % (Auto) 17.8 L, [place] % (Auto) 12.4 H, Eos % (Auto) 5.1 H, Baso % (Auto) 1.0, Absolute Neuts (auto) 4.0, Absolute Lymphs (auto) 1.12, Nucleated RBC % 0, Sodium 138, Potassium 3.9, Chloride 103, Carbon Dioxide 27.1, Anion Gap 9, BUN 14, Creatinine 0.91, Estim Creat Clear Calc 49.90 L, Est GFR (MDRD) Non-Af 62, BUN/Creatinine Ratio 15.3, Glucose 130 H, Calcium 8.3 02/21/25 06:16: POC Glucose 105 02/21/25 07:34: Blood Type O POSITIVE, Antibody Screen NEGATIVE, Crossmatch See Detail 02/21/25 11:05: POC Glucose 219 H Micro: Microbiology 02/19/25 13:45 Urine Catheter - Catheter Urine Culture - Final Culture exhibits no growth. 02/19/25 10:43 Mucosa - Nasopharyngeal Coronavirus COVID-19 PCR - Final 02/19/25 10:43 Mucosa - Nasopharyngeal Respiratory Panel (PCR) - Final Physical Exam Const alert Constitutional Narrative: Oriented to place and date Resp normal respiratory effort GI non-distended Extremity Extremity Narrative: Right lower extremity: Dressing is clean dry and intact Sensations intact to light touch saphenous, sural, superficial peroneal, deep peroneal, and tibial distributions Motors intact EHL, DF, PF calves are soft and supple Thigh is soft and supple Assessment & Plan Assessment/Plan (1) Fracture of distal end of right femur: PLAN: Postop day 3 open reduction internal fixation right distal femur periprosthetic fracture 1. Pain control: Per primary service./Currently requiring minimal narcotics 2. DVT prophylaxis: Patient has resumed Eliquis 3. Therapy: No range of motion restrictions. Toe-touch weightbearing. 4. Dressing: Dressings clean dry and intact. Okay to remove dressing 5 days postoperatively. Change as necessary for saturation. Keep covered if wound has drainage. Pilgrim will be removed at 2-week postoperative appointment 5. Anemia: Likely related to anemia of chronic disease, associated fracture bradycardia leading and bleeding associated with surgical intervention. Patient currently getting iron infusion. Would follow symptomatically and transfuse as symptoms indicate. Hemoglobin 6.7 today. Patient being transfused packed red blood cells 6. Atelectasis: Patient did have atelectasis on x-rays. Continue to encourage incentive spirometry every hour while awake. 7. Disposition: Patient's preoperative functional level, injury and weightbearing restrictions will likely result in patient needing fci facility upon discharge. Have also had significant conversations with the patient and her family about possible need for long-term change in level of living conditions. Upon discharge okay to discontinue dressing on postoperative day 5. Would have the patient return to the office in 2 weeks for x-ray check and staple remover. If patient is unable to make to the office based on transportation we will need to arrange for x-rays and suture removal at that facility. Please call orthopedics for any further questions or concerns. [facility] Office: (2) Anticoagulant long-term use: PLAN: From an orthopedic standpoint patient would be appropriate to resume home dose of Eliquis. I did relay this to the medicine team today over the phone.
[2025-02-21] MEDS: MELATONIN 3 MG TABLET PO (20:13)
[2025-02-22 05:35] VITALS: BP 138/69; PULSE 69; RESP 16; TEMP 36.1; O2SAT 100
[2025-02-22 06:14] LABS: Hematocrit 26.7 % (37-47); Hemoglobin 8.5 g/dL (12.0-15.0); Immature Granulocytes Count 0.040 X10^3/uL (0.0-0.0); Mean Corp Hgb Conc 31.8 g/dL (32-36); Mean Corpuscular Volume 90.5 fL (81-99); Mean Platelet Vol. 11.1 fl (6.2-12.0); NRBC Flagged by Analyzer 0 % (0-5); Platelet Count 181 K/mm3 (150-450); RBC Distribution Width CV 14.3 % (11.6-14.6); RBC Distribution Width SD 47.1 fl (35.1-43.9); Red Blood Count 2.95 M/mm3 (4.2-5.4); White Blood Count 5.7 K/mm3 (4.4-11.0)
[2025-02-22 06:54] LABS: Anion Gap 10 (7-18); BUN 13 mg/dL (4-19); BUN/Creat Ratio 16.7 RATIO (10-20); Calcium,Total 8.6 mg/dL (7.6-11.0); Carbon Dioxide 27.7 mmol/L (20.0-29.0); Chloride 105 mmol/L (96-106); Estimated Creatinine Clearance 56.76 ml/min (50-250); Glucose 136 mg/dL (70-99); Potassium 4.0 mmol/L (3.5-5.1)
--- NOTE | 2025-02-22 07:18 | PCM.PN.HOSP ---
Reason for Visit Chief Complaint: Fall with right leg pain Subjective Subjective Patient seen much more interactive compared to previous day patient hemoglobin did come up to 8.5.. Patient is much more interactive compared to previous day. Awaiting insurance precertification prior to patient being transferred to group home. Objective Data Objective Data Vital Signs: Vital Signs Temp Pulse Resp BP Pulse Ox O2 Del Method O2 Flow Rate 97 F L 69 16 138/69 H 100 Room Air 2 02/22/25 05:35 02/22/25 05:35 02/22/25 05:35 02/22/25 05:35 02/22/25 05:35 02/22/25 05:35 02/21/25 03:00 Oxygen Flow Rate (L/min) 2 Oxygen Delivery Method Room Air Weight: 86.2 kg Body Mass Index (BMI) 31.6 Intake & Output: Intake and Output for Last 24 Hours 02/20/25 02/21/25 02/22/25 23:59 23:59 23:59 Intake Total 1230 / 1330 1355.5 / 1355.5 Output Total 1775 / 1875 750 / 750 1999 Balance -545 / -545 605.5 / 605.5 -1999 Lab / Micro Data 02/22/25 05:51 02/22/25 05:51 Labs: Laboratory Results - last 24 hr 02/21/25 07:34: Blood Type O POSITIVE, Antibody Screen NEGATIVE, Crossmatch See Detail 02/21/25 11:05: POC Glucose 219 H 02/21/25 16:32: POC Glucose 104 02/21/25 19:56: POC Glucose 163 H 02/22/25 05:51: WBC 5.7, RBC 2.95 L, Hgb 8.5 L, Hct 26.7 L, MCV 90.5, MCH 28.8, MCHC 31.8 L, RDW Std Deviation 47.1 H, RDW Coeff of Gerry 14.3, Plt Count 181, MPV 11.1, Immature Gran % (Auto) 0.700, Neut % (Auto) 63.8, Lymph % (Auto) 17.8 L, [place] % (Auto) 12.3 H, Eos % (Auto) 4.7, Baso % (Auto) 0.7, Absolute Neuts (auto) 3.6, Absolute Lymphs (auto) 1.01, Nucleated RBC % 0, Sodium 143, Potassium 4.0, Chloride 105, Carbon Dioxide 27.7, Anion Gap 10, BUN 13, Creatinine 0.76, Estim Creat Clear Calc 56.76, Est GFR (MDRD) Non-Af 78, BUN/Creatinine Ratio 16.7, Glucose 136 H, Calcium 8.6 02/22/25 05:56: POC Glucose 113 H Micro: Microbiology 02/19/25 13:45 Urine Catheter - Catheter Urine Culture - Final Culture exhibits no growth. 02/19/25 10:43 Mucosa - Nasopharyngeal Coronavirus COVID-19 PCR - Final 02/19/25 10:43 Mucosa - Nasopharyngeal Respiratory Panel (PCR) - Final Physical Exam Narrative GENERAL: cooperative HEENT: Atraumatic; normocephalic EYES; Anicteric, Normal Conjunctiva NECK; supple, normal thyroid, RESPIRATORY: Diminished to auscultation CARDIOVASCULAR: Regular S1 S2, GI: soft, normoactive bowel sounds, : No Renal angle tenderness; EXTREMITIES: No edema, no clubbing, MUSCULOSKELETAL: no muscle wasting NEURO: Awake; no lateralizing signs. SKIN: No Rash PSYCH; Flat affect Assessment & Plan Assessment/Plan (1) Femur fracture, right: PLAN: Plan Patient is an 84-year-old lady who presented to the ED following a fall. Imaging studies demonstrated right distal femur fracture admitted to regular nursing floor with consult placed to Ortho 1. Distal right femur fracture ? Patient presented with a fall imaging studies did show Acute mildly displaced periprosthetic fracture of the distal right femur. Total knee arthroplasty hardware appears intact.. Patient admitted to monitored bed manage with immobilization consult placed to Ortho. Patient preop evaluation regarding risk as documented by admitting physician ? 02/18/2025; patient underwent Open reduction retrograde nail right periprosthetic supracondylar femur fracture by Dr. Gaston ? 02/20/2025; plan is for patient to be discharged to group home facility to continue with her rehab ? 02/22/2025; transferred to group home facility. 2. Postop delirium ? Patient had episodes of delirium during the night. Was placed on Seroquel 25 mg p.o. twice daily. Patient still remains delirious ordered an infectious workup with a chest x-ray urinalysis viral respiratory panel as well as COVID ? 02/22/2025; patient delirium resolved 3. Paroxysmal A-fib ? 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 Hypertension ? Blood pressure controlled, home medications continued with dose adjustment as needed 6. Diabetes mellitus type II -patient's oral hypoglycemics held. Placed on long acting insulin, Accu-Cheks a.c. and at bedtime and covered with sliding scale insulin 7. Diabetic polyneuropathy ? Patient is on gabapentin did continue 8. Generalized osteoarthritis ? With remote history of bilateral knee replacement 9. Depression with anxiety ? Patient is on buspirone 10. Dyslipidemia ?Patient is on statin therapy, continued at home dose 11. Chronic back pain ? Did continue patient pain regimen 12. DVT prophylaxis ? SCDs for now ? 02/19/2025; started on heparin 5000 unit Q8 13. Anemia ? 02/21/2024 secondary to acute blood loss anemia from right femur fracture as well as postop losses. Monitoring H&H with plans to transfuse if hemoglobin drops below 7 or patient is found to be symptomatic. With patient count dropping to 7.1 patient was placed on parenteral iron H&H repeated for am ? 02/21/2025; with patient hemoglobin dropping to 6.7 and order was given for patient to be transfused 1 unit PRBC ? 02/22/2025; hemoglobin up to 8.5 14. Thrombocytopenia ? Will continue with monitoring with low propensity to discontinue heparin Time spent in the patient's overall evaluation,decision-making process, review of diagnostic data, adjustment of management, discussion with other providers, nursing nursing and ancillary staff involved in patient's care documentation, 35 Minutes Charges/Coding Visit Charges Inpatient E&M: 21008 Subs Hosp L2
[2025-02-22 08:35] VITALS: BP 136/80; PULSE 77; RESP 16; TEMP 36.6; O2SAT 98
[2025-02-22] MEDS: Na Biphos/Potassium Phosphate PACKET 1 PACKET PO (09:28)
[2025-02-22] MEDS: APIXABAN 5 MG TABLET PO (09:28)
[2025-02-22 09:29] VITALS: PULSE 77
[2025-02-22] MEDS: Cholecalciferol (VIT D3) 25 MCG TABLET (1,000 UNITS) 50 MCG PO (09:29)
[2025-02-22] MEDS: Metoprolol(XL)Succ 25 MG Tablet PO (09:29)
[2025-02-22] MEDS: Senna/Docusate Sodium 1 Tablet 2 TABLET PO (09:29)
[2025-02-22] MEDS: Polyethylene Glycol 3350 17 GM PACKET PO (09:36)
--- NOTE | 2025-02-22 14:24 | CASEMGMT ---
[facility] has obtained auth to admit. SW updated. Jane Fernandez DC Planning Asst.
--- NOTE | 2025-02-22 14:41 | PCM.TXEXTCAR ---
Diet Diet Order/Speech Therapy: INPATIENT Hospital Diet / Speech Therapy Order(s) 02/21/25 19:24 Diet: Consistent Carb - Calorie Controlled Type of Dietary Supplement:: Ensure Clear Diet Comments: 120mL ensure clear with all meals How many daily calories?: 2000 calorie Routine Orders/Code Status Code Status: DNRCC-A DC O2, CPAP, BIPAP needs Home O2 Discharge instructions: No Wound(s) right leg: Wound Type: Surgical Incision r knee: Wound Type: Surgical Incision RT UPPER THIGH: Wound Type: Surgical Incision left arm: Wound Type: Abrasion rt foot: Wound Type: Abrasion left foot: Wound Type: Abrasion Therapies Physical Therapy: Eval and Treat Occupational Therapy: Eval and Treat Problem/Diagnosis (1) Femur fracture, right: Status: Acute Code(s): S72.91XA - Unspecified fracture of right femur, initial encounter for closed fracture Plan Patient is an 84-year-old lady who presented to the ED following a fall. Imaging studies demonstrated right distal femur fracture admitted to regular nursing floor with consult placed to Ortho 1. Distal right femur fracture ? Patient presented with a fall imaging studies did show Acute mildly displaced periprosthetic fracture of the distal right femur. Total knee arthroplasty hardware appears intact.. Patient admitted to monitored bed manage with immobilization consult placed to Ortho. Patient preop evaluation regarding risk as documented by admitting physician ? 02/18/2025; patient underwent Open reduction retrograde nail right periprosthetic supracondylar femur fracture by Dr. Gaston ? 02/20/2025; plan is for patient to be discharged to senior living facility to continue with her rehab ? 02/22/2025; transferred to senior living facility. 2. Postop delirium ? Patient had episodes of delirium during the night. Was placed on Seroquel 25 mg p.o. twice daily. Patient still remains delirious ordered an infectious workup with a chest x-ray urinalysis viral respiratory panel as well as COVID ? 02/22/2025; patient delirium resolved 3. Paroxysmal A-fib ? 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 Hypertension ? Blood pressure controlled, home medications continued with dose adjustment as needed 6. Diabetes mellitus type II -patient's oral hypoglycemics held. Placed on long acting insulin, Accu-Cheks a.c. and at bedtime and covered with sliding scale insulin 7. Diabetic polyneuropathy ? Patient is on gabapentin did continue 8. Generalized osteoarthritis ? With remote history of bilateral knee replacement 9. Depression with anxiety ? Patient is on buspirone 10. Dyslipidemia ?Patient is on statin therapy, continued at home dose 11. Chronic back pain ? Did continue patient pain regimen 12. DVT prophylaxis ? SCDs for now ? 02/19/2025; started on heparin 5000 unit Q8 13. Anemia ? 02/21/2024 secondary to acute blood loss anemia from right femur fracture as well as postop losses. Monitoring H&H with plans to transfuse if hemoglobin drops below 7 or patient is found to be symptomatic. With patient count dropping to 7.1 patient was placed on parenteral iron H&H repeated for am ? 02/21/2025; with patient hemoglobin dropping to 6.7 and order was given for patient to be transfused 1 unit PRBC ? 02/22/2025; hemoglobin up to 8.5 14. Thrombocytopenia ? Will continue with monitoring with low propensity to discontinue heparin Time spent in the patient's overall evaluation,decision-making process, review of diagnostic data, adjustment of management, discussion with other providers, nursing nursing and ancillary staff involved in patient's care documentation, 35 Minutes Allergies/Procedures Done in Hospital Allergies amoxicillin Allergy (Intermediate, Verified 02/16/25 17:37) Rash latex Allergy (Intermediate, Verified 02/16/25 17:37) Other Sulfa (Sulfonamide Antibiotics) Allergy (Verified 02/16/25 17:37) Rash tizanidine (From Zanaflex) Adverse Reaction (Verified 02/16/25 17:37) Other confusion/restlessness Type of Care/Length of Stay Estimated LOS: Convalescent Care Less Than 30 days Type of Care Needed: Skilled Rehab Potential: Good Prognosis: Good Additional Orders/Day of Discharge Day of Discharge: 02/22/25 Dietary and Speech Recommendations Dietitian Recommendations/Changes: Recommend advance diet as tolerated to 1800 calorie; consistent carbohydrate/cardiac. Ensure surgery is out of stock; will adjust to 120mL ensure clear 3 times per day w/ clear liquid meal trays. Change ensure clear to ensure plus HP as diet advanced to solid food. Discharge Plan Admission Admit Date/Time: 02/16/25 18:47 Attending Provider: Hudson Aly Primary Care Provider: Pradip Braga Consulting Providers: Benito Gaston; Neil Ziegler Discharge Orders/Prescriptions Prescriptions: New polysaccharide iron complex [Ferrex 150] 150 mg iron Capsule 150 mg PO DAILY Qty: 0 0RF sennosides-docusate sodium [Stimulant Laxative Plus] 8.6-50 mg Tablet 2 tab PO BID Qty: 0 0RF melatonin 3 mg Tablet 3 mg PO QHS PRN PRN (Reason: Insomnia) Qty: 0 0RF potassium, sodium phosphates 280-160-250 mg Powder In Packet 1 packet PO BID Qty: 0 0RF tramadol 50 mg Tablet 50 mg PO Q6H PRN PRN (Reason: Pain Score 4-10) 2 Days Qty: 8 0RF methocarbamol 750 mg Tablet 750 mg PO 4X/DAY PRN PRN (Reason: Muscle Spasm) Qty: 0 0RF Continued ascorbate calcium (vitamin C) 500 mg tablet 500 mg PO DAILY nitroglycerin [Nitrostat] 0.4 mg tablet, sublingual 0.4 mg SUBLINGUAL Q5M PRN (Reason: chest pain) Qty: 25 3RF Rx Instructions: do not exceed 3 doses per episode cholecalciferol (vitamin D3) 50 mcg (2,000 unit) tablet 50 mcg PO BID vitamin B complex Tablet 1 tab PO DAILY coenzyme Q10 [CoQ-10] 100 mg capsule 100 mg PO DAILY insulin glargine [Lantus Solostar U-100 Insulin] 100 unit/mL (3 mL) insulin pen 14 unit SUBCUT DAILY glimepiride 4 mg tablet 4 mg PO BID gabapentin 300 mg capsule 300 mg PO BID PRN (Reason: NERVE PAIN) acetaminophen 500 mg capsule 1,000 mg PO BID duloxetine 60 mg capsule,delayed release(DR/EC) 60 mg PO DAILY Eliquis 5 mg Tablet 5 mg PO BID Qty: 0 0RF metoprolol succinate 25 mg Tablet Extended Release 24 Hr 25 mg PO DAILY Qty: 30 0RF buspirone 7.5 mg tablet 7.5 mg PO BID atorvastatin 40 mg tablet 40 mg PO DAILY Qty: 90 3RF Discontinued tramadol 50 mg Tablet 50 mg PO TID PRN (Reason: Back Pain) Referrals / Follow Up: Pradip Braga MD [Primary Care Provider, Family Practice] - Within 2 Weeks Benito Gaston MD [Med Staff - Active Staff, Orthopedics] - Within 2 Weeks Disposition Disposition (needs filled in before D/C Order can be placed): Care Home Facility
--- NOTE | 2025-02-22 14:43 | DS.PCM_ITS ---
Providers Date of Admission: 02/16/25 Date of Discharge: 02/22/25 Primary Care Physician: Dr. Pradip Braga MD Consultations 02/16/25 19:20 Consult: Orthopedics Routine Consulting Provider: Benito Gaston Reason for Consult: right distal femur fracture EMERGENT Consult: No MD Notified: Yes Date Notified: 02/16/25 Time Notified: 20:45 Method of Notification: ED Physician Initiated Reason For Visit: FALL WITH RIGHT DISTAL FEMUR FRACTURE Diagnosis Discharge Diagnosis (1) Femur fracture, right: Status: Acute Code(s): S72.91XA - Unspecified fracture of right femur, initial encounter for closed fracture Plan Patient is an 84-year-old lady who presented to the ED following a fall. Imaging studies demonstrated right distal femur fracture admitted to regular nursing floor with consult placed to Ortho 1. Distal right femur fracture ? Patient presented with a fall imaging studies did show Acute mildly displaced periprosthetic fracture of the distal right femur. Total knee arthroplasty hardware appears intact.. Patient admitted to monitored bed manage with immobilization consult placed to Ortho. Patient preop evaluation regarding risk as documented by admitting physician ? 02/18/2025; patient underwent Open reduction retrograde nail right periprosthetic supracondylar femur fracture by Dr. Gaston ? 02/20/2025; plan is for patient to be discharged to intermediate facility to continue with her rehab ? 02/22/2025; transferred to intermediate facility. 2. Postop delirium ? Patient had episodes of delirium during the night. Was placed on Seroquel 25 mg p.o. twice daily. Patient still remains delirious ordered an infectious workup with a chest x-ray urinalysis viral respiratory panel as well as COVID ? 02/22/2025; patient delirium resolved 3. Paroxysmal A-fib ? 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 Hypertension ? Blood pressure controlled, home medications continued with dose adjustment as needed 6. Diabetes mellitus type II -patient's oral hypoglycemics held. Placed on long acting insulin, Accu-Cheks a.c. and at bedtime and covered with sliding scale insulin 7. Diabetic polyneuropathy ? Patient is on gabapentin did continue 8. Generalized osteoarthritis ? With remote history of bilateral knee replacement 9. Depression with anxiety ? Patient is on buspirone 10. Dyslipidemia ?Patient is on statin therapy, continued at home dose 11. Chronic back pain ? Did continue patient pain regimen 12. DVT prophylaxis ? SCDs for now ? 02/19/2025; started on heparin 5000 unit Q8 13. Anemia ? 02/21/2024 secondary to acute blood loss anemia from right femur fracture as well as postop losses. Monitoring H&H with plans to transfuse if hemoglobin drops below 7 or patient is found to be symptomatic. With patient count dropping to 7.1 patient was placed on parenteral iron H&H repeated for am ? 02/21/2025; with patient hemoglobin dropping to 6.7 and order was given for patient to be transfused 1 unit PRBC ? 02/22/2025; hemoglobin up to 8.5 14. Thrombocytopenia ? Will continue with monitoring with low propensity to discontinue heparin Time spent in the patient's overall evaluation,decision-making process, review of diagnostic data, adjustment of management, discussion with other providers, nursing nursing and ancillary staff involved in patient's care documentation, 35 Minutes Medications at Discharge Home Medications ascorbate calcium (vitamin C) 500 mg tablet 500 mg PO DAILY supplement 08/27/19 nitroglycerin 0.4 mg sublingual tablet (Nitrostat) 0.4 mg sublingual Q5M PRN chest pain #25 tabs 08/27/19 atorvastatin 40 mg tablet 40 mg PO DAILY CHOLESTEROL #90 tabs 10/22/19 cholecalciferol (vitamin D3) 50 mcg (2,000 unit) tablet 50 mcg PO BID supplement 07/10/20 vitamin B complex 1 tab PO DAILY supplement 07/10/20 insulin glargine 100 unit/mL (3 mL) subcutaneous pen (Lantus Solostar U-100 Insulin) 14 unit subcut DAILY diabetes 12/12/22 glimepiride 4 mg tablet 4 mg PO BID diabetes 08/15/23 coenzyme Q10 100 mg capsule (CoQ-10) 100 mg PO DAILY supplement 10/03/23 gabapentin 300 mg capsule 300 mg PO BID PRN NERVE PAIN 10/03/23 acetaminophen 500 mg capsule 1,000 mg PO BID pain 10/28/23 duloxetine 60 mg capsule,delayed release 60 mg PO DAILY mental health 12/27/24 apixaban 5 mg tablet (Eliquis) 5 mg PO BID #0 tabs 12/29/24 metoprolol succinate 25 mg tablet,extended release 24 hr 25 mg PO DAILY #30 tabs 12/29/24 buspirone 7.5 mg tablet 7.5 mg PO BID mental health 01/11/25 melatonin 3 mg tablet 3 mg PO QHS PRN PRN Insomnia #0 tabs 02/22/25 methocarbamol 750 mg tablet 750 mg PO 4X/DAY PRN PRN Muscle Spasm #0 tabs 02/22/25 polysaccharide iron complex 150 mg iron capsule (Ferrex) 150 mg PO DAILY #0 caps 02/22/25 potassium, sodium phosphates 280 mg-160 mg-250 mg oral powder packet 1 packet PO BID #0 ea 02/22/25 sennosides 8.6 mg-docusate sodium 50 mg tablet (Stimulant Laxative Plus) 2 tab PO BID #0 tabs 02/22/25 tramadol 50 mg tablet 50 mg PO Q6H PRN PRN Pain Score 4-10 2 days #8 tabs 02/22/25 Physical Exam Narrative GENERAL: cooperative HEENT: Atraumatic; normocephalic EYES; Anicteric, Normal Conjunctiva NECK; supple, normal thyroid, RESPIRATORY: Diminished to auscultation CARDIOVASCULAR: Regular S1 S2, GI: soft, normoactive bowel sounds, : No Renal angle tenderness; EXTREMITIES: No edema, no clubbing, MUSCULOSKELETAL: no muscle wasting NEURO: Awake; no lateralizing signs. SKIN: No Rash PSYCH; Flat affect Weight / BMI Weight Weight: 86.2 kg Body Mass Index (BMI) 31.6 ABG / Lab / Microbiology Data 02/22/25 05:51 02/22/25 05:51 Laboratory: Laboratory Results - last 24 hr 02/21/25 07:34: Crossmatch See Detail 02/21/25 16:32: POC Glucose 104 02/21/25 19:56: POC Glucose 163 H 02/22/25 05:51: WBC 5.7, RBC 2.95 L, Hgb 8.5 L, Hct 26.7 L, MCV 90.5, MCH 28.8, MCHC 31.8 L, RDW Std Deviation 47.1 H, RDW Coeff of Gerry 14.3, Plt Count 181, MPV 11.1, Immature Gran % (Auto) 0.700, Neut % (Auto) 63.8, Lymph % (Auto) 17.8 L, M ines % (Auto) 12.3 H, Eos % (Auto) 4.7, Baso % (Auto) 0.7, Absolute Neuts (auto) 3.6, Absolute Lymphs (auto) 1.01, Nucleated RBC % 0, Sodium 143, Potassium 4.0, Chloride 105, Carbon Dioxide 27.7, Anion Gap 10, BUN 13, Creatinine 0.76, Estim Creat Clear Calc 56.76, Est GFR (MDRD) Non-Af 78, BUN/Creatinine Ratio 16.7, G lucose 136 H, Calcium 8.6 02/22/25 05:56: POC Glucose 113 H 02/22/25 11:35: POC Glucose 245 H Microbiology: Microbiology 02/19/25 13:45 Urine Catheter - Catheter Urine Culture - Final Culture exhibits no growth. 02/19/25 10:43 Mucosa - Nasopharyngeal Coronavirus COVID-19 PCR - Final 02/19/25 10:43 Mucosa - Nasopharyngeal Respiratory Panel (PCR) - Final D/C Instructions DC O2, CPAP, BIPAP Needs Home O2 Discharge instructions: No Patient's Goals Of Care - F/U Goals Reviewed Goals of care reviewed with patient: Yes - No change Meaningful Use Info Meaningful Use Meaningful Use Diagnoses (Choose all that apply): None applicable Discharge Plan Admission Admit Date/Time: 02/16/25 18:47 Attending Provider: Hudson Aly Primary Care Provider: Pradip Braga Consulting Providers: Benito Gaston; Neil Ziegler Discharge Orders/Prescriptions Prescriptions: New polysaccharide iron complex [Ferrex 150] 150 mg iron Capsule 150 mg PO DAILY Qty: 0 0RF sennosides-docusate sodium [Stimulant Laxative Plus] 8.6-50 mg Tablet 2 tab PO BID Qty: 0 0RF melatonin 3 mg Tablet 3 mg PO QHS PRN PRN (Reason: Insomnia) Qty: 0 0RF potassium, sodium phosphates 280-160-250 mg Powder In Packet 1 packet PO BID Qty: 0 0RF tramadol 50 mg Tablet 50 mg PO Q6H PRN PRN (Reason: Pain Score 4-10) 2 Days Qty: 8 0RF methocarbamol 750 mg Tablet 750 mg PO 4X/DAY PRN PRN (Reason: Muscle Spasm) Qty: 0 0RF Continued ascorbate calcium (vitamin C) 500 mg tablet 500 mg PO DAILY nitroglycerin [Nitrostat] 0.4 mg tablet, sublingual 0.4 mg SUBLINGUAL Q5M PRN (Reason: chest pain) Qty: 25 3RF Rx Instructions: do not exceed 3 doses per episode cholecalciferol (vitamin D3) 50 mcg (2,000 unit) tablet 50 mcg PO BID vitamin B complex Tablet 1 tab PO DAILY coenzyme Q10 [CoQ-10] 100 mg capsule 100 mg PO DAILY insulin glargine [Lantus Solostar U-100 Insulin] 100 unit/mL (3 mL) insulin pen 14 unit SUBCUT DAILY glimepiride 4 mg tablet 4 mg PO BID gabapentin 300 mg capsule 300 mg PO BID PRN (Reason: NERVE PAIN) acetaminophen 500 mg capsule 1,000 mg PO BID duloxetine 60 mg capsule,delayed release(DR/EC) 60 mg PO DAILY Eliquis 5 mg Tablet 5 mg PO BID Qty: 0 0RF metoprolol succinate 25 mg Tablet Extended Release 24 Hr 25 mg PO DAILY Qty: 30 0RF buspirone 7.5 mg tablet 7.5 mg PO BID atorvastatin 40 mg tablet 40 mg PO DAILY Qty: 90 3RF Discontinued tramadol 50 mg Tablet 50 mg PO TID PRN (Reason: Back Pain) Referrals / Follow Up: Pradip Braga MD [Primary Care Provider, Family Practice] - Within 2 Weeks Benito Gaston MD [Med Staff - Active Staff, Orthopedics] - Within 2 Weeks Disposition Disposition (needs filled in before D/C Order can be placed): [facility] Facility Charges/Coding Visit Charges Inpatient E&M: 34472 Disch Hosp >30min
--- NOTE | 2025-02-22 14:51 | PHA.DC.MR.R ---
Pharmacy [place] Med Reconciliation Pharmacy Service has performed discharge medication reconciliation for this patient. The patient's discharge medication list was reviewed for discrepancies and discrepancies were resolved. Medications at Discharge Home Medications ascorbate calcium (vitamin C) 500 mg tablet 500 mg PO DAILY supplement 08/27/19 nitroglycerin 0.4 mg sublingual tablet (Nitrostat) 0.4 mg sublingual Q5M PRN chest pain #25 tabs 08/27/19 atorvastatin 40 mg tablet 40 mg PO DAILY CHOLESTEROL #90 tabs 10/22/19 cholecalciferol (vitamin D3) 50 mcg (2,000 unit) tablet 50 mcg PO BID supplement 07/10/20 vitamin B complex 1 tab PO DAILY supplement 07/10/20 insulin glargine 100 unit/mL (3 mL) subcutaneous pen (Lantus Solostar U-100 Insulin) 14 unit subcut DAILY diabetes 12/12/22 glimepiride 4 mg tablet 4 mg PO BID diabetes 08/15/23 coenzyme Q10 100 mg capsule (CoQ-10) 100 mg PO DAILY supplement 10/03/23 gabapentin 300 mg capsule 300 mg PO BID PRN NERVE PAIN 10/03/23 acetaminophen 500 mg capsule 1,000 mg PO BID pain 10/28/23 duloxetine 60 mg capsule,delayed release 60 mg PO DAILY mental health 12/27/24 apixaban 5 mg tablet (Eliquis) 5 mg PO BID #0 tabs 12/29/24 metoprolol succinate 25 mg tablet,extended release 24 hr 25 mg PO DAILY #30 tabs 12/29/24 buspirone 7.5 mg tablet 7.5 mg PO BID mental health 01/11/25 melatonin 3 mg tablet 3 mg PO QHS PRN PRN Insomnia #0 tabs 02/22/25 methocarbamol 750 mg tablet 750 mg PO 4X/DAY PRN PRN Muscle Spasm #0 tabs 02/22/25 polysaccharide iron complex 150 mg iron capsule (Ferrex) 150 mg PO DAILY #0 caps 02/22/25 potassium, sodium phosphates 280 mg-160 mg-250 mg oral powder packet 1 packet PO BID #0 ea 02/22/25 sennosides 8.6 mg-docusate sodium 50 mg tablet (Stimulant Laxative Plus) 2 tab PO BID #0 tabs 02/22/25 tramadol 50 mg tablet 50 mg PO Q6H PRN PRN Pain Score 4-10 2 days #8 tabs 02/22/25
--- NOTE | 2025-02-22 14:53 | CASEMGMT ---
Social Work [facility] has received precert from insurance and pt can admit to [facility] today. Physician notified and pt is medically ready for discharge today. DC information technology assistant updated and to complete discharge. Disposition: [facility], skilled level of care ELIZABETH Grubbs
--- NOTE | 2025-02-22 15:34 | CASEMGMT ---
Discharge Planning Discharge orders, signed med list, and transport time sent via [facility] to [facility]. Physicians will transport pt by cot at 7p. Nursing, SW, pt, and her daughter (Salud) updated. Jane Fernandez DC Planning Asst.
[2025-02-22 16:26] VITALS: BP 132/52; PULSE 71; RESP 18; TEMP 36.9; O2SAT 97
--- NOTE | 2025-02-22 17:49 | NURSING ---
Called report to [facility], talked to Mary,all questions answered. No other questions.
== END 2025-02-22 19:35 | disposition skilled nursing facility (03) | DRG 481 ==
LOC: ED 18:45 → PCU 19:00
PROVIDERS: Nurse Anesthetist, Certified Registered; Specialist; Admitting Provider Hospitalist; Emergency Provider Emergency Medicine; PCP Family Medicine; Visit Provider Internal Medicine
PROC: 0QSB06Z Reposition Right Lower Femur with Intramedullary Internal Fixation Device, Open Approach (ICD-10-PCS; CPT 27245; principal; 2025-02-18 07:05)
DX: S72.401A Unspecified fracture of lower end of right femur, initial encounter for closed fracture (principal); I42.0 Dilated cardiomyopathy; M97.11XA Periprosthetic fracture around internal prosthetic right knee joint, initial encounter; D62 Acute posthemorrhagic anemia; F05 Delirium due to known physiological condition; J98.11 Atelectasis; D63.8 Anemia in other chronic diseases classified elsewhere; I44.1 Atrioventricular block, second degree; D69.6 Thrombocytopenia, unspecified; Z66 Do not resuscitate; E11.42 Type 2 diabetes mellitus with diabetic polyneuropathy; I10 Essential (primary) hypertension; E66.811 Obesity, class 1; I48.0 Paroxysmal atrial fibrillation; F41.8 Other specified anxiety disorders; W19.XXXA Unspecified fall, initial encounter; K21.9 Gastro-esophageal reflux disease without esophagitis; E78.5 Hyperlipidemia, unspecified; I25.10 Atherosclerotic heart disease of native coronary artery without angina pectoris; I25.2 Old myocardial infarction; Z79.4 Long term (current) use of insulin; S70.01XA Contusion of right hip, initial encounter; M54.9 Dorsalgia, unspecified; M15.9 Polyosteoarthritis, unspecified; S40.812A Abrasion of left upper arm, initial encounter; S90.811A Abrasion, right foot, initial encounter; S90.812A Abrasion, left foot, initial encounter; Y92.009 Unspecified place in unspecified non-institutional (private) residence as the place of occurrence of the external cause; R53.81 Other malaise; G89.29 Other chronic pain; Z79.01 Long term (current) use of anticoagulants; Z95.0 Presence of cardiac pacemaker; Z95.5 Presence of coronary angioplasty implant and graft; Z79.899 Other long term (current) drug therapy; Z79.84 Long term (current) use of oral hypoglycemic drugs; Z68.33 Body mass index [BMI] 33.0-33.9, adult; Z96.653 Presence of artificial knee joint, bilateral
CPT/HCPCS: 36415; 51702; 71045; 73502; 73552; 73560; 76000; 80048; 80053; 81001; 82962; 83540; 83550; 83735; 84100; 85025; 85027; 85610; 85730; 86850; 86900; 86901; 87086; 87633; 87635; 93005; 94668; 97110; 97116; 97163; 97167; 97530; 97535; 99285; C1713; P9016; A4216; J2405; J2916